=== PATIENT | female | born 1980 | race Caucasian/White ===

== ENCOUNTER 2025-01-30 07:31 | Emergency (ER) | payer OTHER, SELFPAY ==
[2025-01-30] VITALS (10 sets, daily range): BP systolic 124–163; BP diastolic 65–86; PULSE 71–94; RESP 15–18; TEMP 36.5–36.6; O2SAT 92–100
--- OUTSIDE RECORDS SUMMARY | 2025-01-30 07:53 | XMS_ITS | Clinical Summary ---
Author Organization [facility] Address [address] [place] [address] Care Team Providers Care Economic Geographer Name Role Phone Oswaldo Ayoub MD Primary Care Provider [phone] Source Comments [facility],non-owned Affiliates and Associated Physician Practices is amultiple site organization consisting of ambulatory clinics and hospital sitesin [place], [place], [place] and [place]. This disclosure is being madepursuant to the Care Everywhere program and may not contain all information available regarding this patient. Last updated 18.[facility] [facility] Allergies No known active allergies Medications * Be aware that medications may not be up to date on this document. Alwaysverify current medications with the patient. escitalopram (Lexapro) 20 MG tablet Take 1 (one) tablet by mouth once daily Active vitamin D3 (Cholecalcifero l) 25 MCG (1000 UNITS) tablet Take 1 (one) tablet by mouth once daily Active valACYclovir (Valtrex) 500 MG tablet Take by mouth once daily Active multivitamin daily tablet Take 1 (one) tablet by mouth daily with food Active Melatonin 10 MG Take 10 (ten) mg by mouth at bedtime Active Active Problems Problem Noted Date Diagnosed Date Hypokalemia 05/20/2024 Acute abdominal pain 05/20/2024 Hyperglycemia 05/20/2024 Nausea and vomiting, unspecified vomiting type 0 05/20/2024 Social History Tobacco Use Types Packs/Day Years Used Date Smoking Tobacco: Never Assessed Comments Unknown Sex and Gender Information Value Date Recorded Sex Assigned at Not on file Legal Sex Female 5:56 AM CDT Gender Identity Not on file Sexual Orientation Not on file Last Filed Vital Signs Vital Sign Reading Time Taken Comments Blood Pressure 133/58 05/21/2024 7:33 AM CDT Pulse 69 05/21/2024 11:42 AM CDT Temperature 36.6 C (97.9 F) 05/21/2024 7:33 AM CDT Respiratory Rate 18 05/21/2024 7:33 AM CDT Oxygen Saturation 99% 05/21/2024 7:33 AM CDT Inhaled Oxygen Concentration - - Weight 119.9 kg (264 lb 6.4 oz) 05/20/2024 1:26 PM CDT Height 180.3 cm (5' 11 ) 05/20/2024 1:26 PM CDT Body Mass Index 36.88 05/20/2024 1:26 PM CDT Plan of Treatment Health Maintenance Due Date Last Done Comments COLOGUARD (AGES 45-75) - COLON CA SCREENING [address] COLONOGRAPHY - COLON CA SCREENING 1979 FIT - COLON CA SCREENING 1979 FLEX SIG - COLON CA SCREENING 1979 LIPID TESTING 1979 PAP SMEAR 1979 HIV SCREENING 1994 HEPATITIS C SCREENING 07/12/1997 DTAP/TDAP/TD VACCINES (1 - Tdap) 1998 HEPATITIS B VACCINE (1 of 3 - 19+ 3-dose series) 1998 COVID-19 VACCINE (2 - season) 2024 06/26/2021 DEPRESSION SCREENING 09/26/2024 INFLUENZA VACCINE (Season Ended) 2025 MAMMOGRAM 09/30/2025 09/30/2023, 01/2024, 09/08/2022, Additional history exists ZOSTER VACCINE (1 of 2) 2029 COLONOSCOPY - COLON CA SCREENING 01/12/2033 01/12/2023 Colorectal Cancer Screening 01/12/2033 HIB VACCINE Aged Out No longer eligi ble based on patient's age to complete this topic HPV VACCINE Aged Out No longer eligi ble based on patient's age to complete this topic MENINGOCOCCAL (Group B) VACCINE SHARED DECISION-MAKING Aged Out No longer eligible based on patient's age to complete this topic MENINGOCOCCAL GROUPS A/C/Y/W VACCINE Aged Out No longer eligible based on patient's age to complete this topic PNEUMOCOCCAL VACCINE Aged Out No long er eligible based on patient's age to complete this topic Insurance Advance Directives * Full Code (Latest Code Status on File) Date Activated Date Inactivated Comments 05/20/2024 12:07 PM 05/21/2024 4:31 PM Care Teams Economic Geographer Relationship Specialty Start Date End Date Oswaldo Ayoub MD [address] [place] [address] PCP - General Family Medicine 05/21/24
--- OUTSIDE RECORDS SUMMARY | 2025-01-30 07:53 | XMS_ITS | Clinical Summary ---
Author Organization [facility], formerly [facility] Address [address] [place] [address] Care Team Providers Care Predatory Animal Hunter Name Role Phone Oswaldo Ayoub MD Primary Care Provider [phone] Allergies No known active allergies Medications melatonin 10 mg tablet Take 1 tablet (10 mg total) by mouth nightly Active multivitamin capsule Take 1 capsule by mouth nightly Active cholecalciferol (VITAMIN D-3) 1,000 unit capsule Take 1 capsule (1,000 Units total) by mouth nightly Active promethazine (PHENERGAN) 25 mg tablet Take 1 tablet (25 mg total) by mouth every 6 (six) hours as needed for nausea or vomiting 30 tablet 04/06/20 23 Active meloxicam (MOBIC) 15 mg tablet Take 1 tablet (15 mg total) by mouth daily as needed for pain Active NALTREXONE, BULK, MISC Take 4.5 mg by mouth daily 05/27/20 24 Active ferrous bis-glycinate chelate (IRON BISGLYCINATE CHELATE ORAL) Take 25 mg by mouth nightly Active aspirin 81 mg enteric coated tablet Take 1 tablet (81 mg total) by mouth 2 (two) times a day Active ALPRAZolam (XANAX) 0.5 mg tablet Take 1 tablet (0.5 mg total) by mouth daily as needed for anxiety Active famotidine (PEPCID) 10 mg tablet Take 1 tablet (10 mg total) by mouth 2 (two) times a day 60 tablet 10/25/19 25 026 Active Additional Information Patient taking differently:10 mg oralDaily, Reported on 01/15/2025 metoclopramide (REGLAN) 10 mg tablet Take 1 tablet (10 mg total) by mouth every 6 (six) hours as needed (nausea) 15 tablet 11/12/19 25 Active valACYclovir (VALTREX) 500 mg tablet TAKE 1 TABLET(500 MG) BY MOUTH DAILY 100 tablet 11/30/19 25 Active escitalopram (LEXAPRO) 20 mg tablet Take 1 tablet (20 mg total) by mouth nightly 90 tablet 3 01/01/20 25 Active ARIPiprazole (ABILIFY) 2 mg tabletIndication s:AARON (generalized anxiety disorder) Take 1 tablet (2 mg total) by mouth daily 30 tablet 01/16/20 25 Active ubrogepant (Ubrelvy) 100 mg tabletIndication s:Migraine without aura and without status migrainosus, not intractable Take 1 tablet (100 mg total) by mouth once as needed for migraine May repeat dose once in 2 hours if no relief. Do not exceed 2 doses in 24 hours. 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 Xanax 0.5 mg taken daily, though initially prescribed as needed. Discussed potential switch to Zoloft, but she is hesitant as has previously failed on Prozac. Considered adding Abilify to enhance treatment efficacy. Discussed potential side effects of Abilify. Advised to monitor for worsening symptoms and seek emergency care if necessary. Informed about possible opposite reactions to medications. - Prescribe Abilify 2mg daily as an adjunct to Lexapro. - Follow up in one month to assess efficacy of Abilify, virtual appointment acceptable. Assessment & Plan (06/01/2023 2:11 PM CDT): Continue Lexapro 20mg daily May need more time on the higher dose before determining if truly effective Assessment & Plan (05/09/2023 10:36 AM CDT): Worsening Increase Lexapro to 20mg Consider adding wellbutrin if still not improving. Hypokalemia 03/31/2023 Overview (05/09/2023): Last Assessment & Plan: Admission serum K 3.3 in setting of poor PO intake. 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 -repeat colonoscopy December 2027 Abnormal finding on GI tract imaging 11/18/2022 Assessment & Plan (02/24/2023 9:51 AM CDT): CT scan of the abdomen and pelvis with contrast showed new circumferential thickening of the distal esophagus. EGD December 2022 with LA grade a esophagitis and irregular Z-line, pathology unremarkable. Assessment & Plan (11/18/2022 10:23 AM COMPLEX CASE MANAGER): CT scan of the abdomen and pelvis with contrast showed new circumferential thickening of the distal esophagus, decreased descending and sigmoid colon wall thickening and inflammatory stranding with mild persistent segment wall thickening most consistent with improving diverticulitis/colitis, no perforation or abscess, unchanged small hiatal hernia. -schedule EGD -The risks (risks of bleeding, infection, perforation requiring surgery, missed polyps/cancer, dental injury, aspiration pneumonia, anesthesia complications such as drug reaction and cardiopulmonary complications including rare chance of ), benefits, and alternatives of the planned procedure were explained to the patient who understands and consents to having procedure done. Gastroesophageal reflux disease without esophagi tis 11/18/2022 Assessment & Plan (02/24/2023 10:02 AM CDT): GERD for the past year, improved with dietary changes. EGD December 2022 with LA grade A esophagitis. Patient completed 4 weeks of PPI and then stopped has symptoms resolved. -Pepcid OTC p.r.n. -RECOMMENDATIONS given include: anti-reflux maneuvers, Avoid acidic foods like oranges and tomatoes., avoidance of spicy foods, avoid eating 3-4 hours before bed, elevation of the head of the bed, and weight loss Assessment & Plan (11/18/2022 10:50 AM COMPLEX CASE MANAGER): GERD for the past year, seems to be getting progressively worse. -start omeprazole 20 mg p.o. daily -RECOMMENDATIONS given include: anti-reflux maneuvers, Avoid acidic foods like oranges and tomatoes., avoidance of spicy foods, avoid eating 3-4 hours before bed, elevation of the head of the bed, and weight loss Migraine without aura and wi thout status migrainosus, not intractable 05/27/2022 Assessment & Plan (01/15/2025 12:11 PM CDT): Migraine Intermittent migraines managed with Nurtec, now not covered by insurance. Uses approximately 8 tablets every 2-3 months. Discussed alternative medications. Ubrelvy chosen as similar to Nurtec. - Prescribe Ubrelvy as needed for migraines. - Advise to take one Ubrelvy at onset of migraine, may repeat in 1-2 hours if needed, not to exceed two doses in 24 hours. - If Ubrelvy is ineffective, consider ER visit for migraine cocktail. Assessment & Plan (06/01/2023 2:11 PM CDT): Stable, no changes. Continue current regimen with Nurtec PRN; Excedrin PRN Assessment & Plan (08/23/2022 1:43 PM COMPLEX CASE MANAGER): Stable, no changes. Continue current regimen with Nurtec AARON (generalized anxiety disorder) 07/03/2021 Assessment & Plan (01/15/2025 12:10 PM CDT): Depression and anxiety Chronic depression and anxiety managed with Lexapro 20 mg daily. Xanax 0.5 mg taken daily, though initially prescribed as needed. Discussed potential switch to Zoloft, but she is hesitant as has previously failed on Prozac. Considered adding Abilify to enhance treatment efficacy. Discussed potential side effects of Abilify. Advised to monitor for worsening symptoms and seek emergency care if necessary. Informed about possible opposite reactions to medications. - Prescribe Abilify 2mg daily as an adjunct to Lexapro. - Follow up in one month to assess efficacy of Abilify, virtual appointment acceptable. Assessment & Plan (08/23/2022 1:42 PM COMPLEX CASE MANAGER): Seeing improvement with xanax Increase dose to 0.5mg - may use TID PRN, usually does not need more than 1-2 times per day and not every day Assessment & Plan (07/14/2022 9:42 AM CDT): Still worsening Tried buspar - did not work, more irritable Start low dose xanax PRN Annual physical exam 05/27/2021 Assessment & Plan (06/01/2023 2:43 PM CDT): Completed BP at goal Immunizations reviewed Mammo UTD Allergic urticaria 03/21/2019 Insomnia 11/22/2018 Obesity (BMI 30-39.9) 06/08/2017 Cervical intraepithelial neoplasia grade 2 03/11 Resolved Problems Problem Noted Date Diagnosed Date Resolved Date Abdominal pain 03/30/2023 12/14/2023 Overview (05/09/2023): Last Assessment & Plan: Acute onset with associated nausea, vomiting & diarrhea similar to prior episodes of diverticulitis (Oct, February). CT A/P w/o acute diverticulitis or GI findings but found to have pneumonia. Negative UA and LFTs. Recent EGD/colonoscopy with EGD and colonoscopy December 2022 with LA grade A esophagitis and irregular Z-line, gastritis, left-sided diverticulosis, diminutive sigmoid colon polyp, and internal hemorrhoids. Pathology with biopsies negative for H pylori and Barretts, colon polyp was noted to be a schwann cell hamartoma. No further diarrhea episodes so C diff testing not obtained. Not tolerating clear liquids and nausea and vomiting this am. KUB w/o obstruction or any acute findings. Negative lipase. Suspect cannabis hyperemesis syndrome and patient reports heavy cannabis use almost daily. No prior diagnosis of such. PLAN: -Trial hot shower, heating pain and capsaican cream to abd -Anti-emetics as needed -Pain control as needed -MIVFs until tolerating consistent PO - IV PPI given prior esophagitis/gastritis XR Abdomen 1 View Portable AP KUB No acute radiographic abnormalities in the abdomen. CT Abdomen Pelvis with Contrast 1. Airspace disease and septal thickening in the right lower lung, correlation for pulmonary edema recommended. 2. Diverticulosis of the colon. No CT evidence for diverticulitis. 3. Right adnexal cyst. Aspiration pneumonia of right lower lobe 03/30/2023 12/14/2023 Overview (05/09/2023): Last Assessment & Plan: Occurred in setting of violent vomiting. Currently requiring 3 L per NC. WBC 18K. CXR per below. Plan: -Admit as Inpatient to Hospitalist service -Antibiotic treatment with IV Unasyn -Wean O2 as able -Plan to discharge to lower altitude -F/u on Strep/Legionella urine Ag as pending CT Abdomen Pelvis with Contrast 1. Airspace disease and septal thickening in the right lower lung, correlation for pulmonary edema recommended. 2. Diverticulosis of the colon. No CT evidence for diverticulitis. 3. Right adnexal cyst. XR CXR 2V PA & Lat Hazy infiltrate in the right lower lobe suggest pneumonia. Clinical correlation recommended. Diverticulitis 11/18/2022 12/14/2023 Assessment & Plan (04/06/2023 10:17 AM CDT): She was released from GI. Discussed dietary recommendations, increased fiber. Will give promethazine and reglan to have on hand along with augmentin for flare Assessment & Plan (02/24/2023 9:50 AM CDT): Patient noted to have acute diverticulitis and was admitted to the hospital November 13, 2022. She was discharged on Augmentin and her pain resolved. Colonoscopy December 2022 left-sided diverticulosis. -high-fiber diet -avoid seeds, nuts, and popcorn Assessment & Plan (11/18/2022 10:52 AM COMPLEX CASE MANAGER): Patient started having abdominal pain, diarrhea, nausea, and vomiting on November 13, 2022. She presented to the ER on November 14, [address] scan was consistent with left-sided wall thickening and pericolonic fat stranding most compatible with acute colitis versus acute diverticulitis. She was discharged on Augmentin and Zofran. She re-presented to the ER November 17, 2022 for abdominal pain, nausea, and vomiting. Labs show low-sodium, low-potassium, and elevated white blood cell count. Her potassium was replaced. She was discharged on Phenergan suppositories and Reglan. Denies any further abdominal pain, nausea, vomiting, or diarrhea. -complete course of Augmentin as prescribed -patient is getting relief with Reglan, advised her not to take this more than a week given the potential side effects of long-term use including tardive dyskinesia which may be reversible -advised patient to go back to the ER if she is any severe recurrent abdominal pain -schedule colonoscopy in 6-8 weeks after resolution of diverticulitis -high-fiber diet Anxiety and depression 05/27/202107/14 Chronic headache 03/11/2017 05/27/2022 Encounters Date Type Department Care Team Description 01/18/2025 Telephone [facility] Family Medicine at [address] [place] [address] Oswaldo Ayoub MD 01/15/2025 11:30 AM CDT Office Visit [facility] Family Medicine at [address] [place] [address] Joy Villalpando NP AARON (generalized anxiety disorder) (Primary Dx); Migraine without aura and without status migrainosus, not intractable; Moderate episode of recurrent major depressive disorder (HCC) 01/02/2025 Results Follow-Up [facility] Family Medicine at [address] [place] [address] Oswaldo Ayoub MD 11/12/2024 2:57 AM COMPLEX CASE MANAGER - 11/12/2024 9:17 AM [facility] Emergency [facility] Emergency Department [address] [place] [address] Influenza A (Primary Dx); Mast cell activation syndrome; Vomiting and diarrhea; Anxiety Discharge Disposition: Discharge to home or self care from Last 3 Months Immunizations Immunization Administration Dates Next Due Influenza, Unspecified 06/26/2024(Deferr ed: Patient Refused),06/26/2023(Deferred: Patient Refused),07/14/2022(Deferred: Patient Refused),06/26/2021(Deferred: Patient Refused),06/26/2021(Deferred: Patient Refused),06/26/2020(Deferred: Patient Refused),06/26/2019(Deferred: Patient Refused) Tdap 06/28/2017 Surgical History Surgery Date Site/Laterality Comments CERVIX SURGERY 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) - (Added by TW Conv) Medical History Medical History Date Comments Headache GERD (gastroesophageal reflux disease) 2020 Anxiety 2018 Migraines Childhood Depression 2018 Mast cell activation syndrome 2024 Family History Medical History Relation Name Comments Cancer Father Denny Guerra Hypertension Father Denny Guerra Heart disease Maternal Grandmother Tg Kerr Arthritis Mother Daysi Guerra Hearing loss Mother Daysi Guerra Hyperlipidemia Mother Daysi Meek Hypertension Mother Daysi Guerra Clotting disorder Paternal Grandfather Arpan Guerra Diabetes Paternal Grandfather Arpan Guerra Alzheimer's disease Paternal Grandmother Nichole Guerra Relation Name Status Comments Brother 1 Alive Brother 2 Alive Father Denny Guerra Alive Maternal Grandmother Tg [place] Mother Daysi Guerra Alive Paternal Grandfather Arpan Guerra Alive Paternal Grandmother Nichole Guerra Alive Social History Tobacco Use Types Packs/Day Years Used Date Smoking Tobacco: Former Cigarettes 0.3 15 0 04/08/1999 - 04/08/2014 Smokeless Tobacco: Never Tobacco Cessation:Counseling Given: Not Answered Alcohol Use Standard Drinks/Week Comments Yes 0 (1 standard drink = 0.6 oz pur e alcohol) rarely AUDIT-C Answer Date Recorded Q1: How often do you have a drink containing alc ohol? Monthly or less 01/15/2025 Q2: How many drinks containi ng alcohol do you have on a typical day when you are drinking? 1 or 2 01/15/2025 Q3: How often do you have si x or more drinks on one occasion? Never 01/15/2025 PHQ-2 Answer Date Recorded PHQ-2 Total Score (If total score is 3 or more points, staff should administer the PHQ-9) 2 04/09/2024 Personal Safety Answer Date Recorded Have you ever been in or are you currently in a harmful physical or emotional relationship or is someone making you feel afraid or unsafe? Denies 11/12/2024 Comments No Sex and Gender Information Value Date Recorded Sex Assigned at Not on file Legal Sex Female 12:16 PM CDT Gender Identity Female 01/17/2018 11:19 AM CDT Sexual Orientation Straight 05/18/2021 12 :32 PM CDT Obstetrics History Para Term AB IAB SAB Ectopic Multiple Livin g Live Births 2 0 0 1 Date Outcome GA Total Labor Labor/2nd/3rd Weight Sex Type Anes PTL Roberta A1 A5 Name Clin AB Last Filed Vital Signs Vital Sign Reading Time Taken Comments Blood Pressure 140/84 01/15/2025 11:23 AM CDT Pulse 68 01/15/2025 11:23 AM CDT Temperature 36.5 C (97.7 F) 01/15/2025 11:23 AM CDT Respiratory Rate 18 01/15/2025 11:2 3 AM CDT Oxygen Saturation 98% 01/15/2025 11: 23 AM CDT Inhaled Oxygen Concentration - - Weight 116.8 kg (257 lb 6.4 oz) 025 11:23 AM CDT Height 180.3 cm (5' 11 ) 01/15/2025 11: 23 AM CDT Body Mass Index 35.9 01/15/2025 11:23 AM CDT Plan of Treatment Health Maintenance Due Date Last Done Comments Cervical Cancer Screening 1979 Hepatitis C Screening 1979 Hepatitis B Screening 1997 Covid-19 Vaccine ( season) 2024 06/17/2021, 05/27/2021 Depression Screening 04/09/2025 04/09/2024, 04/06/2023, 08/23/2022, Additional history exists Influenza Vaccine (Season Ended) 2025 Regular Well Visit/Exam 18-64 06/14/2025 06/14/2024, 06/01/2023, 05/27/2022, Additional history exists Breast Cancer Screening-Mammogram 11/15/2025 11/15/2024, 11/15/2024, 09/30/2023, Additional history exists DTaP/Tdap/Td Vaccine (2 - Td or Tdap) 06/28/2027 06/28/2017 Colon Cancer Screening-Colonoscopy 01/13/2028 01/12/2023 HPV Vaccines Aged Out No longer eligi ble based on patient's age to complete this topic Pneumococcal vaccine <65 Aged Out No longer eligible based on patient's age to complete this topic Procedures Procedure Name Priority Date/Time Associated Diagnosis Comments SCAN - LABS 12/27/2024 URINALYSIS, MICROSCOPIC ONLY STAT 11/12/2024 8:42 AM COMPLEX CASE MANAGER URINALYSIS AND REFLEX TO MICROSCOPIC AND CULTURE STAT 11/12/2024 8:42 AM COMPLEX CASE MANAGER SEPSIS LACTATE WITH REFLEX Timed 11/12/2024 8:25 AM COMPLEX CASE MANAGER EGFR STAT 11/12/2024 5:19 AM COMPLEX CASE MANAGER DIFFERENTIAL AUTO STAT 11/12/2024 5:1 9 AM COMPLEX CASE MANAGER BASIC METABOLIC PANEL STAT 11/12/2024 5:19 AM COMPLEX CASE MANAGER CBC WITH AUTO DIFFERENTIAL STAT 11/12/2024 5:19 AM COMPLEX CASE MANAGER SEPSIS LACTATE WITH REFLEX Timed 11/12/2024 5:19 AM COMPLEX CASE MANAGER XR CHEST 1 VIEW ED 11/12/2024 3:53 AM COMPLEX CASE MANAGER TRYPTASE STAT 11/12/2024 3:41 AM COMPLEX CASE MANAGER RESPIRATORY PATHOGEN PANEL STAT 11/12/2024 3:10 AM COMPLEX CASE MANAGER EGFR STAT 11/12/2024 3:08 AM COMPLEX CASE MANAGER DIFFERENTIAL AUTO STAT 11/12/2024 3:0 8 AM COMPLEX CASE MANAGER SEPSIS LACTATE WITH REFLEX Routine 11/12/2024 3:08 AM COMPLEX CASE MANAGER COMPREHENSIVE METABOLIC PANEL STAT 11/12/2024 3:08 AM COMPLEX CASE MANAGER CBC WITH AUTO DIFFERENTIAL STAT 11/12/2024 3:08 AM COMPLEX CASE MANAGER ECG 12-LEAD STAT 11/12/2024 3:03 AM COMPLEX CASE MANAGER SCREENING MAMMOGRAM BILATERAL W TAYO Schedule Routine, Read Routine (OP Routine) 09/30/2023 2:22 PM COMPLEX CASE MANAGER Screening mammogram, encounter for COLONOSCOPY 01/12/2023 11:44 AM CDT from Last 3 Months or Most Recently Relevant to Health Maintenance Results * SCAN - LABS (12/27/2024) us Oswaldo Ayoub MD Final Result * (ABNORMAL) Urinalysis reflex to microscopic and culture Urine (11/12/2024 8:42 AM COMPLEX CASE MANAGER) Color, ur Yellow Yellow Clarity, ur Clear Clear [facility] Specific gravity, ur 1.022 1.003 - 1.030 [facility] pH, urine 7.0 [facility] Comment: Interpretive Data U rine pH is affected by diet, medications, systemic acid-base disturbances, and renal tubular function. pH may affect urinary stone formation. For example, urine pH below 6.0 may help reduce the tendency for calcium phosphate stones and pH greater than 6.0 may reduce the tendency for uric acid stone formation. Source: [facility] Current Interpretive Data was last revised on 2017 Protein, ur ql Trace Negative [facility] Glucose, ur ql Negative Negative [facility] Ketones, ur 1+(A) Negative [facility] Bilirubin, ur Negative Negative [facility] Blood, ur 1+(A) Negative [facility] Urobilinogen, ur <2.0 <2.0 mg/dL [facility] Nitrite, ur Negative Negative [facility] Leukocyte esterase, ur Negative Negative [facility] UA reflex comment Reflex to microscopic UA will be performed. [facility] Urine 11/12/2024 8:42 AM COMPLEX CASE MANAGER 11/12/2024 8:42 AM COMPLEX CASE MANAGER Narrative [facility] - 11/12/2024 8:55 AM COMPLEX CASE MANAGER If patient unable to urinate, straight cath Aung Barrios MD LAB MICROBIOLOGY - GENERAL ORDERABLES Final Result Performing Organization Address [facility] de Phone Number [facility] [address] Department [employer] [place] [address] * (ABNORMAL) Urinalysis, microscopic only (11/12/2024 8:42 AM COMPLEX CASE MANAGER) WBC, ur 0-5 0 - 5 /HPF RBC, ur 11-20(A) 0 - 2 /HPF [facility] Epithelial cells, squamous, ur 1-5 0 - 5 /HPF [facility] Bacteria, ur Trace(A) [facility] Mucous, ur Present(A) [facility] Hyaline casts, ur 1-5 0 - 10 /LPF [facility] Culture Reflex Comment Reflex conditions for urine culture (WBC >10) not met. [facility] Urine 11/12/2024 8:42 AM COMPLEX CASE MANAGER 11/12/2024 8:48 AM COMPLEX CASE MANAGER Aung Barrios MD LAB URINE ORDERA BLES Final Result Performing Organization Address [facility]/ZIP Co de Phone Number [facility] [address] [place] [employer] [place] [address] * (ABNORMAL) Sepsis Lactate w/ Reflex (11/12/2024 8:25 AM COMPLEX CASE MANAGER) [facility] Sepsis Lactate 2.6(H) 0.7 - 2.0 mmol/L Blood 11/12/2024 8:25 AM COMPLEX CASE MANAGER 11/12/2024 8:33 AM COMPLEX CASE MANAGER Aung Barrios MD LAB BLOOD ORDERA BLES Final Result Performing Organization Address [facility] Co de Phone Number [facility] [address] [place] [address] * (ABNORMAL) Sepsis Lactate w/ Reflex (11/12/2024 5:19 AM COMPLEX CASE MANAGER) [facility] Sepsis Lactate 4.6(C) 0.7 - 2.0 mmol/L Comment:Critical result call ed to and read back by JOY MorenoRN) on 11/12/2024 05:29:48 COMPLEX CASE MANAGER to [id number]. Blood 11/12/2024 5:19 AM COMPLEX CASE MANAGER 11/12/2024 5:25 AM COMPLEX CASE MANAGER Aung Barrios MD LAB BLOOD ORDERA BLES Final Result Performing Organization Address [facility] Co de Phone Number [facility] [address] Department [place] [address] * eGFR (11/12/2024 5:19 AM COMPLEX CASE MANAGER) [facility] eGFR >90 >=60 mL/min/1. 73 m2 Comment: Interpretive Data Reference Interval Normal >/= 90 mL/min/1.73m2 Mildly decreased* 60 - 89 mL/min/1.73m2 Mildly to moderately decreased 45 - 59 mL/min/1.73m2 Moderately to severely decreased 30 - 44 mL/min/1.73m2 Severely decreased 15 - 29 mL/min/1.73m2 Kidney Failure < 15 mL/min/1.73m2 *Relative to young adult level Estimated glomerular filtration rate is determined by the 2020 CKD-EPI equation recommended by the National [employer] (A Unifying Approach to GFR Estimation: Recommendations of the NKF-ASK Task Force on Reassessing the Inclusion of Race in Diagnosing Kidney Disease, JASN 2020). The CKD-EPI equation should not be used for patients with unstable renal function and has not been validated in children and those over 70. Current interpretive data was last reviewed 2021. Blood 11/12/2024 5:19 AM COMPLEX CASE MANAGER 11/12/2024 5:27 AM COMPLEX CASE MANAGER us Asia Myrick NP LAB BLOOD ORDERABLE S Final Result [facility] [address] [place] [address] * (ABNORMAL) Differential, auto (11/12/2024 5:19 AM COMPLEX CASE MANAGER) Neutrophil abs 12.3(H) 1.5 - 6.5 K/cumm Imm gran abs 0.1 0.0 - 0.1 K/cumm [facility] Lymphocyte abs 0.5(L) 0.8 - 3.3 K/cumm [facility] Monocyte abs 0.7 0.2 - 0.8 K/cumm [facility] Eosinophil abs 0.0 0.0 - 0.5 K/cumm [facility] Basophil abs 0.0 0.0 - 0.1 K/cumm [facility] Neutrophil pct 90.1 % [facility] Comment: Interpretive Data Percent cell count reference ranges are not reported, since discordance with absolute values may lead to misinterpretation of CBC data. Current Interpretive Data was last revised on 2018. Imm gran pct 1.0 % [facility] Comment: Interpretive Data Percent cell count reference ranges are not reported, since discordance with absolute values may lead to misinterpretation of CBC data. Current Interpretive Data was last revised on 2018. Lymphocyte pct 3.6 % [facility] Comment: Interpretive Data Percent cell count reference ranges are not reported, since discordance with absolute values may lead to misinterpretation of CBC data. Current Interpretive Data was last revised on 2018. Monocyte pct 4.9 % [facility] Comment: Interpretive Data Percent cell count reference ranges are not reported, since discordance with absolute values may lead to misinterpretation of CBC data. Current Interpretive Data was last revised on 2018. Eosinophil pct 0.3 % [facility] Comment: Interpretive Data Percent cell count reference ranges are not reported, since discordance with absolute values may lead to misinterpretation of CBC data. Current Interpretive Data was last revised on 2018. Basophil pct 0.1 % [facility] Comment: Interpretive Data Percent cell count reference ranges are not reported, since discordance with absolute values may lead to misinterpretation of CBC data. Current Interpretive Data was last revised on 2018. Blood 11/12/2024 5:19 AM COMPLEX CASE MANAGER 11/12/2024 5:27 AM COMPLEX CASE MANAGER us Asia Myrick NP LAB BLOOD ORDERABLE S Final Result [facility] [address] [place] [address] * (ABNORMAL) CBC with auto differential (11/12/2024 5:19 AM COMPLEX CASE MANAGER) WBC 13.6(H) 3.8 - 9.9 K/cumm Hgb 13.6 11.9 - 15.5 g/dL [facility] Hct 39.9 35.6 - 45.5 % [facility] Plt 275 150 - 400 K/cumm [facility] MPV 9.9 9.1 - 12.3 fL [facility] RBC 4.30 3.90 - 5.20 M/cumm [facility] MCV 92.8 81.3 - 96.4 fL [facility] MCH 31.6 27.1 - 33.3 pg [facility] MCHC 34.1 32.3 - 35.7 g/dL [facility] RDW CV 11.8 11.1 - 14.9 % [facility] RDW SD 39.8 35.7 - 48.1 fL [facility] NRBC abs 0.00 0.00 - 0.01 K/cumm [facility] Blood 11/12/2024 5:19 AM COMPLEX CASE MANAGER 11/12/2024 5:27 AM COMPLEX CASE MANAGER Asia Myrick NP LAB BLOOD ORDERABLE S Final Result Performing Organization Address City/[facility]/ZIP Co de Phone Number [facility] [address] [place] [address] * (ABNORMAL) Basic metabolic panel (11/12/2024 5:19 AM COMPLEX CASE MANAGER) [facility] Sodium 139 135 - 145 mmol/L Potassium, pl 3.7 3.3 - 4.9 mmol/L [facility] Chloride 105 97 - 110 mmol/L [facility] CO2 17(L) 22 - 32 mmol/L [facility] Anion gap 17(H) 2 - 15 mmol/L [facility] BUN 16 6 - 25 mg/dL [facility] Creatinine 0.80 0.60 - 1.10 mg/dL [facility] Glucose 139 70 - 199 mg/dL [facility] Comment: Interpretive Data Fasting glucose >/= 126 mg/dl is diagnostic for diabetes. Fasting is defined as no caloric intake for at least 8 hours. Fasting glucose between 100 mg/dl to 125 mg/dl is diagnostic of prediabetes. In a patient with classic symptoms of hyperglycemia or hyperglycemic crisis, a random glucose >/= 200 mg/dl is diagnostic for diabetes. In the absence of unequivocal hyperglycemia, results should be confirmed by repeat testing. The classification and Diagnosis of Diabetes Diabetes Care 2021; 46: S19-S40. Current interpretive data was last revised 2022. Calcium 8.5 8.5 - 10.3 mg/dL [facility] Blood 11/12/2024 5:19 AM COMPLEX CASE MANAGER 11/12/2024 5:27 AM COMPLEX CASE MANAGER Asia Myrick NP LAB BLOOD ORDERABLE S Final Result Performing Organization Address City/[facility]/ZIP Co de Phone Number [facility] [address] [place] [address] * XR Chest 1 Vw Portable (if patient condition/safety warrant portable) (11/12/2024 3:53 AM COMPLEX CASE MANAGER) Anatomical Region Laterality Modality Body, Chest N/A Computed Radiogr aphy 11/12/2024 8:21 AM COMPLEX CASE MANAGER Impressions 11/12/2024 8:33 AM COMPLEX CASE MANAGER The current study is compared with the prior radiograph dated 05/04/2023. There is no focal consolidation, pleural effusion, or pneumothorax. The cardiomediastinal silhouette is normal. Dictated by: Chu Spencer MD The radiology attending physician has personally reviewed this study, and had reviewed and/or edited this written report and agrees with it. Electronically signed by: Alexa Toscano M.D. Narrative 11/12/2024 8:33 AM COMPLEX CASE MANAGER EXAMINATION: 1 view chest radiograph Procedure Note Alexa Toscano MD - 11/12/2024 EXAMINATION: 1 view chest radiograph IMPRESSION: The current study is compared with the prior radiograph dated 05/04/2023. There is no focal consolidation, pleural effusion, or pneumothorax. The cardiomediastinal silhouette is normal. Dictated by: Chu Spencer MD The radiology attending physician has personally reviewed this study, and had reviewed and/or edited this written report and agrees with it. Electronically signed by: Alexa Toscano M.D. Aung Barrios MD IMG XR PROCEDURE S Final Result * Tryptase (11/12/2024 3:41 AM COMPLEX CASE MANAGER) Tryptase Level 5.9 <11.5 ng/mL [facility] ref [facility] Comment: Test Performed by: [facility] [address] [place] [id number] Remote Broadcast Technician: Breanne Bowers Ph.D.; CLIA# [id number] Blood 11/12/2024 3:41 AM COMPLEX CASE MANAGER 11/12/2024 3:47 AM COMPLEX CASE MANAGER Asia Rodriguezbenita Begume SURFACE GRINDER TENDER LAB BLOOD ORDERABLE S Final Result [facility] [address] [place] [address] [place] [facility] * (ABNORMAL) Respiratory pathogen panel Nasopharyngeal (11/12/2024 3:10 AM COMPLEX CASE MANAGER) Pathologist [facility] Influenza A/2009 RNA Detected(A) Not Detected [facility] Influenza B RNA Not Detected Not Detected [facility] RSV RNA Not Detected Not Detected [facility] COVID-19 RNA Not Detected Not Detected [facility] Coronavirus 229E RNA Not Detected Not Detected [facility] Coronavirus HKU1 RNA Not Detected Not Detected [facility] Coronavirus NL63 RNA Not Detected Not Detected [facility] Coronavirus OC43 RNA Not Detected Not Detected [facility] Adenovirus DNA Not Detected Not Detected [facility] Metapneumovirus RNA Not Detected Not Detected [facility] Rhinovirus/Enterov irus RNA Not Detected Not Detected [facility] Parainfluenza 1 RNA Not Detected Not Detected [facility] Parainfluenza 2 RNA Not Detected Not Detected [facility] Parainfluenza 3 RNA Not Detected Not Detected [facility] Parainfluenza 4 RNA Not Detected Not Detected [facility] B. pertussis DNA Not Detected Not Detected [facility] B. parapertussis DNA Not Detected Not Detected [facility] C. pneumoniae DNA Not Detected Not Detected [facility] M. pneumoniae DNA Not Detected Not Detected [facility] Comment: Interpretive Data The [employer] FilmArray Respiratory Panel (RP2.1) assay is a multiplexed real-time PCR based nucleic acid test capable of simultaneous qualitative detection and identification of multiple respiratory viral and bacterial nucleic acids, including SARS Coronavirus 2 (the causative agent of COVID-19). The following bacteria, viruses and virus subtypes can be identified using the FilmArray RP2.1 assay: Bordetella pertussis, Bordetella parapertussis, Chlamydia pneumoniae, Mycoplasma pneumoniae, Adenovirus, SARS Coronavirus 2, seasonal coronaviruses (Coronavirus HKU1, Coronavirus NL63, Coronavirus 229E, and Coronavirus OC43), Influenza A, Influenza A subtype H1, Influenza A subtype H3, Influenza A subtype 2009 H1, Influenza B, Metapneumovirus, Parainfluenza 1, Parainfluenza 2, Parainfluenza 3, Parainfluenza 4, RSV, Rhinovirus/Enterovirus. Due to the genetic similarity between human Rhinovirus and Enterovirus, the FilmArray RP2.1 assay cannot reliably differentiate them. Coronavirus OC43 may cross-react with some isolates of Coronavirus HKU1. A dual positive result may be due to cross-reactivity or may indicate a co- infection. The detection and identification of specific viral and bacterial nucleic acids from individuals exhibiting signs and symptoms of a respiratory infection aids in the diagnosis of respiratory infection if used in conjunction with other clinical and epidemiological information. The results of this test should not be used as the sole basis for diagnosis, treatment, or other management decisions. Negative results in the setting of a respiratory illness may be due to infection with pathogens that are not detected by this test. Positive results do not rule out infection/co-infection with other organisms. The agent(s) detected by the FilmArray RP2.1 may not be the definite cause of disease. Additional testing (lab, imaging, etc.) may be necessary when evaluating a patient with possible respiratory tract infection. The FilmArray RP2.1 assay has FDA clearance for testing of SURFACE GRINDER TENDER swabs. The performance characteristics of this assay have been determined by [facility]. Current interpretive data was last revised on 2021. Nasopharyngeal 11/12/2024 3: 10 AM COMPLEX CASE MANAGER 11/12/2024 3:21 AM COMPLEX CASE MANAGER Narrative [facility] - 11/12/2024 4:13 AM COMPLEX CASE MANAGER Is the Patient experiencing symptoms consistent with COVID?->Yes Surveillance testing for transplant patient?->No us Asia Myrick SURFACE GRINDER TENDER LAB MICROBIOLOGY - GENERAL ORDERABLES Final Result [facility] [address] Department [place] [address] [facility] * (ABNORMAL) Sepsis Lactate w/ Reflex (11/12/2024 3:08 AM COMPLEX CASE MANAGER) [facility] Sepsis Lactate 6.6(C) 0.7 - 2.0 mmol/L Comment:Critical result call ed to and read back by VINNIE YANES (RN) on 11/12/2024 03:40:34 COMPLEX CASE MANAGER to [id number]. Blood 11/12/2024 3:08 AM COMPLEX CASE MANAGER 11/12/2024 3:22 AM COMPLEX CASE MANAGER Aung Barrios MD LAB BLOOD ORDERA BLES Final Result Performing Organization Address City/[facility]/ZIP Co de Phone Number [facility] [address] [place] [address] * eGFR (11/12/2024 3:08 AM COMPLEX CASE MANAGER) [facility] eGFR 83 >=60 mL/min/1. 73 m2 Comment: Interpretive Data Reference Interval Normal >/= 90 mL/min/1.73m2 Mildly decreased* 60 - 89 mL/min/1.73m2 Mildly to moderately decreased 45 - 59 mL/min/1.73m2 Moderately to severely decreased 30 - 44 mL/min/1.73m2 Severely decreased 15 - 29 mL/min/1.73m2 Kidney Failure < 15 mL/min/1.73m2 *Relative to young adult level Estimated glomerular filtration rate is determined by the 2020 CKD-EPI equation recommended by the National Kidney Foundation (A Unifying Approach to GFR Estimation: Recommendations of the NKF-ASK Task Force on Reassessing the Inclusion of Race in Diagnosing Kidney Disease, JASN 2020). The CKD-EPI equation should not be used for patients with unstable renal function and has not been validated in children and those over 70. Current interpretive data was last reviewed 2021. Blood 11/12/2024 3:08 AM COMPLEX CASE MANAGER 11/12/2024 3:44 AM COMPLEX CASE MANAGER Aung Barrios MD LAB BLOOD ORDERA BLES Final Result Performing Organization Address City/[facility]/ZIP Co de Phone Number [facility] [address] Department [place] [address] * (ABNORMAL) Differential, auto (11/12/2024 3:08 AM COMPLEX CASE MANAGER) Neutrophil abs 17.1(H) 1.5 - 6.5 K/cumm Imm gran abs 0.2(H) 0.0 - 0.1 K/cumm [facility] Lymphocyte abs 0.5(L) 0.8 - 3.3 K/cumm [facility] Monocyte abs 0.8 0.2 - 0.8 K/cumm [facility] Eosinophil abs 0.1 0.0 - 0.5 K/cumm [facility] Basophil abs 0.0 0.0 - 0.1 K/cumm [facility] Neutrophil pct 90.9 % [facility] Comment: Interpretive Data Percent cell count reference ranges are not reported, since discordance with absolute values may lead to misinterpretation of CBC data. Current Interpretive Data was last revised on 2018. Imm gran pct 1.0 % [facility] Comment: Interpretive Data Percent cell count reference ranges are not reported, since discordance with absolute values may lead to misinterpretation of CBC data. Current Interpretive Data was last revised on 2018. Lymphocyte pct 2.9 % [facility] Comment: Interpretive Data Percent cell count reference ranges are not reported, since discordance with absolute values may lead to misinterpretation of CBC data. Current Interpretive Data was last revised on 2018. Monocyte pct 4.4 % [facility] Comment: Interpretive Data Percent cell count reference ranges are not reported, since discordance with absolute values may lead to misinterpretation of CBC data. Current Interpretive Data was last revised on 2018. Eosinophil pct 0.6 % [facility] Comment: Interpretive Data Percent cell count reference ranges are not reported, since discordance with absolute values may lead to misinterpretation of CBC data. Current Interpretive Data was last revised on 2018. Basophil pct 0.2 % [facility] Comment: Interpretive Data Percent cell count reference ranges are not reported, since discordance with absolute values may lead to misinterpretation of CBC data. Current Interpretive Data was last revised on 2018. Blood 11/12/2024 3:08 AM COMPLEX CASE MANAGER 11/12/2024 3:44 AM COMPLEX CASE MANAGER Aung Barrios MD LAB BLOOD ORDERA BLES Final Result [facility] [address] [place] [place] [address] * (ABNORMAL) CBC with auto differential (11/12/2024 3:08 AM COMPLEX CASE MANAGER) [facility] WBC 18.8(H) 3.8 - 9.9 K/cumm Hgb 16.1(H) 11.9 - 15.5 g/dL [facility] Hct 46.2(H) 35.6 - 45.5 % [facility] Plt 411(H) 150 - 400 K/cumm [facility] MPV 10.4 9.1 - 12.3 fL [facility] RBC 5.12 3.90 - 5.20 M/cumm [facility] MCV 90.2 81.3 - 96.4 fL [facility] MCH 31.4 27.1 - 33.3 pg [facility] MCHC 34.8 32.3 - 35.7 g/dL [facility] RDW CV 11.8 11.1 - 14.9 % [facility] RDW SD 38.7 35.7 - 48.1 fL [facility] NRBC abs 0.00 0.00 - 0.01 K/cumm [facility] Blood 11/12/2024 3:08 AM COMPLEX CASE MANAGER 11/12/2024 3:44 AM COMPLEX CASE MANAGER Aung Barrios MD LAB BLOOD ORDERA BLES Final Result [facility] [address] [place], [place] [address] * (ABNORMAL) Comprehensive metabolic panel (11/12/2024 3:08 AM COMPLEX CASE MANAGER) Pathologist [facility] Sodium 139 135 - 145 mmol/L Potassium, pl 4.3 3.3 - 4.9 mmol/L [facility] Chloride 98 97 - 110 mmol/L [facility] CO2 15(L) 22 - 32 mmol/L [facility] Anion gap 26(H) 2 - 15 mmol/L [facility] BUN 15 6 - 25 mg/dL [facility] Creatinine 0.88 0.60 - 1.10 mg/dL [facility] Glucose 224(H) 70 - 199 mg/dL [facility] Comment: Interpretive Data Fasting glucose >/= 126 mg/dl is diagnostic for diabetes. Fasting is defined as no caloric intake for at least 8 hours. Fasting glucose between 100 mg/dl to 125 mg/dl is diagnostic of prediabetes. In a patient with classic symptoms of hyperglycemia or hyperglycemic crisis, a random glucose >/= 200 mg/dl is diagnostic for diabetes. In the absence of unequivocal hyperglycemia, results should be confirmed by repeat testing. The classification and Diagnosis of Diabetes Diabetes Care 202; 46: S19-S40. Current interpretive data was last revised 2022. Calcium 9.9 8.5 - 10.3 mg/dL [facility] Bilirubin, total 1.2 0.1 - 1.2 mg/dL [facility] Protein, pl 7.6 6.5 - 8.5 g/dL [facility] Albumin 4.6 3.5 - 5.0 g/dL [facility] Alk phos 70 40 - 130 Units/L [facility] ALT 13 7 - 45 Units/L [facility] AST 23 10 - 45 Units/L [facility] Blood 11/12/2024 3:08 AM COMPLEX CASE MANAGER 11/12/2024 3:44 AM COMPLEX CASE MANAGER us Aung Barrios MD LAB BLOOD ORDERA BLES Final Result [facility] [address] [place] [address] * ECG 12 lead (11/12/2024 3:03 AM COMPLEX CASE MANAGER) 11/12/2024 3:03 AM COMPLEX CASE MANAGER Narrative [facility] - 11/12/2024 2:14 PM COMPLEX CASE MANAGER Vent Rate: 107 bpm RR Interval: 556 msec ID Interval: 136 msec QRS Duration: 80 msec QT Interval: 355 msec QTC Interval: 418 msec P-R-T [place]: 64 - 68 - 71 degrees IMPRESSION: SINUS TACHYCARDIA POSSIBLE LEFT ATRIAL ENLARGEMENT [-0.1mV P WAVE IN V1/V2] SEPTAL MYOCARDIAL INFARCTION , OF INDETERMINATE AGE [40+ ms Q WAVE IN V1/V2] ABNORMAL ECG Electronically Signed By: Baltazar Chowdhury MD, [facility] us Aung Barrios MD ECG ORDERABLES Final Result [facility] * COLONOSCOPY (01/12/2023 11:44 AM CDT) Anatomical Region Laterality Modality Other Narrative Procedure Note Ari Swan MD - 01/12/2023 11:44 AM CDT [facility] GI ENDOSCOPY Patient Name: Agustina Tijerina Procedure Date: 01/12/2023 11:44 AM Date of : 1980 Admit Type: Outpatient Age: 42 Gender: Female Attending MD: Ari Swan M.D. Room: [facility] ENDOSCOPY ROOM 06 Note Status: Finalized Procedure: Colonoscopy Indications: History of diverticulitis Referring MD: Alejandra Jovel Providers: Ari Swan M.D. Medicines: Monitored Anesthesia Care Complications: No immediate complications. Estimated Blood Loss: Estimated blood loss: none. Procedure: The benefits, risks and alternatives of theprocedure and sedation were discussed and informed consentwas obtained. All questions were answered. Please referto the signed informed consent document in the medical record. The scope was passed under direct vision.The CF-[id number] colonoscope was introduced through theanus and advanced to the cecum, identified byappendiceal orifice and ileocecal valve. The colonoscopy was performed without difficulty. The patient tolerated the procedure well. The quality of the bowel preparation was adequate. Scope withdrawal time was10 minutes. Prep was administered in a split dose. Findings: The perianal and digital rectal examinations were normal. A few small-mouthed diverticula were found in the sigmoid colon and descending colon. A diminutive polyp was found in the sigmoid colon. The polyp wasremoved with a cold biopsy forceps. Resection and retrieval were complete. Non-bleeding internal hemorrhoids were found during retroflexion. The hemorrhoids were small. The exam was otherwise without abnormality. Impression: - Diverticulosis in the sigmoid colon and in the descending colon. - One diminutive polyp in the sigmoid colon,removed with a cold biopsy forceps. Resected andretrieved. - Non-bleeding internal hemorrhoids. - The examination was otherwise normal. Recommendation: - Patient has a contact number available for emergencies. The signs and symptoms of potential delayed complications were discussed with thepatient. Return to normal activities tomorrow. Written discharge instructions were provided to thepatient. - High fiber diet. - Continue present medications. - Await pathology results. - Repeat colonoscopy in 5 years for surveillance. - Return to GI clinic as previously scheduled. Ari Swan M.D. Ari Swan M.D. 01/12/2023 12:37:01 PM . Number of Addenda: 0 Note Initiated On: 01/12/2023 11:44 AM Recognized by the [employer] for promoting quality in endoscopy Ari Swan MD ENDOSCOPY PROCEDURES Final Resul t from Last 3 Months or Most Recently Relevant to Health Maintenance Insurance [facility] Advance Directives For more information, please contact: [phone] * Full Code (Latest Code Status on File) Date Activated Date Inactivated Comments 10/24/2024 10:13 PM 10/25/2024 10:30 PM Care Teams Predatory Animal Hunter Relationship Specialty Start Date End Date Oswaldo Ayoub MD [address] [facility] [address] [address] PCP - General 03/04/17
--- OUTSIDE RECORDS SUMMARY | 2025-01-30 07:53 | XMS_ITS | Referral Summary ---
Author Organization [facility] Address [address] [place] [address] Care Team Providers Care Spring Coiler Hand Name Role Phone Oswaldo Ayoub MD Primary Care Provider [phone] Encounters Date Type Department Care Team Description 01/18/2025 Telephone [facility] Family Medicine at [address] [phone] Oswaldo Ayoub MD 01/15/2025 11:30 AM CDT Office Visit [facility] Family Medicine at [address] [place] [phone] Joy Villalpando NP AARON (generalized anxiety disorder) (Primary Dx); Migraine without aura and without status migrainosus, not intractable; Moderate episode of recurrent major depressive disorder (HCC) 01/02/2025 Results Follow-Up [facility] Family Medicine at [address] [phone] Oswaldo Ayoub MD 11/12/2024 2:57 AM MILLER APPRENTICE - 11/12/2024 9:17 AM [facility] Emergency [facility] Emergency Department [facility] [place] [address] Influenza A (Primary Dx); Mast cell activation syndrome; Vomiting and diarrhea; Anxiety Discharge Disposition: Discharge to home or self care from Last 3 Months Allergies No known active allergies Medications melatonin [...] 2 (two) times a day 60 tablet 11 10/25/19 25 026 Active Additional Information Patient [...] unremarkable. Assessment & Plan (11/18/2022 10:23 AM MILLER APPRENTICE): CT scan of the abdomen and pelvis [...] loss Assessment & Plan (11/18/2022 10:50 AM MILLER APPRENTICE): GERD for the past year, seems to [...] PRN Assessment & Plan (08/23/2022 1:43 PM MILLER APPRENTICE): Stable, no changes. Continue current regimen with [...] acceptable. Assessment & Plan (08/23/2022 1:42 PM MILLER APPRENTICE): Seeing improvement with xanax Increase dose to [...] popcorn Assessment & Plan (11/18/2022 10:52 AM MILLER APPRENTICE): Patient started having abdominal pain, diarrhea, nausea, [...] and depression 05/27/202107/14 Chronic headache 03/11/2017 05/27/2022 Immunizations Immunization Administration Dates Next Due Influenza, Unspecified 06/26/2024(Deferr ed: Patient Refused),06/26/2023(Deferred: Patient Refused),07/14/2022(Deferred: Patient Refused),06/26/2021(Deferred: Patient Refused),06/26/2021(Deferred: Patient Refused),06/26/2020(Deferred: Patient Refused),06/26/2019(Deferred: Patient Refused) Tdap 06/28/2017 Social History Tobacco Use Types Packs/Day Years [...] Orientation Straight 05/18/2021 12 :32 PM CDT Last Filed Vital Signs Vital Sign Reading [...] 01/15/2025 11:23 AM CDT Plan of Treatment Not on file Procedures Procedure Name Priority Date/Time Associated Diagnosis Comments SCAN - LABS 12/27/2024 URINALYSIS, MICROSCOPIC ONLY STAT 11/12/2024 8:42 AM MILLER APPRENTICE URINALYSIS AND REFLEX TO MICROSCOPIC AND CULTURE STAT 11/12/2024 8:42 AM MILLER APPRENTICE SEPSIS LACTATE WITH REFLEX Timed 11/12/2024 8:25 AM MILLER APPRENTICE EGFR STAT 11/12/2024 5:19 AM MILLER APPRENTICE DIFFERENTIAL AUTO STAT 11/12/2024 5:1 9 AM MILLER APPRENTICE BASIC METABOLIC PANEL STAT 11/12/2024 5:19 AM MILLER APPRENTICE CBC WITH AUTO DIFFERENTIAL STAT 11/12/2024 5:19 AM MILLER APPRENTICE SEPSIS LACTATE WITH REFLEX Timed 11/12/2024 5:19 AM MILLER APPRENTICE XR CHEST 1 VIEW ED 11/12/2024 3:53 AM MILLER APPRENTICE TRYPTASE STAT 11/12/2024 3:41 AM MILLER APPRENTICE RESPIRATORY PATHOGEN PANEL STAT 11/12/2024 3:10 AM MILLER APPRENTICE EGFR STAT 11/12/2024 3:08 AM MILLER APPRENTICE DIFFERENTIAL AUTO STAT 11/12/2024 3:0 8 AM MILLER APPRENTICE SEPSIS LACTATE WITH REFLEX Routine 11/12/2024 3:08 AM MILLER APPRENTICE COMPREHENSIVE METABOLIC PANEL STAT 11/12/2024 3:08 AM MILLER APPRENTICE CBC WITH AUTO DIFFERENTIAL STAT 11/12/2024 3:08 AM MILLER APPRENTICE ECG 12-LEAD STAT 11/12/2024 3:03 AM MILLER APPRENTICE SCREENING MAMMOGRAM BILATERAL W TAYO Schedule Routine, Read Routine (OP Routine) 09/30/2023 2:22 PM MILLER APPRENTICE Screening mammogram, encounter for COLONOSCOPY 01/12/2023 11:44 AM CDT from Last 3 Months or Most Recently Relevant to Health Maintenance Results * SCAN - LABS (12/27/2024) us Oswaldo Ayoub MD Final Result * (ABNORMAL) Urinalysis reflex to microscopic and culture Urine (11/12/2024 8:42 AM MILLER APPRENTICE) Color, ur Yellow Yellow Clarity, ur Clear Clear [facility] Specific gravity, ur 1.022 1.003 - 1.030 [facility] pH, urine 7.0 [facility] Comment: Interpretive Data U rine pH is affected by diet, medications, systemic acid-base disturbances, and renal tubular function. pH may affect urinary stone formation. For example, urine pH below 6.0 may help reduce the tendency for calcium phosphate stones and pH greater than 6.0 may reduce the tendency for uric acid stone formation. Source: [facility] Current Interpretive Data was last revised on 2017 Protein, ur ql Trace Negative [facility] Glucose, ur ql Negative Negative [facility] Ketones, ur 1+(A) Negative [facility] Bilirubin, ur Negative Negative [facility] Blood, ur 1+(A) Negative [facility] Urobilinogen, ur <2.0 <2.0 mg/dL [facility] Nitrite, ur Negative Negative [facility] Leukocyte esterase, ur Negative Negative [facility] UA reflex comment Reflex to microscopic UA will be performed. [facility] Urine 11/12/2024 8:42 AM MILLER APPRENTICE 11/12/2024 8:42 AM MILLER APPRENTICE Narrative [facility] - 11/12/2024 8:55 AM MILLER APPRENTICE If patient unable to urinate, straight cath Aung Barrios MD LAB MICROBIOLOGY - GENERAL ORDERABLES Final Result Performing Organization Address [facility] Co de Phone Number [facility] [address] [place] [place] [address] * (ABNORMAL) Urinalysis, microscopic only (11/12/2024 8:42 AM MILLER APPRENTICE) WBC, ur 0-5 0 - 5 /HPF RBC, ur 11-20(A) 0 - 2 /HPF [facility] Epithelial cells, squamous, ur 1-5 0 - 5 /HPF [facility] Bacteria, ur Trace(A) [facility] Mucous, ur Present(A) [facility] Hyaline casts, ur 1-5 0 - 10 /LPF [facility] Culture Reflex Comment Reflex conditions for urine culture (WBC >10) not met. [facility] Urine 11/12/2024 8:42 AM MILLER APPRENTICE 11/12/2024 8:48 AM MILLER APPRENTICE Aung Barrios MD LAB URINE ORDERA BLES Final Result Performing Organization Address [facility]/ZIP Co de Phone Number [facility] [address] Department [employer] [place], [place] [id number] * (ABNORMAL) Sepsis Lactate w/ Reflex (11/12/2024 8:25 AM MILLER APPRENTICE) [facility] Sepsis Lactate 2.6(H) 0.7 - 2.0 mmol/L Blood 11/12/2024 8:25 AM MILLER APPRENTICE 11/12/2024 8:33 AM MILLER APPRENTICE Aung Barrios MD LAB BLOOD ORDERA BLES Final Result Performing Organization Address [facility]/ZIP Co de Phone Number [facility] [address] Department [place] [address] * (ABNORMAL) Sepsis Lactate w/ Reflex (11/12/2024 5:19 AM MILLER APPRENTICE) [facility] Sepsis Lactate 4.6(C) 0.7 - 2.0 mmol/L Comment:Critical result call ed to and read back by JOY ASHER) on 11/12/2024 05:29:48 MILLER APPRENTICE to [id number]. Blood 11/12/2024 5:19 AM MILLER APPRENTICE 11/12/2024 5:25 AM MILLER APPRENTICE Aung Barrios MD LAB BLOOD ORDERA BLES Final Result Performing Organization Address [facility] Co de Phone Number [facility] [address] Department [place] [address] * eGFR (11/12/2024 5:19 AM MILLER APPRENTICE) [facility] eGFR >90 >=60 mL/min/1. 73 m2 Comment: [...] of Race in Diagnosing Kidney Disease, JASN 202). The CKD-EPI equation should not be used for patients with unstable renal function and has not been validated in children and those over 70. Current interpretive data was last reviewed 2021. Blood 11/12/2024 5:19 AM MILLER APPRENTICE 11/12/2024 5:27 AM MILLER APPRENTICE us Asia Myrick NP LAB BLOOD ORDERABLE S Final Result [facility] [address] Department [place] [address] * (ABNORMAL) Differential, auto (11/12/2024 5:19 AM MILLER APPRENTICE) Neutrophil abs 12.3(H) 1.5 - 6.5 K/cumm Imm gran abs 0.1 0.0 - 0.1 K/cumm [facility] Lymphocyte abs 0.5(L) 0.8 - 3.3 K/cumm [facility] Monocyte abs 0.7 0.2 - 0.8 K/cumm [facility] Eosinophil abs 0.0 0.0 - 0.5 K/cumm [facility] Basophil abs 0.0 0.0 - 0.1 K/cumm [facility] Neutrophil pct 90.1 % [facility] Comment: Interpretive Data Percent cell count reference ranges are not reported, since discordance with absolute values may lead to misinterpretation of CBC data. Current Interpretive Data was last revised on 2018. Imm gran pct 1.0 % [facility] Comment: Interpretive Data Percent cell count reference ranges are not reported, since discordance with absolute values may lead to misinterpretation of CBC data. Current Interpretive Data was last revised on 2018. Lymphocyte pct 3.6 % [facility] Comment: Interpretive Data Percent cell count reference ranges are not reported, since discordance with absolute values may lead to misinterpretation of CBC data. Current Interpretive Data was last revised on 2018. Monocyte pct 4.9 % [facility] Comment: Interpretive Data Percent cell count reference ranges are not reported, since discordance with absolute values may lead to misinterpretation of CBC data. Current Interpretive Data was last revised on 2018. Eosinophil pct 0.3 % [facility] Comment: Interpretive Data Percent cell count reference ranges are not reported, since discordance with absolute values may lead to misinterpretation of CBC data. Current Interpretive Data was last revised on 2018. Basophil pct 0.1 % [facility] Comment: Interpretive Data Percent cell count reference ranges are not reported, since discordance with absolute values may lead to misinterpretation of CBC data. Current Interpretive Data was last revised on 2018. Blood 11/12/2024 5:19 AM MILLER APPRENTICE 11/12/2024 5:27 AM MILLER APPRENTICE Asia Myrick NP LAB BLOOD ORDERABLE S Final Result [facility] [address] Department [place] [address] * (ABNORMAL) CBC with auto differential (11/12/2024 5:19 AM MILLER APPRENTICE) WBC 13.6(H) 3.8 - 9.9 K/cumm Hgb 13.6 11.9 - 15.5 g/dL [facility] Hct 39.9 35.6 - 45.5 % [facility] Plt 275 150 - 400 K/cumm [facility] MPV 9.9 9.1 - 12.3 fL [facility] RBC 4.30 3.90 - 5.20 M/cumm [facility] MCV 92.8 81.3 - 96.4 fL [facility] MCH 31.6 27.1 - 33.3 pg [facility] MCHC 34.1 32.3 - 35.7 g/dL [facility] RDW CV 11.8 11.1 - 14.9 % [facility] RDW SD 39.8 35.7 - 48.1 fL [facility] NRBC abs 0.00 0.00 - 0.01 K/cumm [facility] Blood 11/12/2024 5:19 AM MILLER APPRENTICE 11/12/2024 5:27 AM MILLER APPRENTICE Asia Myrick NP LAB BLOOD ORDERABLE S Final Result [facility] [address] [place] [address] * (ABNORMAL) Basic metabolic panel (11/12/2024 5:19 AM MILLER APPRENTICE) [facility] Sodium 139 135 - 145 mmol/L Potassium, pl 3.7 3.3 - 4.9 mmol/L [facility] Chloride 105 97 - 110 mmol/L [facility] CO2 17(L) 22 - 32 mmol/L [facility] Anion gap 17(H) 2 - 15 mmol/L [facility] BUN 16 6 - 25 mg/dL [facility] Creatinine 0.80 0.60 - 1.10 mg/dL [facility] Glucose 139 70 - 199 mg/dL [facility] Comment: Interpretive Data Fasting glucose >/= 126 [...] 2022. Calcium 8.5 8.5 - 10.3 mg/dL [facility] Blood 11/12/2024 5:19 AM MILLER APPRENTICE 11/12/2024 5:27 AM MILLER APPRENTICE Asia Myrick NP LAB BLOOD ORDERABLE S Final Result Performing Organization Address City/[facility]/ZIP Co de Phone Number [facility] [address] Department [place] [address] * XR Chest 1 Vw Portable (if patient condition/safety warrant portable) (11/12/2024 3:53 AM MILLER APPRENTICE) Anatomical Region Laterality Modality Body, Chest N/A Computed Radiogr aphy 11/12/2024 8:21 AM MILLER APPRENTICE Impressions 11/12/2024 8:33 AM MILLER APPRENTICE The current study is compared with the prior radiograph dated 05/04/2023. There is no focal consolidation, pleural effusion, or pneumothorax. The cardiomediastinal silhouette is normal. Dictated by: Chu Spencer MD The radiology attending physician has personally reviewed this study, and had reviewed and/or edited this written report and agrees with it. Electronically signed by: Alexa Toscano M.D. Narrative 11/12/2024 8:33 AM MILLER APPRENTICE EXAMINATION: 1 view chest radiograph Procedure Note [...] Final Result * Tryptase (11/12/2024 3:41 AM MILLER APPRENTICE) Tryptase Level 5.9 <11.5 ng/mL [facility] ref Lab Comment: Test Performed by: [facility] [address] [place] [address] Food Critic: Breanne Bowers Ph.D.; CLIA# [id number] Blood 11/12/2024 3:41 AM MILLER APPRENTICE 11/12/2024 3:47 AM MILLER APPRENTICE Asia Rodriguezebnita Begume INSTRUCTOR PHYSICAL LAB BLOOD ORDERABLE S Final Result [facility] [address] Department [place] [address] [place] ref [facility] * (ABNORMAL) Respiratory pathogen panel Nasopharyngeal (11/12/2024 3:10 AM MILLER APPRENTICE) [facility] Influenza A/2009 RNA Detected(A) Not Detected [facility] Influenza B RNA Not Detected Not Detected [facility] RSV RNA Not Detected Not Detected [facility] COVID-19 RNA Not Detected Not Detected [facility] Coronavirus 229E RNA Not Detected Not Detected [facility] Coronavirus HKU1 RNA Not Detected Not Detected [facility] Coronavirus NL63 RNA Not Detected Not Detected [facility] Coronavirus OC43 RNA Not Detected Not Detected [facility] Adenovirus DNA Not Detected Not Detected [facility] Metapneumovirus RNA Not Detected Not Detected [facility] Rhinovirus/Enterov irus RNA Not Detected Not Detected [facility] Parainfluenza 1 RNA Not Detected Not Detected [facility] Parainfluenza 2 RNA Not Detected Not Detected [facility] Parainfluenza 3 RNA Not Detected Not Detected [facility] Parainfluenza 4 RNA Not Detected Not Detected [facility] B. pertussis DNA Not Detected Not Detected [facility] B. parapertussis DNA Not Detected Not Detected [facility] C. pneumoniae DNA Not Detected Not Detected [facility] M. pneumoniae DNA Not Detected Not Detected [facility] Comment: Interpretive Data The [employer] FilmArray Respiratory Panel (RP2.1) assay is a [...] assay has FDA clearance for testing of INSTRUCTOR PHYSICAL swabs. The performance characteristics of this assay have been determined by [facility]. Current interpretive data was last revised on 2021. Nasopharyngeal 11/12/2024 3: 10 AM MILLER APPRENTICE 11/12/2024 3:21 AM MILLER APPRENTICE Narrative [facility] - 11/12/2024 4:13 AM MILLER APPRENTICE Is the Patient experiencing symptoms consistent with COVID?->Yes Surveillance testing for transplant patient?->No us Asia Myrick NP LAB MICROBIOLOGY - GENERAL ORDERABLES Final Result [facility] [address] Department [place] [address] [facility] * (ABNORMAL) Sepsis Lactate w/ Reflex (11/12/2024 3:08 AM MILLER APPRENTICE) Sepsis Lactate 6.6(C) 0.7 - 2.0 mmol/L Comment:Critical result call ed to and read back by VINNIE YANES (RN) on 11/12/2024 03:40:34 MILLER APPRENTICE to [id number]. Blood 11/12/2024 3:08 AM MILLER APPRENTICE 11/12/2024 3:22 AM MILLER APPRENTICE Aung Barrios MD LAB BLOOD ORDERA BLES Final Result Performing Organization Address City/[facility]/ZIP Co de Phone Number [facility] [address] [employer] [place], [place] [id number] * eGFR (11/12/2024 3:08 AM MILLER APPRENTICE) Pathologist [facility] Emergency Department eGFR 83 >=60 mL/min/1. 73 m2 Comment: [...] last reviewed 2021. Blood 11/12/2024 3:08 AM MILLER APPRENTICE 11/12/2024 3:44 AM MILLER APPRENTICE Aung Barrios MD LAB BLOOD ORDERA BLES Final Result [facility] [address] [place] [address] * (ABNORMAL) Differential, auto (11/12/2024 3:08 AM MILLER APPRENTICE) Neutrophil abs 17.1(H) 1.5 - 6.5 K/cumm Imm gran abs 0.2(H) 0.0 - 0.1 K/cumm [facility] Lymphocyte abs 0.5(L) 0.8 - 3.3 K/cumm [facility] Monocyte abs 0.8 0.2 - 0.8 K/cumm [facility] Eosinophil abs 0.1 0.0 - 0.5 K/cumm [facility] Basophil abs 0.0 0.0 - 0.1 K/cumm [facility] Neutrophil pct 90.9 % [facility] Comment: Interpretive Data Percent cell count reference ranges are not reported, since discordance with absolute values may lead to misinterpretation of CBC data. Current Interpretive Data was last revised on 2018. Imm gran pct 1.0 % [facility] Comment: Interpretive Data Percent cell count reference ranges are not reported, since discordance with absolute values may lead to misinterpretation of CBC data. Current Interpretive Data was last revised on 2018. Lymphocyte pct 2.9 % [facility] Comment: Interpretive Data Percent cell count reference ranges are not reported, since discordance with absolute values may lead to misinterpretation of CBC data. Current Interpretive Data was last revised on 2018. Monocyte pct 4.4 % [facility] Comment: Interpretive Data Percent cell count reference ranges are not reported, since discordance with absolute values may lead to misinterpretation of CBC data. Current Interpretive Data was last revised on 2018. Eosinophil pct 0.6 % [facility] Comment: Interpretive Data Percent cell count reference ranges are not reported, since discordance with absolute values may lead to misinterpretation of CBC data. Current Interpretive Data was last revised on 2018. Basophil pct 0.2 % [facility] Comment: Interpretive Data Percent cell count reference ranges are not reported, since discordance with absolute values may lead to misinterpretation of CBC data. Current Interpretive Data was last revised on 2018. Blood 11/12/2024 3:08 AM MILLER APPRENTICE 11/12/2024 3:44 AM MILLER APPRENTICE Aung Barrios MD LAB BLOOD ORDERA BLES Final Result Performing Organization Address [facility]/ZIP Co de Phone Number [facility] [address] [place] [address] * (ABNORMAL) CBC with auto differential (11/12/2024 3:08 AM MILLER APPRENTICE) Pathologist [facility] Emergency Department WBC 18.8(H) 3.8 - 9.9 K/cumm Hgb 16.1(H) 11.9 - 15.5 g/dL [facility] Hct 46.2(H) 35.6 - 45.5 % [facility] Plt 411(H) 150 - 400 K/cumm [facility] MPV 10.4 9.1 - 12.3 fL [facility] RBC 5.12 3.90 - 5.20 M/cumm [facility] MCV 90.2 81.3 - 96.4 fL [facility] MCH 31.4 27.1 - 33.3 pg [facility] MCHC 34.8 32.3 - 35.7 g/dL [facility] RDW CV 11.8 11.1 - 14.9 % [facility] RDW SD 38.7 35.7 - 48.1 fL [facility] NRBC abs 0.00 0.00 - 0.01 K/cumm [facility] Blood 11/12/2024 3:08 AM MILLER APPRENTICE 11/12/2024 3:44 AM MILLER APPRENTICE Aung Barrios MD LAB BLOOD ORDERA BLES Final Result [facility] [address] Department of [employer] [place], [place] [id number] * (ABNORMAL) Comprehensive metabolic panel (11/12/2024 3:08 AM MILLER APPRENTICE) Pathologist [facility] Emergency Department Sodium 139 135 - 145 mmol/L Potassium, pl 4.3 3.3 - 4.9 mmol/L [facility] Chloride 98 97 - 110 mmol/L [facility] CO2 15(L) 22 - 32 mmol/L [facility] Anion gap 26(H) 2 - 15 mmol/L [facility] BUN 15 6 - 25 mg/dL [facility] Creatinine 0.88 0.60 - 1.10 mg/dL [facility] Glucose 224(H) 70 - 199 mg/dL [facility] Comment: Interpretive Data Fasting glucose >/= 126 [...] 2022. Calcium 9.9 8.5 - 10.3 mg/dL [facility] Bilirubin, total 1.2 0.1 - 1.2 mg/dL [facility] Protein, pl 7.6 6.5 - 8.5 g/dL [facility] Albumin 4.6 3.5 - 5.0 g/dL [facility] Alk phos 70 40 - 130 Units/L [facility] ALT 13 7 - 45 Units/L [facility] AST 23 10 - 45 Units/L [facility] Blood 11/12/2024 3:08 AM MILLER APPRENTICE 11/12/2024 3:44 AM MILLER APPRENTICE us Aung Barrios MD LAB BLOOD ORDERA BLES Final Result [facility] [address] Department [place] [address] * ECG 12 lead (11/12/2024 3:03 AM MILLER APPRENTICE) 11/12/2024 3:03 AM MILLER APPRENTICE Narrative [facility] - 11/12/2024 2:14 PM MILLER APPRENTICE Vent Rate: 107 bpm RR Interval: 556 msec [place] Interval: 136 msec QRS Duration: 80 msec QT Interval: 355 msec QTC Interval: 418 msec P-R-T Hammond: 64 - 68 - 71 degrees IMPRESSION: SINUS TACHYCARDIA POSSIBLE LEFT ATRIAL ENLARGEMENT [-0.1mV P WAVE IN V1/V2] SEPTAL MYOCARDIAL INFARCTION , OF INDETERMINATE AGE [40+ ms Q WAVE IN V1/V2] ABNORMAL ECG Electronically Signed By: Baltazar Chowdhury MD, [facility] us Aung Barrios MD ECG ORDERABLES Final Result [facility] * COLONOSCOPY (01/12/2023 11:44 AM CDT) Anatomical Region Laterality Modality Other Narrative Procedure Note Ari Swan MD - 01/12/2023 11:44 AM CDT [facility] GI ENDOSCOPY Patient Name: Agustina Tijerina Procedure Date: 01/12/2023 11:44 AM Date of : 1980 Admit Type: Outpatient Age: 42 Gender: Female Attending MD: Ari Swan M.D. Room: [facility] ENDOSCOPY ROOM 06 Note Status: Finalized [...] On: 01/12/2023 11:44 AM Recognized by the [employer] for promoting quality in endoscopy Ari Swan MD ENDOSCOPY PROCEDURES Final Resul t from Last 3 Months or Most Recently Relevant to Health Maintenance Insurance 1989 [email or web address] [place] [id number] [facility] Advance Directives For more information, please contact: [phone] * Full Code (Latest Code Status on File) Date Activated Date Inactivated Comments 10/24/2024 10:13 PM 10/25/2024 10:30 PM Care Teams Spring Coiler Hand Relationship Specialty Start Date End Date Oswaldo Ayoub MD [address] [facility] [address] [address] PCP - General 03/04/17
--- OUTSIDE RECORDS SUMMARY | 2025-01-30 07:53 | XMS_ITS | Clinical Summary ---
Author Organization [facility] Address [address] [place] [address] Phone Care Team Providers Care Termite Control Representative Name Role Phone Unavailable Primary Care Provider Unavailabl e Allergies No known active allergies Medications ALPRAZolam (XANAX) 0.5 mg tablet Take 0.5 mg by mouth. 3 Active cholecalciferol, Vitamin D3, (VITAMIN D3) 25 mcg (1,000 unit) Capsule Take 1,000 Units by mouth daily. Active escitalopram oxalate (LEXAPRO) 20 mg tablet Take 20 mg by mouth daily. 3 Active melatonin 10 mg Capsule Take 10 mg by mouth daily at bedtime. Active therapeutic multivitamin (THERA TAB) Tablet Take 1 Tablet by mouth daily. Active valACYclovir (VALTREX) 500 mg tablet Take by mouth daily. 3 Active scopolamine (TRANSDERM-SCOP) 1 mg/72 hr patch APPLY 1 PATCH TOPICALLY TO THE SKIN EVERY 72 HOURS 4 Active Nurtec ODT 75 mg Tablet, Rapid Dissolve Take 75 mg by mouth. 3 Active promethazine (PHENERGAN) 25 mg tablet Take 25 mg by mouth. 3 Active meloxicam (MOBIC) 15 mg tablet Take 15 mg by mouth. Active metoclopramide HCl (REGLAN) 10 mg tablet Take 10 mg by mouth. 4 Active Active Problems Problem Noted Date Diagnosed Date H/O LEEP 10/04/2023 Stress incontinence 10/04/2023 Pelvic floor weakness 10/04/2023 Encounters Date Type Department Care Team Description 12/12/2024 External Device Data STL ABSTRACTION Provider, Abstract 12/01/2024 External Device Data STL ABSTRACTION Provider, Abstract 11/30/2024 External Device Data ST[facility] ABSTRACTION Provider, Abstract 11/28/2024 External Device Data ST[facility] ABSTRACTION Provider, Abstract 11/15/2024 1:50 PM PAINTING MANAGER - 11/15/2024 11:59 PM PAINTING MANAGER Hospital Encounter [facility] [place] [facility] [address] [place] [id number] Gin Castro NP Discharge Disposition: Home or Self Care 11/15/2024 Results Follow-Up [facility] COLD PATCHER - [address] [address] Gin Castro NP MAMMO 3D TAYO SCREEN BILAT W OR WO CAD 11/13/2024 External Device Data STL ABSTRACTION Provider, Abstract from Last 3 Months Immunizations Immunization Administration Dates Next Due (ADACEL/BOOSTRIX)(10 YR UP) TDAP VACCINE, 0.5ML, IM 06/28/2017 Family History Medical History Relation Name Comments No Known Problems Brother 1 No Known Problems Brother 2 No Known Problems Father No Known Problems Maternal Cousin No Known Problems Mother Relation Name Status Comments Brother 1 Alive Brother 2 Alive Father Alive Maternal Cousin Alive Mother Alive Social History Tobacco Use Types Packs/Day Years Used Date Smoking Tobacco: Former Cigarettes 0.5 10 0 09/26/2003 - 09/26/2013 Smokeless Tobacco: Never Tobacco Cessation:Counseling Given: Not Answered Alcohol Use Standard Drinks/Week Comments Yes 0 (1 standard drink = 0.6 oz pur e alcohol) Sociallly Feeling Safe Answer Date Recorded Are you in a relationship wi th someone who hurts you emotionally and/or physically? No 02/01/2024 Comments No Sex and Gender Information Value Date Recorded Sex Assigned at Female 08/06/2024 11:23 AM PAINTING MANAGER Legal Sex Female 12:30 PM PAINTING MANAGER Gender Identity Female 08/06/2024 11:23 AM PAINTING MANAGER Sexual Orientation Not on file Last Filed Vital Signs Vital Sign Reading Time Taken Comments Blood Pressure 120/76 10/08/2024 2:07 PM PAINTING MANAGER Pulse 61 10/08/2024 2:07 PM PAINTING MANAGER Temperature 36.4 C (97.5 F) 10/08/2024 2:07 PM PAINTING MANAGER Respiratory Rate - - Oxygen Saturation 97% 10/08/2024 2:07 PM PAINTING MANAGER Inhaled Oxygen Concentration - - Weight 117.9 kg (260 lb) 10/08/2024 2:07 PM PAINTING MANAGER Height 180.3 cm (5' 11 ) 10/08/2024 2:07 PM PAINTING MANAGER Body Mass Index 36.26 10/08/2024 2:07 PM PAINTING MANAGER Plan of Treatment Upcoming Encounters Date Type Department Care Team (Late st Contact Info) Description 10/09/2025 2:00 PM PAINTING MANAGER Office Visit [facility] COLD PATCHER [address] [address] Gin Castro NP [address] [place] [address] Health Maintenance Due Date Last Done Comments Pre-Diabetes and Diabetes Screening 1979 HEPATITIS B VACCINES (1 of 3 - 19+ 3-dose series) 1998 INFLUENZA VACCINE (#1) 2024 FIT-DNA Q 3 years 2024 FIT/FOBT Q 1 year 2024 Flex Sig/CT Colonography Q 5 years 2024 BREAST CANCER SCREENING 11/15/2025 11/15/19 25, 09/30/2023, 09/30/2023, Additional history exists DTAP/TDAP/TD VACCINES (2 - Td or Tdap) 06/28/2027 06/28/2017 PAP SMEAR 10/08/2027 10/08/2024, 10/04/2023 CERVICAL CANCER SCREENING 10/08/2029 HPV/Cotest (21-29) 10/08/2029 10/08/2024, 10/04/2023 HPV/Cotest (30-65) 10/08/2029 10/08/2024, 10/04/2023 COLORECTAL SCREENING 01/12/2033 01/12/2023, 01/13/20 23 Colorectal Cancer Screening 01/12/2033 HPV VACCINES Aged Out No longer eligi ble based on patient's age to complete this topic Procedures Procedure Name Priority Date/Time Associated Diagnosis Comments MAMMO 3D TAYO SCREEN BILAT W OR WO CAD Routine 11/15/2024 2:23 PM PAINTING MANAGER Screening mammogram for breast cancer CERV/VAG CYTO AGE BASED SCREEN PAP Routine 10/08/2024 2:35 PM PAINTING MANAGER Well woman exam with routine gynecological exam Screening for HPV (human papillomavirus) Encounter for Papanicolaou smear for cervical cancer screening H/O LEEP from Last 3 Months or Most Recently Relevant to Health Maintenance Results * MAMMO 3D TAYO SCREEN BILAT W OR WO CAD (11/15/2024 2:23 PM PAINTING MANAGER) Anatomical Region Laterality Modality Breast Bilateral Mammography 11/15/2024 2:24 PM PAINTING MANAGER Addenda Addendum by Tom Barber MD on 11/30/2024 9:07 AM PAINTING MANAGER Prior mammograms from an outside facility are now available for review, dating back to 11/26/2016 and most recently 09/30/2023. There is no suspicious mass, clustered microcalcification, or architectural distortion in either breast on 2D or tomosynthesis images. There has been no change in the mammographic appearance compared with the prior study. IMPRESSION: No mammographic evidence of malignancy. OVERALL FINAL ASSESSMENT: BI-RADS Category 1: Negative. RECOMMENDATION: Bilateral screening mammogram in one year. Impressions 11/15/2024 2:44 PM PAINTING MANAGER IMPRESSION: 1. Need outside films. OVERALL FINAL ASSESSMENT: BI-RADS CATEGORY 0: Incomplete, needs comparison to prior mammograms. RECOMMENDATIONS: 1. Outside films will be obtained. An addendum will be dictated when these films are available. DICTATION LOCATION: [facility] 11/15/2024 2:44 PM PAINTING MANAGER BILATERAL SCREENING DIGITAL MAMMOGRAM WITH 3D TOMOSYNTHESIS AND CAD DATE: 11/15/2024 2:23 PM INDICATION: Routine yearly screening mammogram. TECHNIQUE: Full field digital screening mammograms of both breasts were performed. 2D and 3D acquisitions were obtained. CAD was utilized. COMPARISON: None available. BREAST COMPOSITION: There are scattered areas of fibroglandular density. FINDINGS: Comparison will be obtained to assure stability of the parenchymal pattern. An addendum will be dictated when these films are made available. us Gin Castro PUTTIER MAMMO ORDERABLES Edited Res ult - Final * CERV/VAG CYTO AGE BASED SCREEN PAP (10/08/2024 2:35 PM PAINTING MANAGER) COMMENT (PAP): [facility] [place] Comment: This order for age-based cervical cancer and STI screening follows ACOG guidelines(PB 168, 140, CPL581). See individual assays for performing site location. CLINICAL INFORMATION [facility] Comment:None given LAST MENSTRUAL PERIOD [facility] Comment:NONE GIVEN PREV PAP: [facility] Comment:10/04/2023 NIL PREV BX: [facility] [place] [facility] Comment:NONE GIVEN SOURCE [facility] [place] [facility] Comment:Endocervix ADEQUACY: [facility] Comment: Satisfactory for evaluation. Endocervical/transformation zone component present. Age and/or menstrual status not provided PAP INTERP [facility] [place] [facility] Comment: Cytology Results: Negative for intraepithelial lesion or malignancy. COMMENT (PAP TEST) [facility] [place] Comment: This Pap test has been evaluated with computer assisted technology. FEATHER SAWYER: [facility] [place] Comment: NEVA DEAN(ASCP) CT screening location: [place] [address] [place] [address] EXPLANATORY NOTE [facility] [place] Comment: EXPLANATORY NOTE: The Pap is a screening test for cervical cancer. It is not a diagnostic test and is subject to false negative and false positive results. It is most reliable when a satisfactory sample, regularly obtained, is submitted with relevant clinical findings and history, and when the Pap result is evaluated along with historic and current clinical information. HPV E6/E7 Not Detected Not Detected [facility] [place] Comment: Methodology: Natural Gas Inspector-Mediated Amplification This assay detects E6/E7 viral messenger RNA (mRNA) from 14 high-risk HPV types (16,18,31,33,35,39,45,51,52,56,58,59,66,68). Cervical sources are required for HPV testing. If a vaginal source from a patient who has had a total hysterectomy with removal of cervix was submitted, please contact the testing laboratory for alternative testing options. For additional information, please refer to http://education.hdtMEDIA/faq/QVH620v0 (This link if provided for information/ educational purposes only.) Test Performed at: [facility] [id number] [id number] Barbie GARCIA Genital SWAB OF ENDOCERVIX / Unknown 10/08/2024 2:35 PM PAINTING MANAGER 10/09/2024 12:19 AM PAINTING MANAGER us Gin Castro NP PATHOLOGY/CYTOLOGY ORDERABL ES Final Result [facility] [phone] [facility] [id number] [id number] from Last 3 Months or Most Recently Relevant to Health Maintenance Insurance [address]
--- OUTSIDE RECORDS SUMMARY | 2025-01-30 07:53 | XMS_ITS | Encounter Summary ---
Author Organization [facility] Healthcare Address [address] [place] [address] Care Team Providers Care Equipment Specialist Name Role Phone Oswaldo Ayoub MD Primary Care Provider [phone] Encounter Details Date Type Department Care Team (Late st Contact Info) Description 05/09/2024 Orders Only [facility] Health Information Management [address] [place] [address] Oswaldo Ayoub MD [facility] [address] [address] Social History Tobacco Use Types Packs/Day Years Used Date Smoking Tobacco: Former Cigarettes 0.3 15 0 04/08/1999 - 04/08/2014 Smokeless Tobacco: Never Alcohol Use Standard Drinks/Week Comments Yes 0 (1 standard drink = 0.6 oz pur e alcohol) rarely AUDIT-C Answer Date Recorded Q1: How often do you have a drink containing alc ohol? Monthly or less 01/12/2023 Q2: How many drinks containi ng alcohol do you have on a typical day when you are drinking? 1 or 2 01/12/2023 Q3: How often do you have si x or more drinks on one occasion? Never 01/12/2023 PHQ-2 Answer Date Recorded PHQ-2 Total Score (If total score is 3 or more points, staff should administer the PHQ-9) 2 04/09/2024 Personal Safety Answer Date Recorded Have you ever been in or are you currently in a harmful physical or emotional relationship or is someone making you feel afraid or unsafe? Denies 04/05/2024 Comments No Sex and Gender Information Value Date Recorded Sex Assigned at Not on file Legal Sex Female 12:16 PM CDT Gender Identity Female 01/17/2018 11:19 AM CDT Sexual Orientation Straight 05/18/2021 12 :32 PM CDT documented as of this encounter Plan of Treatment Not on file documented as of this encounter Procedures Procedure Name Priority Date/Time Associated Diagnosis Comments SCAN - LABS 05/09/2024 documented in this encounter Results * SCAN - LABS (05/09/2024) us Oswaldo Ayoub MD Final Result documented in this encounter Visit Diagnoses Not on filedocumented in this encounter Additional Health Concerns Infection Onset Date Last Indicated Resolved Time COVID: Suspected 11/12/2024 11/12/2024 11/12/2024 4:14 AM TOOL REPAIR TECHNICIAN Influenza, adult 11/12/2024 11/12/2024 11/19/2024 3:07 AM TOOL REPAIR TECHNICIAN documented as of this encounter Care Teams Equipment Specialist Relationship Specialty Start Date End Date Oswaldo Ayoub MD [address] [facility] [address] [place] [address] [place] [id number] PCP - General 03/04/17 documented as of this encounter
--- OUTSIDE RECORDS SUMMARY | 2025-01-30 07:53 | XMS_ITS | Encounter Summary ---
Author Organization [facility] Healthcare Address [address] [place] [address] Care Team Providers Care Electrical Line Worker Name Role Phone Oswaldo Ayoub MD Primary Care Provider [phone] Encounter Details Date Type Department Care Team (Late st Contact Info) Description 01/02/2025 Results Follow-Up [facility] Family Medicine at [address] [place] [id number] Oswaldo Ayoub MD [address] [place] [address] [address] [place] [address] Social History Tobacco Use Types Packs/Day Years Used Date Smoking Tobacco: Former Cigarettes 0.3 15 0 04/08/1999 - 04/08/2014 Smokeless Tobacco: Never Alcohol Use Standard Drinks/Week Comments Yes 0 (1 standard drink = 0.6 oz pur e alcohol) rarely AUDIT-C Answer Date Recorded Q1: How often do you have a drink containing alc ohol? Monthly or less 06/14/2024 Q2: How many drinks containi ng alcohol do you have on a typical day when you are drinking? 1 or 2 06/14/2024 Q3: How often do you have si x or more drinks on one occasion? Never 06/14/2024 PHQ-2 Answer Date Recorded PHQ-2 Total Score [...] on file documented as of this encounter Visit Diagnoses Not on filedocumented in this encounter Care Teams Electrical Line Worker Relationship Specialty Start Date End Date Oswaldo Ayoub MD [address] [facility] [place] [address] [place] [id number] PCP - General 03/04/17 documented as of this encounter
--- NOTE | 2025-01-30 07:54 | ED_ITS ---
HPI - Nausea/Vomiting/Diarrhea General Chief complaint: Nausea/Vomiting/Diarrhea Stated complaint: dehydration Time Seen by Provider: 01/30/25 07:34 History of Present Illness HPI Narrative: 44-year-old female presenting to the emergency room with nausea and vomiting as well as dehydration. 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 She was hospitalized for electrolyte imbalances secondary to this months ago. Patient presents today and not any acute distress. She complains of nauseousness but no emesis here in the emergency department. No fever chills. No chest pain shortness a breath. She was otherwise doing well. States she feels like she may have triggered her mast cell with something she ate or drank these last few days including beer. Her normal triggers include tomato. Patient comes with orders and a protocol that her GI doctor follows including fluid boluses, electrolyte correction and Reglan/diphenhydramine, but she has never been to this facility and usually gets her care [facility]. Related Data Allergies Allergy/AdvReac Type Severity Reaction Status Date / Time No Known Allergies Allergy Verified 01/30/25 07:33 Review of Systems 2 Review of Systems: As reviewed above in HPI Exam 2 Narrative: GENERAL: [Well-appearing, well-nourished, and in no acute distress.] HEAD: [Normocephalic, atraumatic.] EYES: [PERRLA and EOMI.] ENT: Nares clear, no rhinorrhea or epistaxis. Mucous membranes moist. NECK: Supple. CHEST: [Clear to auscultation. No respiratory distress.] HEART: [Regular rate and rhythm]. No murmur heard. [Normal peripheral pulses.] ABDOMEN: [Soft, nondistended], [nontender], [No rigidity or guarding] EXTREMITIES: Normal range of motion. [No edema.] SKIN: Warm, dry, no rash. NEURO: [No focal deficits]. Alert and oriented [x3.] PSYCH: [Normal mood and affect.] Course Vital Signs Vital signs: Vital Signs Temperature 36.6 C 01/30/25 07:42 Pulse Rate 88 01/30/25 07:42 Respiratory Rate 16 01/30/25 07:42 Blood Pressure 141/72 H 01/30/25 07:42 Pulse Oximetry 97 01/30/25 07:42 Temperature 36.6 C 01/30/25 10:15 Pulse Rate 75 01/30/25 10:15 Respiratory Rate 15 01/30/25 10:15 Blood Pressure 146/80 H 01/30/25 10:15 Pulse Oximetry 92 01/30/25 10:15 Oxygen Delivery Room Air 01/30/25 07:49 MDM - Nausea/Vomiting/Diarrhea MDM Narrative Medical decision making narrative: 44-year-old female with a history of potential mast cell activation syndrome following Gastroenterology at [facility]. Patient presents today with reported nausea and vomiting since Tuesday. She otherwise well-appearing, not clinically dehydrated with normal vital signs, unremarkable examination. She is awake alert oriented answers all questions appropriately. Her GI doctor paperwork at bedside shows a protocol that she follows when she gets infusions. She has at home Reglan and Benadryl that has not been working for nausea. She is presently nauseous without any signs of emesis. Not retching or any signs of discomfort on examination or during interview process. Suspicion presently is for potential mast cell activation flare given her history versus electrolyte imbalances versus inflammatory/infectious pathology. Low suspicion for intra- abdominal pathology given no signs of abdominal pain. CBC, BMP, test ordered. She was given 2 L of normal saline as well as Compazine and diphenhydramine for symptom control. She was placed on monitor and frequently re-evaluated for resolution of symptoms. Patient re-evaluated after Compazine diphenhydramine had complete symptomatic resolution here. She did have initially low potassium levels of 2.8 normal magnesium. Slightly prolonged QTC which she was given magnesium IV to correct. Potassium oral and IV supplementation ordered and repeat BMP obtained which shows improvement in her potassium levels. Patient re-evaluated once again and remained asymptomatic and doing well. Patient would like to go home to rest. At this juncture I believe she can be safely discharged with close outpatient follow-up and she was comfortable with this plan. I discussed with the patient her QTC interval being slightly prolonged and being at risk for developing cardiac dysrhythmias. At this juncture we will change her regimen to stop Reglan and Zofran and start other antiemetic therapies. Discussed with her benzodiazepine versus scopolamine verses steroids until she can see her regular doctors for follow-up and other recommendations. Patient already has component does occasionally work for her so we added on low-dose benzodiazepines which I did prescribe. Patient is safe for discharge home at this time given return precautions. Medical Records Attestation: I reviewed the patient's medical records. Lab Data Attestation: I reviewed the patient's lab results. 01/30/25 07:53 01/30/25 10:51 Labs: Lab Results 01/30/25 01/30/25 01/30/25 Range/Units 07:53 07:54 10:51 WBC 9.4 (4.5-10.0) K/mm3 RBC 5.33 (4.2-5.4) M/mm3 Hgb 16.8 H (12.0-15.0) g/dL Hct 48.4 H (37.0-47.0) % MCV 90.8 (80-100) fl MCH 31.5 (26-34) pg MCHC 34.7 (32-36) g/dl RDW 12.3 (11.5-14.5) % Plt Count 295 (150-375) k/mm3 MPV 10.1 (7.4-10.4) fl Immature Gran % (Auto) 0.3 (0-0.5) % Neut % (Auto) 71.2 (45.5-73.1) % Lymph % (Auto) 18.2 L (18.3-44.2) % Ward % (Auto) 9.7 H (2.6-8.5) % Eos % (Auto) 0.1 (0-4.4) % Baso % (Auto) 0.5 (0.2-1.2) % Lymph # (Auto) 1.70 (0.9-3.2) K/mm3 Ward # (Auto) 0.9 H (0.1-0.6) K/mm3 Eos # (Auto) 0.0 (0-0.3) K/mm3 Baso # (Auto) 0.1 (0.0-0.1) K/mm3 Abs Immat Gran (auto) 0.03 (0.00-0.031) K/mm3 Absolute Neuts (auto) 6.7 (1.3-6.7) K/mm3 Absolute Nucleated RBC 0.000 (0.0-0.012) K/mm3 Nucleated RBC % 0.0 (0.0-0.2) % Sodium 130 L 132 L (137-145) mmol/L Potassium 2.8 L* 3.1 L (3.4-5.0) mmol/L Chloride 84 L 91 L (98-107) mmol/L Carbon Dioxide 32 H 31 H (22-30) mmol/L Anion Gap 14 H 10 (4-12) mmol/L BUN 23 H 21 H (7-17) mg/dL Creatinine 0.90 0.77 (0.7-1.0) mg/dL Estim Creat Clear Calc 90 105 ml/min Estimated GFR > 60 > 60 (59 - ) Glucose 178 H 102 (65-110) mg/dL Calcium 8.9 8.0 L (8.4-10.2) mg/dL Magnesium 2.1 (1.6-2.3) mg/dL Serum HCG, Qual Negative ECG Data EKG #1: Attestation: I personally reviewed and interpreted this ECG as follows: ECG completion date: 01/30/25 ECG completion time: 08:53 Prior ECG tracings: not available for review Interpretation: QT interval 486, QRS 102, NJ interval 124, rate of 60 beats per minute. No ST segment elevations, depressions or inversions. Overall fall interpretation was sinus rhythm. Slightly prolonged QTC interval. Discharge Plan Discharge Clinical Impression: Mast cell activation syndrome, Nausea & vomiting, At risk for prolonged QT interval syndrome, Hypokalemia Patient Disposition: Home Condition: Stable Instructions: Antibiotic Form, Acute Nausea and Vomiting (ED) Additional Instructions: Your potassium has improved here with IV and oral supplementation and likely was low secondary to nausea and vomiting. Your EKG shows a slightly prolonged QTC interval which is likely caused by your electrolyte derangements as well as your antiemetic therapy at home. We will prescribe you low-dose benzodiazepines for nausea and vomiting and you can continue taking her scopolamine patches. We will also give you potassium and magnesium supplements to take by mouth intake and get repeat labs and follow-up with your regular doctors. Do not take anymore Reglan or Zofran at home until your doctors have re-evaluated. Return with any urgent or emergent concerns. Patient Language: Anguill[place] Prescriptions: New lorazepam [Ativan] 0.5 mg tablet 0.5 mg PO TID PRN (Reason: nausea and vomiting) Qty: 20 0RF potassium chloride [Klor-Con 10] 10 mEq tablet extended release 10 meq PO DAILY Qty: 30 0RF magnesium oxide 200 mg magnesium tablet 200 mg PO DAILY Qty: 30 0RF Follow-up/Referrals: UNKNOWN,DOCTOR [Primary Care Provider] - Time of Disposition: 12:40
[2025-01-30 08:02] LABS: Basophils Absolute Auto 0.1 K/mm3 (0.0-0.1); Basophils Percent Auto 0.5 % (0.2-1.2); Eosinophils Percent Auto 0.1 % (0-4.4); Hematocrit 48.4 % (37.0-47.0); Hemoglobin 16.8 g/dL (12.0-15.0); Immature Granulocyte Absolute 0.03 K/mm3 (0.00-0.031); Immature Granulocyte Percent A 0.3 % (0-0.5); Lymphocytes Percent Auto 18.2 % (18.3-44.2); Mean Corpuscular HGB Conc 34.7 g/dl (32-36); Mean Corpuscular Hemoglobin 31.5 pg (26-34); Mean Corpuscular Volume 90.8 fl (80-100); Mean Platelet Volume 10.1 fl (7.4-10.4); Monocytes Absolute Auto 0.9 K/mm3 (0.1-0.6); Monocytes Percent Auto 9.7 % (2.6-8.5); Neutrophils Absolute Auto 6.7 K/mm3 (1.3-6.7); Neutrophils Percent Auto 71.2 % (45.5-73.1); Platelet Count Result 295 k/mm3 (150-375); Red Blood Count 5.33 M/mm3 (4.2-5.4); Red Cell Distribution Width 12.3 % (11.5-14.5); White Blood Count 9.4 K/mm3 (4.5-10.0)
[2025-01-30] MEDS: SODIUM CHLORIDE 0.9% IV 1,000 ML 999 ML IV CONT ×2 (08:03)
[2025-01-30] MEDS: diphenhydrAMINE HCl INJ 50 MG/ML VIAL 25 MG IV PUSH (08:03)
[2025-01-30] MEDS: PROCHLORPERAZINE EDISYLATE 10 MG/2 ML VIAL IV PUSH (08:04)
[2025-01-30 08:13] LABS: Anion Gap 14 mmol/L (4-12); Blood Urea Nitrogen 23 mg/dL (7-17); Calcium 8.9 mg/dL (8.4-10.2); Carbon Dioxide 32 mmol/L (22-30); Chloride 84 mmol/L (98-107); Estimated CRCL calculation 90 ml/min; Estimated Glomerular Filt Rate > 60; Glucose 178 mg/dL (65-110); Potassium 2.8 mmol/L (3.4-5.0); Sodium 130 mmol/L (137-145)
[2025-01-30 08:14] LABS: SPREG INTERNAL CONTROL Positive; Serum Qual hCG Negative
--- NOTE | 2025-01-30 08:16 | ECG_ITS ---
Test Date: 2025-01-30 08:53:38 Measurements Intervals [place] Rate: 68 P: -1 MI: 124 QRS: -6 QRSD: 102 T: 25 QT: 486 QTc: 519 Interpretive Statements SINUS RHYTHM PROLONGED QT INTERVAL No previous ECG available for comparison Electronically Signed On 01-30-2025 14:03:54 CDT by Raman Kenney M.D.
[2025-01-30] MEDS: KCL 20 MEQ/SW 100 ML 100 ML 50 MEQ IVPB (08:37)
[2025-01-30] MEDS: POTASSIUM CHLORIDE 20 MEQ ER TABLET 40 MEQ PO (08:39)
[2025-01-30 09:11] LABS: Magnesium 2.1 mg/dL (1.6-2.3)
[2025-01-30] MEDS: MAGNESIUM SULF 2 GM/WATER 50ML 2 GM/50 ML BAG IVPB (09:49)
[2025-01-30 11:04] LABS: Anion Gap 10 mmol/L (4-12); Blood Urea Nitrogen 21 mg/dL (7-17); Carbon Dioxide 31 mmol/L (22-30); Chloride 91 mmol/L (98-107); Estimated CRCL calculation 105 ml/min; Estimated Glomerular Filt Rate > 60; Glucose 102 mg/dL (65-110); Potassium 3.1 mmol/L (3.4-5.0); Sodium 132 mmol/L (137-145)
== END 2025-01-30 12:52 | disposition home or self-care (01) ==
PROVIDERS: Emergency Provider Student in an Organized Health Care Education/Training Program
DX: R11.2 Nausea with vomiting, unspecified (principal); E87.6 Hypokalemia; D89.40 Mast cell activation, unspecified; R94.31 Abnormal electrocardiogram [ECG] [EKG]
CPT/HCPCS: 36415; 80048; 83735; 84703; 85025; 93005; 96365; 96366; 96368; 96375; 99284; A9270; J0780; J1200; J3475; J3480; J7030

== ENCOUNTER 2025-01-31 09:01 | Emergency (ER) | payer OTHER, SELFPAY ==
--- NOTE | ~2025-01-31 | CT_ITS ---
CT abdomen pelvis w con Ordering provider: Hannah Victoria PA-C History: 44 years Female with . abd pain, N/V . Comparison: None. Technique: CT abdomen and pelvis with IV and without oral contrast. Automated exposure control and it erative reconstruction technique were employed. The dose-length product was 1271.48 mGy-cm. Findings: VISUALIZED LOWER CHEST: Normal. UPPER ABDOMINAL ORGANS: Liver: Fat infiltration. Gallbladder: Normal. Spleen: Normal. Stomach/duodenum: Small sliding hiatus hernia. Thickened wall of the distal esophagus which may indic ate reflux esophagitis. Pancreas: Atrophic. Adrenals: Normal. Kidneys: Normal. PELVIC ORGANS: The bladder is normal. Fibroid uterus is seen posteriorly measuring 1.7 cm. Follicles are seen in both ovaries. BOWEL AND MESENTERY: Colon: No evidence of diverticulitis.. Normal appendix. Small Bowel: Normal. No obstruction. Peritoneum/mesentery: No free air or free fluid. No mesenteric lymphadenopathy. RETROPERITONEUM: Normal aorta. No retroperitoneal lymphadenopathy. MUSCULOSKELETAL: Superficial soft tissues: The superficial soft tissues are normal. Bones: Multilevel degenerative disc disease. Bilateral sacroiliacs. IMPRESSION: 1. No evidence of appendicitis, diverticulitis or intestinal obstruction. 2. Small sliding hiatus hernia with reflux esophagitis. 3. Fibroid uterus. 4. Fat infiltration of the liver. Reviewed, dictated and finalized at location A.
--- NOTE | ~2025-01-31 | XR_ITS ---
Clinical Indication: Shortness of breath PA and lateral views of the chest: Comparison: None Findings: The lungs are clear, without evidence of focal consolidation or pleural effusion. Cardiome diastinal silhouette is within normal limits. Bones and soft tissues are unremarkable. Impression: Normal chest. Reviewed, dictated and finalized at [facility]. Impression: Normal chest.
--- OUTSIDE RECORDS SUMMARY | 2025-01-31 09:13 | XMS_ITS | Encounter Summary ---
Author Organization [facility] Healthcare Address [address] [place] [address] Care Team Providers Care Chemical Economist Name Role Phone Oswaldo Ayoub MD Primary Care Provider [phone] Encounter Details Date Type Department Care Team (Late st Contact Info) Description 05/09/2024 Orders Only [facility] Health Information Management [address] [place] [address] Oswaldo Ayoub MD [facility] [address] [address] Social History Tobacco Use Types Packs/Day Years [...] COVID: Suspected 11/12/2024 11/12/2024 11/12/2024 4:14 AM COMMUNITY ASSOCIATION MANAGER Influenza, adult 11/12/2024 11/12/2024 11/19/2024 3:07 AM COMMUNITY ASSOCIATION MANAGER documented as of this encounter Care Teams Chemical Economist Relationship Specialty Start Date End Date Oswaldo Ayoub MD [address] [facility] [address] [place] [address] [place] [id number] PCP - General 03/04/17 documented as of this encounter
--- OUTSIDE RECORDS SUMMARY | 2025-01-31 09:13 | XMS_ITS | Clinical Summary ---
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 - [address] [place] [address] Gin Castro NP MAMMO 3D [...] Sex Assigned at Female 08/06/2024 11:23 AM NURSERY ATTENDANT Legal Sex Female 12:30 PM NURSERY ATTENDANT Gender Identity Female 08/06/2024 11:23 AM NURSERY ATTENDANT Sexual Orientation Not on file Last Filed Vital Signs Vital Sign Reading Time Taken Comments Blood Pressure 120/76 10/08/2024 2:07 PM NURSERY ATTENDANT Pulse 61 10/08/2024 2:07 PM NURSERY ATTENDANT Temperature 36.4 C (97.5 F) 10/08/2024 2:07 PM NURSERY ATTENDANT Respiratory Rate - - Oxygen Saturation 97% 10/08/2024 2:07 PM NURSERY ATTENDANT Inhaled Oxygen Concentration - - Weight 117.9 kg (260 lb) 10/08/2024 2:07 PM NURSERY ATTENDANT Height 180.3 cm (5' 11 ) 10/08/2024 2:07 PM NURSERY ATTENDANT Body Mass Index 36.26 10/08/2024 2:07 PM NURSERY ATTENDANT Plan of Treatment Upcoming Encounters Date Type Department Care Team (Late st Contact Info) Description 10/09/2025 2:00 PM NURSERY ATTENDANT Office Visit [facility] 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 - [address] [place] [address] Gin Castro NP [address] [place] [address] Health Maintenance Due Date Last [...] OR WO CAD Routine 11/15/2024 2:23 PM NURSERY ATTENDANT Screening mammogram for breast cancer CERV/VAG CYTO AGE BASED SCREEN PAP Routine 10/08/2024 2:35 PM NURSERY ATTENDANT Well woman exam with routine gynecological exam Screening for HPV (human papillomavirus) Encounter for Papanicolaou smear for cervical cancer screening H/O LEEP from Last 3 Months or Most Recently Relevant to Health Maintenance Results * MAMMO 3D TAYO SCREEN BILAT W OR WO CAD (11/15/2024 2:23 PM NURSERY ATTENDANT) Anatomical Region Laterality Modality Breast Bilateral Mammography 11/15/2024 2:24 PM NURSERY ATTENDANT Addenda Addendum by Tom Barber MD on 11/30/2024 9:07 AM NURSERY ATTENDANT Prior mammograms from an outside facility are [...] in one year. Impressions 11/15/2024 2:44 PM NURSERY ATTENDANT IMPRESSION: 1. Need outside films. OVERALL FINAL ASSESSMENT: BI-RADS CATEGORY 0: Incomplete, needs comparison to prior mammograms. RECOMMENDATIONS: 1. Outside films will be obtained. An addendum will be dictated when these films are available. DICTATION LOCATION: [facility] 11/15/2024 2:44 PM NURSERY ATTENDANT BILATERAL SCREENING DIGITAL MAMMOGRAM WITH 3D TOMOSYNTHESIS [...] films are made available. us Gin Castro GRAPHIC ARTS INSTRUCTOR MAMMO ORDERABLES Edited Res ult - Final * CERV/VAG CYTO AGE BASED SCREEN PAP (10/08/2024 2:35 PM NURSERY ATTENDANT) COMMENT (PAP): [facility] Comment: This order for age-based cervical cancer and STI screening follows ACOG guidelines(PB 168, 140, ISH984). See individual assays for performing site location. CLINICAL INFORMATION [facility] [place] Comment:None given LAST MENSTRUAL PERIOD [facility] Comment:NONE GIVEN PREV PAP: [facility] Comment:10/04/2023 NIL PREV BX: [facility] Comment:NONE GIVEN SOURCE [facility] Comment:Endocervix ADEQUACY: [facility] Comment: Satisfactory for evaluation. Endocervical/transformation zone component present. Age and/or menstrual status not provided PAP INTERP [facility] Comment: Cytology Results: Negative for intraepithelial lesion or malignancy. COMMENT (PAP TEST) [facility] [place] Comment: This Pap test has been evaluated with computer assisted technology. TAPROOM ATTENDANT: [facility] [place] Comment: NEVA DEAN(ASCP) CT screening location: [place] [address] [place] [address] EXPLANATORY NOTE [facility] [place] Comment: EXPLANATORY NOTE: The Pap is a [...] information. HPV E6/E7 Not Detected Not Detected [facility] [place] Comment: Methodology: Chemical Waste Management Technician-Mediated Amplification This assay detects E6/E7 viral messenger RNA (mRNA) from 14 high-risk HPV types (16,18,31,33,35,39,45,51,52,56,58,59,66,68). Cervical sources are required for HPV testing. If a vaginal source from a patient who has had a total hysterectomy with removal of cervix was submitted, please contact the testing laboratory for alternative testing options. For additional information, please refer to http://education.Angstro/faq/JBI320f3 (This link if provided for information/ educational purposes only.) Test Performed at: [facility] [id number] [phone] Barbie GARCIA Genital SWAB OF ENDOCERVIX / Unknown 10/08/2024 2:35 PM NURSERY ATTENDANT 10/09/2024 12:19 AM NURSERY ATTENDANT us Gin Castro NP PATHOLOGY/CYTOLOGY ORDERABL ES Final Result [facility] [phone] [facility] [id number] [phone] from Last 3 Months or Most Recently Relevant to Health Maintenance Insurance 1989 [employer] [address]
--- OUTSIDE RECORDS SUMMARY | 2025-01-31 09:13 | XMS_ITS | Clinical Summary ---
Author Organization [facility] Address [address] [place] [address] Care Team Providers Care Home Restoration Service Supervisor Name Role Phone Oswaldo Ayoub MD Primary Care Provider [phone] Allergies No known active allergies Medications melatonin [...] unremarkable. Assessment & Plan (11/18/2022 10:23 AM PLASTIC DESIGN APPLIER): CT scan of the abdomen and pelvis [...] loss Assessment & Plan (11/18/2022 10:50 AM PLASTIC DESIGN APPLIER): GERD for the past year, seems to [...] PRN Assessment & Plan (08/23/2022 1:43 PM PLASTIC DESIGN APPLIER): Stable, no changes. Continue current regimen with [...] acceptable. Assessment & Plan (08/23/2022 1:42 PM PLASTIC DESIGN APPLIER): Seeing improvement with xanax Increase dose to [...] popcorn Assessment & Plan (11/18/2022 10:52 AM PLASTIC DESIGN APPLIER): Patient started having abdominal pain, diarrhea, nausea, [...] Type Department Care Team Description 01/18/2025 Telephone [facility] Family Medicine at [address] [place] [address] Oswaldo Ayoub MD 01/15/2025 11:30 AM CDT Office Visit [facility] Medical [facility] Medicine at [address] [place] [address] Joy Villalpando NP AARON (generalized anxiety disorder) (Primary Dx); Migraine without aura and without status migrainosus, not intractable; Moderate episode of recurrent major depressive disorder (HCC) 01/02/2025 Results Follow-Up [facility] Family Medicine at [address] [place] [address] Oswaldo Ayoub MD 11/12/2024 2:57 AM PLASTIC DESIGN APPLIER - 11/12/2024 9:17 AM [facility] Emergency [facility] Emergency Department [address] [place] [address] Influenza A (Primary Dx); Mast cell activation syndrome; Vomiting and diarrhea; Anxiety Discharge Disposition: Discharge to home or self care from Last 3 Months Immunizations Immunization Administration Dates Next Due Influenza, Unspecified 06/26/2024(Deferr ed: Patient Refused),06/26/2023(Deferred: Patient Refused),07/14/2022(Deferred: Patient Refused),06/26/2021(Deferred: Patient Refused),06/26/2021(Deferred: Patient Refused),06/26/2020(Deferred: Patient Refused),06/26/2019(Deferred: Patient Refused) Tdap 06/28/2017 Surgical History Surgery Date Site/Laterality Comments CERVIX SURGERY Cervical Surgery ([employer]) - (Added by TW Conv) Medical History [...] URINALYSIS, MICROSCOPIC ONLY STAT 11/12/2024 8:42 AM PLASTIC DESIGN APPLIER URINALYSIS AND REFLEX TO MICROSCOPIC AND CULTURE STAT 11/12/2024 8:42 AM PLASTIC DESIGN APPLIER SEPSIS LACTATE WITH REFLEX Timed 11/12/2024 8:25 AM PLASTIC DESIGN APPLIER EGFR STAT 11/12/2024 5:19 AM PLASTIC DESIGN APPLIER DIFFERENTIAL AUTO STAT 11/12/2024 5:1 9 AM PLASTIC DESIGN APPLIER BASIC METABOLIC PANEL STAT 11/12/2024 5:19 AM PLASTIC DESIGN APPLIER CBC WITH AUTO DIFFERENTIAL STAT 11/12/2024 5:19 AM PLASTIC DESIGN APPLIER SEPSIS LACTATE WITH REFLEX Timed 11/12/2024 5:19 AM PLASTIC DESIGN APPLIER XR CHEST 1 VIEW ED 11/12/2024 3:53 AM PLASTIC DESIGN APPLIER TRYPTASE STAT 11/12/2024 3:41 AM PLASTIC DESIGN APPLIER RESPIRATORY PATHOGEN PANEL STAT 11/12/2024 3:10 AM PLASTIC DESIGN APPLIER EGFR STAT 11/12/2024 3:08 AM PLASTIC DESIGN APPLIER DIFFERENTIAL AUTO STAT 11/12/2024 3:0 8 AM PLASTIC DESIGN APPLIER SEPSIS LACTATE WITH REFLEX Routine 11/12/2024 3:08 AM PLASTIC DESIGN APPLIER COMPREHENSIVE METABOLIC PANEL STAT 11/12/2024 3:08 AM PLASTIC DESIGN APPLIER CBC WITH AUTO DIFFERENTIAL STAT 11/12/2024 3:08 AM PLASTIC DESIGN APPLIER ECG 12-LEAD STAT 11/12/2024 3:03 AM PLASTIC DESIGN APPLIER SCREENING MAMMOGRAM BILATERAL W TAYO Schedule Routine, Read Routine (OP Routine) 09/30/2023 2:22 PM PLASTIC DESIGN APPLIER Screening mammogram, encounter for COLONOSCOPY 01/12/2023 11:44 AM CDT from Last 3 Months or Most Recently Relevant to Health Maintenance Results * SCAN - LABS (12/27/2024) us Oswaldo Ayoub MD Final Result * (ABNORMAL) Urinalysis reflex to microscopic and culture Urine (11/12/2024 8:42 AM PLASTIC DESIGN APPLIER) Color, ur Yellow Yellow Clarity, ur Clear Clear [facility] Specific gravity, ur 1.022 1.003 - 1.030 [facility] pH, urine 7.0 [facility] Comment: Interpretive Data U rine pH is affected by diet, medications, systemic acid-base disturbances, and renal tubular function. pH may affect urinary stone formation. For example, urine pH below 6.0 may help reduce the tendency for calcium phosphate stones and pH greater than 6.0 may reduce the tendency for uric acid stone formation. Source: [facility] Current Interpretive Data was last revised on 2017 Protein, ur ql Trace Negative [facility] Glucose, ur ql Negative Negative [facility] Ketones, ur 1+(A) Negative [facility] Bilirubin, ur Negative Negative [facility] Blood, ur 1+(A) Negative [facility] Urobilinogen, ur <2.0 <2.0 mg/dL [facility] Nitrite, ur Negative Negative [facility] Leukocyte esterase, ur Negative Negative [facility] UA reflex comment Reflex to microscopic UA will be performed. [facility] Urine 11/12/2024 8:42 AM PLASTIC DESIGN APPLIER 11/12/2024 8:42 AM PLASTIC DESIGN APPLIER Narrative [facility] - 11/12/2024 8:55 AM PLASTIC DESIGN APPLIER If patient unable to urinate, straight cath Aung Barrios MD LAB MICROBIOLOGY - GENERAL ORDERABLES Final Result Performing Organization Address [facility] de Phone Number [facility] [address] [place] [address] * (ABNORMAL) Urinalysis, microscopic only (11/12/2024 8:42 AM PLASTIC DESIGN APPLIER) WBC, ur 0-5 0 - 5 /HPF RBC, ur 11-20(A) 0 - 2 /HPF [facility] Epithelial cells, squamous, ur 1-5 0 - 5 /HPF [facility] Bacteria, ur Trace(A) [facility] Mucous, ur Present(A) [facility] Hyaline casts, ur 1-5 0 - 10 /LPF [facility] Culture Reflex Comment Reflex conditions for urine culture (WBC >10) not met. [facility] Urine 11/12/2024 8:42 AM PLASTIC DESIGN APPLIER 11/12/2024 8:48 AM PLASTIC DESIGN APPLIER Aung Barrios MD LAB URINE ORDERA BLES Final Result Performing Organization Address [facility]/ZIP Co de Phone Number [facility] [address] [place] [address] * (ABNORMAL) Sepsis Lactate w/ Reflex (11/12/2024 8:25 AM PLASTIC DESIGN APPLIER) [facility] Sepsis Lactate 2.6(H) 0.7 - 2.0 mmol/L Blood 11/12/2024 8:25 AM PLASTIC DESIGN APPLIER 11/12/2024 8:33 AM PLASTIC DESIGN APPLIER Aung Barrios MD LAB BLOOD ORDERA BLES Final Result Performing Organization Address [facility] Co de Phone Number [facility] [address] Department [place] [address] * (ABNORMAL) Sepsis Lactate w/ Reflex (11/12/2024 5:19 AM PLASTIC DESIGN APPLIER) [facility] Sepsis Lactate 4.6(C) 0.7 - 2.0 mmol/L Comment:Critical result call ed to and read back by JOY MorenoRN) on 11/12/2024 05:29:48 PLASTIC DESIGN APPLIER to [id number]. Blood 11/12/2024 5:19 AM PLASTIC DESIGN APPLIER 11/12/2024 5:25 AM PLASTIC DESIGN APPLIER Aung Barrios MD LAB BLOOD ORDERA BLES Final Result Performing Organization Address [facility] Co de Phone Number [facility] [address] Department [place] [address] * eGFR (11/12/2024 5:19 AM PLASTIC DESIGN APPLIER) [facility] eGFR >90 >=60 mL/min/1. 73 m2 [...] last reviewed 2021. Blood 11/12/2024 5:19 AM PLASTIC DESIGN APPLIER 11/12/2024 5:27 AM PLASTIC DESIGN APPLIER us Asia Myrick NP LAB BLOOD ORDERABLE S Final Result [facility] [address] Department [place] [address] * (ABNORMAL) Differential, auto (11/12/2024 5:19 AM PLASTIC DESIGN APPLIER) Neutrophil abs 12.3(H) 1.5 - 6.5 K/cumm Imm gran abs 0.1 0.0 - 0.1 K/cumm [facility] Lymphocyte abs 0.5(L) 0.8 - 3.3 K/cumm [facility] Monocyte abs 0.7 0.2 - 0.8 K/cumm [facility] Eosinophil abs 0.0 0.0 - 0.5 K/cumm [facility] Basophil abs 0.0 0.0 - 0.1 K/cumm [facility] Neutrophil pct 90.1 % [facility] Comment: Interpretive Data Percent cell count reference ranges are not reported, since discordance with absolute values may lead to misinterpretation of CBC data. Current Interpretive Data was last revised on 2018. Imm gran pct 1.0 % [facility] Comment: Interpretive Data Percent cell count reference ranges are not reported, since discordance with absolute values may lead to misinterpretation of CBC data. Current Interpretive Data was last revised on 2018. Lymphocyte pct 3.6 % [facility] Comment: Interpretive Data Percent cell count reference ranges are not reported, since discordance with absolute values may lead to misinterpretation of CBC data. Current Interpretive Data was last revised on 2018. Monocyte pct 4.9 % [facility] Comment: Interpretive Data Percent cell count reference ranges are not reported, since discordance with absolute values may lead to misinterpretation of CBC data. Current Interpretive Data was last revised on 2018. Eosinophil pct 0.3 % [facility] Comment: Interpretive Data Percent cell count reference ranges are not reported, since discordance with absolute values may lead to misinterpretation of CBC data. Current Interpretive Data was last revised on 2018. Basophil pct 0.1 % [facility] Comment: Interpretive Data Percent cell count reference ranges are not reported, since discordance with absolute values may lead to misinterpretation of CBC data. Current Interpretive Data was last revised on 2018. Blood 11/12/2024 5:19 AM PLASTIC DESIGN APPLIER 11/12/2024 5:27 AM PLASTIC DESIGN APPLIER us Asia Myrick NP LAB BLOOD ORDERABLE S Final Result [facility] [address] Department [place] [address] * (ABNORMAL) CBC with auto differential (11/12/2024 5:19 AM PLASTIC DESIGN APPLIER) WBC 13.6(H) 3.8 - 9.9 K/cumm Hgb 13.6 11.9 - 15.5 g/dL [facility] Hct 39.9 35.6 - 45.5 % [facility] Plt 275 150 - 400 K/cumm [facility] MPV 9.9 9.1 - 12.3 fL [facility] RBC 4.30 3.90 - 5.20 M/cumm [facility] MCV 92.8 81.3 - 96.4 fL [facility] MCH 31.6 27.1 - 33.3 pg [facility] MCHC 34.1 32.3 - 35.7 g/dL [facility] RDW CV 11.8 11.1 - 14.9 % [facility] RDW SD 39.8 35.7 - 48.1 fL [facility] NRBC abs 0.00 0.00 - 0.01 K/cumm [facility] Blood 11/12/2024 5:19 AM PLASTIC DESIGN APPLIER 11/12/2024 5:27 AM PLASTIC DESIGN APPLIER Asia Myrick NP LAB BLOOD ORDERABLE S Final Result Performing Organization Address City/[facility]/ZIP Co de Phone Number [facility] [address] [place] [place] [address] * (ABNORMAL) Basic metabolic panel (11/12/2024 5:19 AM PLASTIC DESIGN APPLIER) [facility] Sodium 139 135 - 145 mmol/L Potassium, pl 3.7 3.3 - 4.9 mmol/L [facility] Chloride 105 97 - 110 mmol/L [facility] CO2 17(L) 22 - 32 mmol/L [facility] Anion gap 17(H) 2 - 15 mmol/L [facility] BUN 16 6 - 25 mg/dL [facility] Creatinine 0.80 0.60 - 1.10 mg/dL [facility] Glucose 139 70 - 199 mg/dL [facility] Comment: Interpretive Data Fasting glucose >/= 126 [...] 2022. Calcium 8.5 8.5 - 10.3 mg/dL [facility] Blood 11/12/2024 5:19 AM PLASTIC DESIGN APPLIER 11/12/2024 5:27 AM PLASTIC DESIGN APPLIER Asia Myrick NP LAB BLOOD ORDERABLE S Final Result Performing Organization Address City/[facility]/ZIP Co de Phone Number [facility] [address] [place] [place] [address] * XR Chest 1 Vw Portable (if patient condition/safety warrant portable) (11/12/2024 3:53 AM PLASTIC DESIGN APPLIER) Anatomical Region Laterality Modality Body, Chest N/A Computed Radiogr aphy 11/12/2024 8:21 AM PLASTIC DESIGN APPLIER Impressions 11/12/2024 8:33 AM PLASTIC DESIGN APPLIER The current study is compared with the prior radiograph dated 05/04/2023. There is no focal consolidation, pleural effusion, or pneumothorax. The cardiomediastinal silhouette is normal. Dictated by: Chu Spencer MD The radiology attending physician has personally reviewed this study, and had reviewed and/or edited this written report and agrees with it. Electronically signed by: Alexa Toscano M.D. Narrative 11/12/2024 8:33 AM PLASTIC DESIGN APPLIER EXAMINATION: 1 view chest radiograph Procedure Note [...] Final Result * Tryptase (11/12/2024 3:41 AM PLASTIC DESIGN APPLIER) Tryptase Level 5.9 <11.5 ng/mL [facility] ref Lab Comment: Test Performed by: [facility] [address] [place] [id number] [address] Operator: Breanne Bowers Ph.D.; CLIA# [id number] Blood 11/12/2024 3:41 AM PLASTIC DESIGN APPLIER 11/12/2024 3:47 AM PLASTIC DESIGN APPLIER Asia Rodriguezbenita Begume [employer] LAB BLOOD ORDERABLE S Final Result [facility] [address] Department [place] [address] [facility] ref [facility] * (ABNORMAL) Respiratory pathogen panel Nasopharyngeal (11/12/2024 3:10 AM PLASTIC DESIGN APPLIER) Pathologist [facility] Influenza A/2009 RNA Detected(A) Not Detected [facility] Influenza B RNA Not Detected Not Detected [facility] RSV RNA Not Detected Not Detected [facility] COVID-19 RNA Not Detected Not Detected [facility] Coronavirus 229E RNA Not Detected Not Detected [facility] Coronavirus HKU1 RNA Not Detected Not Detected [facility] Coronavirus NL63 RNA Not Detected Not Detected [facility] Coronavirus OC43 RNA Not Detected Not Detected [facility] Adenovirus DNA Not Detected Not Detected [facility] Metapneumovirus RNA Not Detected Not Detected [facility] Rhinovirus/Enterov irus RNA Not Detected Not Detected [facility] Parainfluenza 1 RNA Not Detected Not Detected [facility] Parainfluenza 2 RNA Not Detected Not Detected [facility] Parainfluenza 3 RNA Not Detected Not Detected [facility] Parainfluenza 4 RNA Not Detected Not Detected [facility] B. pertussis DNA Not Detected Not Detected [facility] B. parapertussis DNA Not Detected Not Detected [facility] C. pneumoniae DNA Not Detected Not Detected [facility] M. pneumoniae DNA Not Detected Not Detected [facility] Comment: Interpretive Data The [employer] FilmArray Respiratory Panel (RP2.1) assay is a [...] assay has FDA clearance for testing of [employer] swabs. The performance characteristics of this assay have been determined by [facility]. Current interpretive data was last revised on 2021. Nasopharyngeal 11/12/2024 3: 10 AM PLASTIC DESIGN APPLIER 11/12/2024 3:21 AM PLASTIC DESIGN APPLIER Narrative [facility] - 11/12/2024 4:13 AM PLASTIC DESIGN APPLIER Is the Patient experiencing symptoms consistent with COVID?->Yes Surveillance testing for transplant patient?->No us Asia Myrick [employer] LAB MICROBIOLOGY - GENERAL ORDERABLES Final Result [facility] [address] Department [place] [address] [facility] * (ABNORMAL) Sepsis Lactate w/ Reflex (11/12/2024 3:08 AM PLASTIC DESIGN APPLIER) [facility] Sepsis Lactate 6.6(C) 0.7 - 2.0 mmol/L Comment:Critical result call ed to and read back by VINNIE YANES (RN) on 11/12/2024 03:40:34 PLASTIC DESIGN APPLIER to [id number]. Blood 11/12/2024 3:08 AM PLASTIC DESIGN APPLIER 11/12/2024 3:22 AM PLASTIC DESIGN APPLIER Aung Barrios MD LAB BLOOD ORDERA BLES Final Result Performing Organization Address City/[facility]/ZIP Co de Phone Number [facility] [address] [place] [address] * eGFR (11/12/2024 3:08 AM PLASTIC DESIGN APPLIER) [facility] eGFR 83 >=60 mL/min/1. 73 m2 Comment: [...] last reviewed 2021. Blood 11/12/2024 3:08 AM PLASTIC DESIGN APPLIER 11/12/2024 3:44 AM PLASTIC DESIGN APPLIER Aung Barrios MD LAB BLOOD ORDERA BLES Final Result Performing Organization Address City/[facility]/ZIP Co de Phone Number [facility] [address] [place] [address] * (ABNORMAL) Differential, auto (11/12/2024 3:08 AM PLASTIC DESIGN APPLIER) Neutrophil abs 17.1(H) 1.5 - 6.5 K/cumm Imm gran abs 0.2(H) 0.0 - 0.1 K/cumm [facility] Lymphocyte abs 0.5(L) 0.8 - 3.3 K/cumm [facility] Monocyte abs 0.8 0.2 - 0.8 K/cumm [facility] Eosinophil abs 0.1 0.0 - 0.5 K/cumm [facility] Basophil abs 0.0 0.0 - 0.1 K/cumm [facility] Neutrophil pct 90.9 % [facility] Comment: Interpretive Data Percent cell count reference ranges are not reported, since discordance with absolute values may lead to misinterpretation of CBC data. Current Interpretive Data was last revised on 2018. Imm gran pct 1.0 % [facility] Comment: Interpretive Data Percent cell count reference ranges are not reported, since discordance with absolute values may lead to misinterpretation of CBC data. Current Interpretive Data was last revised on 2018. Lymphocyte pct 2.9 % [facility] Comment: Interpretive Data Percent cell count reference ranges are not reported, since discordance with absolute values may lead to misinterpretation of CBC data. Current Interpretive Data was last revised on 2018. Monocyte pct 4.4 % [facility] Comment: Interpretive Data Percent cell count reference ranges are not reported, since discordance with absolute values may lead to misinterpretation of CBC data. Current Interpretive Data was last revised on 2018. Eosinophil pct 0.6 % [facility] Comment: Interpretive Data Percent cell count reference ranges are not reported, since discordance with absolute values may lead to misinterpretation of CBC data. Current Interpretive Data was last revised on 2018. Basophil pct 0.2 % [facility] Comment: Interpretive Data Percent cell count reference ranges are not reported, since discordance with absolute values may lead to misinterpretation of CBC data. Current Interpretive Data was last revised on 2018. Blood 11/12/2024 3:08 AM PLASTIC DESIGN APPLIER 11/12/2024 3:44 AM PLASTIC DESIGN APPLIER Aung Barrios MD LAB BLOOD ORDERA BLES Final Result [facility] [address] [place] [address] * (ABNORMAL) CBC with auto differential (11/12/2024 3:08 AM PLASTIC DESIGN APPLIER) [facility] WBC 18.8(H) 3.8 - 9.9 K/cumm Hgb 16.1(H) 11.9 - 15.5 g/dL [facility] Hct 46.2(H) 35.6 - 45.5 % [facility] Plt 411(H) 150 - 400 K/cumm [facility] MPV 10.4 9.1 - 12.3 fL [facility] RBC 5.12 3.90 - 5.20 M/cumm [facility] MCV 90.2 81.3 - 96.4 fL [facility] MCH 31.4 27.1 - 33.3 pg [facility] MCHC 34.8 32.3 - 35.7 g/dL [facility] RDW CV 11.8 11.1 - 14.9 % [facility] RDW SD 38.7 35.7 - 48.1 fL [facility] NRBC abs 0.00 0.00 - 0.01 K/cumm [facility] Blood 11/12/2024 3:08 AM PLASTIC DESIGN APPLIER 11/12/2024 3:44 AM PLASTIC DESIGN APPLIER Aung Barrios MD LAB BLOOD ORDERA BLES Final Result [facility] [address] [employer] [place], [place] [id number] * (ABNORMAL) Comprehensive metabolic panel (11/12/2024 3:08 AM PLASTIC DESIGN APPLIER) Pathologist [facility] Sodium 139 135 - 145 mmol/L Potassium, pl 4.3 3.3 - 4.9 mmol/L [facility] Chloride 98 97 - 110 mmol/L [facility] CO2 15(L) 22 - 32 mmol/L [facility] Anion gap 26(H) 2 - 15 mmol/L [facility] BUN 15 6 - 25 mg/dL [facility] Creatinine 0.88 0.60 - 1.10 mg/dL [facility] Glucose 224(H) 70 - 199 mg/dL [facility] Comment: Interpretive Data Fasting glucose >/= 126 [...] 2022. Calcium 9.9 8.5 - 10.3 mg/dL [facility] Bilirubin, total 1.2 0.1 - 1.2 mg/dL [facility] Protein, pl 7.6 6.5 - 8.5 g/dL [facility] Albumin 4.6 3.5 - 5.0 g/dL [facility] Alk phos 70 40 - 130 Units/L [facility] ALT 13 7 - 45 Units/L [facility] AST 23 10 - 45 Units/L [facility] Blood 11/12/2024 3:08 AM PLASTIC DESIGN APPLIER 11/12/2024 3:44 AM PLASTIC DESIGN APPLIER us Aung Barrios MD LAB BLOOD ORDERA BLES Final Result [facility] [address] Department [place] [address] * ECG 12 lead (11/12/2024 3:03 AM PLASTIC DESIGN APPLIER) 11/12/2024 3:03 AM PLASTIC DESIGN APPLIER Narrative [facility] - 11/12/2024 2:14 PM PLASTIC DESIGN APPLIER Vent Rate: 107 bpm RR Interval: 556 msec MS Interval: 136 msec QRS Duration: 80 msec QT Interval: 355 msec QTC Interval: 418 msec P-R-T [place]: 64 - 68 - 71 degrees IMPRESSION: SINUS TACHYCARDIA POSSIBLE LEFT ATRIAL ENLARGEMENT [-0.1mV P WAVE IN V1/V2] SEPTAL MYOCARDIAL INFARCTION , OF INDETERMINATE AGE [40+ ms Q WAVE IN V1/V2] ABNORMAL ECG Electronically Signed By: Baltazar Chowdhury MD, [facility] us Aung Barrios MD ECG ORDERABLES Final Result [facility] * COLONOSCOPY (01/12/2023 11:44 AM CDT) Anatomical Region Laterality Modality Other Narrative Procedure Note Ari Swan MD - 01/12/2023 11:44 AM CDT [facility] GI ENDOSCOPY Patient Name: Agustina Tijerina Procedure Date: 01/12/2023 11:44 AM Date of : 1980 Admit Type: Outpatient Age: 42 Gender: Female Attending MD: Ari Swan M.D. Room: [facility] ENDOSCOPY ROOM 06 Note Status: Finalized [...] On: 01/12/2023 11:44 AM Recognized by the [employer] for promoting quality in endoscopy Ari Swan MD ENDOSCOPY PROCEDURES Final Resul t from Last 3 Months or Most Recently Relevant to Health Maintenance Insurance [facility] Advance Directives For more information, please contact: [phone] * Full Code (Latest Code Status on File) Date Activated Date Inactivated Comments 10/24/2024 10:13 PM 10/25/2024 10:30 PM Care Teams Home Restoration Service Supervisor Relationship Specialty Start Date End Date Oswaldo Ayoub MD [address] [facility] [address] [address] PCP - General 03/04/17
--- OUTSIDE RECORDS SUMMARY | 2025-01-31 09:13 | XMS_ITS | Referral Summary ---
Author Organization [facility] Address [address] [place] [address] Care Team Providers Care Air Export Coordinator Name Role Phone Oswaldo Ayoub MD Primary Care Provider [phone] Encounters Date Type Department Care Team Description 01/18/2025 Telephone [facility] Medical [facility] Family Medicine at [address] [address] Oswaldo Ayoub MD 01/15/2025 11:30 AM CDT Office Visit [facility] Family Medicine at [address] [place] [phone] Joy Villalpando NP AARON (generalized anxiety disorder) (Primary Dx); Migraine without aura and without status migrainosus, not intractable; Moderate episode of recurrent major depressive disorder (HCC) 01/02/2025 Results Follow-Up [facility] Family Medicine at [address] [address] Oswaldo Ayoub MD 11/12/2024 2:57 AM ISSUE CLERK - 11/12/2024 9:17 AM [facility] Emergency [facility] Emergency Department [facility] [place] [address] Influenza A (Primary Dx); Mast [...] unremarkable. Assessment & Plan (11/18/2022 10:23 AM ISSUE CLERK): CT scan of the abdomen and pelvis [...] loss Assessment & Plan (11/18/2022 10:50 AM ISSUE CLERK): GERD for the past year, seems to [...] PRN Assessment & Plan (08/23/2022 1:43 PM ISSUE CLERK): Stable, no changes. Continue current regimen with [...] acceptable. Assessment & Plan (08/23/2022 1:42 PM ISSUE CLERK): Seeing improvement with xanax Increase dose to [...] popcorn Assessment & Plan (11/18/2022 10:52 AM ISSUE CLERK): Patient started having abdominal pain, diarrhea, nausea, [...] URINALYSIS, MICROSCOPIC ONLY STAT 11/12/2024 8:42 AM ISSUE CLERK URINALYSIS AND REFLEX TO MICROSCOPIC AND CULTURE STAT 11/12/2024 8:42 AM ISSUE CLERK SEPSIS LACTATE WITH REFLEX Timed 11/12/2024 8:25 AM ISSUE CLERK EGFR STAT 11/12/2024 5:19 AM ISSUE CLERK DIFFERENTIAL AUTO STAT 11/12/2024 5:1 9 AM ISSUE CLERK BASIC METABOLIC PANEL STAT 11/12/2024 5:19 AM ISSUE CLERK CBC WITH AUTO DIFFERENTIAL STAT 11/12/2024 5:19 AM ISSUE CLERK SEPSIS LACTATE WITH REFLEX Timed 11/12/2024 5:19 AM ISSUE CLERK XR CHEST 1 VIEW ED 11/12/2024 3:53 AM ISSUE CLERK TRYPTASE STAT 11/12/2024 3:41 AM ISSUE CLERK RESPIRATORY PATHOGEN PANEL STAT 11/12/2024 3:10 AM ISSUE CLERK EGFR STAT 11/12/2024 3:08 AM ISSUE CLERK DIFFERENTIAL AUTO STAT 11/12/2024 3:0 8 AM ISSUE CLERK SEPSIS LACTATE WITH REFLEX Routine 11/12/2024 3:08 AM ISSUE CLERK COMPREHENSIVE METABOLIC PANEL STAT 11/12/2024 3:08 AM ISSUE CLERK CBC WITH AUTO DIFFERENTIAL STAT 11/12/2024 3:08 AM ISSUE CLERK ECG 12-LEAD STAT 11/12/2024 3:03 AM ISSUE CLERK SCREENING MAMMOGRAM BILATERAL W TAYO Schedule Routine, Read Routine (OP Routine) 09/30/2023 2:22 PM ISSUE CLERK Screening mammogram, encounter for COLONOSCOPY 01/12/2023 11:44 AM CDT from Last 3 Months or Most Recently Relevant to Health Maintenance Results * SCAN - LABS (12/27/2024) us Oswaldo Ayoub MD Final Result * (ABNORMAL) Urinalysis reflex to microscopic and culture Urine (11/12/2024 8:42 AM ISSUE CLERK) Color, ur Yellow Yellow Clarity, ur Clear Clear [facility] Specific gravity, ur 1.022 1.003 - 1.030 [facility] pH, urine 7.0 [facility] Comment: Interpretive Data U rine pH is affected by diet, medications, systemic acid-base disturbances, and renal tubular function. pH may affect urinary stone formation. For example, urine pH below 6.0 may help reduce the tendency for calcium phosphate stones and pH greater than 6.0 may reduce the tendency for uric acid stone formation. Source: [facility] Current Interpretive Data was last revised on 2017 Protein, ur ql Trace Negative [facility] Glucose, ur ql Negative Negative [facility] Ketones, ur 1+(A) Negative [facility] Bilirubin, ur Negative Negative [facility] Blood, ur 1+(A) Negative [facility] Urobilinogen, ur <2.0 <2.0 mg/dL [facility] Nitrite, ur Negative Negative [facility] Leukocyte esterase, ur Negative Negative [facility] UA reflex comment Reflex to microscopic UA will be performed. [facility] Urine 11/12/2024 8:42 AM ISSUE CLERK 11/12/2024 8:42 AM ISSUE CLERK Narrative [facility] - 11/12/2024 8:55 AM ISSUE CLERK If patient unable to urinate, straight cath Aung Barrios MD LAB MICROBIOLOGY - GENERAL ORDERABLES Final Result Performing Organization Address [facility] Co de Phone Number [facility] [address] [place] [address] * (ABNORMAL) Urinalysis, microscopic only (11/12/2024 8:42 AM ISSUE CLERK) WBC, ur 0-5 0 - 5 /HPF RBC, ur 11-20(A) 0 - 2 /HPF [facility] Epithelial cells, squamous, ur 1-5 0 - 5 /HPF [facility] Bacteria, ur Trace(A) [facility] Mucous, ur Present(A) [facility] Hyaline casts, ur 1-5 0 - 10 /LPF [facility] Culture Reflex Comment Reflex conditions for urine culture (WBC >10) not met. [facility] Urine 11/12/2024 8:42 AM ISSUE CLERK 11/12/2024 8:48 AM ISSUE CLERK Aung Barrios MD LAB URINE ORDERA BLES Final Result Performing Organization Address [facility]/ZIP Co de Phone Number [facility] [address] Department Mail[employer] [place], [place] [phone] * (ABNORMAL) Sepsis Lactate w/ Reflex (11/12/2024 8:25 AM ISSUE CLERK) [facility] Sepsis Lactate 2.6(H) 0.7 - 2.0 mmol/L Blood 11/12/2024 8:25 AM ISSUE CLERK 11/12/2024 8:33 AM ISSUE CLERK Aung Barrios MD LAB BLOOD ORDERA BLES Final Result Performing Organization Address [facility]/ZIP Co de Phone Number [facility] [address] Department [place] [address] * (ABNORMAL) Sepsis Lactate w/ Reflex (11/12/2024 5:19 AM ISSUE CLERK) [facility] Sepsis Lactate 4.6(C) 0.7 - 2.0 mmol/L Comment:Critical result call ed to and read back by JOY ASHER) on 11/12/2024 05:29:48 ISSUE CLERK to [id number]. Blood 11/12/2024 5:19 AM ISSUE CLERK 11/12/2024 5:25 AM ISSUE CLERK Aung Barrios MD LAB BLOOD ORDERA BLES Final Result Performing Organization Address [facility] Co de Phone Number [facility] [address] Department [place] [address] * eGFR (11/12/2024 5:19 AM ISSUE CLERK) [facility] eGFR >90 >=60 mL/min/1. 73 m2 Comment: [...] last reviewed 2021. Blood 11/12/2024 5:19 AM ISSUE CLERK 11/12/2024 5:27 AM ISSUE CLERK us Asia Myrick NP LAB BLOOD ORDERABLE S Final Result [facility] [address] Department [place] [address] * (ABNORMAL) Differential, auto (11/12/2024 5:19 AM ISSUE CLERK) Neutrophil abs 12.3(H) 1.5 - 6.5 K/cumm Imm gran abs 0.1 0.0 - 0.1 K/cumm [facility] Lymphocyte abs 0.5(L) 0.8 - 3.3 K/cumm [facility] Monocyte abs 0.7 0.2 - 0.8 K/cumm [facility] Eosinophil abs 0.0 0.0 - 0.5 K/cumm [facility] Basophil abs 0.0 0.0 - 0.1 K/cumm [facility] Neutrophil pct 90.1 % [facility] Comment: Interpretive Data Percent cell count reference ranges are not reported, since discordance with absolute values may lead to misinterpretation of CBC data. Current Interpretive Data was last revised on 2018. Imm gran pct 1.0 % [facility] Comment: Interpretive Data Percent cell count reference ranges are not reported, since discordance with absolute values may lead to misinterpretation of CBC data. Current Interpretive Data was last revised on 2018. Lymphocyte pct 3.6 % [facility] Comment: Interpretive Data Percent cell count reference ranges are not reported, since discordance with absolute values may lead to misinterpretation of CBC data. Current Interpretive Data was last revised on 2018. Monocyte pct 4.9 % [facility] Comment: Interpretive Data Percent cell count reference ranges are not reported, since discordance with absolute values may lead to misinterpretation of CBC data. Current Interpretive Data was last revised on 2018. Eosinophil pct 0.3 % [facility] Comment: Interpretive Data Percent cell count reference ranges are not reported, since discordance with absolute values may lead to misinterpretation of CBC data. Current Interpretive Data was last revised on 2018. Basophil pct 0.1 % [facility] Comment: Interpretive Data Percent cell count reference ranges are not reported, since discordance with absolute values may lead to misinterpretation of CBC data. Current Interpretive Data was last revised on 2018. Blood 11/12/2024 5:19 AM ISSUE CLERK 11/12/2024 5:27 AM ISSUE CLERK Asia Myrick NP LAB BLOOD ORDERABLE S Final Result [facility] [address] Department [place] [address] * (ABNORMAL) CBC with auto differential (11/12/2024 5:19 AM ISSUE CLERK) WBC 13.6(H) 3.8 - 9.9 K/cumm Hgb 13.6 11.9 - 15.5 g/dL [facility] Hct 39.9 35.6 - 45.5 % [facility] Plt 275 150 - 400 K/cumm [facility] MPV 9.9 9.1 - 12.3 fL [facility] RBC 4.30 3.90 - 5.20 M/cumm [facility] MCV 92.8 81.3 - 96.4 fL [facility] MCH 31.6 27.1 - 33.3 pg [facility] MCHC 34.1 32.3 - 35.7 g/dL [facility] RDW CV 11.8 11.1 - 14.9 % [facility] RDW SD 39.8 35.7 - 48.1 fL [facility] NRBC abs 0.00 0.00 - 0.01 K/cumm [facility] Blood 11/12/2024 5:19 AM ISSUE CLERK 11/12/2024 5:27 AM ISSUE CLERK Asia Myrick NP LAB BLOOD ORDERABLE S Final Result [facility] [address] [place] [address] * (ABNORMAL) Basic metabolic panel (11/12/2024 5:19 AM ISSUE CLERK) [facility] Sodium 139 135 - 145 mmol/L Potassium, pl 3.7 3.3 - 4.9 mmol/L [facility] Chloride 105 97 - 110 mmol/L [facility] CO2 17(L) 22 - 32 mmol/L [facility] Anion gap 17(H) 2 - 15 mmol/L [facility] BUN 16 6 - 25 mg/dL [facility] Creatinine 0.80 0.60 - 1.10 mg/dL [facility] Glucose 139 70 - 199 mg/dL [facility] Comment: Interpretive Data Fasting glucose >/= [...] 2022. Calcium 8.5 8.5 - 10.3 mg/dL [facility] Blood 11/12/2024 5:19 AM ISSUE CLERK 11/12/2024 5:27 AM ISSUE CLERK Asia Myrick NP LAB BLOOD ORDERABLE S Final Result Performing Organization Address City/[facility]/ZIP Co de Phone Number [facility] [address] Department [place] [address] * XR Chest 1 Vw Portable (if patient condition/safety warrant portable) (11/12/2024 3:53 AM ISSUE CLERK) Anatomical Region Laterality Modality Body, Chest N/A Computed Radiogr aphy 11/12/2024 8:21 AM ISSUE CLERK Impressions 11/12/2024 8:33 AM ISSUE CLERK The current study is compared with the prior radiograph dated 05/04/2023. There is no focal consolidation, pleural effusion, or pneumothorax. The cardiomediastinal silhouette is normal. Dictated by: Chu Spencer MD The radiology attending physician has personally reviewed this study, and had reviewed and/or edited this written report and agrees with it. Electronically signed by: Alexa Toscano M.D. Narrative 11/12/2024 8:33 AM ISSUE CLERK EXAMINATION: 1 view chest radiograph Procedure Note [...] Final Result * Tryptase (11/12/2024 3:41 AM ISSUE CLERK) Tryptase Level 5.9 <11.5 ng/mL [facility] ref Lab Comment: Test Performed by: [facility] [address] [place] [address] Rn Case Management: Breanne Bowers Ph.D.; CLIA# [id number] Blood 11/12/2024 3:41 AM ISSUE CLERK 11/12/2024 3:47 AM ISSUE CLERK Asia Rodriguezbenita Begume ACCOUNTING SUPPORT SPECIALIST LAB BLOOD ORDERABLE S Final Result [facility] [address] Department [place] [address] [place] ref Lab * (ABNORMAL) Respiratory pathogen panel Nasopharyngeal (11/12/2024 3:10 AM ISSUE CLERK) [facility] Influenza A/2009 RNA Detected(A) Not Detected [facility] Influenza B RNA Not Detected Not Detected [facility] RSV RNA Not Detected Not Detected [facility] COVID-19 RNA Not Detected Not Detected [facility] Coronavirus 229E RNA Not Detected Not Detected [facility] Coronavirus HKU1 RNA Not Detected Not Detected [facility] Coronavirus NL63 RNA Not Detected Not Detected [facility] Coronavirus OC43 RNA Not Detected Not Detected [facility] Adenovirus DNA Not Detected Not Detected [facility] Metapneumovirus RNA Not Detected Not Detected [facility] Rhinovirus/Enterov irus RNA Not Detected Not Detected [facility] Parainfluenza 1 RNA Not Detected Not Detected [facility] Parainfluenza 2 RNA Not Detected Not Detected [facility] Parainfluenza 3 RNA Not Detected Not Detected [facility] Parainfluenza 4 RNA Not Detected Not Detected [facility] B. pertussis DNA Not Detected Not Detected [facility] B. parapertussis DNA Not Detected Not Detected [facility] C. pneumoniae DNA Not Detected Not Detected [facility] M. pneumoniae DNA Not Detected Not Detected [facility] Comment: Interpretive Data The [employer] FilmArray Respiratory Panel (RP2.1) assay is a [...] assay has FDA clearance for testing of ACCOUNTING SUPPORT SPECIALIST swabs. The performance characteristics of this assay have been determined by [facility]. Current interpretive data was last revised on 2021. Nasopharyngeal 11/12/2024 3: 10 AM ISSUE CLERK 11/12/2024 3:21 AM ISSUE CLERK Narrative [facility] - 11/12/2024 4:13 AM ISSUE CLERK Is the Patient experiencing symptoms consistent with COVID?->Yes Surveillance testing for transplant patient?->No us Asia Myrick NP LAB MICROBIOLOGY - GENERAL ORDERABLES Final Result [facility] [address] [place] [address] [facility] * (ABNORMAL) Sepsis Lactate w/ Reflex (11/12/2024 3:08 AM ISSUE CLERK) Sepsis Lactate 6.6(C) 0.7 - 2.0 mmol/L Comment:Critical result call ed to and read back by VINNIE YANES (RN) on 11/12/2024 03:40:34 ISSUE CLERK to [id number]. Blood 11/12/2024 3:08 AM ISSUE CLERK 11/12/2024 3:22 AM ISSUE CLERK Aung Barrios MD LAB BLOOD ORDERA BLES Final Result Performing Organization Address City/[facility]/ZIP Co de Phone Number [facility] [address] [employer] [place], [place] [id number] * eGFR (11/12/2024 3:08 AM ISSUE CLERK) Pathologist [facility] eGFR 83 >=60 mL/min/1. 73 m2 Comment: [...] last reviewed 2021. Blood 11/12/2024 3:08 AM ISSUE CLERK 11/12/2024 3:44 AM ISSUE CLERK Aung Barrios MD LAB BLOOD ORDERA BLES Final Result [facility] [address] [place] [address] * (ABNORMAL) Differential, auto (11/12/2024 3:08 AM ISSUE CLERK) Neutrophil abs 17.1(H) 1.5 - 6.5 K/cumm Imm gran abs 0.2(H) 0.0 - 0.1 K/cumm [facility] Lymphocyte abs 0.5(L) 0.8 - 3.3 K/cumm [facility] Monocyte abs 0.8 0.2 - 0.8 K/cumm [facility] Eosinophil abs 0.1 0.0 - 0.5 K/cumm [facility] Basophil abs 0.0 0.0 - 0.1 K/cumm [facility] Neutrophil pct 90.9 % [facility] Comment: Interpretive Data Percent cell count reference ranges are not reported, since discordance with absolute values may lead to misinterpretation of CBC data. Current Interpretive Data was last revised on 2018. Imm gran pct 1.0 % [facility] Comment: Interpretive Data Percent cell count reference ranges are not reported, since discordance with absolute values may lead to misinterpretation of CBC data. Current Interpretive Data was last revised on 2018. Lymphocyte pct 2.9 % [facility] Comment: Interpretive Data Percent cell count reference ranges are not reported, since discordance with absolute values may lead to misinterpretation of CBC data. Current Interpretive Data was last revised on 2018. Monocyte pct 4.4 % [facility] Comment: Interpretive Data Percent cell count reference ranges are not reported, since discordance with absolute values may lead to misinterpretation of CBC data. Current Interpretive Data was last revised on 2018. Eosinophil pct 0.6 % [facility] Comment: Interpretive Data Percent cell count reference ranges are not reported, since discordance with absolute values may lead to misinterpretation of CBC data. Current Interpretive Data was last revised on 2018. Basophil pct 0.2 % [facility] Comment: Interpretive Data Percent cell count reference ranges are not reported, since discordance with absolute values may lead to misinterpretation of CBC data. Current Interpretive Data was last revised on 2018. Blood 11/12/2024 3:08 AM ISSUE CLERK 11/12/2024 3:44 AM ISSUE CLERK Aung Barrios MD LAB BLOOD ORDERA BLES Final Result Performing Organization Address [facility]/ZIP Co de Phone Number [facility] [address] [place] [address] * (ABNORMAL) CBC with auto differential (11/12/2024 3:08 AM ISSUE CLERK) Pathologist [facility] WBC 18.8(H) 3.8 - 9.9 K/cumm Hgb 16.1(H) 11.9 - 15.5 g/dL [facility] Hct 46.2(H) 35.6 - 45.5 % [facility] Plt 411(H) 150 - 400 K/cumm [facility] MPV 10.4 9.1 - 12.3 fL [facility] RBC 5.12 3.90 - 5.20 M/cumm [facility] MCV 90.2 81.3 - 96.4 fL [facility] MCH 31.4 27.1 - 33.3 pg [facility] MCHC 34.8 32.3 - 35.7 g/dL [facility] RDW CV 11.8 11.1 - 14.9 % [facility] RDW SD 38.7 35.7 - 48.1 fL [facility] NRBC abs 0.00 0.00 - 0.01 K/cumm [facility] Blood 11/12/2024 3:08 AM ISSUE CLERK 11/12/2024 3:44 AM ISSUE CLERK Aung Barrios MD LAB BLOOD ORDERA BLES Final Result [facility] [address] Department of Oration [place], [place] [id number] * (ABNORMAL) Comprehensive metabolic panel (11/12/2024 3:08 AM ISSUE CLERK) Pathologist [facility] Sodium 139 135 - 145 mmol/L Potassium, pl 4.3 3.3 - 4.9 mmol/L [facility] Chloride 98 97 - 110 mmol/L [facility] CO2 15(L) 22 - 32 mmol/L [facility] Anion gap 26(H) 2 - 15 mmol/L [facility] BUN 15 6 - 25 mg/dL [facility] Creatinine 0.88 0.60 - 1.10 mg/dL [facility] Glucose 224(H) 70 - 199 mg/dL [facility] Comment: Interpretive Data Fasting glucose >/= [...] 2022. Calcium 9.9 8.5 - 10.3 mg/dL [facility] Bilirubin, total 1.2 0.1 - 1.2 mg/dL [facility] Protein, pl 7.6 6.5 - 8.5 g/dL [facility] Albumin 4.6 3.5 - 5.0 g/dL [facility] Alk phos 70 40 - 130 Units/L [facility] ALT 13 7 - 45 Units/L [facility] AST 23 10 - 45 Units/L [facility] Blood 11/12/2024 3:08 AM ISSUE CLERK 11/12/2024 3:44 AM ISSUE CLERK us Aung Barrios MD LAB BLOOD ORDERA BLES Final Result [facility] [address] Department [place] [address] * ECG 12 lead (11/12/2024 3:03 AM ISSUE CLERK) 11/12/2024 3:03 AM ISSUE CLERK Narrative [facility] - 11/12/2024 2:14 PM ISSUE CLERK Vent Rate: 107 bpm RR Interval: 556 msec [place] Interval: 136 msec QRS Duration: 80 msec QT Interval: 355 msec QTC Interval: 418 msec P-R-T Varina: 64 - 68 - 71 degrees IMPRESSION: SINUS TACHYCARDIA POSSIBLE LEFT ATRIAL ENLARGEMENT [-0.1mV P WAVE IN V1/V2] SEPTAL MYOCARDIAL INFARCTION , OF INDETERMINATE AGE [40+ ms Q WAVE IN V1/V2] ABNORMAL ECG Electronically Signed By: Baltazar Chowdhury MD, [facility] us Aung Barrios MD ECG ORDERABLES Final Result [facility] * COLONOSCOPY (01/12/2023 11:44 AM CDT) Anatomical Region Laterality Modality Other Narrative Procedure Note Ari Swan MD - 01/12/2023 11:44 AM CDT [facility] ENDOSCOPY Patient Name: Agustina Tijerina Procedure Date: 01/12/2023 11:44 AM Date of : 1980 Admit Type: Outpatient Age: 42 Gender: Female Attending MD: Ari Swan M.D. Room: [facility] ENDOSCOPY ROOM 06 Note Status: Finalized Procedure: [...] On: 01/12/2023 11:44 AM Recognized by the [employer] for promoting quality in endoscopy Ari Swan MD ENDOSCOPY PROCEDURES Final Resul t from Last 3 Months or Most Recently Relevant to Health Maintenance Insurance [id number] [place] [id number] [facility] Advance Directives For more information, please contact: [phone] * Full Code (Latest Code Status on File) Date Activated Date Inactivated Comments 10/24/2024 10:13 PM 10/25/2024 10:30 PM Care Teams Air Export Coordinator Relationship Specialty Start Date End Date Oswaldo Ayoub MD [address] [facility] [address] [address] PCP - General 03/04/17
--- OUTSIDE RECORDS SUMMARY | 2025-01-31 09:13 | XMS_ITS | Clinical Summary ---
Author Organization [facility] Address [address] [place] [address] Care Team Providers Care Hammer Driver Name Role Phone Oswaldo Ayoub MD Primary Care Provider [phone] Source Comments [facility],non-owned Affiliates and Associated Physician Practices is amultiple site organization consisting of ambulatory clinics and hospital sitesin [place], [place], [place] and [place]. This disclosure is being madepursuant to the Care Everywhere program and may not contain all information available regarding this patient. Last updated 18.[employer] [employer] Allergies No known active allergies Medications * [...] 12:07 PM 05/21/2024 4:31 PM Care Teams Hammer Driver Relationship Specialty Start Date End Date Oswaldo yAoub MD [address] [place] [address] PCP - General Family Medicine 05/21/24
--- OUTSIDE RECORDS SUMMARY | 2025-01-31 09:13 | XMS_ITS | Encounter Summary ---
Author Organization [facility] Address [address] [place] [address] Care Team Providers Care Tavern Keeper Name Role Phone Oswaldo Ayoub MD Primary Care Provider [phone] Encounter Details Date Type Department Care Team (Late st Contact Info) Description 01/02/2025 Results Follow-Up [facility] Family Medicine at [address] [place] [phone] Oswaldo Ayoub MD [address] [place] [address] [address] [place] [address] Social History Tobacco Use Types [...] on filedocumented in this encounter Care Teams Tavern Keeper Relationship Specialty Start Date End Date Oswaldo Ayoub MD [address] [place] [address] [place] [id number] PCP - General 03/04/17 documented as of this encounter
[2025-01-31 09:18] VITALS: BP 142/107; PULSE 106; RESP 18; O2SAT 97
--- NOTE | 2025-01-31 09:22 | ECG_ITS ---
Test Date: 2025-01-31 09:30:28 Measurements Intervals [place] Rate: 83 P: 69 DE: 136 QRS: 61 QRSD: 98 T: 71 QT: 397 QTc: 467 Interpretive Statements SINUS RHYTHM WITH SINUS ARRHYTHMIA POSSIBLE LEFT ATRIAL ENLARGEMENT [-0.1mV P WAVE IN V1/V2] Compared to ECG 01/30/2025 08:53:38 NO SIGNIFICANT CHANGES Electronically Signed On 01-31-2025 10:12:07 CDT by Raman Kenney M.D.
--- OUTSIDE RECORDS SUMMARY | 2025-01-31 09:45 | XMS_ITS | Encounter Summary ---
Author Organization [facility] Address [address] [place] [address] Care Team Providers Care Airframe And Powerplant Technician Name Role Phone Oswaldo Ayoub MD Primary Care Provider [phone] Encounter Details Date Type Department Care Team (Late st Contact Info) Description 05/09/2024 Orders Only [facility] Health Information Management [address] [place] [id number] Oswaldo Ayoub MD [facility] [address] [address] Social History Tobacco Use Types Packs/Day Years [...] COVID: Suspected 11/12/2024 11/12/2024 11/12/2024 4:14 AM PET ADOPTION COUNSELOR Influenza, adult 11/12/2024 11/12/2024 11/19/2024 3:07 AM PET ADOPTION COUNSELOR documented as of this encounter Care Teams Airframe And Powerplant Technician Relationship Specialty Start Date End Date Oswaldo Ayoub MD [address] [facility] [address] [place] [address] [place] [id number] PCP - General 03/04/17 documented as of this encounter
--- OUTSIDE RECORDS SUMMARY | 2025-01-31 09:45 | XMS_ITS | Clinical Summary ---
Author Organization [facility] Address [address] [facility] [place] [address] Care Team Providers Care Retail Sales Associate Name Role Phone Oswaldo Ayoub MD Primary Care Provider Source Comments [facility],non-owned Affiliates and Associated Physician Practices is amultiple site organization consisting of ambulatory clinics and hospital sitesin [place], [place], [place] and [place]. This disclosure is being madepursuant to the Care Everywhere program and may not contain all information available regarding this patient. Last updated 18.[facility] [employer] Allergies No known active allergies Medications * [...] 12:07 PM 05/21/2024 4:31 PM Care Teams Retail Sales Associate Relationship Specialty Start Date End Date Oswaldo Ayoub MD [address] [place] [phone] PCP - General Family Medicine 05/21/24
--- OUTSIDE RECORDS SUMMARY | 2025-01-31 09:45 | XMS_ITS | Clinical Summary ---
Author Organization [facility] Address [address] [place] [address] Care Team Providers Care Director Radiation Oncology Name Role Phone Oswaldo Ayoub MD Primary Care Provider [phone] Allergies No known active allergies Medications melatonin [...] unremarkable. Assessment & Plan (11/18/2022 10:23 AM VICE ADMIRAL): CT scan of the abdomen and pelvis [...] loss Assessment & Plan (11/18/2022 10:50 AM VICE ADMIRAL): GERD for the past year, seems to [...] PRN Assessment & Plan (08/23/2022 1:43 PM VICE ADMIRAL): Stable, no changes. Continue current regimen with [...] acceptable. Assessment & Plan (08/23/2022 1:42 PM VICE ADMIRAL): Seeing improvement with xanax Increase dose to [...] popcorn Assessment & Plan (11/18/2022 10:52 AM VICE ADMIRAL): Patient started having abdominal pain, diarrhea, nausea, [...] Type Department Care Team Description 01/18/2025 Telephone [facility] Family Medicine at [address] [place] [address] Oswaldo Ayoub MD 01/15/2025 11:30 AM CDT Office Visit [facility] Family Medicine at [address] [place] [address] Joy Villalpando NP AARON (generalized anxiety disorder) (Primary Dx); Migraine without aura and without status migrainosus, not intractable; Moderate episode of recurrent major depressive disorder (HCC) 01/02/2025 Results Follow-Up [facility] Family Medicine at [address] [place] [address] Oswaldo Ayoub MD 11/12/2024 2:57 AM VICE ADMIRAL - 11/12/2024 9:17 AM [facility] Emergency [facility] Emergency Department [address] [place] [address] Influenza A (Primary Dx); Mast cell activation syndrome; Vomiting and diarrhea; Anxiety Discharge Disposition: Discharge to home or self care from Last 3 Months Immunizations Immunization Administration Dates Next Due Influenza, Unspecified 06/26/2024(Deferr ed: Patient Refused),06/26/2023(Deferred: Patient Refused),07/14/2022(Deferred: Patient Refused),06/26/2021(Deferred: Patient Refused),06/26/2021(Deferred: Patient Refused),06/26/2020(Deferred: Patient Refused),06/26/2019(Deferred: Patient Refused) Tdap 06/28/2017 Surgical History Surgery Date Site/Laterality Comments CERVIX SURGERY Cervical Surgery (Glazier Artist) - (Added by TW Conv) Medical History [...] URINALYSIS, MICROSCOPIC ONLY STAT 11/12/2024 8:42 AM VICE ADMIRAL URINALYSIS AND REFLEX TO MICROSCOPIC AND CULTURE STAT 11/12/2024 8:42 AM VICE ADMIRAL SEPSIS LACTATE WITH REFLEX Timed 11/12/2024 8:25 AM VICE ADMIRAL EGFR STAT 11/12/2024 5:19 AM VICE ADMIRAL DIFFERENTIAL AUTO STAT 11/12/2024 5:1 9 AM VICE ADMIRAL BASIC METABOLIC PANEL STAT 11/12/2024 5:19 AM VICE ADMIRAL CBC WITH AUTO DIFFERENTIAL STAT 11/12/2024 5:19 AM VICE ADMIRAL SEPSIS LACTATE WITH REFLEX Timed 11/12/2024 5:19 AM VICE ADMIRAL XR CHEST 1 VIEW ED 11/12/2024 3:53 AM VICE ADMIRAL TRYPTASE STAT 11/12/2024 3:41 AM VICE ADMIRAL RESPIRATORY PATHOGEN PANEL STAT 11/12/2024 3:10 AM VICE ADMIRAL EGFR STAT 11/12/2024 3:08 AM VICE ADMIRAL DIFFERENTIAL AUTO STAT 11/12/2024 3:0 8 AM VICE ADMIRAL SEPSIS LACTATE WITH REFLEX Routine 11/12/2024 3:08 AM VICE ADMIRAL COMPREHENSIVE METABOLIC PANEL STAT 11/12/2024 3:08 AM VICE ADMIRAL CBC WITH AUTO DIFFERENTIAL STAT 11/12/2024 3:08 AM VICE ADMIRAL ECG 12-LEAD STAT 11/12/2024 3:03 AM VICE ADMIRAL SCREENING MAMMOGRAM BILATERAL W TAYO Schedule Routine, Read Routine (OP Routine) 09/30/2023 2:22 PM VICE ADMIRAL Screening mammogram, encounter for COLONOSCOPY 01/12/2023 11:44 AM CDT from Last 3 Months or Most Recently Relevant to Health Maintenance Results * SCAN - LABS (12/27/2024) us Oswaldo Ayoub MD Final Result * (ABNORMAL) Urinalysis reflex to microscopic and culture Urine (11/12/2024 8:42 AM VICE ADMIRAL) Color, ur Yellow Yellow Clarity, ur Clear Clear [facility] Specific gravity, ur 1.022 1.003 - 1.030 [facility] pH, urine 7.0 [facility] Comment: Interpretive Data U rine pH is affected by diet, medications, systemic acid-base disturbances, and renal tubular function. pH may affect urinary stone formation. For example, urine pH below 6.0 may help reduce the tendency for calcium phosphate stones and pH greater than 6.0 may reduce the tendency for uric acid stone formation. Source: [facility] Current Interpretive Data was last revised on 2017 Protein, ur ql Trace Negative [facility] Glucose, ur ql Negative Negative [facility] Ketones, ur 1+(A) Negative [facility] Bilirubin, ur Negative Negative [facility] Blood, ur 1+(A) Negative [facility] Urobilinogen, ur <2.0 <2.0 mg/dL [facility] Nitrite, ur Negative Negative [facility] Leukocyte esterase, ur Negative Negative [facility] UA reflex comment Reflex to microscopic UA will be performed. [facility] Urine 11/12/2024 8:42 AM VICE ADMIRAL 11/12/2024 8:42 AM VICE ADMIRAL Narrative [facility] - 11/12/2024 8:55 AM VICE ADMIRAL If patient unable to urinate, straight cath Aung Barrios MD LAB MICROBIOLOGY - GENERAL ORDERABLES Final Result Performing Organization Address [facility] de Phone Number [facility] [address] Department [employer] [place] [address] * (ABNORMAL) Urinalysis, microscopic only (11/12/2024 8:42 AM VICE ADMIRAL) WBC, ur 0-5 0 - 5 /HPF RBC, ur 11-20(A) 0 - 2 /HPF [facility] Epithelial cells, squamous, ur 1-5 0 - 5 /HPF [facility] Bacteria, ur Trace(A) [facility] Mucous, ur Present(A) [facility] Hyaline casts, ur 1-5 0 - 10 /LPF [facility] Culture Reflex Comment Reflex conditions for urine culture (WBC >10) not met. [facility] Urine 11/12/2024 8:42 AM VICE ADMIRAL 11/12/2024 8:48 AM VICE ADMIRAL Aung Barrios MD LAB URINE ORDERA BLES Final Result Performing Organization Address [facility]/ZIP Co de Phone Number [facility] [address] Department [employer] [place] [address] * (ABNORMAL) Sepsis Lactate w/ Reflex (11/12/2024 8:25 AM VICE ADMIRAL) [facility] Sepsis Lactate 2.6(H) 0.7 - 2.0 mmol/L Blood 11/12/2024 8:25 AM VICE ADMIRAL 11/12/2024 8:33 AM VICE ADMIRAL Aung Barrios MD LAB BLOOD ORDERA BLES Final Result Performing Organization Address [facility] Co de Phone Number [facility] [address] Department [place] [address] * (ABNORMAL) Sepsis Lactate w/ Reflex (11/12/2024 5:19 AM VICE ADMIRAL) [facility] Sepsis Lactate 4.6(C) 0.7 - 2.0 mmol/L Comment:Critical result call ed to and read back by JOY MorenoRN) on 11/12/2024 05:29:48 VICE ADMIRAL to [id number]. Blood 11/12/2024 5:19 AM VICE ADMIRAL 11/12/2024 5:25 AM VICE ADMIRAL Aung Barrios MD LAB BLOOD ORDERA BLES Final Result Performing Organization Address [facility] Co de Phone Number [facility] [address] Department [place] [address] * eGFR (11/12/2024 5:19 AM VICE ADMIRAL) [facility] eGFR >90 >=60 mL/min/1. 73 [...] last reviewed 2021. Blood 11/12/2024 5:19 AM VICE ADMIRAL 11/12/2024 5:27 AM VICE ADMIRAL us Asia Myrick NP LAB BLOOD ORDERABLE S Final Result [facility] [address] Department [place] [address] * (ABNORMAL) Differential, auto (11/12/2024 5:19 AM VICE ADMIRAL) Neutrophil abs 12.3(H) 1.5 - 6.5 K/cumm Imm gran abs 0.1 0.0 - 0.1 K/cumm [facility] Lymphocyte abs 0.5(L) 0.8 - 3.3 K/cumm [facility] Monocyte abs 0.7 0.2 - 0.8 K/cumm [facility] Eosinophil abs 0.0 0.0 - 0.5 K/cumm [facility] Basophil abs 0.0 0.0 - 0.1 K/cumm [facility] Neutrophil pct 90.1 % [facility] Comment: Interpretive Data Percent cell count reference ranges are not reported, since discordance with absolute values may lead to misinterpretation of CBC data. Current Interpretive Data was last revised on 2018. Imm gran pct 1.0 % [facility] Comment: Interpretive Data Percent cell count reference ranges are not reported, since discordance with absolute values may lead to misinterpretation of CBC data. Current Interpretive Data was last revised on 2018. Lymphocyte pct 3.6 % [facility] Comment: Interpretive Data Percent cell count reference ranges are not reported, since discordance with absolute values may lead to misinterpretation of CBC data. Current Interpretive Data was last revised on 2018. Monocyte pct 4.9 % [facility] Comment: Interpretive Data Percent cell count reference ranges are not reported, since discordance with absolute values may lead to misinterpretation of CBC data. Current Interpretive Data was last revised on 2018. Eosinophil pct 0.3 % [facility] Comment: Interpretive Data Percent cell count reference ranges are not reported, since discordance with absolute values may lead to misinterpretation of CBC data. Current Interpretive Data was last revised on 2018. Basophil pct 0.1 % [facility] Comment: Interpretive Data Percent cell count reference ranges are not reported, since discordance with absolute values may lead to misinterpretation of CBC data. Current Interpretive Data was last revised on 2018. Blood 11/12/2024 5:19 AM VICE ADMIRAL 11/12/2024 5:27 AM VICE ADMIRAL us Asia Myrick NP LAB BLOOD ORDERABLE S Final Result [facility] [address] Department [place] [address] * (ABNORMAL) CBC with auto differential (11/12/2024 5:19 AM VICE ADMIRAL) WBC 13.6(H) 3.8 - 9.9 K/cumm Hgb 13.6 11.9 - 15.5 g/dL [facility] Hct 39.9 35.6 - 45.5 % [facility] Plt 275 150 - 400 K/cumm [facility] MPV 9.9 9.1 - 12.3 fL [facility] RBC 4.30 3.90 - 5.20 M/cumm [facility] MCV 92.8 81.3 - 96.4 fL [facility] MCH 31.6 27.1 - 33.3 pg [facility] MCHC 34.1 32.3 - 35.7 g/dL [facility] RDW CV 11.8 11.1 - 14.9 % [facility] RDW SD 39.8 35.7 - 48.1 fL [facility] NRBC abs 0.00 0.00 - 0.01 K/cumm [facility] Blood 11/12/2024 5:19 AM VICE ADMIRAL 11/12/2024 5:27 AM VICE ADMIRAL Asia Myrick NP LAB BLOOD ORDERABLE S Final Result Performing Organization Address City/[facility]/ZIP Co de Phone Number [facility] [address] [place] [address] * (ABNORMAL) Basic metabolic panel (11/12/2024 5:19 AM VICE ADMIRAL) [facility] Sodium 139 135 - 145 mmol/L Potassium, pl 3.7 3.3 - 4.9 mmol/L [facility] Chloride 105 97 - 110 mmol/L [facility] CO2 17(L) 22 - 32 mmol/L [facility] Anion gap 17(H) 2 - 15 mmol/L [facility] BUN 16 6 - 25 mg/dL [facility] Creatinine 0.80 0.60 - 1.10 mg/dL [facility] Glucose 139 70 - 199 mg/dL [facility] Comment: Interpretive Data Fasting glucose >/= 126 [...] 2022. Calcium 8.5 8.5 - 10.3 mg/dL [facility] Blood 11/12/2024 5:19 AM VICE ADMIRAL 11/12/2024 5:27 AM VICE ADMIRAL Asia Myrick NP LAB BLOOD ORDERABLE S Final Result Performing Organization Address City/[facility]/ZIP Co de Phone Number [facility] [address] [place] [address] * XR Chest 1 Vw Portable (if patient condition/safety warrant portable) (11/12/2024 3:53 AM VICE ADMIRAL) Anatomical Region Laterality Modality Body, Chest N/A Computed Radiogr aphy 11/12/2024 8:21 AM VICE ADMIRAL Impressions 11/12/2024 8:33 AM VICE ADMIRAL The current study is compared with the prior radiograph dated 05/04/2023. There is no focal consolidation, pleural effusion, or pneumothorax. The cardiomediastinal silhouette is normal. Dictated by: Chu Spencer MD The radiology attending physician has personally reviewed this study, and had reviewed and/or edited this written report and agrees with it. Electronically signed by: Alexa Toscano M.D. Narrative 11/12/2024 8:33 AM VICE ADMIRAL EXAMINATION: 1 view chest radiograph Procedure Note [...] Final Result * Tryptase (11/12/2024 3:41 AM VICE ADMIRAL) Tryptase Level 5.9 <11.5 ng/mL [facility] ref [facility] Comment: Test Performed by: Formerly Named [facility] [address] [place] [id number] [employer]: Breanne Bowers Ph.D.; CLIA# [id number] Blood 11/12/2024 3:41 AM VICE ADMIRAL 11/12/2024 3:47 AM VICE ADMIRAL Asia Rodriguezbenita Begume [employer]OR CLEAN[employer] LAB BLOOD ORDERABLE S Final Result [facility] [address] Department [place] [address] [place] [facility] * (ABNORMAL) Respiratory pathogen panel Nasopharyngeal (11/12/2024 3:10 AM VICE ADMIRAL) Pathologist [facility] Influenza A/2009 RNA Detected(A) Not Detected [facility] Influenza B RNA Not Detected Not Detected [facility] RSV RNA Not Detected Not Detected [facility] COVID-19 RNA Not Detected Not Detected [facility] Coronavirus 229E RNA Not Detected Not Detected [facility] Coronavirus HKU1 RNA Not Detected Not Detected [facility] Coronavirus NL63 RNA Not Detected Not Detected [facility] Coronavirus OC43 RNA Not Detected Not Detected [facility] Adenovirus DNA Not Detected Not Detected [facility] Metapneumovirus RNA Not Detected Not Detected [facility] Rhinovirus/Enterov irus RNA Not Detected Not Detected [facility] Parainfluenza 1 RNA Not Detected Not Detected [facility] Parainfluenza 2 RNA Not Detected Not Detected [facility] Parainfluenza 3 RNA Not Detected Not Detected [facility] Parainfluenza 4 RNA Not Detected Not Detected [facility] B. pertussis DNA Not Detected Not Detected [facility] B. parapertussis DNA Not Detected Not Detected [facility] C. pneumoniae DNA Not Detected Not Detected [facility] M. pneumoniae DNA Not Detected Not Detected [facility] Comment: Interpretive Data The Purple Harry FilmArray Respiratory Panel (RP2.1) assay is a [...] assay has FDA clearance for testing of FLOOR CLEANER swabs. The performance characteristics of this assay have been determined by [facility]. Current interpretive data was last revised on 2021. Nasopharyngeal 11/12/2024 3: 10 AM VICE ADMIRAL 11/12/2024 3:21 AM VICE ADMIRAL Narrative [facility] - 11/12/2024 4:13 AM VICE ADMIRAL Is the Patient experiencing symptoms consistent with COVID?->Yes Surveillance testing for transplant patient?->No us Asia Myrick FLOOR CLEANER LAB MICROBIOLOGY - GENERAL ORDERABLES Final Result [facility] [address] Department [place] [address] [facility] * (ABNORMAL) Sepsis Lactate w/ Reflex (11/12/2024 3:08 AM VICE ADMIRAL) [facility] Sepsis Lactate 6.6(C) 0.7 - 2.0 mmol/L Comment:Critical result call ed to and read back by VINNIE YANES (RN) on 11/12/2024 03:40:34 VICE ADMIRAL to [id number]. Blood 11/12/2024 3:08 AM VICE ADMIRAL 11/12/2024 3:22 AM VICE ADMIRAL Aung Barrios MD LAB BLOOD ORDERA BLES Final Result Performing Organization Address City/[facility]/ZIP Co de Phone Number [facility] [address] [place] [address] * eGFR (11/12/2024 3:08 AM VICE ADMIRAL) [facility] eGFR 83 >=60 mL/min/1. 73 m2 Comment: [...] last reviewed 2021. Blood 11/12/2024 3:08 AM VICE ADMIRAL 11/12/2024 3:44 AM VICE ADMIRAL Aung Barrios MD LAB BLOOD ORDERA BLES Final Result Performing Organization Address City/[facility]/ZIP Co de Phone Number [facility] [address] Department [employer] [place] [address] * (ABNORMAL) Differential, auto (11/12/2024 3:08 AM VICE ADMIRAL) Neutrophil abs 17.1(H) 1.5 - 6.5 K/cumm Imm gran abs 0.2(H) 0.0 - 0.1 K/cumm [facility] Lymphocyte abs 0.5(L) 0.8 - 3.3 K/cumm [facility] Monocyte abs 0.8 0.2 - 0.8 K/cumm [facility] Eosinophil abs 0.1 0.0 - 0.5 K/cumm [facility] Basophil abs 0.0 0.0 - 0.1 K/cumm [facility] Neutrophil pct 90.9 % [facility] Comment: Interpretive Data Percent cell count reference ranges are not reported, since discordance with absolute values may lead to misinterpretation of CBC data. Current Interpretive Data was last revised on 2018. Imm gran pct 1.0 % [facility] Comment: Interpretive Data Percent cell count reference ranges are not reported, since discordance with absolute values may lead to misinterpretation of CBC data. Current Interpretive Data was last revised on 2018. Lymphocyte pct 2.9 % [facility] Comment: Interpretive Data Percent cell count reference ranges are not reported, since discordance with absolute values may lead to misinterpretation of CBC data. Current Interpretive Data was last revised on 2018. Monocyte pct 4.4 % [facility] Comment: Interpretive Data Percent cell count reference ranges are not reported, since discordance with absolute values may lead to misinterpretation of CBC data. Current Interpretive Data was last revised on 2018. Eosinophil pct 0.6 % [facility] Comment: Interpretive Data Percent cell count reference ranges are not reported, since discordance with absolute values may lead to misinterpretation of CBC data. Current Interpretive Data was last revised on 2018. Basophil pct 0.2 % [facility] Comment: Interpretive Data Percent cell count reference ranges are not reported, since discordance with absolute values may lead to misinterpretation of CBC data. Current Interpretive Data was last revised on 2018. Blood 11/12/2024 3:08 AM VICE ADMIRAL 11/12/2024 3:44 AM VICE ADMIRAL Aung Barrios MD LAB BLOOD ORDERA BLES Final Result [facility] [address] [place] [address] * (ABNORMAL) CBC with auto differential (11/12/2024 3:08 AM VICE ADMIRAL) [facility] WBC 18.8(H) 3.8 - 9.9 K/cumm Hgb 16.1(H) 11.9 - 15.5 g/dL [facility] Hct 46.2(H) 35.6 - 45.5 % [facility] Plt 411(H) 150 - 400 K/cumm [facility] MPV 10.4 9.1 - 12.3 fL [facility] RBC 5.12 3.90 - 5.20 M/cumm [facility] MCV 90.2 81.3 - 96.4 fL [facility] MCH 31.4 27.1 - 33.3 pg [facility] MCHC 34.8 32.3 - 35.7 g/dL [facility] RDW CV 11.8 11.1 - 14.9 % [facility] RDW SD 38.7 35.7 - 48.1 fL [facility] NRBC abs 0.00 0.00 - 0.01 K/cumm [facility] Blood 11/12/2024 3:08 AM VICE ADMIRAL 11/12/2024 3:44 AM VICE ADMIRAL Aung Barrios MD LAB BLOOD ORDERA BLES Final Result [facility] [address] [employer] [place], [place] [address] * (ABNORMAL) Comprehensive metabolic panel (11/12/2024 3:08 AM VICE ADMIRAL) Pathologist [facility] Sodium 139 135 - 145 mmol/L Potassium, pl 4.3 3.3 - 4.9 mmol/L [facility] Chloride 98 97 - 110 mmol/L [facility] CO2 15(L) 22 - 32 mmol/L [facility] Anion gap 26(H) 2 - 15 mmol/L [facility] BUN 15 6 - 25 mg/dL [facility] Creatinine 0.88 0.60 - 1.10 mg/dL [facility] Glucose 224(H) 70 - 199 mg/dL [facility] Comment: Interpretive Data Fasting glucose >/= 126 [...] 2022. Calcium 9.9 8.5 - 10.3 mg/dL [facility] Bilirubin, total 1.2 0.1 - 1.2 mg/dL [facility] Protein, pl 7.6 6.5 - 8.5 g/dL [facility] Albumin 4.6 3.5 - 5.0 g/dL [facility] Alk phos 70 40 - 130 Units/L [facility] ALT 13 7 - 45 Units/L [facility] AST 23 10 - 45 Units/L [facility] Blood 11/12/2024 3:08 AM VICE ADMIRAL 11/12/2024 3:44 AM VICE ADMIRAL us Aung Barrios MD LAB BLOOD ORDERA BLES Final Result [facility] [address] Department [place] [address] * ECG 12 lead (11/12/2024 3:03 AM VICE ADMIRAL) 11/12/2024 3:03 AM VICE ADMIRAL Narrative [facility] - 11/12/2024 2:14 PM VICE ADMIRAL Vent Rate: 107 bpm RR Interval: 556 msec [place] Interval: 136 msec QRS Duration: 80 msec QT Interval: 355 msec QTC Interval: 418 msec P-R-T [place]: 64 - 68 - 71 degrees IMPRESSION: SINUS TACHYCARDIA POSSIBLE LEFT ATRIAL ENLARGEMENT [-0.1mV P WAVE IN V1/V2] SEPTAL MYOCARDIAL INFARCTION , OF INDETERMINATE AGE [40+ ms Q WAVE IN V1/V2] ABNORMAL ECG Electronically Signed By: Baltazar Chowdhury MD, [facility] us Aung Barrios MD ECG ORDERABLES Final Result [facility] * COLONOSCOPY (01/12/2023 11:44 AM CDT) Anatomical Region Laterality Modality Other Narrative Procedure Note Ari Swan MD - 01/12/2023 11:44 AM CDT [facility] GI ENDOS[facility] Patient Name: Agustina Tijerina Procedure Date: 01/12/2023 11:44 AM Date of : 1980 Admit Type: Outpatient Age: 42 Gender: Female Attending MD: Ari Swan M.D. Room: [facility] ENDOSCOPY ROOM 06 Note Status: Finalized [...] On: 01/12/2023 11:44 AM Recognized by the [employer] for promoting quality in endoscopy Ari Swan MD ENDOSCOPY PROCEDURES Final Resul t from Last 3 Months or Most Recently Relevant to Health Maintenance Insurance [facility] Advance Directives For more information, please contact: [phone] * Full Code (Latest Code Status on File) Date Activated Date Inactivated Comments 10/24/2024 10:13 PM 10/25/2024 10:30 PM Care Teams Director Radiation Oncology Relationship Specialty Start Date End Date Oswaldo Ayoub MD [address] [facility] [address] [address] PCP - General 03/04/17
--- OUTSIDE RECORDS SUMMARY | 2025-01-31 09:45 | XMS_ITS | Referral Summary ---
Author Organization [facility] Address [address] [place] [address] Care Team Providers Care Gang Drill Operator Name Role Phone Oswaldo Ayoub MD Primary Care Provider [phone] Encounters Date Type Department Care Team Description 01/18/[address] [facility] Medical [facility] Family Medicine at [address] [phone] Oswaldo Ayoub MD 01/15/2025 11:30 AM CDT Office Visit [facility] Family Medicine at [address] [place] [phone] Joy Villalpando NP AARON (generalized anxiety disorder) (Primary Dx); Migraine without aura and without status migrainosus, not intractable; Moderate episode of recurrent major depressive disorder (HCC) 01/02/2025 Results Follow-Up [facility] Family Medicine at [address] [phone] Oswaldo Ayoub MD 11/12/2024 2:57 AM ONCOLOGY NURSE NAVIGATOR - 11/12/2024 9:17 AM [facility] Emergency [facility] Emergency Department [facility] [place] [address] Influenza A (Primary Dx); Mast [...] unremarkable. Assessment & Plan (11/18/2022 10:23 AM ONCOLOGY NURSE NAVIGATOR): CT scan of the abdomen and pelvis [...] loss Assessment & Plan (11/18/2022 10:50 AM ONCOLOGY NURSE NAVIGATOR): GERD for the past year, seems to [...] PRN Assessment & Plan (08/23/2022 1:43 PM ONCOLOGY NURSE NAVIGATOR): Stable, no changes. Continue current regimen with [...] acceptable. Assessment & Plan (08/23/2022 1:42 PM ONCOLOGY NURSE NAVIGATOR): Seeing improvement with xanax Increase dose to [...] popcorn Assessment & Plan (11/18/2022 10:52 AM ONCOLOGY NURSE NAVIGATOR): Patient started having abdominal pain, diarrhea, nausea, [...] URINALYSIS, MICROSCOPIC ONLY STAT 11/12/2024 8:42 AM ONCOLOGY NURSE NAVIGATOR URINALYSIS AND REFLEX TO MICROSCOPIC AND CULTURE STAT 11/12/2024 8:42 AM ONCOLOGY NURSE NAVIGATOR SEPSIS LACTATE WITH REFLEX Timed 11/12/2024 8:25 AM ONCOLOGY NURSE NAVIGATOR EGFR STAT 11/12/2024 5:19 AM ONCOLOGY NURSE NAVIGATOR DIFFERENTIAL AUTO STAT 11/12/2024 5:1 9 AM ONCOLOGY NURSE NAVIGATOR BASIC METABOLIC PANEL STAT 11/12/2024 5:19 AM ONCOLOGY NURSE NAVIGATOR CBC WITH AUTO DIFFERENTIAL STAT 11/12/2024 5:19 AM ONCOLOGY NURSE NAVIGATOR SEPSIS LACTATE WITH REFLEX Timed 11/12/2024 5:19 AM ONCOLOGY NURSE NAVIGATOR XR CHEST 1 VIEW ED 11/12/2024 3:53 AM ONCOLOGY NURSE NAVIGATOR TRYPTASE STAT 11/12/2024 3:41 AM ONCOLOGY NURSE NAVIGATOR RESPIRATORY PATHOGEN PANEL STAT 11/12/2024 3:10 AM ONCOLOGY NURSE NAVIGATOR EGFR STAT 11/12/2024 3:08 AM ONCOLOGY NURSE NAVIGATOR DIFFERENTIAL AUTO STAT 11/12/2024 3:0 8 AM ONCOLOGY NURSE NAVIGATOR SEPSIS LACTATE WITH REFLEX Routine 11/12/2024 3:08 AM ONCOLOGY NURSE NAVIGATOR COMPREHENSIVE METABOLIC PANEL STAT 11/12/2024 3:08 AM ONCOLOGY NURSE NAVIGATOR CBC WITH AUTO DIFFERENTIAL STAT 11/12/2024 3:08 AM ONCOLOGY NURSE NAVIGATOR ECG 12-LEAD STAT 11/12/2024 3:03 AM ONCOLOGY NURSE NAVIGATOR SCREENING MAMMOGRAM BILATERAL W TAYO Schedule Routine, Read Routine (OP Routine) 09/30/2023 2:22 PM ONCOLOGY NURSE NAVIGATOR Screening mammogram, encounter for COLONOSCOPY 01/12/2023 11:44 AM CDT from Last 3 Months or Most Recently Relevant to Health Maintenance Results * SCAN - LABS (12/27/2024) us Oswaldo Ayoub MD Final Result * (ABNORMAL) Urinalysis reflex to microscopic and culture Urine (11/12/2024 8:42 AM ONCOLOGY NURSE NAVIGATOR) Color, ur Yellow Yellow Clarity, ur Clear Clear [facility] Specific gravity, ur 1.022 1.003 - 1.030 [facility] pH, urine 7.0 [facility] Comment: Interpretive Data U rine pH is affected by diet, medications, systemic acid-base disturbances, and renal tubular function. pH may affect urinary stone formation. For example, urine pH below 6.0 may help reduce the tendency for calcium phosphate stones and pH greater than 6.0 may reduce the tendency for uric acid stone formation. Source: [facility] Current Interpretive Data was last revised on 2017 Protein, ur ql Trace Negative [facility] Glucose, ur ql Negative Negative [facility] Ketones, ur 1+(A) Negative [facility] Bilirubin, ur Negative Negative [facility] Blood, ur 1+(A) Negative [facility] Urobilinogen, ur <2.0 <2.0 mg/dL [facility] Nitrite, ur Negative Negative [facility] Leukocyte esterase, ur Negative Negative [facility] UA reflex comment Reflex to microscopic UA will be performed. [facility] Urine 11/12/2024 8:42 AM ONCOLOGY NURSE NAVIGATOR 11/12/2024 8:42 AM ONCOLOGY NURSE NAVIGATOR Narrative [facility] - 11/12/2024 8:55 AM ONCOLOGY NURSE NAVIGATOR If patient unable to urinate, straight cath Aung Barrios MD LAB MICROBIOLOGY - GENERAL ORDERABLES Final Result Performing Organization Address [facility] Co de Phone Number [facility] [address] [place] [employer] [place] [address] * (ABNORMAL) Urinalysis, microscopic only (11/12/2024 8:42 AM ONCOLOGY NURSE NAVIGATOR) WBC, ur 0-5 0 - 5 /HPF RBC, ur 11-20(A) 0 - 2 /HPF [facility] Epithelial cells, squamous, ur 1-5 0 - 5 /HPF [facility] Bacteria, ur Trace(A) [facility] Mucous, ur Present(A) [facility] Hyaline casts, ur 1-5 0 - 10 /LPF [facility] Culture Reflex Comment Reflex conditions for urine culture (WBC >10) not met. [facility] Urine 11/12/2024 8:42 AM ONCOLOGY NURSE NAVIGATOR 11/12/2024 8:48 AM ONCOLOGY NURSE NAVIGATOR Aung Barrios MD LAB URINE ORDERA BLES Final Result Performing Organization Address [facility]/ZIP Co de Phone Number [facility] [address] Department [employer] [place], [place] [id number] * (ABNORMAL) Sepsis Lactate w/ Reflex (11/12/2024 8:25 AM ONCOLOGY NURSE NAVIGATOR) [facility] Sepsis Lactate 2.6(H) 0.7 - 2.0 mmol/L Blood 11/12/2024 8:25 AM ONCOLOGY NURSE NAVIGATOR 11/12/2024 8:33 AM ONCOLOGY NURSE NAVIGATOR Aung Barrios MD LAB BLOOD ORDERA BLES Final Result Performing Organization Address [facility]/ZIP Co de Phone Number [facility] [address] Department [place] [address] * (ABNORMAL) Sepsis Lactate w/ Reflex (11/12/2024 5:19 AM ONCOLOGY NURSE NAVIGATOR) [facility] Sepsis Lactate 4.6(C) 0.7 - 2.0 mmol/L Comment:Critical result call ed to and read back by JOY ASHER) on 11/12/2024 05:29:48 ONCOLOGY NURSE NAVIGATOR to [id number]. Blood 11/12/2024 5:19 AM ONCOLOGY NURSE NAVIGATOR 11/12/2024 5:25 AM ONCOLOGY NURSE NAVIGATOR Aung Barrios MD LAB BLOOD ORDERA BLES Final Result Performing Organization Address [facility] Co de Phone Number [facility] [address] Department [place] [address] * eGFR (11/12/2024 5:19 AM ONCOLOGY NURSE NAVIGATOR) [facility] eGFR >90 >=60 mL/min/1. 73 m2 [...] last reviewed 2021. Blood 11/12/2024 5:19 AM ONCOLOGY NURSE NAVIGATOR 11/12/2024 5:27 AM ONCOLOGY NURSE NAVIGATOR us Asia Myrick NP LAB BLOOD ORDERABLE S Final Result [facility] [address] Department [place] [address] * (ABNORMAL) Differential, auto (11/12/2024 5:19 AM ONCOLOGY NURSE NAVIGATOR) Neutrophil abs 12.3(H) 1.5 - 6.5 K/cumm Imm gran abs 0.1 0.0 - 0.1 K/cumm [facility] Lymphocyte abs 0.5(L) 0.8 - 3.3 K/cumm [facility] Monocyte abs 0.7 0.2 - 0.8 K/cumm [facility] Eosinophil abs 0.0 0.0 - 0.5 K/cumm [facility] Basophil abs 0.0 0.0 - 0.1 K/cumm [facility] Neutrophil pct 90.1 % [facility] Comment: Interpretive Data Percent cell count reference ranges are not reported, since discordance with absolute values may lead to misinterpretation of CBC data. Current Interpretive Data was last revised on 2018. Imm gran pct 1.0 % [facility] Comment: Interpretive Data Percent cell count reference ranges are not reported, since discordance with absolute values may lead to misinterpretation of CBC data. Current Interpretive Data was last revised on 2018. Lymphocyte pct 3.6 % [facility] Comment: Interpretive Data Percent cell count reference ranges are not reported, since discordance with absolute values may lead to misinterpretation of CBC data. Current Interpretive Data was last revised on 2018. Monocyte pct 4.9 % [facility] Comment: Interpretive Data Percent cell count reference ranges are not reported, since discordance with absolute values may lead to misinterpretation of CBC data. Current Interpretive Data was last revised on 2018. Eosinophil pct 0.3 % [facility] Comment: Interpretive Data Percent cell count reference ranges are not reported, since discordance with absolute values may lead to misinterpretation of CBC data. Current Interpretive Data was last revised on 2018. Basophil pct 0.1 % [facility] Comment: Interpretive Data Percent cell count reference ranges are not reported, since discordance with absolute values may lead to misinterpretation of CBC data. Current Interpretive Data was last revised on 2018. Blood 11/12/2024 5:19 AM ONCOLOGY NURSE NAVIGATOR 11/12/2024 5:27 AM ONCOLOGY NURSE NAVIGATOR Asia Myrick NP LAB BLOOD ORDERABLE S Final Result [facility] [address] Department [place] [address] * (ABNORMAL) CBC with auto differential (11/12/2024 5:19 AM ONCOLOGY NURSE NAVIGATOR) WBC 13.6(H) 3.8 - 9.9 K/cumm Hgb 13.6 11.9 - 15.5 g/dL [facility] Hct 39.9 35.6 - 45.5 % [facility] Plt 275 150 - 400 K/cumm [facility] MPV 9.9 9.1 - 12.[address] [facility] RBC 4.30 3.90 - 5.20 M/cumm [facility] MCV 92.8 81.3 - 96.[address] [facility] MCH 31.6 27.1 - 33.[address] [facility] MCHC 34.1 32.3 - 35.7 g/dL [facility] RDW CV 11.8 11.1 - 14.9 % [facility] RDW SD 39.8 35.7 - 48.[address] [facility] NRBC abs 0.00 0.00 - 0.01 K/cumm [facility] Blood 11/12/2024 5:19 AM ONCOLOGY NURSE NAVIGATOR 11/12/2024 5:27 AM ONCOLOGY NURSE NAVIGATOR Asia Myrick NP LAB BLOOD ORDERABLE S Final Result [facility] [address] [place] [employer] [place] [address] * (ABNORMAL) Basic metabolic panel (11/12/2024 5:19 AM ONCOLOGY NURSE NAVIGATOR) [facility] Sodium 139 135 - 145 mmol/L Potassium, pl 3.7 3.3 - 4.9 mmol/L [facility] Chloride 105 97 - 110 mmol/L [facility] CO2 17(L) 22 - 32 mmol/L [facility] Anion gap 17(H) 2 - 15 mmol/L [facility] BUN 16 6 - 25 mg/dL [facility] Creatinine 0.80 0.60 - 1.10 mg/dL [facility] Glucose 139 70 - 199 mg/dL [facility] Comment: Interpretive Data Fasting glucose >/= 126 [...] 2022. Calcium 8.5 8.5 - 10.3 mg/dL [facility] Blood 11/12/2024 5:19 AM ONCOLOGY NURSE NAVIGATOR 11/12/2024 5:27 AM ONCOLOGY NURSE NAVIGATOR Asia Myrick NP LAB BLOOD ORDERABLE S Final Result Performing Organization Address City/[facility]/ZIP Co de Phone Number [facility] [address] Department [place] [address] * XR Chest 1 Vw Portable (if patient condition/safety warrant portable) (11/12/2024 3:53 AM ONCOLOGY NURSE NAVIGATOR) Anatomical Region Laterality Modality Body, Chest N/A Computed Radiogr aphy 11/12/2024 8:21 AM ONCOLOGY NURSE NAVIGATOR Impressions 11/12/2024 8:33 AM ONCOLOGY NURSE NAVIGATOR The current study is compared with the prior radiograph dated 05/04/2023. There is no focal consolidation, pleural effusion, or pneumothorax. The cardiomediastinal silhouette is normal. Dictated by: Chu Spencer MD The radiology attending physician has personally reviewed this study, and had reviewed and/or edited this written report and agrees with it. Electronically signed by: Alexa Toscano M.D. Narrative 11/12/2024 8:33 AM ONCOLOGY NURSE NAVIGATOR EXAMINATION: 1 view chest radiograph Procedure Note [...] Final Result * Tryptase (11/12/2024 3:41 AM ONCOLOGY NURSE NAVIGATOR) Tryptase Level 5.9 <11.5 ng/mL [facility] ref [facility] Comment: Test Performed by: [facility] [address] [place] [address] Education Research Analyst: Breanne Bowers Ph.D.; CLIA# [id number] Blood 11/12/2024 3:41 AM ONCOLOGY NURSE NAVIGATOR 11/12/2024 3:47 AM ONCOLOGY NURSE NAVIGATOR Asia Rodriguezbenita Begume PRO SHOP ATTENDANT LAB BLOOD ORDERABLE S Final Result [facility] [address] Department [place] [address] [place] ref [facility] * (ABNORMAL) Respiratory pathogen panel Nasopharyngeal (11/12/2024 3:10 AM ONCOLOGY NURSE NAVIGATOR) [facility] Influenza A/2009 RNA Detected(A) Not Detected [facility] Influenza B RNA Not Detected Not Detected [facility] RSV RNA Not Detected Not Detected [facility] COVID-19 RNA Not Detected Not Detected [facility] Coronavirus 229E RNA Not Detected Not Detected [facility] Coronavirus HKU1 RNA Not Detected Not Detected [facility] Coronavirus NL63 RNA Not Detected Not Detected [facility] Coronavirus OC43 RNA Not Detected Not Detected [facility] Adenovirus DNA Not Detected Not Detected [facility] Metapneumovirus RNA Not Detected Not Detected [facility] Rhinovirus/Enterov irus RNA Not Detected Not Detected [facility] Parainfluenza 1 RNA Not Detected Not Detected [facility] Parainfluenza 2 RNA Not Detected Not Detected [facility] Parainfluenza 3 RNA Not Detected Not Detected [facility] Parainfluenza 4 RNA Not Detected Not Detected [facility] B. pertussis DNA Not Detected Not Detected [facility] B. parapertussis DNA Not Detected Not Detected [facility] C. pneumoniae DNA Not Detected Not Detected [facility] M. pneumoniae DNA Not Detected Not Detected [facility] Comment: Interpretive Data The [employer] FilmArray Respiratory Panel (RP2.1) assay is a [...] assay has FDA clearance for testing of PRO SHOP ATTENDANT swabs. The performance characteristics of this assay have been determined by [facility]. Current interpretive data was last revised on 2021. Nasopharyngeal 11/12/2024 3: 10 AM ONCOLOGY NURSE NAVIGATOR 11/12/2024 3:21 AM ONCOLOGY NURSE NAVIGATOR Narrative [facility] - 11/12/2024 4:13 AM ONCOLOGY NURSE NAVIGATOR Is the Patient experiencing symptoms consistent with COVID?->Yes Surveillance testing for transplant patient?->No us Asia Myrick NP LAB MICROBIOLOGY - GENERAL ORDERABLES Final Result [facility] [address] Department [place] [address] [facility] * (ABNORMAL) Sepsis Lactate w/ Reflex (11/12/2024 3:08 AM ONCOLOGY NURSE NAVIGATOR) Sepsis Lactate 6.6(C) 0.7 - 2.0 mmol/L Comment:Critical result call ed to and read back by VINNIE YANES (RN) on 11/12/2024 03:40:34 ONCOLOGY NURSE NAVIGATOR to [id number]. Blood 11/12/2024 3:08 AM ONCOLOGY NURSE NAVIGATOR 11/12/2024 3:22 AM ONCOLOGY NURSE NAVIGATOR Aung Barrios MD LAB BLOOD ORDERA BLES Final Result Performing Organization Address City/[facility]/ZIP Co de Phone Number [facility] [address] [employer] [place], [place] [id number] * eGFR (11/12/2024 3:08 AM ONCOLOGY NURSE NAVIGATOR) Pathologist [facility] eGFR 83 >=60 mL/min/1. 73 [...] last reviewed 2021. Blood 11/12/2024 3:08 AM ONCOLOGY NURSE NAVIGATOR 11/12/2024 3:44 AM ONCOLOGY NURSE NAVIGATOR Aung Barrios MD LAB BLOOD ORDERA BLES Final Result [facility] [address] [place] [place] [employer] [place] [address] * (ABNORMAL) Differential, auto (11/12/2024 3:08 AM ONCOLOGY NURSE NAVIGATOR) Neutrophil abs 17.1(H) 1.5 - 6.5 K/cumm Imm gran abs 0.2(H) 0.0 - 0.1 K/cumm [facility] Lymphocyte abs 0.5(L) 0.8 - 3.3 K/cumm [facility] Monocyte abs 0.8 0.2 - 0.8 K/cumm [facility] Eosinophil abs 0.1 0.0 - 0.5 K/cumm [facility] Basophil abs 0.0 0.0 - 0.1 K/cumm [facility] Neutrophil pct 90.9 % [facility] Comment: Interpretive Data Percent cell count reference ranges are not reported, since discordance with absolute values may lead to misinterpretation of CBC data. Current Interpretive Data was last revised on 2018. Imm gran pct 1.0 % [facility] Comment: Interpretive Data Percent cell count reference ranges are not reported, since discordance with absolute values may lead to misinterpretation of CBC data. Current Interpretive Data was last revised on 2018. Lymphocyte pct 2.9 % [facility] Comment: Interpretive Data Percent cell count reference ranges are not reported, since discordance with absolute values may lead to misinterpretation of CBC data. Current Interpretive Data was last revised on 2018. Monocyte pct 4.4 % [facility] Comment: Interpretive Data Percent cell count reference ranges are not reported, since discordance with absolute values may lead to misinterpretation of CBC data. Current Interpretive Data was last revised on 2018. Eosinophil pct 0.6 % [facility] Comment: Interpretive Data Percent cell count reference ranges are not reported, since discordance with absolute values may lead to misinterpretation of CBC data. Current Interpretive Data was last revised on 2018. Basophil pct 0.2 % [facility] Comment: Interpretive Data Percent cell count reference ranges are not reported, since discordance with absolute values may lead to misinterpretation of CBC data. Current Interpretive Data was last revised on 2018. Blood 11/12/2024 3:08 AM ONCOLOGY NURSE NAVIGATOR 11/12/2024 3:44 AM ONCOLOGY NURSE NAVIGATOR Aung Barrios MD LAB BLOOD ORDERA BLES Final Result Performing Organization Address [facility]/ZIP Co de Phone Number [facility] [address] Department of [employer] [place] [address] * (ABNORMAL) CBC with auto differential (11/12/2024 3:08 AM ONCOLOGY NURSE NAVIGATOR) Pathologist [facility] WBC 18.8(H) 3.8 - 9.9 K/cumm Hgb 16.1(H) 11.9 - 15.5 g/dL [facility] Hct 46.2(H) 35.6 - 45.5 % [facility] Plt 411(H) 150 - 400 K/cumm [facility] MPV 10.4 9.1 - 12.[address] [facility] RBC 5.12 3.90 - 5.20 M/cumm [facility] MCV 90.2 81.3 - 96.[address] [facility] MCH 31.4 27.1 - 33.[address] [facility] MCHC 34.8 32.3 - 35.7 g/dL [facility] RDW CV 11.8 11.1 - 14.9 % [facility] RDW SD 38.7 35.7 - 48.[address] [facility] NRBC abs 0.00 0.00 - 0.01 K/cumm [facility] Blood 11/12/2024 3:08 AM ONCOLOGY NURSE NAVIGATOR 11/12/2024 3:44 AM ONCOLOGY NURSE NAVIGATOR Aung Barrios MD LAB BLOOD ORDERA BLES Final Result [facility] [address] Department of [employer] [place], [place] [id number] * (ABNORMAL) Comprehensive metabolic panel (11/12/2024 3:08 AM ONCOLOGY NURSE NAVIGATOR) Pathologist [facility] Sodium 139 135 - 145 mmol/L Potassium, pl 4.3 3.3 - 4.9 mmol/L [facility] Chloride 98 97 - 110 mmol/L [facility] CO2 15(L) 22 - 32 mmol/L [facility] Anion gap 26(H) 2 - 15 mmol/L [facility] BUN 15 6 - 25 mg/dL [facility] Creatinine 0.88 0.60 - 1.10 mg/dL [facility] Glucose 224(H) 70 - 199 mg/dL [facility] Comment: Interpretive Data Fasting glucose >/= 126 [...] 2022. Calcium 9.9 8.5 - 10.3 mg/dL [facility] Bilirubin, total 1.2 0.1 - 1.2 mg/dL [facility] Protein, pl 7.6 6.5 - 8.5 g/dL [facility] Albumin 4.6 3.5 - 5.0 g/dL [facility] Alk phos 70 40 - 130 Units/L [facility] ALT 13 7 - 45 Units/L [facility] AST 23 10 - 45 Units/L [facility] Blood 11/12/2024 3:08 AM ONCOLOGY NURSE NAVIGATOR 11/12/2024 3:44 AM ONCOLOGY NURSE NAVIGATOR us Aung Barrios MD LAB BLOOD ORDERA BLES Final Result [facility] [address] Department [place] [address] * ECG 12 lead (11/12/2024 3:03 AM ONCOLOGY NURSE NAVIGATOR) 11/12/2024 3:03 AM ONCOLOGY NURSE NAVIGATOR Narrative [facility] - 11/12/2024 2:14 PM ONCOLOGY NURSE NAVIGATOR Vent Rate: 107 bpm RR Interval: 556 msec [place] Interval: 136 msec QRS Duration: 80 msec QT Interval: 355 msec QTC Interval: 418 msec P-R-T [place]: 64 - 68 - 71 degrees IMPRESSION: SINUS TACHYCARDIA POSSIBLE LEFT ATRIAL ENLARGEMENT [-0.1mV P WAVE IN V1/V2] SEPTAL MYOCARDIAL INFARCTION , OF INDETERMINATE AGE [40+ ms Q WAVE IN V1/V2] ABNORMAL ECG Electronically Signed By: Baltazar Chowdhury MD, [facility] us Aung Barrios MD ECG ORDERABLES Final Result [facility] * COLONOSCOPY (01/12/2023 11:44 AM CDT) Anatomical Region Laterality Modality Other Narrative Procedure Note Ari Swan MD - 01/12/2023 11:44 AM CDT [facility] Patient Name: Agustina Tijerina Procedure Date: 01/12/2023 11:44 AM Date of : 1980 Admit Type: Outpatient Age: 42 Gender: Female Attending MD: Ari Swan M.D. Room: [facility] ENDOSCOPY ROOM 06 Note Status: Finalized Procedure: [...] On: 01/12/2023 11:44 AM Recognized by the [employer] for promoting quality in endoscopy Ari Swan MD ENDOSCOPY PROCEDURES Final Resul t from Last 3 Months or Most Recently Relevant to Health Maintenance Insurance 1989 [employer] [place] [id number] [facility] Advance Directives For more information, please contact: [phone] * Full Code (Latest Code Status on File) Date Activated Date Inactivated Comments 10/24/2024 10:13 PM 10/25/2024 10:30 PM Care Teams Gang Drill Operator Relationship Specialty Start Date End Date Oswaldo Ayoub MD [address] [facility] [address] [address] PCP - General 03/04/17
--- OUTSIDE RECORDS SUMMARY | 2025-01-31 09:45 | XMS_ITS | Clinical Summary ---
Author Organization [facility] Address [address] [place] [address] Phone Care Team Providers Care Evaporator Operator Molasses Name Role Phone Unavailable Primary Care Provider [...] STL ABSTRACTION Provider, Abstract 11/15/2024 1:50 PM TOOLING INSPECTOR - 11/15/2024 11:59 PM TOOLING INSPECTOR Hospital Encounter [facility] [place] [facility] [address] [place] [id number] Gin Castro NP Discharge Disposition: Home or Self Care 11/15/2024 Results Follow-Up [facility] MICROARRAY OPERATIONS VICE PRESIDENT - [address] [address] Gin Castro NP MAMMO 3D [...] Sex Assigned at Female 08/06/2024 11:23 AM TOOLING INSPECTOR Legal Sex Female 12:30 PM TOOLING INSPECTOR Gender Identity Female 08/06/2024 11:23 AM TOOLING INSPECTOR Sexual Orientation Not on file Last Filed Vital Signs Vital Sign Reading Time Taken Comments Blood Pressure 120/76 10/08/2024 2:07 PM TOOLING INSPECTOR Pulse 61 10/08/2024 2:07 PM TOOLING INSPECTOR Temperature 36.4 C (97.5 F) 10/08/2024 2:07 PM TOOLING INSPECTOR Respiratory Rate - - Oxygen Saturation 97% 10/08/2024 2:07 PM TOOLING INSPECTOR Inhaled Oxygen Concentration - - Weight 117.9 kg (260 lb) 10/08/2024 2:07 PM TOOLING INSPECTOR Height 180.3 cm (5' 11 ) 10/08/2024 2:07 PM TOOLING INSPECTOR Body Mass Index 36.26 10/08/2024 2:07 PM TOOLING INSPECTOR Plan of Treatment Upcoming Encounters Date Type Department Care Team (Late st Contact Info) Description 10/09/2025 2:00 PM TOOLING INSPECTOR Office Visit [facility] MICROARRAY OPERATIONS VICE PRESIDENT - [address] [address] Gin Castro NP [address] [place] [address] Health Maintenance Due Date Last [...] OR WO CAD Routine 11/15/2024 2:23 PM TOOLING INSPECTOR Screening mammogram for breast cancer CERV/VAG CYTO AGE BASED SCREEN PAP Routine 10/08/2024 2:35 PM TOOLING INSPECTOR Well woman exam with routine gynecological exam Screening for HPV (human papillomavirus) Encounter for Papanicolaou smear for cervical cancer screening H/O LEEP from Last 3 Months or Most Recently Relevant to Health Maintenance Results * MAMMO 3D TAYO SCREEN BILAT W OR WO CAD (11/15/2024 2:23 PM TOOLING INSPECTOR) Anatomical Region Laterality Modality Breast Bilateral Mammography 11/15/2024 2:24 PM TOOLING INSPECTOR Addenda Addendum by Tom Barber MD on 11/30/2024 9:07 AM TOOLING INSPECTOR Prior mammograms from an outside facility are [...] in one year. Impressions 11/15/2024 2:44 PM TOOLING INSPECTOR IMPRESSION: 1. Need outside films. OVERALL FINAL ASSESSMENT: BI-RADS CATEGORY 0: Incomplete, needs comparison to prior mammograms. RECOMMENDATIONS: 1. Outside films will be obtained. An addendum will be dictated when these films are available. [facility] 11/15/2024 2:44 PM TOOLING INSPECTOR BILATERAL SCREENING DIGITAL MAMMOGRAM WITH 3D TOMOSYNTHESIS [...] films are made available. us Gin Castro VAT HOUSE SUPERVISOR MAMMO ORDERABLES Edited Res ult - Final * CERV/VAG CYTO AGE BASED SCREEN PAP (10/08/2024 2:35 PM TOOLING INSPECTOR) COMMENT (PAP): [facility] [place] Comment: This order for age-based cervical cancer and STI screening follows ACOG guidelines(PB 168, 140, AAY556). See individual assays for performing site location. CLINICAL INFORMATION [facility] [place] Comment:None given LAST MENSTRUAL PERIOD [facility] [place] Comment:NONE GIVEN PREV PAP: [facility] [place] Comment:10/04/2023 NIL PREV BX: [facility] [place] Comment:NONE GIVEN SOURCE [facility] [place] Comment:Endocervix ADEQUACY: [facility] [place] Comment: Satisfactory for evaluation. Endocervical/transformation zone component present. Age and/or menstrual status not provided PAP INTERP [facility] [place] Comment: Cytology Results: Negative for intraepithelial lesion or malignancy. COMMENT (PAP TEST) [facility] [place] Comment: This Pap test has been evaluated with computer assisted technology. SLACK LINE YARDER: [facility] [place] Comment: NEVA DEAN(ASCP) CT screening location: [place] [address] [place] [address] EXPLANATORY NOTE [facility] [place] Comment: EXPLANATORY NOTE: The Pap is a [...] information. HPV E6/E7 Not Detected Not Detected [facility] [place] Comment: Methodology: Manager Fashion-Mediated Amplification This assay detects E6/E7 viral messenger RNA (mRNA) from 14 high-risk HPV types (16,18,31,33,35,39,45,51,52,56,58,59,66,68). Cervical sources are required for HPV testing. If a vaginal source from a patient who has had a total hysterectomy with removal of cervix was submitted, please contact the testing laboratory for alternative testing options. For additional information, please refer to http://education.Tonara/faq/OKL155p1 (This link if provided for information/ educational purposes only.) Test Performed at: [id number] [id number] [id number] Barbie GARCIA Genital SWAB OF ENDOCERVIX / Unknown 10/08/2024 2:35 PM TOOLING INSPECTOR 10/09/2024 12:19 AM TOOLING INSPECTOR us Gin Castro NP PATHOLOGY/CYTOLOGY ORDERABL ES Final Result [facility] [phone] [facility] [address] [phone] from Last 3 Months or Most Recently Relevant to Health Maintenance Insurance 1989 [employer] [address]
--- OUTSIDE RECORDS SUMMARY | 2025-01-31 09:45 | XMS_ITS | Encounter Summary ---
Author Organization [facility] Address [address] [place] [address] Care Team Providers Care Throw Out Clerk Name Role Phone Oswaldo Ayoub MD Primary Care Provider [phone] Encounter Details Date Type Department Care Team (Late st Contact Info) Description 01/02/2025 Results Follow-Up [facility] Family Medicine at [address] [place] [phone] Oswaldo Ayoub MD [address] [place] [address] [address] [place] [address] Social History Tobacco Use Types [...] on filedocumented in this encounter Care Teams Throw Out Clerk Relationship Specialty Start Date End Date Oswaldo Ayoub MD [address] [place] [address] [place] [id number] PCP - General 03/04/17 documented as of this encounter
--- NOTE | 2025-01-31 09:59 | ED_ITS ---
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 She sees a GI specialist at [facility] for this, Dr. Johnson. She developed an episode yesterday. Was seen in the ED here, given fluids, Benadryl, Reglan with improvement. She comes in with protocol orders for managing her symptoms, including intravenous fluids, electrolyte replacement, Benadryl/Reglan/Ativan/Toradol. Patient reports she felt better after her ER visit yesterday, but developed symptoms again last night which became worst this morning. She reports nausea, vomiting, trouble breathing, diffuse abdominal pain. Denies fevers, diarrhea, constipation, rash/hives. Related Data Allergies Allergy/AdvReac Type Severity Reaction Status Date / Time No Known Allergies Allergy Verified 01/31/25 09:02 Review of Systems 2 Review of Systems: All systems reviewed & are unremarkable except as noted in HPI. All systems reviewed & are unremarkable except as noted in HPI and below Exam 2 Narrative: GENERAL: Anxious appearing, obese with BMI of 35.1, non-toxic, in no acute distress. HEAD: Normocephalic, atraumatic. RESPIRATORY: Airway patent, respirations tachypneic but nonlabored. Clear to auscultation bilaterally, no rales, rhonchi, wheezing. CARDIOVASCULAR: Regular rate and rhythm without murmurs, rubs, or gallops. ABDOMINAL: Soft, diffuse tenderness, nondistended. Normoactive BS. MUSCULOSKELETAL: Moves all extremities. No gross deformities. SKIN: Warm, dry, normal color. No rash or urticaria. NEURO: A&O X3. Speech clear. Cranial nerves II-XII grossly intact. Steady gait. No ataxic movements. PSYCHIATRIC: Anxious, hyperventilating. Normal interaction. Course Vital Signs Vital signs: Vital Signs Pulse Rate 106 H 01/31/25 09:18 Respiratory Rate 18 01/31/25 09:18 Blood Pressure 142/107 H 01/31/25 09:18 Pulse Oximetry 97 05/08/25 09:18 Pulse Rate 78 01/31/25 16:30 Respiratory Rate 20 01/31/25 16:30 Blood Pressure 133/69 01/31/25 16:30 Pulse Oximetry 97 01/31/25 16:30 Medical Decision Making [facility] Narrative Medical decision making narrative: Patient presented to ED with history of mast cell activation syndrome, cyclic vomiting syndrome with persistent nausea and vomiting. Seen in the ED here yesterday. Patient mildly tachycardic upon arrival, she does appear very anxious, hyperventilating. Fluids initiated. She comes in with a protocol of orders from her GI specialist. Will follow this. 2 L of fluid ongoing. Laboratory studies with leukocytosis of 14.3, neutrophil predominance. No bandemia. Normal an eosinophils. Mild hypokalemia at 3.1. IV replacement initiated. Sodium 128, chloride low at 90. Anion gap of 16. Blood sugar 129. Kidney function is stable. Magnesium is within normal range at 2.0. EKG was obtained today and showing normal QTC interval. This was noted to be prolonged yesterday. This was likely related to hypomagnesemia yesterday. UA without evidence of infection. Urine drug screen is positive for cannabinoids. Discussed this with patient as this may be contributing to her cyclic vomiting syndrome. Patient has never been told this before. CT scan of abdomen/pelvis obtained and w/o acute findings, does show esophagitis, fibroid. CXR is clear. Patient is feeling improved with supportive therapy. Protocol was finished, including IV Ativan, Pepcid, Toradol. Repeat BMP after fluids show improvement of sodium to 132. Potassium 3.3. Given additional oral replacement. Anion gap closed. Patient able to tolerate PO intake. Looking and feeling much better. Feel she is safe for discharge home at this time. Recommended close follow-up with her GI specialist for further evaluation. Given strict return precautions. She agrees with plan. Feels comfortable discharge home. Discharged in stable condition. Vital signs stable at time of D/C. Medical Records Medical records reviewed: Yes I reviewed the external patient's medical records. Vital Signs Vital Signs: Vital Signs Pulse Rate 106 H 01/31/25 09:18 Respiratory Rate 18 01/31/25 09:18 Blood Pressure 142/107 H 01/31/25 09:18 Pulse Oximetry 97 01/31/25 09:18 Pulse Rate 78 05/08/25 16:30 Respiratory Rate 20 01/31/25 16:30 Blood Pressure 133/69 01/31/25 16:30 Pulse Oximetry 97 01/31/25 16:30 Lab Data Lab results reviewed: Yes I reviewed the patient's lab results. 01/31/25 10:10 01/31/25 16:23 Labs: Lab Results 01/31/25 01/31/25 01/31/25 Range/Units 10:10 11:41 16:23 WBC 14.3 H (4.5-10.0) K/mm3 RBC 5.00 (4.2-5.4) M/mm3 Hgb 15.7 H (12.0-15.0) g/dL Hct 45.7 (37.0-47.0) % MCV 91.4 (80-100) fl MCH 31.4 (26-34) pg MCHC 34.4 (32-36) g/dl RDW 12.0 (11.5-14.5) % Plt Count 283 (150-375) k/mm3 MPV 10.3 (7.4-10.4) fl Immature Gran % (Auto) 0.6 H (0-0.5) % Neut % (Auto) 83.5 H (45.5-73.1) % Lymph % (Auto) 7.7 L (18.3-44.2) % Providence % (Auto) 7.6 (2.6-8.5) % Eos % (Auto) 0.1 (0-4.4) % Baso % (Auto) 0.5 (0.2-1.2) % Lymph # (Auto) 1.10 (0.9-3.2) K/mm3 Providence # (Auto) 1.1 H (0.1-0.6) K/mm3 Eos # (Auto) 0.0 (0-0.3) K/mm3 Baso # (Auto) 0.1 (0.0-0.1) K/mm3 Abs Immat Gran (auto) 0.09 H (0.00-0.031) K/mm3 Absolute Neuts (auto) 11.9 H (1.3-6.7) K/mm3 Absolute Nucleated RBC 0.000 (0.0-0.012) K/mm3 Nucleated RBC % 0.0 (0.0-0.2) % Sodium 128 L 132 L (137-145) mmol/L Potassium 3.1 L 3.3 L (3.4-5.0) mmol/L Chloride 90 L 96 L (98-107) mmol/L Carbon Dioxide 22 28 (22-30) mmol/L Anion Gap 16 H 8 (4-12) mmol/L BUN 23 H 19 H (7-17) mg/dL Creatinine 0.82 0.72 (0.7-1.0) mg/dL Estim Creat Clear Calc 105 118 ml/min Estimated GFR > 60 > 60 (59 - ) Glucose 129 H 78 (65-110) mg/dL Calcium 8.9 7.5 L (8.4-10.2) mg/dL Magnesium 2.0 (1.6-2.3) mg/dL Tryptase Pending Urine Color Yellow (Yellow) Urine Appearance Clear (Clear) Urine pH 7.5 (5.0-9.0) Ur Specific [place] 1.022 (1.001-1.035) Urine Protein Negative (Negative) mg/dL Urine Glucose (UA) Negative (Negative) mg/dL Urine Ketones 3+ H (Negative) mg/dL Ur Blood (Man) Trace (Negative) Urine Nitrate Negative (Negative) Urine Bilirubin Negative (Negative) Urine Urobilinogen 0.2 (<2.0) mg/dL Leukocyte Esterase Rfl Negative (Negative) CHANG/UL Urine RBC 3-5 H (0-2) /hpf Urine WBC 0-5 (0-3) /hpf Ur Squamous Epith Cells None seen (Few) /hpf Urine Bacteria None seen /hpf Urine Casts 0-2 Urine Opiates Screen Negative (Negative) Urine Methadone Screen Negative (Negative) Ur Barbiturates Screen Negative (Negative) Ur Phencyclidine Scrn Negative (Negative) Ur Amphetamine Screen Negative (Negative) U Benzodiazepines Scrn Negative (Negative) Urine Cocaine Screen Negative (Negative) U Cannabinoids Screen Positive A (Negative) Imaging Data Attestation: I personally reviewed and interpreted this imaging study as follows: Radiologist's impression: ITS Impressions Abdomen/Pelvis CT 01/31/25 11:40 IMPRESSION: 1. No evidence of appendicitis, diverticulitis or intestinal obstruction. 2. Small sliding hiatus hernia with reflux esophagitis. 3. Fibroid uterus. 4. Fat infiltration of the liver. Chest X-Ray 01/31/25 11:46 Impression: Normal chest. ECG Data EKG #1: Attestation: I personally reviewed and interpreted this ECG as follows: ECG completion date: 01/31/25 ECG completion time: 09:30 EKG Interpretation: normal rate (83), sinus rhythm, no ST changes, normal QT and other (baseline artifact) Discharge Plan Discharge Clinical Impression: Cyclical vomiting syndrome, Mast cell activation syndrome, Hypokalemia Patient Disposition: Home Condition: Stable Instructions: Antibiotic Form, Acute Nausea and Vomiting (ED), Cyclic Vomiting Syndrome (ED) Additional Instructions: Continue to follow up with your GI specialist for further evaluation. Continue home medications as needed. Stay well hydrated. Recommend electrolyte rich fluids. Recommend clear liquids or bland diet until symptoms improve, such as bananas, rice, applesauce, toast, or crackers. Avoid further marijuana use as this may be contributing to your symptoms. Return to the ED if you experience worsening or severe symptoms, unable to keep down food or drink, severe pain, fevers, rectal bleeding, vomiting blood, or any other symptoms of concern. Patient Language: Swedish Prescriptions: No Action lorazepam [Ativan] 0.5 mg tablet 0.5 mg PO TID PRN (Reason: nausea and vomiting) Qty: 20 0RF potassium chloride [Klor-Con 10] 10 mEq tablet extended release 10 meq PO DAILY Qty: 30 0RF magnesium oxide 200 mg magnesium tablet 200 mg PO DAILY Qty: 30 0RF Follow-up/Referrals: UNKNOWN,DOCTOR [Primary Care Provider] - Time of Disposition: 16:38
--- NOTE | 2025-01-31 10:03 | PC.NURSE ---
Unable to obtain IV and labs X2. Pancho from vascular access called
[2025-01-31 10:30] VITALS: BP 162/98; PULSE 89; RESP 20; O2SAT 100
[2025-01-31] MEDS: SODIUM CHLORIDE 0.9% IV 1,000 ML 500 ML IV CONT ×2 (10:40)
[2025-01-31 10:49] LABS: Anion Gap 16 mmol/L (4-12); Blood Urea Nitrogen 23 mg/dL (7-17); Calcium 8.9 mg/dL (8.4-10.2); Carbon Dioxide 22 mmol/L (22-30); Chloride 90 mmol/L (98-107); Estimated CRCL calculation 105 ml/min; Estimated Glomerular Filt Rate > 60; Glucose 129 mg/dL (65-110); Potassium 3.1 mmol/L (3.4-5.0); Sodium 128 mmol/L (137-145)
[2025-01-31 10:57] LABS: Basophils Absolute Auto 0.1 K/mm3 (0.0-0.1); Basophils Percent Auto 0.5 % (0.2-1.2); Eosinophils Percent Auto 0.1 % (0-4.4); Hematocrit 45.7 % (37.0-47.0); Hemoglobin 15.7 g/dL (12.0-15.0); Immature Granulocyte Absolute 0.09 K/mm3 (0.00-0.031); Immature Granulocyte Percent A 0.6 % (0-0.5); Lymphocytes Percent Auto 7.7 % (18.3-44.2); Mean Corpuscular HGB Conc 34.4 g/dl (32-36); Mean Corpuscular Hemoglobin 31.4 pg (26-34); Mean Corpuscular Volume 91.4 fl (80-100); Mean Platelet Volume 10.3 fl (7.4-10.4); Monocytes Absolute Auto 1.1 K/mm3 (0.1-0.6); Monocytes Percent Auto 7.6 % (2.6-8.5); Neutrophils Absolute Auto 11.9 K/mm3 (1.3-6.7); Neutrophils Percent Auto 83.5 % (45.5-73.1); Platelet Count Result 283 k/mm3 (150-375); White Blood Count 14.3 K/mm3 (4.5-10.0)
[2025-01-31] MEDS: SODIUM CHLORIDE 0.9% IV 50 ML 25 ML (11:09)
[2025-01-31] MEDS: diphenhydrAMINE HCl INJ 50 MG/ML VIAL IV PUSH (11:09)
[2025-01-31] MEDS: METOCLOPRAMIDE HCL INJ 10 MG/2 ML VIAL IV PUSH (11:09)
[2025-01-31 11:45] VITALS: BP 125/71; PULSE 98; RESP 20; O2SAT 97
[2025-01-31] MEDS: KCL 20 MEQ/SW 100 ML 100 ML 50 MEQ IVPB (11:48)
[2025-01-31 11:56] LABS: Add Urine Microscopic? YES; Appearance Urine Clear (Clear); Bacteria Urine None Seen /hpf; Bilirubin Urine Negative (Negative); Blood Urine Trace (Negative); Color Urine Yellow (Yellow); Glucose Urine UA Negative (Negative); Ketones Urine 3+ mg/dL (Negative); Leukocyte Esterase Ur Negative LEU/UL (Negative); Nitrate Urine Negative (Negative); Non Pathogenic Casts 0-2; Protein Urine Negative (Negative); Specific Grav Ur 1.022 (1.001-1.035); Squamous Epithelial Cell Urine None Seen /hpf (Few); Urobilinogen Urine 0.2 mg/dL (<2.0); WBC Urine 0-5 /hpf (0-3); pH Urine 7.5 (5.0-9.0)
[2025-01-31 12:08] LABS: Amphetamine Screen Urine Negative (Negative); Barbiturate Screen Urine Negative (Negative); Benzodiazepines Screen Urine Negative (Negative); Cannabinoid Screen Urine Positive (Negative); Cocaine Screen Urine Negative (Negative); Methadone Screen Urine Negative (Negative); Opiate Screen Urine Negative (Negative); Phencyclidine Screen Urine Negative (Negative)
[2025-01-31 13:00] VITALS: BP 130/90; PULSE 86; RESP 20; O2SAT 98
[2025-01-31] MEDS: LORazepam INJ (*CRX) 2 MG/ML VIAL 1 MG IV PUSH (14:29)
[2025-01-31] MEDS: FAMOTIDINE 20 MG/2 ML VIAL IV PUSH (14:29)
[2025-01-31] MEDS: KETOROLAC 30 MG/ML VIAL (*BKC) IV PUSH (16:24)
--- NOTE | 2025-01-31 16:29 | PC.NURSE ---
Patient given sandwich, crackers and water per order from provider
[2025-01-31 16:30] VITALS: BP 133/69; PULSE 78; RESP 20; O2SAT 97
[2025-01-31 16:42] LABS: Anion Gap 8 mmol/L (4-12); Blood Urea Nitrogen 19 mg/dL (7-17); Calcium 7.5 mg/dL (8.4-10.2); Carbon Dioxide 28 mmol/L (22-30); Chloride 96 mmol/L (98-107); Estimated CRCL calculation 118 ml/min; Estimated Glomerular Filt Rate > 60; Glucose 78 mg/dL (65-110); Potassium 3.3 mmol/L (3.4-5.0); Sodium 132 mmol/L (137-145)
[2025-01-31] MEDS: POTASSIUM CHLORIDE 20 MEQ ER TABLET PO (17:06)
== END 2025-01-31 17:16 | disposition home or self-care (01) ==
PROVIDERS: Emergency Provider Physician Assistant
DX: R11.15 Cyclical vomiting syndrome unrelated to migraine (principal); D89.40 Mast cell activation, unspecified; E87.6 Hypokalemia; Z79.899 Other long term (current) drug therapy; K21.00 Gastro-esophageal reflux disease with esophagitis, without bleeding; K44.9 Diaphragmatic hernia without obstruction or gangrene; D25.9 Leiomyoma of uterus, unspecified; K76.0 Fatty (change of) liver, not elsewhere classified; R94.31 Abnormal electrocardiogram [ECG] [EKG]
CPT/HCPCS: 36415; 71046; 74177; 80048; 80307; 81001; 83735; 85025; 93005; 96361; 96365; 96366; 96375; 99284; A9270; J1200; J1885; J2060; J2765; J3480; J7030; Q9967

== ENCOUNTER 2025-02-26 09:31 | Emergency (ER) | payer OTHER, SELFPAY ==
[2025-02-26] MEDS: diphenhydrAMINE HCl INJ 50 MG/ML VIAL IV PUSH (09:48)
--- OUTSIDE RECORDS SUMMARY | 2025-02-26 09:48 | XMS_ITS | Clinical Summary ---
Author Organization [facility] Address [address] [place] [address] Phone Care Team Providers Care Laundry Machine Tender Name Role Phone Unavailable Primary Care Provider [...] Encounters Date Type Department Care Team Description 02/14/2025 External Device Data STL ABSTRACTION Provider, Abstract 02/13/2025 External Device Data [facility]L ABSTRACTION Provider, Abstract 02/12/2025 External Device Data [facility] ABSTRACTION Provider, Abstract 12/12/2024 External Device Data [facility] ABSTRACTION Provider, [...] Sex Assigned at Female 08/06/2024 11:23 AM MANPOWER DEVELOPMENT SPECIALIST Legal Sex Female 12:30 PM MANPOWER DEVELOPMENT SPECIALIST Gender Identity Female 08/06/2024 11:23 AM MANPOWER DEVELOPMENT SPECIALIST Sexual Orientation Not on file Last Filed Vital Signs Vital Sign Reading Time Taken Comments Blood Pressure 120/76 10/08/2024 2:07 PM MANPOWER DEVELOPMENT SPECIALIST Pulse 61 10/08/2024 2:07 PM MANPOWER DEVELOPMENT SPECIALIST Temperature 36.4 C (97.5 F) 10/08/2024 2:07 PM MANPOWER DEVELOPMENT SPECIALIST Respiratory Rate - - Oxygen Saturation 97% 10/08/2024 2:07 PM MANPOWER DEVELOPMENT SPECIALIST Inhaled Oxygen Concentration - - Weight 117.9 kg (260 lb) 10/08/2024 2:07 PM MANPOWER DEVELOPMENT SPECIALIST Height 180.3 cm (5' 11) 10/08/2024 2:07 PM MANPOWER DEVELOPMENT SPECIALIST Body Mass Index 36.26 10/08/2024 2:07 PM MANPOWER DEVELOPMENT SPECIALIST Plan of Treatment Upcoming Encounters Date Type Department Care Team (Late st Contact Info) Description 10/09/2025 2:00 PM MANPOWER DEVELOPMENT SPECIALIST Office Visit [facility] BRASS BOBBIN WINDER [address] [address] Gin Castro NP [address] [place] [address] Health Maintenance Due Date Last Done Comments Pre-Diabetes and Diabetes Screening 1979 HEPATITIS B VACCINES (1 of 3 - 19+ 3-dose series) 1998 INFLUENZA VACCINE (#1) 2024 FIT-DNA Q 3 years 2024 FIT/FOBT Q 1 year 2024 Flex Sig/CT Colonography Q 5 years 2024 BREAST CANCER SCREENING 11/15/2025 11/15/19, 09/30/2023, 09/30/2023, Additional history exists DTAP/TDAP/TD VACCINES [...] OR WO CAD Routine 11/15/2024 2:23 PM MANPOWER DEVELOPMENT SPECIALIST Screening mammogram for breast cancer CERV/VAG CYTO AGE BASED SCREEN PAP Routine 10/08/2024 2:35 PM MANPOWER DEVELOPMENT SPECIALIST Well woman exam with routine gynecological exam Screening for HPV (human papillomavirus) Encounter for Papanicolaou smear for cervical cancer screening H/O LEEP from Last 3 Months or Most Recently Relevant to Health Maintenance Results * MAMMO 3D TAYO SCREEN BILAT W OR WO CAD (11/15/2024 2:23 PM MANPOWER DEVELOPMENT SPECIALIST) Anatomical Region Laterality Modality Breast Bilateral Mammography 11/15/2024 2:24 PM MANPOWER DEVELOPMENT SPECIALIST Addenda Addendum by Tom Barber MD on 11/30/2024 9:07 AM MANPOWER DEVELOPMENT SPECIALIST Prior mammograms from an outside facility are [...] in one year. Impressions 11/15/2024 2:44 PM MANPOWER DEVELOPMENT SPECIALIST IMPRESSION: 1. Need outside films. OVERALL FINAL ASSESSMENT: BI-RADS CATEGORY 0: Incomplete, needs comparison to prior mammograms. RECOMMENDATIONS: 1. Outside films will be obtained. An addendum will be dictated when these films are available. DICTATION LOCATION: [facility] 11/15/2024 2:44 PM MANPOWER DEVELOPMENT SPECIALIST BILATERAL SCREENING DIGITAL MAMMOGRAM WITH 3D TOMOSYNTHESIS [...] films are made available. us Gin Castro NP MAMMO ORDERABLES Edited Res ult - Final * CERV/VAG CYTO AGE BASED SCREEN PAP (10/08/2024 2:35 PM MANPOWER DEVELOPMENT SPECIALIST) COMMENT (PAP): [facility] [place] Comment: This order for age-based cervical cancer and STI screening follows ACOG guidelines(PB 168, 140, EDE857). See individual assays for performing site location. CLINICAL INFORMATION [facility] [place] Comment:None given LAST MENSTRUAL PERIOD [facility] [place] Comment:NONE GIVEN PREV PAP: [facility] [place] Comment:10/04/2023 NIL PREV BX: [facility] [place] Comment:NONE GIVEN SOURCE [facility] [place] Comment:Endocervix ADEQUACY: [facility] [place] Comment: Satisfactory for evaluation. Endocervical/transformation zone component present. Age and/or menstrual status not provided PAP INTERP [facility] [place] Comment: Cytology Results: Negative for intraepithelial lesion or malignancy. COMMENT (PAP TEST) [facility] [place] Comment: This Pap test has been evaluated with computer assisted technology. PROCESS DESCRIPTION WRITER: Juaquin perry [facility] [place] Comment: NEVA DEAN(ASCP) CT screening location: [place] [address] [place] [address] EXPLANATORY NOTE [facility] [place] Comment: EXPLANATORY NOTE: The Pap is a [...] information. HPV E6/E7 Not Detected Not Detected [facility] [place] Comment: Methodology: Knife Setter Assembler-Mediated Amplification This assay detects E6/E7 viral messenger RNA (mRNA) from 14 high-risk HPV types (16,18,31,33,35,39,45,51,52,56,58,59,66,68). Cervical sources are required for HPV testing. If a vaginal source from a patient who has had a total hysterectomy with removal of cervix was submitted, please contact the testing laboratory for alternative testing options. For additional information, please refer to http://education.GrupHediye/faq/QZR214q2 (This link if provided for information/ educational purposes only.) Test Performed at: [facility] [id number] [id number] Barbie GARCIA Genital SWAB OF ENDOCERVIX / Unknown 10/08/2024 2:35 PM MANPOWER DEVELOPMENT SPECIALIST 10/09/2024 12:19 AM MANPOWER DEVELOPMENT SPECIALIST us Gin Castro TRANSPORTATION ASSOCIATE PATHOLOGY/CYTOLOGY ORDERABL ES Final Result [facility] [phone] [facility] [address] [phone] from Last 3 Months or Most Recently Relevant to Health Maintenance Insurance [address] [employer] [address]
--- OUTSIDE RECORDS SUMMARY | 2025-02-26 09:48 | XMS_ITS | Clinical Summary ---
Author Organization [facility] Address [address] [place] [address] Care Team Providers Care Nursing Specialist Name Role Phone Oswaldo Ayoub MD Primary Care Provider [phone] Source Comments [facility],non-owned Affiliates and Associated Physician Practices is amultiple site organization consisting of ambulatory clinics and hospital sitesin [place], [place], [place]. This disclosure is being madepursuant to the Care Everywhere program and may not contain all information available regarding this patient. Last updated 18.[facility] [email or web address] Allergies No known active allergies Medications * [...] 1:26 PM CDT Height 180.3 cm (5' 11) 05/20/2024 1:26 PM CDT Body Mass Index [...] 12:07 PM 05/21/2024 4:31 PM Care Teams Nursing Specialist Relationship Specialty Start Date End Date Oswaldo Ayoub MD [address] [place] [address] PCP - General Family Medicine 05/21/24
[2025-02-26] MEDS: FAMOTIDINE 20 MG/2 ML VIAL IV PUSH (09:49)
--- OUTSIDE RECORDS SUMMARY | 2025-02-26 09:49 | XMS_ITS | Clinical Summary ---
Author Organization [facility] Address [address] [place] [address] Care Team Providers Care Student Life Dean Name Role Phone Oswaldo Ayoub MD Primary Care Provider [phone] Allergies No known active allergies Medications melatonin [...] Patient taking differently:10 mg oralDaily, Reported on 02/14/2025 metoclopramide (REGLAN) 10 mg tablet Take 1 tablet (10 mg total) by mouth every 6 (six) hours as needed (nausea) 15 tablet 11/12/19 25 Active valACYclovir (VALTREX) 500 mg tablet TAKE 1 TABLET(500 MG) BY MOUTH DAILY 100 tablet 11/30/19 25 Active sertraline (ZOLOFT) 100 mg tabletIndicatio ns:AARON (generalized anxiety disorder),Moder ate episode of recurrent major depressive disorder (HCC) Take 1 tablet (100 mg total) by mouth daily 30 tablet 1 02/15/20 25 Active escitalopram (LEXAPRO) 20 mg tablet Take 1 tablet (20 mg total) by mouth nightly 90 tablet 3 01/01/20 25 025 Discontinued ARIPiprazole (ABILIFY) 2 mg tabletIndicatio ns:AARON (generalized anxiety disorder) Take 1 tablet (2 mg total) by mouth daily 30 tablet 01/16/20 25 025 Discontinued ubrogepant (Ubrelvy) 100 mg tabletIndicatio ns:Migraine without aura and without status migrainosus, not intractable Take 1 tablet (100 mg total) by mouth once as needed for migraine May repeat dose once in 2 hours if no relief. Do not exceed 2 doses in 24 hours. 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 Consider increasing Zoloft after switch. Discontinue Abilify due to side effects Failed: Abilify, Prozac, trazodone, BuSpar If unable to tolerate switch to Zoloft, consider additional antipsychotic or mood stabilizers. Assessment & Plan (01/15/2025 12:10 PM CDT): [...] unremarkable. Assessment & Plan (11/18/2022 10:23 AM SOURCING INTERN): CT scan of the abdomen and pelvis [...] loss Assessment & Plan (11/18/2022 10:50 AM SOURCING INTERN): GERD for the past year, seems to be getting progressively worse. -start omeprazole 20 mg p.o. daily -RECOMMENDATIONS given include: anti-reflux maneuvers, Avoid acidic foods like oranges and tomatoes., avoidance of spicy foods, avoid eating 3-4 hours before bed, elevation of the head of the bed, and weight loss Migraine without aura and wi thout status migrainosus, not intractable 05/27/2022 Assessment & Plan (02/14/2025 5:33 PM CDT): Not at goal Refer to neurology for Ubrelvy prescription Assessment & Plan (01/15/2025 12:11 PM CDT): [...] PRN Assessment & Plan (08/23/2022 1:43 PM SOURCING INTERN): Stable, no changes. Continue current regimen with Nurtec AARON (generalized anxiety disorder) 07/03/2021 Assessment & Plan (02/14/2025 5:33 PM CDT): Not at goal Change Lexapro 20 mg to equivalent dosing of Zoloft 100 mg daily. Consider increasing Zoloft after switch. Discontinue Abilify due to side effects Failed: Abilify, Prozac, trazodone, BuSpar If unable to tolerate switch to Zoloft, consider additional antipsychotic or mood stabilizers. Assessment & Plan (01/15/2025 12:10 PM CDT): [...] acceptable. Assessment & Plan (08/23/2022 1:42 PM SOURCING INTERN): Seeing improvement with xanax Increase dose to [...] popcorn Assessment & Plan (11/18/2022 10:52 AM SOURCING INTERN): Patient started having abdominal pain, diarrhea, nausea, [...] Encounters Date Type Department Care Team Description 02/19/2025 Patient Self-Triage [facility] HealthCare/ Physicians [address] [place], [place] [id number] Mychart, Thu Provider 02/15/2025 Telephone [facility] Family Medicine at [address] [address] Joy Villalpando NP 02/14/2025 1:30 PM CDT Telemedicine [facility] Family Medicine at [address] [address] oJy Villalpando NP AARON (generalized anxiety disorder) (Primary Dx); Moderate episode of recurrent major depressive disorder (HCC); Migraine without aura and without status migrainosus, not intractable 01/18/2025 Telephone [facility] Family Medicine at [address] [address] Oswaldo Ayoub MD 01/15/2025 11:30 AM CDT Office Visit [facility] Family Medicine at [address] [address] Joy Villalpando NP AARON (generalized anxiety disorder) (Primary Dx); Migraine without aura and without status migrainosus, not intractable; Moderate episode of recurrent major depressive disorder (HCC) 01/02/2025 Results Follow-Up [facility] Family Medicine at [address] [address] Oswaldo Ayoub MD SCAN - LABS from Last 3 Months Immunizations Immunization Administration Dates Next Due Influenza, Unspecified 06/26/2024(Deferr ed: Patient Refused),06/26/2023(Deferred: Patient Refused),07/14/2022(Deferred: Patient Refused),06/26/2021(Deferred: Patient Refused),06/26/2021(Deferred: Patient Refused),06/26/2020(Deferred: Patient Refused),06/26/2019(Deferred: Patient Refused) Tdap 06/28/2017 Surgical History Surgery Date Site/Laterality Comments 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) - (Added by TW Conv) Medical History Medical History Date Comments Headache GERD (gastroesophageal reflux disease) 2020 Anxiety 2018 Migraines Childhood Depression 2018 Mast cell activation syndrome 2024 Family History Medical History Relation Name Comments Cancer Father Denny Guerra Hypertension Father Denny Guerra Heart disease Maternal Grandmother Tg Kerr Arthritis Mother Daysi Guerra Hearing loss Mother Daysi Guerra Hyperlipidemia Mother Daysi Guerra Hypertension Mother Daysi Guerra Clotting disorder Paternal Grandfather Arpan Guerra Diabetes Paternal Grandfather Arpan Guerra Alzheimer's disease Paternal Grandmother Nichole Guerra Relation Name Status Comments Brother 1 Alive Brother 2 Alive Father Denny Guerra Alive Maternal Grandmother Tg Kerr Mother Daysi Guerra Alive Paternal Grandfather Arpan [...] points, staff should administer the PHQ-9) 2 02/14/2025 PHQ-9 Answer Date Recorded PHQ-9 Total Score 5 02/14/2025 Personal Safety Answer Date Recorded Have you [...] 0 1 Date Outcome GA Total Labor Labor//3rd Weight Sex Type Anes PTL Roberta A1 A5 Name Clin AB Last Filed Vital Signs Vital Sign Reading Time Taken Comments Blood Pressure 140/84 01/15/2025 11:23 AM CDT Pulse 68 01/15/2025 11:23 AM CDT Temperature 36.5 C (97.7 F) 01/15/2025 11:23 AM CDT Respiratory Rate 18 01/15/2025 11:23 AM CDT Oxygen Saturation 98% 01/15/2025 11:23 AM CDT Inhaled Oxygen Concentration - - Weight 111.6 kg (246 lb) 02/14/2025 1:33 PM CDT Height 180.3 cm (5' 11) 02/14/2025 1:33 PM CDT Body Mass Index 34.31 02/14/2025 1:33 PM CDT Plan of Treatment Health Maintenance Due Date Last Done Comments Cervical Cancer Screening 1980 Hepatitis C Screening 1980 Hepatitis B Screening 1997 Covid-19 Vaccine ( season) 2024 06/17/2021, 05/27/2021 Influenza Vaccine (Season Ended) 2025 Regular Well Visit/Exam 18-64 06/14/2025 06/14/2024, 06/01/2023, 05/27/2022, Additional history exists Breast Cancer Screening-Mammogram 11/15/2025 11/15/2024, 11/15/2024, 09/30/2023, Additional history exists Depression Screening 02/14/2026 02/14/2025, 02/14/2025, 04/09/2024, Additional history exists DTaP/Tdap/Td Vaccine (2 - Td or Tdap) 06/28/2027 06/28/2017 Colon Cancer Screening-Colonoscopy 01/13/2028 01/12/2023 HPV Vaccines Aged Out No longer eligi ble based on patient's age to complete this topic Pneumococcal vaccine <65 Aged Out No longer eligible based on patient's age to complete this topic Procedures Procedure Name Priority Date/Time Associated Diagnosis Comments SCAN - LABS 12/27/2024 SCREENING MAMMOGRAM BILATERAL W CHON Schedule Routine, Read Routine (OP Routine) 09/30/2023 2:22 PM SOURCING INTERN Screening mammogram, encounter for COLONOSCOPY 01/12/2023 11:44 AM CDT from Last 3 Months or Most Recently Relevant to Health Maintenance Results * SCAN - LABS (12/27/2024) Oswaldo Ayoub MD Final Result * Screening Mammogram Bilateral W Chon (09/30/2023 2:22 PM SOURCING INTERN) Anatomical Region Laterality Modality Breast Bilateral Mammography Impressions 09/30/2023 2:41 PM SOURCING INTERN BI-RADS ATLAS category (overall): 1 - Negative There is no mammographic evidence of malignancy. A 1 year screening mammogram is recommended. The patient has been or will be contacted. We recommend annual screening mammography for women at average risk of breast cancer beginning at age 40, based on guidelines of the [employer] (ACR Practice Parameter for the Performance of Screening and Diagnostic Mammography) and [employer] Gynec[employer]. For women with and elevated risk of breast cancer, please refer to the ACR Practice Parameter for specific screening recommendations. The patient will be entered into a reminder system with a target due date of 1 year for her next screening exam. Narrative 09/30/2023 2:41 PM SOURCING INTERN Screening Mammogram Bilateral W Chon: 09/30/23 The study was acquired using full field digital technology and interpreted from soft copy. 2D digital mammographic views, as well as 3D digital tomosynthesis were performed in the CC and MLO projections. CLINICAL: Screening mammogram, encounter for. No relevant medical history has been documented for this patient. No known family history of breast cancer. COMPARISONS: 09/08/2022 SCREENING MAMMOGRAM BILATERAL W CHON 05/31/2017 Diagnostic Mammogram Left W Chon 11/26/2016 Diagnostic Mammogram Bilateral W Chon BREAST TISSUE: The breasts have scattered areas of fibroglandular density. FINDINGS: There is no new suspicious finding in either breast on mammogram. us Self Screening Mammogram IMG MAMMO PROCEDURES Fi nal Result * COLONOSCOPY (01/12/2023 11:44 AM CDT) Anatomical Region Laterality Modality Other Narrative Procedure Note Ari Swan MD - 01/12/2023 11:44 AM CDT [facility] ENDOSCOPY Patient Name: Agustina Tijerina Procedure Date: 01/12/2023 11:44 AM Date of : 1980 Admit Type: Outpatient Age: 42 Gender: Female Attending MD: Ari Swan M.D. Room: [facility] ENDOSCOPY ROOM 06 Note Status: Finalized [...] On: 01/12/2023 11:44 AM Recognized by the [employer] for promoting quality in endoscopy Ari Swan MD ENDOSCOPY PROCEDURES Final Resul t from Last 3 Months or Most Recently Relevant to Health Maintenance Insurance [facility] Plan / Payer (Ef fective 2018-Present) Name:Agustina Tijerina Relation to Subscriber:Self Name:Agustina Tijerina Payer ID:[id number] (NAIC) Group ID:Not on file Type: Address: [place] [id number] [facility] Advance Directives For more information, please contact: [phone] * Full Code (Latest Code Status on File) Date Activated Date Inactivated Comments 10/24/2024 10:13 PM 10/25/2024 10:30 PM Care Teams Student Life Dean Relationship Specialty Start Date End Date Oswaldo Ayoub MD [address] [facility] [address] [address] PCP - General 03/04/17
--- OUTSIDE RECORDS SUMMARY | 2025-02-26 09:49 | XMS_ITS | Encounter Summary ---
Author Organization [facility] Healthcare Address [address] [place] [address] Care Team Providers Care Hydroelectric Machinery Mechanic Helper Name Role Phone Oswaldo Ayoub MD Primary Care Provider [phone] Encounter Details Date Type Department Care Team (Late st Contact Info) Description 01/02/2025 Results Follow-Up [facility] Medical Group Family Medicine at [address] [place] [phone] Oswaldo Ayoub MD [address] [place] [address] [address] [place], [place] [id number] SCAN - LABS Social History Tobacco Use Types Packs/Day Years [...] on filedocumented in this encounter Care Teams Hydroelectric Machinery Mechanic Helper Relationship Specialty Start Date End Date Oswaldo Ayoub MD [address] [facility] [address] [place] [address] [place] [address] PCP - General 03/04/17 documented as of this encounter
--- OUTSIDE RECORDS SUMMARY | 2025-02-26 09:49 | XMS_ITS | Encounter Summary ---
Author Organization [facility] Healthcare Address [address] [place] [address] Care Team Providers Care Repair Operator Name Role Phone Oswaldo Ayoub MD Primary Care Provider [phone] Encounter Details Date Type Department Care Team (Late st Contact Info) Description 05/09/2024 Orders Only [facility] Health Information Management [address] [place] [address] Oswaldo Ayoub MD [facility] [address] [address] Social History Tobacco Use Types Packs/Day Years [...] COVID: Suspected 11/12/2024 11/12/2024 11/12/2024 4:14 AM TEXTILE MACHINE OPERATOR Influenza, adult 11/12/2024 11/12/2024 11/19/2024 3:07 AM TEXTILE MACHINE OPERATOR documented as of this encounter Care Teams Repair Operator Relationship Specialty Start Date End Date Oswaldo Ayoub MD [address] [facility] [address] [place] [address] [place] [address] PCP - General 03/04/17 documented as of this encounter
--- OUTSIDE RECORDS SUMMARY | 2025-02-26 09:49 | XMS_ITS | Referral Summary ---
Author Organization [facility] Address [address] [place] [address] Care Team Providers Care Fittings Finisher Name Role Phone Oswaldo Ayoub MD Primary Care Provider [phone] Encounters Date Type Department Care Team Description 02/19/2025 Patient Self-Triage [facility] HealthCare/ Physicians [address] [place] [address] Mychart, Generic Provider 02/15/2025 Telephone [facility] Family Medicine at [address] [address] Joy Villalpando NP 02/14/2025 1:30 PM CDT Telemedicine [facility] Medicine at [address] [address] Joy Villalpando NP AARON (generalized anxiety disorder) (Primary Dx); Moderate episode of recurrent major depressive disorder (HCC); Migraine without aura and without status migrainosus, not intractable 01/18/2025 Telephone [facility] Medicine at [address] [address] Oswaldo Ayoub MD 01/15/2025 11:30 AM CDT Office Visit [facility] Medicine at [address] [address] Joy Villalpando NP AARON (generalized anxiety disorder) (Primary Dx); Migraine without aura and without status migrainosus, not intractable; Moderate episode of recurrent major depressive disorder (HCC) 01/02/2025 Results Follow-Up [facility] Medical Group Family Medicine at [address] [place] [address] [place] [address] Oswaldo Ayoub MD SCAN - LABS from Last 3 Months Allergies No known [...] by mouth daily 30 tablet 1 02/15/20 Active escitalopram (LEXAPRO) 20 mg tablet Take [...] unremarkable. Assessment & Plan (11/18/2022 10:23 AM WELDER FITTER GAS): CT scan of the abdomen and pelvis [...] loss Assessment & Plan (11/18/2022 10:50 AM WELDER FITTER GAS): GERD for the past year, seems to [...] PRN Assessment & Plan (08/23/2022 1:43 PM WELDER FITTER GAS): Stable, no changes. Continue current regimen with [...] acceptable. Assessment & Plan (08/23/2022 1:42 PM WELDER FITTER GAS): Seeing improvement with xanax Increase dose to [...] diarrhea similar to prior episodes of diverticulitis (Oct,). CT A/P w/o acute diverticulitis or GI [...] popcorn Assessment & Plan (11/18/2022 10:52 AM WELDER FITTER GAS): Patient started having abdominal pain, diarrhea, nausea, [...] 02/14/2025 1:33 PM CDT Plan of Treatment Not on file Procedures Procedure Name Priority Date/Time Associated Diagnosis Comments SCAN - LABS 12/27/2024 SCREENING MAMMOGRAM BILATERAL W CHON Schedule Routine, Read Routine (OP Routine) 09/30/2023 2:22 PM WELDER FITTER GAS Screening mammogram, encounter for COLONOSCOPY 01/12/2023 11:44 AM CDT from Last 3 Months or Most Recently Relevant to Health Maintenance Results * SCAN - LABS (12/27/2024) Oswaldo Ayoub MD Final Result * Screening Mammogram Bilateral W Chon (09/30/2023 2:22 PM WELDER FITTER GAS) Anatomical Region Laterality Modality Breast Bilateral Mammography Impressions 09/30/2023 2:41 PM WELDER FITTER GAS BI-RADS ATLAS category (overall): 1 - Negative There is no mammographic evidence of malignancy. A 1 year screening mammogram is recommended. The patient has been or will be contacted. We recommend annual screening mammography for women at average risk of breast cancer beginning at age 40, based on guidelines of the [employer] (ACR Practice Parameter for the Performance of Screening and Diagnostic Mammography) and [employer]nec[employer]. For women with and elevated risk of breast cancer, please refer to the ACR Practice Parameter for specific screening recommendations. The patient will be entered into a reminder system with a target due date of 1 year for her next screening exam. Narrative 09/30/2023 2:41 PM WELDER FITTER GAS Screening Mammogram Bilateral W Chon: 09/30/23 The [...] Swan MD - 01/12/2023 11:44 AM CDT [facility] GI ENDOSCOPY Patient Name: Agustina Tijerina Procedure Date: 01/12/2023 11:44 AM Date of : 1980 Admit Type: Outpatient Age: 42 Gender: Female Attending MD: Ari Swan M.D. Room: [facility] ENDOSCOPY ROOM 06 Note Status: Finalized [...] On: 01/12/2023 11:44 AM Recognized by the [employer] for promoting quality in endoscopy Ari Swan MD ENDOSCOPY PROCEDURES Final Resul t from Last 3 Months or Most Recently Relevant to Health Maintenance Insurance [facility] Advance Directives For more information, please contact: [phone] * Full Code (Latest Code Status on File) Date Activated Date Inactivated Comments 10/24/2024 10:13 PM 10/25/2024 10:30 PM Care Teams Fittings Finisher Relationship Specialty Start Date End Date Oswaldo Ayoub MD [address] [facility] [address] [address] PCP - General 03/04/17
[2025-02-26] MEDS: SODIUM CHLORIDE 0.9% IV 1,000 ML 999 ML IV CONT (09:50)
[2025-02-26] MEDS: METOCLOPRAMIDE HCL INJ 10 MG/2 ML VIAL IV PUSH (09:51)
[2025-02-26 09:53] VITALS: BP 151/108; PULSE 76; RESP 33; TEMP 36.4; O2SAT 100
[2025-02-26 10:00] VITALS: O2SAT 100
[2025-02-26 10:01] VITALS: O2SAT 100
[2025-02-26 10:11] LABS: Basophils Absolute Auto 0.1 K/mm3 (0.0-0.1); Basophils Percent Auto 0.7 % (0.2-1.2); Eosinophils Absolute Auto 0.2 K/mm3 (0-0.3); Eosinophils Percent Auto 1.2 % (0-4.4); Hematocrit 47.1 % (37.0-47.0); Hemoglobin 15.9 g/dL (12.0-15.0); Immature Granulocyte Absolute 0.08 K/mm3 (0.00-0.031); Immature Granulocyte Percent A 0.5 % (0-0.5); Lymphocytes Percent Auto 7.1 % (18.3-44.2); Mean Corpuscular HGB Conc 33.8 g/dl (32-36); Mean Corpuscular Hemoglobin 31.4 pg (26-34); Mean Corpuscular Volume 92.9 fl (80-100); Mean Platelet Volume 10.3 fl (7.4-10.4); Monocytes Absolute Auto 0.9 K/mm3 (0.1-0.6); Monocytes Percent Auto 5.1 % (2.6-8.5); Neutrophils Absolute Auto 14.4 K/mm3 (1.3-6.7); Neutrophils Percent Auto 85.4 % (45.5-73.1); Platelet Count Result 341 k/mm3 (150-375); Red Blood Count 5.07 M/mm3 (4.2-5.4); Red Cell Distribution Width 12.1 % (11.5-14.5); White Blood Count 16.8 K/mm3 (4.5-10.0)
[2025-02-26 10:33] LABS: Anion Gap 15 mmol/L (4-12); Blood Urea Nitrogen 17 mg/dL (7-17); Calcium 9.7 mg/dL (8.4-10.2); Carbon Dioxide 17 mmol/L (22-30); Chloride 106 mmol/L (98-107); Estimated CRCL calculation 108 ml/min; Estimated Glomerular Filt Rate > 60; Glucose 197 mg/dL (65-110); Potassium 3.7 mmol/L (3.4-5.0); Sodium 138 mmol/L (137-145)
[2025-02-26] MEDS: droPERidol 5 MG/2 ML VIAL IV PUSH (10:38)
[2025-02-26 10:41] VITALS: BP 168/67; PULSE 82; RESP 21; O2SAT 99
[2025-02-26 10:42] VITALS: O2SAT 100
--- NOTE | 2025-02-26 11:28 | ED.NAVMDI ---
HPI - Nausea/Vomiting/Diarrhea General Chief complaint: Allergic Reaction Stated complaint: ALLERGIC REACTION, MAST CELL ACTIVATION Time Seen by Provider: 02/26/25 09:40 History of Present Illness HPI Narrative: Patient presenting with nausea vomiting since last night, she does have history of cyclic vomiting syndrome and mast cell activation syndrome with a care plan. Already took Ativan at home Related Data Allergies Allergy/AdvReac Type Severity Reaction Status Date / Time No Known Allergies Allergy Verified 02/26/25 09:47 Review of Systems Review of Systems: All systems reviewed & are unremarkable except as noted in HPI and below Exam Narrative: EXAMINATION OF ORGAN SYSTEMS/BODY AREAS: Constitutional: Vital signs per nursing GENERAL: Hyperventilating, actively retching loudly, sticking fingers down her throat HEAD: Normal with no signs of head trauma. EYES: EOMI, conjunctiva normal ENT: Hearing grossly intact LUNGS: Nonlabored breathing. HEART: [Regular rate and rhythm] ABD: [Soft], [nontender to palpation] EXT: Normal range of motion SKIN: [No rashes or lesions.] NEURO: [Alert and oriented x 3. No gross focal sensory or strength deficits.] Course Vital Signs Vital signs: Vital Signs Temperature 97.6 F 02/26/25 09:53 Pulse Rate 76 02/26/25 09:53 Respiratory Rate 33 H 02/26/25 09:53 Blood Pressure 151/108 H 02/26/25 09:53 Pulse Oximetry 100 02/26/25 09:53 Oxygen Delivery Room Air 02/26/25 09:53 Temperature 97.6 F 02/26/25 09:53 Pulse Rate 82 02/26/25 10:41 Respiratory Rate 21 H 02/26/25 10:41 Blood Pressure 168/67 H 02/26/25 10:41 Pulse Oximetry 100 02/26/25 10:42 Oxygen Delivery Room Air 02/26/25 10:42 Oxygen Flow Rate 2 02/26/25 10:01 MDM - Nausea/Vomiting/Diarrhea MDM Narrative Medical decision making narrative: Patient with history of sickle vomiting syndrome presents here with nausea vomiting no started last night after eating burger. She is actively retching here, she came here with a entire care plan that includes Reglan, Benadryl, Ativan, fluids. Despite this she is still actively retching loudly and putting her fingers down her throat. I did give dose of droperidol after which her symptoms completely resolved. She does use marijuana and I did explain my suspicion she may have cannabinoid hyperemesis syndrome. Did personal financial counselor trialing marijuana cessation for at least 2-3 months to see if her symptoms improve. Patient agreeable with this and return precautions, refilled her reglan/scopolamine patch. Lab Data 02/26/25 10:03 02/26/25 10:03 Labs: Lab Results 02/26/25 Range/Units 10:03 WBC 16.8 H (4.5-10.0) K/mm3 RBC 5.07 (4.2-5.4) M/mm3 Hgb 15.9 H (12.0-15.0) g/dL Hct 47.1 H (37.0-47.0) % MCV 92.9 (80-100) fl MCH 31.4 (26-34) pg MCHC 33.8 (32-36) g/dl RDW 12.1 (11.5-14.5) % Plt Count 341 (150-375) k/mm3 MPV 10.3 (7.4-10.4) fl Immature Gran % (Auto) 0.5 (0-0.5) % Neut % (Auto) 85.4 H (45.5-73.1) % Lymph % (Auto) 7.1 L (18.3-44.2) % [place] % (Auto) 5.1 (2.6-8.5) % Eos % (Auto) 1.2 (0-4.4) % Baso % (Auto) 0.7 (0.2-1.2) % Lymph # (Auto) 1.20 (0.9-3.2) K/mm3 [place] # (Auto) 0.9 H (0.1-0.6) K/mm3 Eos # (Auto) 0.2 (0-0.3) K/mm3 Baso # (Auto) 0.1 (0.0-0.1) K/mm3 Abs Immat Gran (auto) 0.08 H (0.00-0.031) K/mm3 Absolute Neuts (auto) 14.4 H (1.3-6.7) K/mm3 Absolute Nucleated RBC 0.000 (0.0-0.012) K/mm3 Nucleated RBC % 0.0 (0.0-0.2) % Sodium 138 (137-145) mmol/L Potassium 3.7 (3.4-5.0) mmol/L Chloride 106 (98-107) mmol/L Carbon Dioxide 17 L (22-30) mmol/L Anion Gap 15 H (4-12) mmol/L BUN 17 (7-17) mg/dL Creatinine 0.79 (0.7-1.0) mg/dL Estim Creat Clear Calc 108 ml/min Estimated GFR > 60 (59 - ) Glucose 197 H (65-110) mg/dL Calcium 9.7 (8.4-10.2) mg/dL Tryptase Pending Discharge Plan Discharge Clinical Impression: Cyclical vomiting syndrome Patient Disposition: Home Condition: Stable Instructions: Cyclic Vomiting Syndrome (ED) Additional Instructions: You can follow-up with your jute bag clipper. Please consider stopping marijuana use for at least 2-3 months to see if it will help with your symptoms. You can always return to the emergency room for any further issues. Patient Language: Gambian Prescriptions: New metoclopramide HCl [Reglan] 10 mg tablet 10 mg PO Q6H PRN (Reason: nausea and vomiting) Qty: 20 0RF scopolamine base 1 mg over 3 days patch 3 day 1 patch transdermal Q3D PRN (Reason: nausea and vomiting) Qty: 4 0RF No Action lorazepam [Ativan] 0.5 mg tablet 0.5 mg PO TID PRN (Reason: nausea and vomiting) Qty: 20 0RF potassium chloride [Klor-Con 10] 10 mEq tablet extended release 10 meq PO DAILY Qty: 30 0RF magnesium oxide 200 mg magnesium tablet 200 mg PO DAILY Qty: 30 0RF Follow-up/Referrals: Mega,Oswaldo Miner MD [Primary Care Provider] -
[2025-02-26 12:07] VITALS: BP 147/100; PULSE 84; RESP 22; O2SAT 96
== END 2025-02-26 12:08 | disposition home or self-care (01) ==
PROVIDERS: Emergency Provider Emergency Medicine; PCP Family Medicine
DX: R11.15 Cyclical vomiting syndrome unrelated to migraine (principal); D89.40 Mast cell activation, unspecified
CPT/HCPCS: 36415; 80048; 85025; 96361; 96374; 96375; 99284; J1200; J1790; J2765; J7030

== ENCOUNTER 2025-03-01 12:17 | Inpatient (IN) | payer OTHER, SELFPAY ==
[2025-03-01] VITALS (9 sets, daily range): BP systolic 101–148; BP diastolic 59–88; PULSE 70–98; RESP 16–18; TEMP 36.5–36.9; O2SAT 92–100; BMI 33.8
--- NOTE | ~2025-03-01 | XR_ITS ---
XR chest 2V 03/01/2025 13:21 Indication: Chest pain Procedure: 2 view chest Comparison: 01/31/2025 Findings: Extensive right-sided airspace disease, compatible with pneumonia. Heart size normal. No pl eural effusion or pneumothorax. Impression: 1: Extensive right-sided airspace disease, compatible with pneumonia. Reviewed, dictated and finalized at location A. Impression: 1: Extensive right-sided airspace disease, compatible with pneumonia.
--- NOTE | ~2025-03-01 | NM_ITS ---
EXAMINATION: NM archie stress w perfusion DATE: 03/04/2025 13:30 INDICATION: Lytic troponins. Cardiomyopathy. TECHNIQUE: Rest images were obtained following intravenous administration of 10 mCi Tc99m tetrofosmin (Myoview). The patient was infused intravenously with Lexiscan (Regadenoson). Then, 31.8 mCi Tc99m t etrofosmin (Myoview) was administered intravenously, and stress images were obtained. Data was recons tructed into short axis and horizontal and vertical long axis SPECT images. Gated SPECT images were a lso obtained. COMPARISON: None. FINDINGS: There is likely diaphragmatic attenuation artifact along the inferior wall on the rest imag es which nearly completely normalizes on the stress images. There is no definite reversible or fixed perfusion abnormality to suggest ischemia or infarction. There is normal left ventricular chamber si ze with mild global hypokinesis resulting in mildly decreased left ventricular ejection fraction whic h measures 43%. IMPRESSION: 1. Normal myocardial perfusion at rest and during stress. 2. Mildly decreased left ventricular ejection fraction measuring 43%. Reviewed, dictated and finalized at location A.
--- OUTSIDE RECORDS SUMMARY | 2025-03-01 12:20 | XMS_ITS | Clinical Summary ---
Author Organization [facility] Address [address] [place] [address] Care Team Providers Care Neon Technician Name Role Phone Oswaldo Ayoub MD Primary Care Provider [phone] [facility],non-owned Affiliates and Associated Physician Practices is amultiple site organization consisting of ambulatory clinics and hospital sitesin [place], [place], [place] and [place]. This disclosure is being madepursuant to the Care Everywhere program and may not contain all information available regarding this patient. Last updated 18.[facility] [employer] Allergies No known active allergies Medications * [...] 12:07 PM 05/21/2024 4:31 PM Care Teams Neon Technician Relationship Specialty Start Date End Date Oswaldo Ayoub MD [address] [place] [address] PCP - General Family Medicine 05/21/24
--- OUTSIDE RECORDS SUMMARY | 2025-03-01 12:20 | XMS_ITS | Clinical Summary ---
Author Organization [facility] Address [address] [place] [address] Care Team Providers Care Flame Annealing Machine Setter Name Role Phone Oswaldo Ayoub MD Primary Care Provider [phone] Allergies No known active allergies Medications melatonin [...] unremarkable. Assessment & Plan (11/18/2022 10:23 AM MANAGER ADVANCED): CT scan of the abdomen and pelvis [...] loss Assessment & Plan (11/18/2022 10:50 AM MANAGER ADVANCED): GERD for the past year, seems to [...] PRN Assessment & Plan (08/23/2022 1:43 PM MANAGER ADVANCED): Stable, no changes. Continue current regimen with [...] acceptable. Assessment & Plan (08/23/2022 1:42 PM MANAGER ADVANCED): Seeing improvement with xanax Increase dose to [...] popcorn Assessment & Plan (11/18/2022 10:52 AM MANAGER ADVANCED): Patient started having abdominal pain, diarrhea, nausea, [...] Department Care Team Description 02/19/2025 Patient Self-Triage [facility] HealthCare/ Physicians [address] [place], [place] [id number] Mychart, Thu Provider 02/15/2025 Telephone [facility] Family Medicine at [address] [address] Joy Villalpando NP 02/14/2025 1:30 PM CDT Telemedicine [facility] Family Medicine at [address] [address] Joy Villalpando NP AARON (generalized anxiety disorder) (Primary Dx); Moderate episode of recurrent major depressive disorder (HCC); Migraine without aura and without status migrainosus, not intractable 01/18/2025 Telephone [facility] Family Medicine at [address] [address] Oswaldo Ayoub MD 01/15/2025 11:30 AM CDT Office Visit [facility] Family Medicine at [address] [address] Joy Villalpando NP AARON (generalized anxiety disorder) (Primary Dx); Migraine without aura and without status migrainosus, not intractable; Moderate episode of recurrent major depressive disorder (HCC) 01/02/2025 Results Follow-Up [facility] Family Medicine at [address] [address] Oswaldo Ayoub MD SCAN - LABS from Last 3 Months Immunizations Immunization Administration Dates Next Due Influenza, Unspecified 06/26/2024(Deferr ed: Patient Refused),06/26/2023(Deferred: Patient Refused),07/14/2022(Deferred: Patient Refused),06/26/2021(Deferred: Patient Refused),06/26/2021(Deferred: Patient Refused),06/26/2020(Deferred: Patient Refused),06/26/2019(Deferred: Patient Refused) Tdap 06/28/2017 Surgical History Surgery Date Site/Laterality Comments CERVIX SURGERY Cervical Surgery (Behavioral Health Worker) - (Added by TW Conv) Medical History [...] Read Routine (OP Routine) 09/30/2023 2:22 PM MANAGER ADVANCED Screening mammogram, encounter for COLONOSCOPY 01/12/2023 11:44 AM CDT from Last 3 Months or Most Recently Relevant to Health Maintenance Results * SCAN - LABS (12/27/2024) Oswaldo Ayoub MD Final Result * Screening Mammogram Bilateral W Chon (09/30/2023 2:22 PM MANAGER ADVANCED) Anatomical Region Laterality Modality Breast Bilateral Mammography Impressions 09/30/2023 2:41 PM MANAGER ADVANCED BI-RADS ATLAS category (overall): 1 - Negative There is no mammographic evidence of malignancy. A 1 year screening mammogram is recommended. The patient has been or will be contacted. We recommend annual screening mammography for women at average risk of breast cancer beginning at age 40, based on guidelines of the [employer] (ACR Practice Parameter for the Performance of Screening and Diagnostic Mammography) and [employer]. For women with and elevated risk of breast cancer, please refer to the ACR Practice Parameter for specific screening recommendations. The patient will be entered into a reminder system with a target due date of 1 year for her next screening exam. Narrative 09/30/2023 2:41 PM MANAGER ADVANCED Screening Mammogram Bilateral W Chon: 09/30/23 The [...] Swan MD - 01/12/2023 11:44 AM CDT [facility] GI ENDOSCOPY Patient Name: Agustina Tijerina Procedure Date: 01/12/2023 11:44 AM Date of : 1980 Admit Type: Outpatient Age: 42 Gender: Female Attending MD: Ari Swan M.D. Room: [facility] ENDOSCOPY ROOM 06 Note Status: Finalized Procedure: [...] On: 01/12/2023 11:44 AM Recognized by the [employer] for promoting quality in endoscopy Ari Swan MD ENDOSCOPY PROCEDURES Final Resul t from Last 3 Months or Most Recently Relevant to Health Maintenance Insurance [facility] Subscriber Plan / Payer (Ef fective 2018-Present) Name:Agustina Tijerina Relation to Subscriber:Self Name:Agustina Tijerina Payer ID:[id number] (NAIC) Group ID:Not on file Type: Address: [place] [phone] [facility] Advance Directives For more information, please contact: [phone] * Full Code (Latest Code Status on File) Date Activated Date Inactivated Comments 10/24/2024 10:13 PM 10/25/2024 10:30 PM Care Teams Flame Annealing Machine Setter Relationship Specialty Start Date End Date Oswaldo Ayoub MD [address] [facility] [address] [address] PCP - General 03/04/17
--- OUTSIDE RECORDS SUMMARY | 2025-03-01 12:20 | XMS_ITS | Encounter Summary ---
Author Organization [facility] Healthcare Address [address] [place] [address] Care Team Providers Care Maintenance Mechanic Technician Name Role Phone Oswaldo Ayoub MD Primary Care Provider [phone] Encounter Details Date Type Department Care Team (Late st Contact Info) Description 05/09/2024 Orders Only [facility] Information Management [address] [place] [address] Oswaldo Ayoub MD [facility] [address] [address] Social History Tobacco Use Types Packs/Day Years [...] COVID: Suspected 11/12/2024 11/12/2024 11/12/2024 4:14 AM CARTON FORMING MACHINE TENDER Influenza, adult 11/12/2024 11/12/2024 11/19/2024 3:07 AM CARTON FORMING MACHINE TENDER documented as of this encounter Care Teams Maintenance Mechanic Technician Relationship Specialty Start Date End Date Oswaldo Ayoub MD [address] [facility] [address] [place] [address] [place] [address] PCP - General 03/04/17 documented as of this encounter
--- OUTSIDE RECORDS SUMMARY | 2025-03-01 12:20 | XMS_ITS | Clinical Summary ---
Author Organization [facility] Address [address] [place] [address] Phone Care Team Providers Care Mri Ct Tech Name Role Phone Unavailable Primary Care Provider [...] Sex Assigned at Female 08/06/2024 11:23 AM CLIENT SERVICE EXECUTIVE Legal Sex Female 12:30 PM CLIENT SERVICE EXECUTIVE Gender Identity Female 08/06/2024 11:23 AM CLIENT SERVICE EXECUTIVE Sexual Orientation Not on file Last Filed Vital Signs Vital Sign Reading Time Taken Comments Blood Pressure 120/76 10/08/2024 2:07 PM CLIENT SERVICE EXECUTIVE Pulse 61 10/08/2024 2:07 PM CLIENT SERVICE EXECUTIVE Temperature 36.4 C (97.5 F) 10/08/2024 2:07 PM CLIENT SERVICE EXECUTIVE Respiratory Rate - - Oxygen Saturation 97% 10/08/2024 2:07 PM CLIENT SERVICE EXECUTIVE Inhaled Oxygen Concentration - - Weight 117.9 kg (260 lb) 10/08/2024 2:07 PM CLIENT SERVICE EXECUTIVE Height 180.3 cm (5' 11) 10/08/2024 2:07 PM CLIENT SERVICE EXECUTIVE Body Mass Index 36.26 10/08/2024 2:07 PM CLIENT SERVICE EXECUTIVE Plan of Treatment Upcoming Encounters Date Type Department Care Team (Late st Contact Info) Description 10/09/2025 2:00 PM CLIENT SERVICE EXECUTIVE Office Visit [facility] AGRICULTURE SALES ACCOUNT MANAGER - [id number] [address] Gin Castro NP [address] [place] [address] Health Maintenance Due Date Last [...] OR WO CAD Routine 11/15/2024 2:23 PM CLIENT SERVICE EXECUTIVE Screening mammogram for breast cancer CERV/VAG CYTO AGE BASED SCREEN PAP Routine 10/08/2024 2:35 PM CLIENT SERVICE EXECUTIVE Well woman exam with routine gynecological exam Screening for HPV (human papillomavirus) Encounter for Papanicolaou smear for cervical cancer screening H/O LEEP from Last 3 Months or Most Recently Relevant to Health Maintenance Results * MAMMO 3D TAYO SCREEN BILAT W OR WO CAD (11/15/2024 2:23 PM CLIENT SERVICE EXECUTIVE) Anatomical Region Laterality Modality Breast Bilateral Mammography 11/15/2024 2:24 PM CLIENT SERVICE EXECUTIVE Addenda Addendum by Tom Barber MD on 11/30/2024 9:07 AM CLIENT SERVICE EXECUTIVE Prior mammograms from an outside facility are [...] in one year. Impressions 11/15/2024 2:44 PM CLIENT SERVICE EXECUTIVE IMPRESSION: 1. Need outside films. OVERALL FINAL ASSESSMENT: BI-RADS CATEGORY 0: Incomplete, needs comparison to prior mammograms. RECOMMENDATIONS: 1. Outside films will be obtained. An addendum will be dictated when these films are available. DICTATION LOCATION: [facility] Narrative 11/15/2024 2:44 PM CLIENT SERVICE EXECUTIVE BILATERAL SCREENING DIGITAL MAMMOGRAM WITH 3D TOMOSYNTHESIS [...] AGE BASED SCREEN PAP (10/08/2024 2:35 PM CLIENT SERVICE EXECUTIVE) COMMENT (PAP): [facility] Comment: This order for age-based cervical cancer and STI screening follows ACOG guidelines(PB 168, 140, GUA142). See individual assays for performing site location. CLINICAL INFORMATION [facility] [place] Comment:None given LAST MENSTRUAL PERIOD [facility] [place] Comment:NONE GIVEN PREV PAP: [facility] [place] Comment:10/04/2023 NIL PREV BX: [facility] [place] Comment:NONE GIVEN SOURCE [facility] [place] Comment:Endocervix ADEQUACY: [facility] [place] Comment: Satisfactory for evaluation. Endocervical/transformation zone component present. Age and/or menstrual status not provided PAP INTERP [facility] [place] Comment: Cytology Results: Negative for intraepithelial lesion or malignancy. COMMENT (PAP TEST) [facility] [place] Comment: This Pap test has been evaluated with computer assisted technology. LEAD MANUFACTURING ENGINEERING TECH: [facility] [place] Comment: TMK, CT(ASCP) CT screening location: [place] [address] [place] [address] EXPLANATORY NOTE [facility] [place] Comment: EXPLANATORY NOTE: The Pap is a [...] information. HPV E6/E7 Not Detected Not Detected [facility] [place] Comment: Methodology: Covering Machine Operator Helper-Mediated Amplification This assay detects E6/E7 viral messenger RNA (mRNA) from 14 high-risk HPV types (16,18,31,33,35,39,45,51,52,56,58,59,66,68). Cervical sources are required for HPV testing. If a vaginal source from a patient who has had a total hysterectomy with removal of cervix was submitted, please contact the testing laboratory for alternative testing options. For additional information, please refer to http://education.Sodraft/faq/AQN935b9 (This link if provided for information/ educational purposes only.) Test Performed at: [facility] [address] [address] Bar[facility] GARC[facility] SWAB OF ENDOCERVIX / Unknown 10/08/2024 2:35 PM CLIENT SERVICE EXECUTIVE 10/09/2024 12:19 AM CLIENT SERVICE EXECUTIVE Gin Castro NP PATHOLOGY/CYTOLOGY ORDERABL ES Final Result [facility] [phone] [facility] [id number] [address] [place] [phone] from Last 3 Months or Most Recently Relevant to Health Maintenance Insurance [address] [employer] [address] [facility] Address: [address] [place] [address]
--- OUTSIDE RECORDS SUMMARY | 2025-03-01 12:20 | XMS_ITS | Referral Summary ---
Author Organization [facility] Address [address] [place] [address] Care Team Providers Care Recruit Instructor Name Role Phone Oswaldo Ayoub MD Primary Care Provider [phone] Encounters Date Type Department Care Team Description 02/19/2025 Patient Self-Triage [facility] HealthCare/ Physicians [address] [place] [address] Mychart, Generic Provider 02/15/2025 Telephone [facility] Family Medicine at [address] [address] Joy Villalpando NP 02/14/2025 1:30 PM CDT Telemedicine [facility] Medicine at [address] [address] Joy Villalpando NP AARON (generalized anxiety disorder) (Primary Dx); Moderate episode of recurrent major depressive disorder (HCC); Migraine without aura and without status migrainosus, not intractable 01/18/2025 Telephone [facility] Medicine at [address] [address] Oswaldo Ayoub MD 01/15/2025 11:30 AM CDT Office Visit [facility] Medicine at [address] [address] Joy Villalpando NP AARON (generalized anxiety disorder) (Primary Dx); Migraine without aura and without status migrainosus, not intractable; Moderate episode of recurrent major depressive disorder (HCC) 01/02/2025 Results Follow-Up [facility] Medical Group Family Medicine at [address] [place] [address] Oswaldo Ayoub MD SCAN - [...] unremarkable. Assessment & Plan (11/18/2022 10:23 AM DRAY DRIVER): CT scan of the abdomen and pelvis [...] loss Assessment & Plan (11/18/2022 10:50 AM DRAY DRIVER): GERD for the past year, seems to [...] PRN Assessment & Plan (08/23/2022 1:43 PM DRAY DRIVER): Stable, no changes. Continue current regimen with [...] acceptable. Assessment & Plan (08/23/2022 1:42 PM DRAY DRIVER): Seeing improvement with xanax Increase dose to [...] popcorn Assessment & Plan (11/18/2022 10:52 AM DRAY DRIVER): Patient started having abdominal pain, diarrhea, nausea, [...] Read Routine (OP Routine) 09/30/2023 2:22 PM DRAY DRIVER Screening mammogram, encounter for COLONOSCOPY 01/12/2023 11:44 AM CDT from Last 3 Months or Most Recently Relevant to Health Maintenance Results * SCAN - LABS (12/27/2024) Oswaldo Ayoub MD Final Result * Screening Mammogram Bilateral W Chon (09/30/2023 2:22 PM DRAY DRIVER) Anatomical Region Laterality Modality Breast Bilateral Mammography Impressions 09/30/2023 2:41 PM DRAY DRIVER BI-RADS ATLAS category (overall): 1 - Negative There is no mammographic evidence of malignancy. A 1 year screening mammogram is recommended. The patient has been or will be contacted. We recommend annual screening mammography for women at average risk of breast cancer beginning at age 40, based on guidelines of the [employer] (ACR Practice Parameter for the Performance of Screening and Diagnostic Mammography) and [employer]. For women with and elevated risk of breast cancer, please refer to the ACR Practice Parameter for specific screening recommendations. The patient will be entered into a reminder system with a target due date of 1 year for her next screening exam. Narrative 09/30/2023 2:41 PM DRAY DRIVER Screening Mammogram Bilateral W Chon: 09/30/23 The [...] - 01/12/2023 11:44 AM CDT [facility] GI ENDOSCOPY Patient Name: Agustina Tijerina Procedure Date: 01/12/2023 11:44 AM Date of : 1980 Admit Type: Outpatient Age: 42 Gender: Female Attending MD: Ari Swan M.D. Room: [facility] ENDOSCOPY ROOM 06 Note Status: [...] Most Recently Relevant to Health Maintenance Insurance [facility] Advance Directives For more information, please contact: [phone] * Full Code (Latest Code Status on File) Date Activated Date Inactivated Comments 10/24/2024 10:13 PM 10/25/2024 10:30 PM Care Teams Recruit Instructor Relationship Specialty Start Date End Date Oswaldo Ayoub MD [address] [facility] [address] [address] PCP - General 03/04/17
--- OUTSIDE RECORDS SUMMARY | 2025-03-01 12:20 | XMS_ITS | Encounter Summary ---
Author Organization [facility] Healthcare Address [address] [place] [address] Care Team Providers Care Investigative Reporter Name Role Phone Oswaldo Ayoub MD Primary Care Provider [phone] Encounter Details Date Type Department Care Team (Late st Contact Info) Description 01/02/2025 Results Follow-Up [facility] Medical Group Family Medicine at [address] [place] [phone] Oswaldo Ayoub MD [address] [place] [address] [address] [place], [place] [id number] SCAN - LABS Social History Tobacco Use [...] on filedocumented in this encounter Care Teams Investigative Reporter Relationship Specialty Start Date End Date Oswaldo Ayoub MD [address] [facility] [address] [address] [place] [address] PCP - General 03/04/17 documented as of this encounter
--- NOTE | 2025-03-01 12:21 | ECG_ITS ---
Test Date: 2025-03-01 12:25:29 Measurements Intervals [place] Rate: 87 P: -12 RI: 135 QRS: -1 QRSD: 87 T: 61 QT: 396 QTc: 477 Interpretive Statements SINUS RHYTHM POSSIBLE LEFT ATRIAL ENLARGEMENT ANTEROSEPTAL INFARCT, AGE INDETERMINATE BORDERLINE ST-T WAVE ABNORMALITY- HIGH LATERAL LEADS BASELINE ARTIFACT- I, II, III, AVR, AVL, AVF ABNORMAL ECG Compared to ECG 01/31/2025 09:30:28 Myocardial infarct finding now present Electronically Signed On 03-01-2025 13:15:40 CDT by Jeremy Resendez D.O.
[2025-03-01 12:37] LABS: Basophils Absolute Auto 0.1 K/mm3 (0.0-0.1); Basophils Percent Auto 0.3 % (0.2-1.2); Eosinophils Percent Auto 0.1 % (0-4.4); Hematocrit 44.1 % (37.0-47.0); Hemoglobin 15.3 g/dL (12.0-15.0); Immature Granulocyte Absolute 0.04 K/mm3 (0.00-0.031); Immature Granulocyte Percent A 0.3 % (0-0.5); Lymphocytes Absolute Auto 1.36 K/mm3 (0.9-3.2); Lymphocytes Percent Auto 9.5 % (18.3-44.2); Mean Corpuscular HGB Conc 34.7 g/dl (32-36); Mean Corpuscular Hemoglobin 31.5 pg (26-34); Mean Corpuscular Volume 90.7 fl (80-100); Mean Platelet Volume 10.4 fl (7.4-10.4); Monocytes Absolute Auto 0.8 K/mm3 (0.1-0.6); Monocytes Percent Auto 5.4 % (2.6-8.5); Neutrophils Absolute Auto 12.1 K/mm3 (1.3-6.7); Neutrophils Percent Auto 84.4 % (45.5-73.1); Platelet Count Result 254 k/mm3 (150-375); Red Blood Count 4.86 M/mm3 (4.2-5.4); Red Cell Distribution Width 12.2 % (11.5-14.5); White Blood Count 14.3 K/mm3 (4.5-10.0)
[2025-03-01 12:49] LABS: Alanine Aminotransferase 18 U/L (6-35); Alkaline Phosphatase 79 U/L (38-126); Anion Gap 14 mmol/L (4-12); Aspartate Amino Transferase 42 U/L (14-36); Bilirubin,Total 1.2 mg/dL (0.2-1.3); Blood Urea Nitrogen 16 mg/dL (7-17); Calcium 8.9 mg/dL (8.4-10.2); Carbon Dioxide 25 mmol/L (22-30); Chloride 92 mmol/L (98-107); Estimated CRCL calculation 125 ml/min; Estimated Glomerular Filt Rate > 60; Glucose 145 mg/dL (65-110); Lipase 23 U/L (23-300); Sodium 131 mmol/L (137-145); Total Protein 7.2 g/dL (6.3-8.2)
[2025-03-01 12:55] LABS: INR 1.1; Prothrombin Time 14.2 Seconds (11.1-14.7)
[2025-03-01 12:56] LABS: Partial Thromboplastin Time 31.3 Seconds (22.3-36.8)
[2025-03-01 13:02] LABS: Troponin I 0.663 ng/mL (0.000-0.034)
--- OUTSIDE RECORDS SUMMARY | 2025-03-01 13:23 | XMS_ITS | Clinical Summary ---
Author Organization [facility] Address [address] [place] [address] Care Team Providers Care Community Sports Coordinator Name Role Phone Oswaldo Ayoub MD Primary Care Provider [phone] Allergies No known active allergies Medications melatonin [...] unremarkable. Assessment & Plan (11/18/2022 10:23 AM FOUNTAIN PEN NIBS INSPECTOR): CT scan of the abdomen and pelvis [...] loss Assessment & Plan (11/18/2022 10:50 AM FOUNTAIN PEN NIBS INSPECTOR): GERD for the past year, seems to [...] PRN Assessment & Plan (08/23/2022 1:43 PM FOUNTAIN PEN NIBS INSPECTOR): Stable, no changes. Continue current regimen with [...] acceptable. Assessment & Plan (08/23/2022 1:42 PM FOUNTAIN PEN NIBS INSPECTOR): Seeing improvement with xanax Increase dose to [...] popcorn Assessment & Plan (11/18/2022 10:52 AM FOUNTAIN PEN NIBS INSPECTOR): Patient started having abdominal pain, diarrhea, nausea, [...] Department Care Team Description 02/19/2025 Patient Self-Triage [facility] HealthCare/ Physicians [address] [place], [place] [id number] Mychart, Thu Provider 02/15/2025 Telephone [facility] Family Medicine at [address] [address] Joy Villalpando NP 02/14/2025 1:30 PM CDT Telemedicine [facility] Family Medicine at [address] [address] Joy Villalpando NP AARON (generalized anxiety disorder) (Primary Dx); Moderate episode of recurrent major depressive disorder (HCC); Migraine without aura and without status migrainosus, not intractable 01/18/2025 Telephone [facility] Family Medicine at [address] [address] Oswaldo Ayoub MD 01/15/2025 11:30 AM CDT Office Visit [facility] Family Medicine at [address] [address] Joy Villalpando NP AARON (generalized anxiety disorder) (Primary Dx); Migraine without aura and without status migrainosus, not intractable; Moderate episode of recurrent major depressive disorder (HCC) 01/02/2025 Results Follow-Up [facility] Family Medicine at [address] [address] Oswaldo Ayoub MD SCAN - LABS from Last 3 Months Immunizations Immunization Administration Dates Next Due Influenza, Unspecified 06/26/2024(Deferr ed: Patient Refused),06/26/2023(Deferred: Patient Refused),07/14/2022(Deferred: Patient Refused),06/26/2021(Deferred: Patient Refused),06/26/2021(Deferred: Patient Refused),06/26/2020(Deferred: Patient Refused),06/26/2019(Deferred: Patient Refused) Tdap 06/28/2017 Surgical History Surgery Date Site/Laterality Comments CERVIX SURGERY Cervical Surgery (Audit Director) - (Added by TW Conv) Medical History [...] Read Routine (OP Routine) 09/30/2023 2:22 PM FOUNTAIN PEN NIBS INSPECTOR Screening mammogram, encounter for COLONOSCOPY 01/12/2023 11:44 AM CDT from Last 3 Months or Most Recently Relevant to Health Maintenance Results * SCAN - LABS (12/27/2024) Oswaldo Ayoub MD Final Result * Screening Mammogram Bilateral W Chon (09/30/2023 2:22 PM FOUNTAIN PEN NIBS INSPECTOR) Anatomical Region Laterality Modality Breast Bilateral Mammography Impressions 09/30/2023 2:41 PM FOUNTAIN PEN NIBS INSPECTOR BI-RADS ATLAS category (overall): 1 - Negative There is no mammographic evidence of malignancy. A 1 year screening mammogram is recommended. The patient has been or will be contacted. We recommend annual screening mammography for women at average risk of breast cancer beginning at age 40, based on guidelines of the [employer] (ACR Practice Parameter for the Performance of Screening and Diagnostic Mammography) and [employer]. For women with and elevated risk of breast cancer, please refer to the ACR Practice Parameter for specific screening recommendations. The patient will be entered into a reminder system with a target due date of 1 year for her next screening exam. Narrative 09/30/2023 2:41 PM FOUNTAIN PEN NIBS INSPECTOR Screening Mammogram Bilateral W Chon: 09/30/23 The [...] Region Laterality Modality Other Narrative Procedure Note Air Swan MD - 01/12/2023 11:44 AM CDT [facility] GI ENDOSCOPY Patient Name: Agustina Tijerina Procedure Date: 01/12/2023 11:44 AM Date of : 1980 Admit Type: Outpatient Age: 42 Gender: Female Attending MD: Ari Swan M.D. Room: [facility] ENDOSCOPY ROOM 06 Note Status: Finalized Procedure: [...] On: 01/12/2023 11:44 AM Recognized by the [employer] for promoting quality in endoscopy Ari Swan MD ENDOSCOPY PROCEDURES Final Resul t from Last 3 Months or Most Recently Relevant to Health Maintenance Insurance [facility] Subscriber Plan / Payer (Ef fective 2018-Present) Name:Agustina Tijerina Relation to Subscriber:Self Name:Agustina Tijerina Payer ID:[id number] (NAIC) Group ID:Not on file Type: Address: [place] [phone] [facility] Advance Directives For more information, please contact: [phone] * Full Code (Latest Code Status on File) Date Activated Date Inactivated Comments 10/24/2024 10:13 PM 10/25/2024 10:30 PM Care Teams Community Sports Coordinator Relationship Specialty Start Date End Date Oswaldo Ayoub MD [address] [facility] [address] [address] PCP - General 03/04/17
--- OUTSIDE RECORDS SUMMARY | 2025-03-01 13:23 | XMS_ITS | Clinical Summary ---
Author Organization [facility] Address [address] [place] [address] Care Team Providers Care Networking Technician Name Role Phone Oswaldo Ayoub MD Primary Care Provider [phone] Source Comments [facility],non-owned Affiliates and Associated Physician Practices is amultiple site organization consisting of ambulatory clinics and hospital sitesin [place], [place], [place] and [place]. This disclosure is being madepursuant to the Care Everywhere program and may not contain all information available regarding this patient. Last updated 18.[facility] [employer] Allergies No known active allergies Medications * [...] 12:07 PM 05/21/2024 4:31 PM Care Teams Networking Technician Relationship Specialty Start Date End Date Oswaldo Ayoub MD [address] [place] [address] PCP - General Family Medicine 05/21/24
--- OUTSIDE RECORDS SUMMARY | 2025-03-01 13:23 | XMS_ITS | Encounter Summary ---
Author Organization [facility] Healthcare Address [address] [place] [address] Care Team Providers Care Administrative Services Specialist Name Role Phone Oswaldo Ayoub MD Primary Care Provider [phone] Encounter Details Date Type Department Care Team (Late st Contact Info) Description 05/09/2024 Orders Only [facility] Health Information Management [address] [place] [id number] [address] [facility] [address] [address] Social History Tobacco Use Types Packs/Day Years [...] COVID: Suspected 11/12/2024 11/12/2024 11/12/2024 4:14 AM MARKETING BUDGET ANALYST Influenza, adult 11/12/2024 11/12/2024 11/19/2024 3:07 AM MARKETING BUDGET ANALYST documented as of this encounter Care Teams Administrative Services Specialist Relationship Specialty Start Date End Date Oswaldo Ayoub MD [address] [place] [address] [place] [address] PCP - General 03/04/17 documented as of this encounter
--- OUTSIDE RECORDS SUMMARY | 2025-03-01 13:23 | XMS_ITS | Clinical Summary ---
Author Organization [facility] Address [address] [place] [address] Phone Care Team Providers Care Full Roll Inspector Name Role Phone Unavailable Primary Care Provider [...] Sex Assigned at Female 08/06/2024 11:23 AM HEALTH WORKER Legal Sex Female 12:30 PM HEALTH WORKER Gender Identity Female 08/06/2024 11:23 AM HEALTH WORKER Sexual Orientation Not on file Last Filed Vital Signs Vital Sign Reading Time Taken Comments Blood Pressure 120/76 10/08/2024 2:07 PM HEALTH WORKER Pulse 61 10/08/2024 2:07 PM HEALTH WORKER Temperature 36.4 C (97.5 F) 10/08/2024 2:07 PM HEALTH WORKER Respiratory Rate - - Oxygen Saturation 97% 10/08/2024 2:07 PM HEALTH WORKER Inhaled Oxygen Concentration - - Weight 117.9 kg (260 lb) 10/08/2024 2:07 PM HEALTH WORKER Height 180.3 cm (5' 11) 10/08/2024 2:07 PM HEALTH WORKER Body Mass Index 36.26 10/08/2024 2:07 PM HEALTH WORKER Plan of Treatment Upcoming Encounters Date Type Department Care Team (Late st Contact Info) Description 10/09/2025 2:00 PM HEALTH WORKER Office Visit [facility] [id number] [address] Gin Castro NP [address] [place] [address] Health Maintenance Due Date Last [...] OR WO CAD Routine 11/15/2024 2:23 PM HEALTH WORKER Screening mammogram for breast cancer CERV/VAG CYTO AGE BASED SCREEN PAP Routine 10/08/2024 2:35 PM HEALTH WORKER Well woman exam with routine gynecological exam Screening for HPV (human papillomavirus) Encounter for Papanicolaou smear for cervical cancer screening H/O LEEP from Last 3 Months or Most Recently Relevant to Health Maintenance Results * MAMMO 3D TAYO SCREEN BILAT W OR WO CAD (11/15/2024 2:23 PM HEALTH WORKER) Anatomical Region Laterality Modality Breast Bilateral Mammography 11/15/2024 2:24 PM HEALTH WORKER Addenda Addendum by Tom Barber MD on 11/30/2024 9:07 AM HEALTH WORKER Prior mammograms from an outside facility are [...] in one year. Impressions 11/15/2024 2:44 PM HEALTH WORKER IMPRESSION: 1. Need outside films. OVERALL FINAL ASSESSMENT: BI-RADS CATEGORY 0: Incomplete, needs comparison to prior mammograms. RECOMMENDATIONS: 1. Outside films will be obtained. An addendum will be dictated when these films are available. DICTATION LOCATION: [facility] Narrative 11/15/2024 2:44 PM HEALTH WORKER BILATERAL SCREENING DIGITAL MAMMOGRAM WITH 3D TOMOSYNTHESIS [...] AGE BASED SCREEN PAP (10/08/2024 2:35 PM HEALTH WORKER) COMMENT (PAP): [facility] [place] Comment: This order for age-based cervical cancer and STI screening follows ACOG guidelines(PB 168, 140, TYG522). See individual assays for performing site location. CLINICAL INFORMATION [facility] [place] Comment:None given LAST MENSTRUAL PERIOD [facility] [place] Comment:NONE GIVEN PREV PAP: [facility] [place] Comment:10/04/2023 NIL PREV BX: [facility] [place] Comment:NONE GIVEN SOURCE [facility] [place] Comment:Endocervix ADEQUACY: [facility] [place] Comment: Satisfactory for evaluation. Endocervical/transformation zone component present. Age and/or menstrual status not provided PAP INTERP [facility] [place] Comment: Cytology Results: Negative for intraepithelial lesion or malignancy. COMMENT (PAP TEST) [facility] [place] Comment: This Pap test has been evaluated with computer assisted technology. DENTAL INTERNSHIP: [facility] [place] Comment: TMK, CT(ASCP) CT screening location: [place] [address] [place] [address] EXPLANATORY NOTE [facility] [place] Comment: EXPLANATORY NOTE: The Pap is a [...] information. HPV E6/E7 Not Detected Not Detected [facility] [place] Comment: Methodology: Tectonophysicist-Mediated Amplification This assay detects E6/E7 viral messenger RNA (mRNA) from 14 high-risk HPV types (16,18,31,33,35,39,45,51,52,56,58,59,66,68). Cervical sources are required for HPV testing. If a vaginal source from a patient who has had a total hysterectomy with removal of cervix was submitted, please contact the testing laboratory for alternative testing options. For additional information, please refer to http://education.SimpleSite/faq/JOS123t2 (This link if provided for information/ educational purposes only.) Test Performed at: [facility] [address] [address] Barbie GARC[facility] SWAB OF ENDOCERVIX / Unknown 10/08/2024 2:35 PM HEALTH WORKER 10/09/2024 12:19 AM HEALTH WORKER Gin Castro NP PATHOLOGY/CYTOLOGY ORDERABL ES Final Result [facility] [phone] [facility] [address] [address] [place] [phone] from Last 3 Months or Most Recently Relevant to Health Maintenance Insurance [address] [address]
--- OUTSIDE RECORDS SUMMARY | 2025-03-01 13:23 | XMS_ITS | Encounter Summary ---
Author Organization [facility] Healthcare Address [address] [place] [address] Care Team Providers Care Cable Television Technician Name Role Phone Oswaldo Ayoub MD Primary Care Provider [phone] Encounter Details Date Type Department Care Team (Late st Contact Info) Description 01/02/2025 Results Follow-Up [facility] Family Medicine at [address] [place] [phone] Oswaldo Ayoub MD [address] [place] [address] [address] [place], [place] [id number] SCAN - LABS Social History Tobacco Use [...] on filedocumented in this encounter Care Teams Cable Television Technician Relationship Specialty Start Date End Date Oswaldo Ayoub MD [address] [place] [address] [place] [address] PCP - General 03/04/17 documented as of this encounter
--- OUTSIDE RECORDS SUMMARY | 2025-03-01 13:23 | XMS_ITS | Referral Summary ---
Author Organization [facility] Address [address] [place] [address] Care Team Providers Care Postal Service Mail Processor Name Role Phone Oswaldo Ayoub MD Primary Care Provider [phone] Encounters Date Type Department Care Team Description 02/19/2025 Patient Self-Triage [facility] Physicians [address] [place] [address] Mychart, Generic Provider 02/15/2025 Telephone [facility] Family Medicine at [address] [address] Joy Villalpando NP 02/14/2025 1:30 PM CDT Telemedicine [facility] Medicine at [address] [address] Joy Villalpando NP AARON (generalized anxiety disorder) (Primary Dx); Moderate episode of recurrent major depressive disorder (HCC); Migraine without aura and without status migrainosus, not intractable 01/18/2025 Telephone [facility] Medicine at [address] [address] Oswaldo Ayoub MD 01/15/2025 11:30 AM CDT Office Visit [facility] Medicine at [address] [address] Joy Villalpando NP AARON (generalized anxiety disorder) (Primary Dx); Migraine without aura and without status migrainosus, not intractable; Moderate episode of recurrent major depressive disorder (HCC) 01/02/2025 Results Follow-Up [facility] Family Medicine at [address] [place] [address] Oswaldo Ayoub MD SCAN - [...] unremarkable. Assessment & Plan (11/18/2022 10:23 AM PRODUCT SALES REPRESENTATIVE): CT scan of the abdomen and pelvis [...] loss Assessment & Plan (11/18/2022 10:50 AM PRODUCT SALES REPRESENTATIVE): GERD for the past year, seems to [...] PRN Assessment & Plan (08/23/2022 1:43 PM PRODUCT SALES REPRESENTATIVE): Stable, no changes. Continue current regimen with [...] acceptable. Assessment & Plan (08/23/2022 1:42 PM PRODUCT SALES REPRESENTATIVE): Seeing improvement with xanax Increase dose to [...] popcorn Assessment & Plan (11/18/2022 10:52 AM PRODUCT SALES REPRESENTATIVE): Patient started having abdominal pain, diarrhea, nausea, [...] Read Routine (OP Routine) 09/30/2023 2:22 PM PRODUCT SALES REPRESENTATIVE Screening mammogram, encounter for COLONOSCOPY 01/12/2023 11:44 AM CDT from Last 3 Months or Most Recently Relevant to Health Maintenance Results * SCAN - LABS (12/27/2024) Oswaldo Ayoub MD Final Result * Screening Mammogram Bilateral [place] (09/30/2023 2:22 PM PRODUCT SALES REPRESENTATIVE) Anatomical Region Laterality Modality Breast Bilateral Mammography Impressions 09/30/2023 2:41 PM PRODUCT SALES REPRESENTATIVE BI-RADS ATLAS category (overall): 1 - Negative There is no mammographic evidence of malignancy. A 1 year screening mammogram is recommended. The patient has been or will be contacted. We recommend annual screening mammography for women at average risk of breast cancer beginning at age 40, based on guidelines of the [employer] (ACR Practice Parameter for the Performance of Screening and Diagnostic Mammography) and [employer]. For women with and elevated risk of breast cancer, please refer to the ACR Practice Parameter for specific screening recommendations. The patient will be entered into a reminder system with a target due date of 1 year for her next screening exam. Narrative 09/30/2023 2:41 PM PRODUCT SALES REPRESENTATIVE Screening Mammogram Bilateral W Chon: 09/30/23 The [...] Swan MD - 01/12/2023 11:44 AM CDT [facility] GI ENDOSCOPY Patient Name: Agustina Tijerina Procedure Date: 01/12/2023 11:44 AM Date of : 1980 Admit Type: Outpatient Age: 42 Gender: Female Attending MD: Ari Swan M.D. Room: [facility] ENDOSCOPY ROOM 06 Note Status: [...] On: 01/12/2023 11:44 AM Recognized by the [employer] for promoting quality in endoscopy Ari Swan MD ENDOSCOPY PROCEDURES Final Resul t from Last 3 Months or Most Recently Relevant to Health Maintenance Insurance [facility] Advance Directives For more information, please contact: [phone] * Full Code (Latest Code Status on File) Date Activated Date Inactivated Comments 10/24/2024 10:13 PM 10/25/2024 10:30 PM Care Teams Postal Service Mail Processor Relationship Specialty Start Date End Date Oswaldo Ayoub MD [address] [facility] [address] [address] PCP - General 03/04/17
--- NOTE | 2025-03-01 13:41 | ED_ITS ---
HPI - Nausea/Vomiting/Diarrhea General Chief complaint: Nausea/Vomiting/Diarrhea Stated complaint: N/V` Time Seen by Provider: 03/01/25 13:15 History of Present Illness HPI Narrative: Patient is a 44-year-old female who presents ER with nausea vomiting as well as chest pain. Patient has history of mast cell activation syndrome. Seen here recently and treated and felt better might home. She then began vomiting again. She is unsure if she might have aspirated. She has heard some gurgling in her lungs. She has also developed chest tightness over last 2 days. No history of heart disease. No exertional chest discomfort. She also has pain in her abdomen from recurrent vomiting and no she has muscle aches from this as well. No diarrhea. Related Data Home Medications ?Medication ?Instructions ?Recorded ?Confirmed ?Last Taken ?Type alprazolam 0.5 mg tablet 0.5 mg PO DAILY 03/01/25 03/01/25 Unknown History aspirin 81 mg tablet,delayed 81 mg PO BID 03/01/25 03/01/25 Unknown History release (Ecotrin Low Strength) cholecalciferol (vitamin D3) 25 1,000 unit PO HS 03/01/25 03/01/25 Unknown History mcg (1,000 unit) tablet famotidine 10 mg tablet (Acid 10 mg PO BID 03/01/25 03/01/25 Unknown History Controller) ferrous bis-glycinate chelate 4 See Rx Instructions PO .COMPLEX 03/01/25 03/01/25 Unknown History mg-cyanocobalamin 100 mcg capsule melatonin 10 mg capsule 10 mg PO HS 03/01/25 03/01/25 Unknown History meloxicam 15 mg tablet 15 mg PO DAILY PRN pain 03/01/25 03/01/25 Unknown History multivitamin with minerals-folic 1 tablet PO DAILY 03/01/25 03/01/25 Unknown History acid 0.4 mg tablet promethazine 25 mg tablet 25 mg PO Q6H PRN nausea and 03/01/25 03/01/25 Unknown History vomiting sertraline 100 mg tablet 100 mg PO DAILY 03/01/25 03/01/25 Unknown History valacyclovir 500 mg tablet 500 mg PO DAILY 03/01/25 03/01/25 Unknown History Allergies Allergy/AdvReac Type Severity Reaction Status Date / Time No Known Allergies Allergy Verified 03/01/25 12:22 Review of Systems 2 Review of Systems: All systems reviewed & are unremarkable except as noted in HPI and below Constitutional: Constitutional: Reports no additional constitutional complaints ENT: Reports system reviewed and no additional complaints, except as documented Cardiovascular: Cardiovascular: Reports no additional cardiovascular complaints Respiratory: Respiratory: Reports no additional respiratory complaints Gastrointestinal: Gastrointestinal: Reports no additional gastrointestinal complaints Neurologic: Reports system reviewed and no additional complaints, except as documented [facility] Past Medical History Medical History (Updated 03/01/25 @ 17:05 by Sanjana White, JB) Mast cell activation syndrome Cyclical vomiting syndrome Social History Social History Smoking status: Current some day smoker Tobacco type: cigars Alcohol intake: never Substance use: current Substance use type: marijuana Do You Feel Safe in your Home?: Yes Lack of Transportation: No Lack of Food: Never True Current Housing: I Have Housing Concerned About Future Housing: No Difficulty Paying Gas/Electric Bills: No Difficulty Paying for Meds: No Currently Unemployed: No Education: Decline to Answer Difficulty w/ Childcare or Family Care: No Spiritual care concerns: No Exam 2 Narrative: GENERAL: Uncomfortable-appearing, well-nourished, and in no acute distress. HEAD: Normocephalic, atraumatic. ENT: Mucous membranes moist. NECK: Supple. CHEST: Clear to auscultation. Elevated respiratory rate. HEART: Regular rate and rhythm. Normal peripheral pulses. ABDOMEN: Soft, nontender, nondistended. EXTREMITIES: Normal range of motion. No edema. SKIN: Warm, dry, no rash. NEURO: Alert and oriented x3. PSYCH: Normal mood and affect. Course Course Emergency Course: Cardiology consulted, do not feel this represents an STEMI at this time and so they do not recommend heparin they would like to trend troponins. Patient accepted hospitalist service. Antibiotics ordered for aspiration coverage. Patient is receiving 30 milliliter/kilogram fluid bolus between 3000 mL of saline and then the fluid from antibiotics. Additionally patient is receiving IV potassium supplementation Vital Signs Vital signs: Vital Signs Temperature 97.7 F 03/01/25 12:19 Pulse Rate 88 03/01/25 12:19 Respiratory Rate 16 03/01/25 12:19 Blood Pressure 148/88 H 03/01/25 12:19 Pulse Oximetry 98 03/01/25 12:19 Oxygen Delivery Room Air 03/01/25 12:19 Temperature 98.3 F 03/01/25 15:58 Pulse Rate 89 03/01/25 15:58 Respiratory Rate 16 03/01/25 12:19 Blood Pressure 112/65 03/01/25 15:58 Pulse Oximetry 100 03/01/25 16:00 Oxygen Delivery Room Air 03/01/25 16:00 MDM - Nausea/Vomiting/Diarrhea Lab Data 03/01/25 12:29 03/01/25 12:29 Labs: Lab Results 03/01/25 03/01/25 Range/Units 12:29 13:51 WBC 14.3 H (4.5-10.0) K/mm3 RBC 4.86 (4.2-5.4) M/mm3 Hgb 15.3 H (12.0-15.0) g/dL Hct 44.1 (37.0-47.0) % MCV 90.7 (80-100) fl MCH 31.5 (26-34) pg MCHC 34.7 (32-36) g/dl RDW 12.2 (11.5-14.5) % Plt Count 254 (150-375) k/mm3 MPV 10.4 (7.4-10.4) fl Immature Gran % (Auto) 0.3 (0-0.5) % Neut % (Auto) 84.4 H (45.5-73.1) % Lymph % (Auto) 9.5 L (18.3-44.2) % [place] % (Auto) 5.4 (2.6-8.5) % Eos % (Auto) 0.1 (0-4.4) % Baso % (Auto) 0.3 (0.2-1.2) % Lymph # (Auto) 1.36 (0.9-3.2) K/mm3 [place] # (Auto) 0.8 H (0.1-0.6) K/mm3 Eos # (Auto) 0.0 (0-0.3) K/mm3 Baso # (Auto) 0.1 (0.0-0.1) K/mm3 Abs Immat Gran (auto) 0.04 H (0.00-0.031) K/mm3 Absolute Neuts (auto) 12.1 H (1.3-6.7) K/mm3 Absolute Nucleated RBC 0.000 (0.0-0.012) K/mm3 Nucleated RBC % 0.0 (0.0-0.2) % PT 14.2 (11.1-14.7) Seconds INR 1.1 APTT 31.3 (22.3-36.8) Seconds Sodium 131 L (137-145) mmol/L Potassium 3.0 L (3.4-5.0) mmol/L Chloride 92 L (98-107) mmol/L Carbon Dioxide 25 (22-30) mmol/L Anion Gap 14 H (4-12) mmol/L BUN 16 (7-17) mg/dL Creatinine 0.66 L (0.7-1.0) mg/dL Estim Creat Clear Calc 125 ml/min Estimated GFR > 60 (59 - ) Glucose 145 H (65-110) mg/dL Lactic Acid 2.4 H (0.7-2.0) mmol/L Calcium 8.9 (8.4-10.2) mg/dL Total Bilirubin 1.2 (0.2-1.3) mg/dL AST 42 H (14-36) U/L ALT 18 (6-35) U/L Alkaline Phosphatase 79 (38-126) U/L Troponin I 0.663 H* (0.000-0.034) ng/mL Total Protein 7.2 (6.3-8.2) g/dL Albumin 4.0 (3.5-5.1) g/dL Lipase 23 (23-300) U/L Critical Care Time Critical Care Time Critical Care Time: Yes Total Critical Care Time: 35 Discharge Plan Discharge Clinical Impression: Aspiration pneumonia, Elevated troponin, Hypokalemia Patient Disposition: Still a Patient Condition: Stable
[2025-03-01] MEDS: SODIUM CHLORIDE 0.9% IV 1,000 ML 999 ML IV CONT ×3 (13:53→15:05)
[2025-03-01] MEDS: FAMOTIDINE 20 MG/2 ML VIAL IV PUSH (13:54)
[2025-03-01] MEDS: LORazepam INJ (*CRX) 2 MG/ML VIAL 1 MG IV PUSH (13:54)
[2025-03-01] MEDS: ASPIRIN 81 MG CHEWABLE TABLET 324 MG PO (13:56)
[2025-03-01 14:18] LABS: Lactic Acid Reflex 2.4 mmol/L (0.7-2.0)
[2025-03-01] MEDS: KCL 20 MEQ/SW 100 ML 100 ML 50 MEQ IVPB (14:22)
[2025-03-01] MEDS: SODIUM CHLORIDE 0.9% IV 1,000 ML 125 ML IV CONT (14:25)
[2025-03-01] MEDS: metroNIDAZOLE 500 MG/ISO 100ML 500 MG/100 ML BAG 100 MG IVPB ×2 (15:05→21:40)
--- NOTE | 2025-03-01 15:16 | PC.NURSE ---
This RN received report from [employer] HELPER
--- NOTE | 2025-03-01 15:32 | ADMIMU ---
This patient, Agusitna Tijerina, was admitted to IMU status, and placed in IMU Room 201-01. Patient/family oriented to hospital policies and general routines including ID bracelet, bed and alarms, visiting hours, pain management, procedures, bathroom and other care routines, personal items, smoking policy, room service/diet, and visiting hours. Valuables list has been completed. Information on how to activate the Rapid Response Team has been discussed. Patient/Family are encouraged to report perceived risks to care and to ask questions if they do not understand what they are told or what they should do.
[2025-03-01 16:05] LABS: Reflex Lactic Acid Yes or No Add Lactic
[2025-03-01 16:32] LABS: Troponin I 0.604 ng/mL (0.000-0.034)
--- NOTE | 2025-03-01 16:45 | P.HP_ITS ---
H&P: HPI History of Present Illness Date/Time: 03/01/25 16:45 Chief Complaint: Aspiration pneumonia Narrative: 44-year-old female with cyclical vomiting presents the with shortness of breath. Patient states that she believes that she aspirated whenever she was vomiting. Patient states that she started cyclical vomiting a couple days ago and presented to the emergency and started on her protocol for mass cell activation syndrome on the ED she started to improve and went home. However when she got home she continued to vomit. She felt like she choked on some vomit and became short of breath so she presented back to the hospital. Patient denies fevers or chills. In the ED patient has leukocytosis at 14.3, hemoglobin of 15.3 with history of hemoconcentration, sodium of 131, potassium 3.0, chloride 92, anion gap of 14, lactic acid 2.4, initial troponin of 0.663 with follow-up troponin being 0.604, chest x-ray shows extensive right-sided airspace disease likely pneumonia. Cardiology consulted with low suspicion of ACS currently deferring heparin drip at this time. Patient being admitted for aspiration pneumonia. Review of Systems Review of Systems: 12 systems were reviewed and are negativ e except for as per HPI. [facility] Past Medical History Medical History (Updated 03/01/25 @ 17:05 by Sanjana White APRN) Mast cell activation syndrome Cyclical vomiting syndrome Social History Social History Smoking status: Current some day smoker Tobacco type: cigars Alcohol intake: never Substance use: current Substance use type: marijuana Do You Feel Safe in your Home?: Yes Lack of Transportation: No Lack of Food: Never True Current Housing: I Have Housing Concerned About Future Housing: No Difficulty Paying Gas/Electric Bills: No Difficulty Paying for Meds: No Currently Unemployed: No Education: Decline to Answer Difficulty w/ Childcare or Family Care: No Spiritual care concerns: No Meds Home Medications and Allergies Home Medications ?Medication ?Instructions ?Recorded ?Confirmed ?Type lorazepam 0.5 mg tablet (Ativan) 0.5 mg PO TID PRN nausea and 01/30/25 03/01/25 Rx vomiting #20 tabs magnesium oxide 200 mg PO DAILY #30 tabs 01/30/25 03/01/25 Rx potassium chloride 10 mEq 10 meq PO DAILY #30 tabs 01/30/25 03/01/25 Rx tablet,extended release (Klor-Con) metoclopramide HCl 10 mg tablet 10 mg PO Q6H PRN nausea and 02/26/25 03/01/25 Rx (Reglan) vomiting #20 tabs scopolamine base 1 mg over 3 days 1 patch transdermal Q3D PRN nausea 02/26/25 03/01/25 Rx transdermal patch and vomiting #4 ea alprazolam 0.5 mg tablet 0.5 mg PO DAILY 03/01/25 03/01/25 History aspirin 81 mg tablet,delayed 81 mg PO BID 03/01/25 03/01/25 History release (Ecotrin Low Strength) cholecalciferol (vitamin D3) 25 1,000 unit PO HS 03/01/25 03/01/25 History mcg (1,000 unit) tablet famotidine 10 mg tablet (Acid 10 mg PO BID 03/01/25 03/01/25 History Controller) ferrous bis-glycinate chelate 4 See Rx Instructions PO .COMPLEX 03/01/25 03/01/25 History mg-cyanocobalamin 100 mcg capsule melatonin 10 mg capsule 10 mg PO HS 03/01/25 03/01/25 History meloxicam 15 mg tablet 15 mg PO DAILY PRN pain 03/01/25 03/01/25 History multivitamin with minerals-folic 1 tablet PO DAILY 03/01/25 03/01/25 History acid 0.4 mg tablet promethazine 25 mg tablet 25 mg PO Q6H PRN nausea and 03/01/25 03/01/25 History vomiting sertraline 100 mg tablet 100 mg PO DAILY 03/01/25 03/01/25 History valacyclovir 500 mg tablet 500 mg PO DAILY 03/01/25 03/01/25 History Allergies Allergy/AdvReac Type Severity Reaction Status Date / Time No Known Allergies Allergy Verified 03/01/25 12:22 Vital Signs Vital Signs - 24 hr 03/01/25 12:19 03/01/25 15:58 03/01/25 16:00 Temperature 97.7 F 98.3 F Pulse Rate 88 89 Respiratory Rate 16 Blood Pressure 148/88 H 112/65 Pulse Oximetry 98 96 100 Oxygen Delivery Room Air Room Air Exam Narrative: General: well appearing, appears stated age. HEENT: normocephalic, atraumatic. Mucous membranes moist. EOMI, PERRLA, bilateral sclera anicteric, no conjunctival injection. Neck supple without JVD, lymphadenopathy, or bruit. Respiratory: Clear on left side dementia right Cardiovascular: Regular rate and rhythm, normal S1-S2 upon ascultation. No murmurs, rubs, or clicks. PMI is nondisplaced, capillary refill less than 3 second. Abdomen: Soft, round, no pulsatile masses, nondistended and nontender. No rebound, no guarding. No CVA tenderness, no hepatosplenomegaly. Bowel sounds present to all four quadrants. No high pitch or tinkling sounds, resonant to percussion. Extremities: No cyanosis, clubbing, or edema present. Pulses are palpable 2/2. Active ROM to all four extremities. Neuro: Alert and orientated x 4. PERRLA. Cranial nerves 2-12 intact without focal deficit. Skin: Warm, dry, and intact, without rash, erythema, or lesion. Psych: pleasant, cooperative, normal speech, normal affect, no hallucinations, no dysarthia H&P: Results Labs Labs: Short CBC 03/01/25 Range/Units 12:29 WBC 14.3 H (4.5-10.0) K/mm3 Hgb 15.3 H (12.0-15.0) g/dL Hct 44.1 (37.0-47.0) % Plt Count 254 (150-375) k/mm3 BMP 03/01/25 12:29 Sodium 131 L Potassium 3.0 L Chloride 92 L Carbon Dioxide 25 BUN 16 Creatinine 0.66 L Glucose 145 H Calcium 8.9 Cardiac Enzymes 03/01/25 03/01/25 Range/Units 12:29 15:58 Troponin I 0.663 H* 0.604 H* (0.000-0.034) ng/mL Liver Function 03/01/25 Range/Units 12:29 Total Bilirubin 1.2 (0.2-1.3) mg/dL AST 42 H (14-36) U/L ALT 18 (6-35) U/L Alkaline Phosphatase 79 (38-126) U/L Albumin 4.0 (3.5-5.1) g/dL Assessment and Plan Assessment and plan (1) Elevated troponin: Code(s): R79.89 - Other specified abnormal findings of blood chemistry Status: Acute Assessment and Plan: Trending down Cardiology consulted low suspicion for ACS Trend troponin Hold off on heparin drip for now EKG for chest pain (2) Aspiration pneumonia: Code(s): J69.0 - Pneumonitis due to inhalation of food and vomit Status: Acute Assessment and Plan: Rocephin and Flagyl IVF for hydration Blood cultures pending (3) Cyclical vomiting syndrome: Code(s): R11.15 - Cyclical vomiting syndrome unrelated to migraine Status: Acute Assessment and Plan: Secondary to mast cell activation syndrome Patient sees Dr. Jose C Johnson compliance review officer specialist with recommendations for 2 L IV fluid bolus3 keeping potassium level above 3.5 Followed by 10 mg of IV Reglan, 50 mg of IV Benadryl, 1 mg of IV Ativan, 25 mg IV push famotidine followed by 30 mg IV Toradol in 1 hour Aspirin 325 (4) Hypokalemia: Code(s): E87.6 - Hypokalemia Status: Acute Assessment and Plan: Replete as needed Daily BMP Keep above 3.5 (5) Lactic acidosis: Code(s): E87.20 - Acidosis, unspecified Status: Acute Assessment and Plan: 2 L fluid bolus Repeat lactic acid 1.2 Quality VTE Prophylaxis VTE prophylaxis: mechanical ordered Hospitalist MIPS Advance Care Plan I have confirmed that the patient's Advanced Care Plan is present, code status is documented, or surrogate decision maker is listed in patient medical record.: Yes Medication Reconciliation I have utilized all available resources to obtain, update and review the patients current medications (includes all prescriptions, OTC, herbals, cannabis, and nutritional supplements).: Yes
[2025-03-01 19:39] LABS: Lactic Acid 1.2 mmol/L (0.7-2.0)
[2025-03-01 19:54] LABS: Troponin I 0.563 ng/mL (0.000-0.034)
[2025-03-01] MEDS: ALPRAZolam (*CRX) 0.5 MG TABLET PO (20:54)
[2025-03-01] MEDS: FAMOTIDINE 10 MG TABLET PO (21:40)
[2025-03-01] MEDS: MELATONIN 5 MG TABLET 10 MG PO (23:55)
[2025-03-02] VITALS (19 sets, daily range): BP systolic 98–150; BP diastolic 49–92; PULSE 65–100; RESP 18–20; TEMP 36.6–37; O2SAT 95–99
--- NOTE | 2025-03-02 | ECHO_ITS ---
Patient Info Name: Agustina Tijerina Age: 44 years : 1980 Gender: Female Ht: 71 in Wt: 248 lbs BSA: 2.41 m2 HR: 79 bpm BP: 148 / 92 mmHg Technical Quality: Good Exam Date: 03/02/2025 10:55 AM Patient Status: I Admit Date: 03/01/2025 Exam Type: CA echo doppler color flow Complete two-dimensional, color flow and Doppler transthoracic echocardiogram is performed. Staff Referring Physician: Jose Crawford MD Industrial Electrical Technician: Laura Thao Attending Provider: Dewayne Clay Summary 1. Complete two-dimensional, color flow and Doppler transthoracic echocardiogram is performed. 2. Left ventricular systolic function is normal, estimated at 35-40. 3. There is mildly increased left ventricular wall thickness. 4. Left atrial chamber dimension is mildly enlarged. 5. There is mild mitral valve regurgitation. 6. There is trace tricuspid valve regurgitation. 7. No pulmonary hypertension, estimated pulmonary arterial systolic pressure is 26 mmHg. Left Ventricle Left ventricular chamber dimension is normal. Left ventricular systolic function is normal, estimated at 35-40. There is mildly increased left ventricular wall thickness. Left ventricular septal wall motion is normal. The left ventricular diastolic function is abnormal. Right Ventricle Right ventricular chamber dimension is normal. Right ventricular systolic function is normal. Left Atria Left atrial chamber dimension is mildly enlarged. Right Atria Right atrial chamber dimension is normal. Atrial Septum Intact interatrial septum visualized by color flow imaging. Aortic Valve The aortic valve is trileaflet. There is no aortic valve sclerosis. There is no aortic valve stenosis. There is no aortic valve regurgitation. Pulmonic Valve The pulmonic valve is normal. There is no pulmonic valve stenosis. There is no pulmonic regurgitation. Mitral Valve The mitral valve has normal leaflets. There is no mitral valve stenosis. There is mild mitral valve regurgitation. Tricuspid Valve The tricuspid valve leaflets are normal. There is no significant tricuspid valve stenosis. There is trace tricuspid valve regurgitation. No pulmonary hypertension, estimated pulmonary arterial systolic pressure is 26 mmHg. Pericardium/Pleural The pericardium appears normal. There is no pericardial effusion. Inferior Vena Cava Normal inferior vena cava with >50% collapse upon inspiration consistent with normal right atrial pressure, 5 mmHg. Aorta The aortic root size at the sinus of Valsalva is normal. The prox ascending aorta size is normal. Left Ventricular Outflow Tract Name Value Normal LVOT 2D LVOT Diameter 2.0 cm LVOT Doppler LVOT Peak Velocity 147 cm/s LVOT Peak Gradient 9 mmHg LVOT Mean Gradient 6 mmHg LVOT VTI 27 cm LVOT VTI/AV VTI Ratio 0.9 LVOT Stroke Volume 85 ml LVOT CO 21.9 l/min LVOT CI 9.1 l/min/m2 Pulmonic Valve Name Value Normal PV Doppler PV Peak Velocity 116 cm/s PV Peak Gradient 5 mmHg Mitral Valve Name Value Normal MV Diastolic Function MV E Peak Velocity 101 cm/s MV A Peak Velocity 47 cm/s MV E/A 2.1 MV Decel Time (PW) 203 ms MV Annular TDI MV E/e' (Septal) 12.0 MV E/e' (Lateral) 8.5 MV E/e' (Average) 10.3 Tricuspid Valve Name Value Normal TV Regurgitation Doppler TR Peak Velocity 227 cm/s TR Peak Gradient 21 mmHg Estimated PAP/RSVP RA Pressure 5 mmHg <=5 PA Systolic Pressure 26 mmHg <36 RV Systolic Pressure 26 mmHg <36 TV Annular TDI TV Lateral Monica s' Velocity 16.3 cm/s >=9.5 Aorta Name Value Normal Ascending Aorta Ao Root Diameter (MM) 3.0 cm Ao Root Diam Index (MM) 1.3 cm/m2 Aortic Valve Name Value Normal AV Doppler AV Peak Velocity 150 cm/s AV Peak Gradient 9 mmHg AV Mean Gradient 6 mmHg AV VTI 31 cm AV Area (Cont Eq VTI) 2.7 cm2 >=3.0 AV Area (Cont Eq Anthony) 3.1 cm2 AV DI (Anthony) 0.98 AV Regurgitation 2D LVOT Area 3.1 cm2 Ventricles Name Value Normal LV Dimensions 2D/MM IVS Diastolic Thickness (2D) 1.0 cm 0.6-1.0 LVID Diastole (2D) 5.1 cm 3.8-5.2 LVIW Diastolic Thickness (2D) 1.1 cm 0.6-0.9 LVID Systole (2D) 4.0 cm 2.2-3.5 LVOT Diameter 2.0 cm LV Mass (2D Cubed) 202.40 g 67.00-162.00 LV Mass Index (2D Cubed) 84 g/m2 43-95 Relative Wall Thickness (2D) 0.44 <=0.42 LV Fractional Shortening/Ejection Fraction 2D/MM LV Fractional Shortening (2D) 21 % 27-45 LV EF (2D Teichadrianz) 43 % LV Diastolic Volume (4C MOD) 137 ml LV EF (4C MOD) 50 % LV Diastolic Volume (2C MOD) 154 ml LV EF (2C MOD) 48 % LV Diastolic Volume (BP MOD) 147 ml 46-106 LV Diastolic Volume Index (BP MOD) 61 ml/m2 29-61 LV Systolic Volume (BP MOD) 74 ml 14-42 LV Systolic Volume Index (BP MOD) 31 ml/m2 8-24 LV EF (BP MOD) 49 % 54-74 LV Diastolic Length (4C) 8.8 cm LV Systolic Length (4C) 7.1 cm LV Stroke Volume (4C MOD) 69 ml RV Dimensions 2D/MM RVID Diastole (2D) 4.0 cm 2.1-3.5 Atria Name Value Normal LA Dimensions LA Dimension (MM) 3.9 cm 2.7-3.8 LA Volume (4C A-L) 77 ml LA Volume (BP A-L) 74 ml RA Dimensions RA Systolic Major [place] Length (4C) 5.1 cm 2.2-2.8 RA Area (4C) 17.0 cm2 <=18.0 Report Signatures
[2025-03-02] MEDS: METOCLOPRAMIDE HCL INJ 10 MG/2 ML VIAL IV PUSH ×3 (01:29→17:23)
[2025-03-02] MEDS: SODIUM CHLORIDE 0.9% IV 1,000 ML 125 ML IV CONT ×2 (03:54→13:16)
[2025-03-02] MEDS: TRIMETHOBENZAMIDE HCL 200 MG/2 ML VIAL IM (03:59)
[2025-03-02 04:37] LABS: Basophils Absolute Auto 0.1 K/mm3 (0.0-0.1); Basophils Percent Auto 0.3 % (0.2-1.2); Eosinophils Absolute Auto 0.1 K/mm3 (0-0.3); Eosinophils Percent Auto 0.9 % (0-4.4); Hematocrit 41.9 % (37.0-47.0); Hemoglobin 14.2 g/dL (12.0-15.0); Immature Granulocyte Absolute 0.07 K/mm3 (0.00-0.031); Immature Granulocyte Percent A 0.5 % (0-0.5); Lymphocytes Absolute Auto 1.32 K/mm3 (0.9-3.2); Lymphocytes Percent Auto 8.9 % (18.3-44.2); Mean Corpuscular HGB Conc 33.9 g/dl (32-36); Mean Corpuscular Hemoglobin 31.8 pg (26-34); Mean Corpuscular Volume 93.9 fl (80-100); Mean Platelet Volume 10.6 fl (7.4-10.4); Monocytes Percent Auto 6.4 % (2.6-8.5); Neutrophils Absolute Auto 12.3 K/mm3 (1.3-6.7); Platelet Count Result 242 k/mm3 (150-375); Red Blood Count 4.46 M/mm3 (4.2-5.4); Red Cell Distribution Width 12.5 % (11.5-14.5); White Blood Count 14.8 K/mm3 (4.5-10.0)
[2025-03-02 04:56] LABS: Anion Gap 15 mmol/L (4-12); Blood Urea Nitrogen 15 mg/dL (7-17); Calcium 8.1 mg/dL (8.4-10.2); Carbon Dioxide 20 mmol/L (22-30); Chloride 97 mmol/L (98-107); Estimated CRCL calculation 116 ml/min; Estimated Glomerular Filt Rate > 60; Glucose 111 mg/dL (65-110); Potassium 2.8 mmol/L (3.4-5.0); Sodium 132 mmol/L (137-145)
[2025-03-02] MEDS: metroNIDAZOLE 500 MG/ISO 100ML 500 MG/100 ML BAG 100 MG IVPB ×3 (05:55→21:04)
[2025-03-02] MEDS: POTASSIUM CHLORIDE INJ 40 MEQ in SODIUM CHLORIDE 0.9% IV 500 ML 130 MEQ IVPB ×2 (06:35→10:55)
[2025-03-02 06:38] LABS: Magnesium 2.1 mg/dL (1.6-2.3); Phosphorus 2.2 mg/dL (2.5-4.5)
--- NOTE | 2025-03-02 09:19 | P.CONCA_ITS ---
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 EKG shows T inversion V1 to V3 which is unchanged from before. No chest pain. Suspect demand ischemia. Order echocardiogram to assess wall motion abnormalities. No significant risk factors for CAD. Change aspirin from 325-81 mg daily. -in regards to hypokalemia secondary to vomiting, replenish potassium. -in regards to her cyclic vomiting and mast cell activation management per primary team. History of Present Illness History of Present Illness Consult date/time: 03/02/25 09:19 Requesting physician: Jose Crawford MD Reason For Visit: Aspiration Pneumonia/Elevated Troponin/Hypokalemia Narrative: This is 44-year-old female with history of mast cell activation and cycle vomiting who presents to the hospital with vomiting. Apparently was in the ER earlier and received treatment for mast cell activation and then went home when she started to vomit again aspirated on some of the vomitus and start to become short of breath and therefore she is back here to the hospital. She did hear gurgling sounds from her lungs and then associated with dry cough. Denied chest pain, lower extremity edema dizziness or syncope. Used to smoke cigars on rare occasions but not doing that anymore. Does not drink alcohol. Has family history of CAD. Troponin 0.6 and then 0.56. White cell count 14 K, creatinine 0.6, potassium on admission 3 and today 2.8, chest x-ray reviewed and was myself shows lung infiltrate on the right side. EKG reviewed and analyzed myself shows l sinus rhythm, T inversion V1 to V3. Review of Systems 2 Constitutional: Constitutional: Denies chills, Denies fever(s) and Denies poor appetite Eyes: Eyes: Denies eye discharge, Denies loss of vision and Denies eye pain ENT: Denies dizziness, Denies epistaxis, Denies nasal congestion and Denies sore throat Cardiovascular: Cardiovascular: Denies chest pain, Denies syncope, Denies pedal edema, Denies leg edema, Denies palpitations, Denies dyspnea, Denies dyspnea on exertion and Denies orthopnea Respiratory: Respiratory: Reports cough, Reports dyspnea, Denies dyspnea on exertion and Denies wheezing Gastrointestinal: Gastrointestinal: Denies abdominal pain, Denies diarrhea, Reports nausea and Reports vomiting Genitourinary: Genitourinary: Denies hematuria, Denies genital lesions and Denies dysuria Musculoskeletal: Musculoskeletal: Denies arthralgias, Denies joint swelling and Denies numbness Integumentary/Breasts: Skin/Breast: Denies pruritus and Denies rash Neurologic: Denies dizziness, Denies syncope, Denies loss of vision and Denies numbness Psychiatric: Psychiatric: Denies anxiety and Denies depression Endocrine: Endocrine: Denies cold intolerance, Denies heat intolerance and Denies palpitations Hematologic/Lymphatic: Hematologic/Lymphatic: Denies easy bleeding and Denies easy bruising Allergic/Immunologic: Allergic/Immunologic: Denies urticaria and Denies wheezing PMFSH Past Medical History Medical History Mast cell activation syndrome Cyclical vomiting syndrome Social History Social History Smoking status: Current some day smoker Tobacco type: cigars Alcohol intake: never Substance use: current Substance use type: marijuana Do You Feel Safe in your Home?: Yes Lack of Transportation: No Lack of Food: Never True Current Housing: I Have Housing Concerned About Future Housing: No Difficulty Paying Gas/Electric Bills: No Difficulty Paying for Meds: No Currently Unemployed: No Education: Decline to Answer Difficulty w/ Childcare or Family Care: No Spiritual care concerns: No Meds Home Medications and Allergies Home Medications ?Medication ?Instructions ?Recorded ?Confirmed ?Type lorazepam 0.5 mg tablet (Ativan) 0.5 mg PO TID PRN nausea and 01/30/25 03/01/25 Rx vomiting #20 tabs magnesium oxide 200 mg PO DAILY #30 tabs 01/30/25 03/01/25 Rx potassium chloride 10 mEq 10 meq PO DAILY #30 tabs 01/30/25 03/01/25 Rx tablet,extended release (Klor-Con) metoclopramide HCl 10 mg tablet 10 mg PO Q6H PRN nausea and 02/26/25 03/01/25 Rx (Reglan) vomiting #20 tabs scopolamine base 1 mg over 3 days 1 patch transdermal Q3D PRN nausea 02/26/25 03/01/25 Rx transdermal patch and vomiting #4 ea alprazolam 0.5 mg tablet 0.5 mg PO DAILY 03/01/25 03/01/25 History aspirin 81 mg tablet,delayed 81 mg PO BID 03/01/25 03/01/25 History release (Ecotrin Low Strength) cholecalciferol (vitamin D3) 25 1,000 unit PO HS 03/01/25 03/01/25 History mcg (1,000 unit) tablet famotidine 10 mg tablet (Acid 10 mg PO BID 03/01/25 03/01/25 History Controller) ferrous bis-glycinate chelate 4 See Rx Instructions PO .COMPLEX 03/01/25 03/01/25 History mg-cyanocobalamin 100 mcg capsule melatonin 10 mg capsule 10 mg PO HS 03/01/25 03/01/25 History meloxicam 15 mg tablet 15 mg PO DAILY PRN pain 03/01/25 03/01/25 History multivitamin with minerals-folic 1 tablet PO DAILY 03/01/25 03/01/25 History acid 0.4 mg tablet promethazine 25 mg tablet 25 mg PO Q6H PRN nausea and 03/01/25 03/01/25 History vomiting sertraline 100 mg tablet 100 mg PO DAILY 03/01/25 03/01/25 History valacyclovir 500 mg tablet 500 mg PO DAILY 03/01/25 03/01/25 History Allergies Allergy/AdvReac Type Severity Reaction Status Date / Time No Known Allergies Allergy Verified 03/01/25 12:22 Vital Signs Vital Signs - 24 hr 03/01/25 12:19 03/01/25 15:58 03/01/25 16:00 Temperature 36.5 C 36.8 C Pulse Rate 88 89 Respiratory Rate 16 Blood Pressure 148/88 H 112/65 Pulse Oximetry 98 96 100 Oxygen Delivery Room Air Room Air Fraction of Inspired Oxygen 03/01/25 16:00 03/01/25 19:58 03/01/25 20:00 Temperature 36.9 C Pulse Rate 98 75 75 Respiratory Rate 18 Blood Pressure 101/59 L Pulse Oximetry 92 Oxygen Delivery Fraction of Inspired Oxygen 03/01/25 20:35 03/01/25 20:44 03/01/25 22:00 Temperature Pulse Rate 75 83 70 Respiratory Rate 18 Blood Pressure Pulse Oximetry 92 93 Oxygen Delivery Room Air Room Air Fraction of Inspired Oxygen 21 03/01/25 23:49 03/02/25 00:00 03/02/25 00:00 Temperature 36.6 C Pulse Rate 71 71 65 Respiratory Rate 18 18 Blood Pressure 118/61 Pulse Oximetry 95 95 Oxygen Delivery Room Air Fraction of Inspired Oxygen 03/02/25 02:00 03/02/25 04:00 03/02/25 04:00 Temperature 36.6 C Pulse Rate 98 98 98 Respiratory Rate 18 18 Blood Pressure 150/87 H Pulse Oximetry 97 97 Oxygen Delivery Room Air Fraction of Inspired Oxygen 03/02/25 04:00 03/02/25 06:00 03/02/25 08:02 Temperature 36.7 C Pulse Rate 89 100 92 Respiratory Rate 18 Blood Pressure 148/92 H Pulse Oximetry 97 Oxygen Delivery Fraction of Inspired Oxygen Exam 2 Const: General: cooperative, comfortable, no acute distress, alert, awake and well nourished Nutritional Appearance: well nourished O rientation/consciousness: patient oriented x3 HENMT: Head: normal to inspection, normocephalic and atraumatic Ears: h earing grossly normal bilaterally Face/Nose/Sinus: Normal external nose present, Normal nares present, no nasal discharge noted, normal facial exam and No erythema Face and sinus: normal facial exam and no erythema Mouth: No drooling and No restricted motion Throat: uvula midline Eyes: General: appearance normal, both eyes and all related structures A lignment and Position: position normal Conjunctivae: conjunctivae normal S clera: sclerae normal Direct Ophthalmoscopy: No photophobia Neck: Neck: normal visual inspection and no JVD Thyroid: thyroid normal Carotids: no bruits Lymphatic: lymphedema not noted Chest: Chest palpation & inspection: normal inspection of the chest and no tenderness Resp: Effort & Inspection: normal respiratory effort and no nasal flaring A uscultation: clear to auscultation bilaterally, no crackles, no rales and no wheezes Cardio: Jugular venous distension: no JVD Rate: regular rate Rhythm: r egular rhythm Heart sounds: S1 normal heart sound present, S2 normal heart sound present, no gallops, no murmurs and no rubs GI: Inspection: non-distended GI Palp: No abdominal tenderness and No Soft to palpation Auscultation: normal bowel sounds Rectal Exam: deferred : General: No no CVA tenderness Back/Spine/Pelvis: Back: No no CVA tenderness Cervical Spine: cervical ROM normal Skin: General skin exam: normal color and rashes and/or lesions noted Neuro: General: patient oriented x3 Cranial nerves: No CN's II-XII intact bilaterally Speech: normal speech Motor exam (neuro): no tremors Extrem: General: normal to inspection and pedal edema present Psych: Appearance: grossly normal and well kempt Speech and movement: N ormal speech and movement present Affect: normal affect Results Labs and Meds 03/02/25 04:13 03/02/25 04:13 Lab results: Cardiac Enzymes 03/01/25 03/01/25 03/01/25 Range/Units 12:29 15:58 19:07 AST 42 H (14-36) U/L Troponin I 0.663 H* 0.604 H* 0.563 H* (0.000-0.034) ng/mL Coagulation 03/01/25 Range/Units 12:29 PT 14.2 (11.1-14.7) Seconds APTT 31.3 (22.3-36.8) Seconds CBC 03/01/25 03/02/25 Range/Units 12:29 04:13 WBC 14.3 H 14.8 H (4.5-10.0) K/mm3 RBC 4.86 4.46 (4.2-5.4) M/mm3 Hgb 15.3 H 14.2 (12.0-15.0) g/dL Hct 44.1 41.9 (37.0-47.0) % Plt Count 254 242 (150-375) k/mm3 Lymph # (Auto) 1.36 1.32 (0.9-3.2) K/mm3 [place] # (Auto) 0.8 H 1.0 H (0.1-0.6) K/mm3 Eos # (Auto) 0.0 0.1 (0-0.3) K/mm3 Baso # (Auto) 0.1 0.1 (0.0-0.1) K/mm3 Comprehensive Metabolic Panel 03/01/25 03/02/25 Range/Units 12:29 04:13 Sodium 131 L 132 L (137-145) mmol/L Potassium 3.0 L 2.8 L* (3.4-5.0) mmol/L Chloride 92 L 97 L (98-107) mmol/L Carbon Dioxide 25 20 L (22-30) mmol/L BUN 16 15 (7-17) mg/dL Creatinine 0.66 L 0.72 (0.7-1.0) mg/dL Glucose 145 H 111 H (65-110) mg/dL Calcium 8.9 8.1 L (8.4-10.2) mg/dL AST 42 H (14-36) U/L ALT 18 (6-35) U/L Alkaline Phosphatase 79 (38-126) U/L Total Protein 7.2 (6.3-8.2) g/dL Albumin 4.0 (3.5-5.1) g/dL Intake and Output 03/01/25 03/02/25 03/02/25 23:59 07:59 15:59 Intake Total 2690 1100 120 Balance 2690 1100 120 Intake: IV 2300 100 Sodium Chloride 0.9% IV 1,000 2000 ml @ 125 mls/hr IV CONT .Q8H DANIEL Rx#:[id number] KCl 20 Meq/Sw 100 ml 100 ml @ 100 50 mls/hr IVPB ONCE STA Rx#: [id number] metroNIDAZOLE 500 MG/ISO 100ML 200 100 500 mg In 100 ml @ 100 mls/hr IVPB Q8H DANIEL Rx#:[id number] Oral 390 1000 120 Other: # Unmeasured Voids 1 Patient Weight 03/02/25 23:59 Weight 112.5 kg
--- NOTE | 2025-03-02 09:26 | P.PNIM_ITS ---
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 Jose C Johnson barge master specialist with recommendations for Patient received 2 L IV fluid bolus3 keeping potassium level above 3.5 Followed by 10 mg of IV Reglan, 50 mg of IV Benadryl, 1 mg of IV Ativan, 25 mg IV push famotidine followed by 30 mg IV Toradol in 1 hour * continue Aspirin 325 * Ativan p.r.n. for vomiting if unrelieved by antiemetics * antiemetics * diet as tolerated * PPI (2) Cyclical vomiting syndrome: Code(s): R11.15 - Cyclical vomiting syndrome unrelated to migraine Status: Acute Assessment and Plan: SEE ABOVE (3) Heart failure with reduced ejection fraction and diastolic dysfunction: Code(s): I50.40 - Unspecified combined systolic (congestive) and diastolic (congestive) heart failure Status: Acute Assessment and Plan: Echo: Left ventricular chamber dimension is normal. Left ventricular systolic, function is normal, estimated at 35-40. There is mildly increased left, ventricular wall thickness. Left ventricular septal wall motion is normal. The left ventricular diastolic function is abnormal. Cardiology on board could be secondary to [facility]AS will wait on further recommendations from Cardiology patient likely will need ischemic evaluation. (4) Elevated troponin: Code(s): R79.89 - Other specified abnormal findings of blood chemistry Status: Acute Assessment and Plan: Patient with elevated troponins arrival trending down could be secondary to ischemic demand secondary to cyclic vomiting with dehydration and hypokalemia likely not ACS without chest pain cardiology consulted for further evaluation. Echocardiogram did show diastolic dysfunction with reduced ejection fraction 30- 40%. Patient may need ischemic workup * troponins trending down * ordered follow-up troponin tomorrow to evaluate for downtrend * EKG with some T-wave inversion * trended replenish electrolytes especially potassium and Mag keep K+ >4.0 mag >2.0 (5) Aspiration pneumonia: Code(s): J69.0 - Pneumonitis due to inhalation of food and vomit Status: Acute Assessment and Plan: patient reported she aspirated on her vomit at home chest x-ray suspicious for pneumonia * Rocephin and Flagyl IV * IVF for hydration * Blood cultures pending (6) Hypokalemia: Code(s): E87.6 - Hypokalemia Status: Acute Assessment and Plan: patient's potassium as low as 2.8 * replenish with 80 mEq * repeat BNP later today daily * keep >3.5 * continuous cardiac monitoring (7) Lactic acidosis: Code(s): E87.20 - Acidosis, unspecified Status: Resolved Assessment and Plan: * 2 L fluid bolus * Repeat lactic acid 1.2 RESOLVED Plan Code status: Full code per patient DVT prophylaxis: SCd's Stress ulcer prophylaxis: Pepcid PT/OT notes: Ambulatory Disposition: Patient continues admission due to cyclic vomiting induced by mast cell activation syndrome she also had elevated troponins she was admitted for further evaluation and treatment continue to replenish electrolytes and trend troponins will advance diet as tolerated. New diastolic heart failure with reduced ejection fraction patient is ambulatory and plan will be to return home at discharge when medically stable. Time Spent With Patient Time with patient: 15 - 25 minutes Subjective Date/time seen: 03/02/25 09:26 Interval history: Patient was a 44-year-old female admitted for further evaluation of cyclic vomiting with mass cell activation syndrome and elevated troponins. 03/02/2025: Patient tolerating oral intake and denied any vomiting since this am. Troponin trending flat denies CP but reports chest tightness Review of Systems Review of Systems: 12 systems were reviewed and are negativ e except for as per HPI. All systems reviewed & are unremarkable except as noted in HPI and below Exam Narrative: General: NAD Respiratory: Diminished on the right side Cardiovascular: RRR Abdomen: Soft, round, tenderness Extremities:Active ROM to all four extremities. Neuro: Alert and orientated x 4. Skin: Warm, dry, and intact, without rash, erythema, or lesion. Psych: pleasant, cooperative Objective Data Vital Signs Vital Signs: Vital Signs - 24 hr 03/01/25 12:19 03/01/25 15:58 03/01/25 16:00 Temperature 97.7 F 98.3 F Pulse Rate 88 89 Respiratory Rate 16 Blood Pressure 148/88 H 112/65 Pulse Oximetry 98 96 100 Oxygen Delivery Room Air Room Air Fraction of Inspired Oxygen 03/01/25 16:00 03/01/25 19:58 03/01/25 20:00 Temperature 98.4 F Pulse Rate 98 75 75 Respiratory Rate 18 Blood Pressure 101/59 L Pulse Oximetry 92 Oxygen Delivery Fraction of Inspired Oxygen 03/01/25 20:35 03/01/25 20:44 03/01/25 22:00 Temperature Pulse Rate 75 83 70 Respiratory Rate 18 Blood Pressure Pulse Oximetry 92 93 Oxygen Delivery Room Air Room Air Fraction of Inspired Oxygen 21 03/01/25 23:49 03/02/25 00:00 03/02/25 00:00 Temperature 97.9 F Pulse Rate 71 71 65 Respiratory Rate 18 18 Blood Pressure 118/61 Pulse Oximetry 95 95 Oxygen Delivery Room Air Fraction of Inspired Oxygen 03/02/25 02:00 03/02/25 04:00 03/02/25 04:00 Temperature 97.9 F Pulse Rate 98 98 98 Respiratory Rate 18 18 Blood Pressure 150/87 H Pulse Oximetry 97 97 Oxygen Delivery Room Air Fraction of Inspired Oxygen 03/02/25 04:00 03/02/25 06:00 03/02/25 08:02 Temperature 98.1 F Pulse Rate 89 100 92 Respiratory Rate 18 Blood Pressure 148/92 H Pulse Oximetry 97 Oxygen Delivery Fraction of Inspired Oxygen Intake/Output Intake/Output: Intake & Output 02/27/25 02/28/25 03/01/25 03/02/25 23:59 23:59 23:59 23:59 Intake Total 4740 1220 Balance 4740 1220 Meds/Results Medications: Active Medications Generic Name Dose Route Start Last Admin Trade Name Freq PRN Reason Stop Dose Admin Acetaminophen 650 mg 03/01/25 14:24 Acetaminophen 325 Mg Tablet PO Q4H PRN Mild Pain (1-3) or Fever Alprazolam 0.5 mg 03/01/25 16:58 03/01/25 20:54 Alprazolam (*Crx) 0.5 Mg Tablet PO 0.5 mg DAILY PRN Administration Anxiety Aspirin 325 mg 03/02/25 08:00 Aspirin 325 Mg Tablet PO DAILY@0800 [facility] Famotidine 10 mg 03/01/25 21:00 03/01/25 21:40 Famotidine 10 Mg Tablet PO 10 mg Q12HR DANIEL Administration Hydromorphone HCl 0.5 mg 03/02/25 09:14 Hydromorphone Hcl Inj (*Crx) 2 Mg/Ml Vial IV PUSH Q3H PRN Pain Rated 7-10 Ceftriaxone Sodium 1 gm in 50 mls @ 100 mls/hr 03/02/25 09:00 03/02/25 09:03 Rocephin 1 Gm/Ns 50 Ml IVPB 100 mls/hr DAILY DANIEL Administration Metronidazole 500 mg in 100 mls @ 100 mls/hr 03/01/25 22:00 03/02/25 06:55 Flagyl 500 Mg/Iso Soln 100 Ml IVPB Infused Q8H DANIEL Infusion Sodium Chloride 1,000 mls @ 125 mls/hr 03/01/25 14:25 03/02/25 03:54 Normal Saline Iv IV CONT 125 mls/hr .Q8H DANIEL Administration Potassium Chloride 40 meq/ 520 mls @ 130 mls/hr 03/02/25 06:14 03/02/25 06:35 Sodium Chloride IVPB 03/02/25 10:13 130 mls/hr ONCE ONE Administration Potassium Chloride 40 meq/ 520 mls @ 130 mls/hr 03/02/25 10:30 Sodium Chloride IVPB 03/02/25 14:29 ONCE ONE Lorazepam 0.5 mg 03/02/25 09:15 Lorazepam Inj (*Crx) 2 Mg/Ml Vial IV PUSH Q4HR PRN Vomiting Melatonin 10 mg 03/01/25 23:25 03/01/25 23:55 Melatonin 5 Mg Tablet PO 10 mg HS DANIEL Administration Metoclopramide HCl 10 mg 03/01/25 23:18 03/02/25 09:00 Metoclopramide Hcl Inj 10 Mg/2 Ml Vial IV PUSH 10 mg Q6HR PRN Administration Vomiting Sertraline HCl 100 mg 03/02/25 09:00 Sertraline Hcl 50 Mg Tablet PO DAILY DANIEL Trimethobenzamide HCl 200 mg 03/01/25 16:59 03/02/25 03:59 Trimethobenzamide Hcl 200 Mg/2 Ml Vial IM 200 mg Q6H PRN Administration Nausea And Vomiting Valacyclovir HCl 500 mg 03/02/25 09:00 Valacyclovir Hcl 500 Mg Tablet PO DAILY [facility] Radiology Results: ITS Impressions Chest X-Ray 03/01/25 13:28 Impression: 1: Extensive right-sided airspace disease, compatible with pneumonia. Labs Labs: Laboratory Results - last 24 hr 03/01/25 03/01/25 03/01/25 12:29 13:51 15:58 WBC 14.3 H RBC 4.86 Hgb 15.3 H Hct 44.1 MCV 90.7 MCH 31.5 MCHC 34.7 RDW 12.2 Plt Count 254 MPV 10.4 Immature Gran % (Auto) 0.3 Neut % (Auto) 84.4 H Lymph % (Auto) 9.5 L [place] % (Auto) 5.4 Eos % (Auto) 0.1 Baso % (Auto) 0.3 Lymph # (Auto) 1.36 [place] # (Auto) 0.8 H Eos # (Auto) 0.0 Baso # (Auto) 0.1 Abs Immat Gran (auto) 0.04 H Absolute Neuts (auto) 12.1 H Absolute Nucleated RBC 0.000 Nucleated RBC % 0.0 PT 14.2 INR 1.1 APTT 31.3 Sodium 131 L Potassium 3.0 L Chloride 92 L Carbon Dioxide 25 Anion Gap 14 H BUN 16 Creatinine 0.66 L Estim Creat Clear Calc 125 Estimated GFR > 60 Glucose 145 H Lactic Acid 2.4 H Calcium 8.9 Phosphorus Magnesium Total Bilirubin 1.2 AST 42 H ALT 18 Alkaline Phosphatase 79 Troponin I 0.663 H* 0.604 H* Total Protein 7.2 Albumin 4.0 Lipase 23 03/01/25 03/02/25 03/02/25 19:07 04:13 04:13 WBC 14.8 H RBC 4.46 Hgb 14.2 Hct 41.9 MCV 93.9 MCH 31.8 MCHC 33.9 RDW 12.5 Plt Count 242 MPV 10.6 H Immature Gran % (Auto) 0.5 Neut % (Auto) 83.0 H Lymph % (Auto) 8.9 L [place] % (Auto) 6.4 Eos % (Auto) 0.9 Baso % (Auto) 0.3 Lymph # (Auto) 1.32 [place] # (Auto) 1.0 H Eos # (Auto) 0.1 Baso # (Auto) 0.1 Abs Immat Gran (auto) 0.07 H Absolute Neuts (auto) 12.3 H Absolute Nucleated RBC 0.000 Nucleated RBC % 0.0 PT INR APTT Sodium 132 L Potassium 2.8 L* Chloride 97 L Carbon Dioxide 20 L Anion Gap 15 H BUN 15 Creatinine 0.72 Estim Creat Clear Calc 116 Estimated GFR > 60 Glucose 111 H Lactic Acid 1.2 Calcium 8.1 L Phosphorus 2.2 L Magnesium Cancelled 2.1 Total Bilirubin AST ALT Alkaline Phosphatase Troponin I 0.563 H* Total Protein Albumin Lipase Quality VTE Prophylaxis VTE prophylaxis: mechanical ordered -Patient's previous records reviewed on admission -ER notes reviewed in detail on admission -discussed all findings and current treatment plan with patient/Family/POA -Consultations reviewed for recommendations -Patient's disposition for safe discharge discussed with human services case manager Dictation performed by [employer] direct speech recognition software, therefore paper baler variants and typographical errors may occur. Hospitalist MIPS Advance Care Plan I have confirmed that the patient's Advanced Care Plan is present, code status is documented, or surrogate decision maker is listed in patient medical record.: Yes Medication Reconciliation I have utilized all available resources to obtain, update and review the patients current medications (includes all prescriptions, OTC, herbals, cannabis, and nutritional supplements).: Yes The patient is not eligible for med reconciliation; the patient is in a emergent medical situation where delaying treatment would jeopardize the patients health.: No
[2025-03-02] MEDS: SERTRALINE HCL 50 MG TABLET 100 MG PO (09:38)
[2025-03-02] MEDS: valACYclovir HCL 500 MG TABLET PO (09:39)
[2025-03-02] MEDS: POTASSIUM PHOS/SODIUM PHOS 250 MG TABLET PO (09:39)
[2025-03-02] MEDS: FAMOTIDINE 10 MG TABLET PO ×2 (09:41→20:53)
[2025-03-02] MEDS: LORazepam INJ (*CRX) 2 MG/ML VIAL 0.5 MG IV PUSH ×2 (09:45→17:05)
[2025-03-02 09:59] LABS: Troponin I 0.566 ng/mL (0.000-0.034)
[2025-03-02 16:35] LABS: Anion Gap 7 mmol/L (4-12); Blood Urea Nitrogen 12 mg/dL (7-17); Calcium 7.4 mg/dL (8.4-10.2); Carbon Dioxide 23 mmol/L (22-30); Chloride 101 mmol/L (98-107); Estimated CRCL calculation 129 ml/min; Estimated Glomerular Filt Rate > 60; Glucose 91 mg/dL (65-110); Potassium 3.6 mmol/L (3.4-5.0); Sodium 131 mmol/L (137-145)
[2025-03-02 16:46] LABS: NT Pro B Type Natriuretic Pept 18500 pg/mL (19.9-100)
[2025-03-02] MEDS: MELATONIN 5 MG TABLET 10 MG PO (20:53)
[2025-03-02] MEDS: ALPRAZolam (*CRX) 0.5 MG TABLET PO (20:54)
[2025-03-03] VITALS (21 sets, daily range): BP systolic 118–173; BP diastolic 69–99; PULSE 72–100; RESP 14–24; TEMP 36.4–36.9; O2SAT 96–100
[2025-03-03] MEDS: metroNIDAZOLE 500 MG/ISO 100ML 500 MG/100 ML BAG 100 MG IVPB ×3 (05:24→21:39)
[2025-03-03 05:45] LABS: Hematocrit 36.8 % (37.0-47.0); Hemoglobin 11.8 g/dL (12.0-15.0); Mean Corpuscular HGB Conc 32.1 g/dl (32-36); Mean Corpuscular Hemoglobin 31.2 pg (26-34); Mean Corpuscular Volume 97.4 fl (80-100); Mean Platelet Volume 10.6 fl (7.4-10.4); Platelet Count Result 212 k/mm3 (150-375); Red Blood Count 3.78 M/mm3 (4.2-5.4); Red Cell Distribution Width 12.4 % (11.5-14.5); White Blood Count 6.1 K/mm3 (4.5-10.0)
[2025-03-03 05:58] LABS: Potassium 3.1 mmol/L (3.4-5.0)
[2025-03-03 06:04] LABS: Alanine Aminotransferase 14 U/L (6-35); Albumin Level 2.7 g/dL (3.5-5.1); Alkaline Phosphatase 45 U/L (38-126); Anion Gap 8 mmol/L (4-12); Aspartate Amino Transferase 37 U/L (14-36); Bilirubin,Total 0.3 mg/dL (0.2-1.3); Blood Urea Nitrogen 11 mg/dL (7-17); Calcium 7.5 mg/dL (8.4-10.2); Carbon Dioxide 23 mmol/L (22-30); Chloride 104 mmol/L (98-107); Estimated CRCL calculation 138 ml/min; Estimated Glomerular Filt Rate > 60; Glucose 86 mg/dL (65-110); Sodium 135 mmol/L (137-145); Total Protein 5.2 g/dL (6.3-8.2)
[2025-03-03 06:16] LABS: Troponin I 0.327 ng/mL (0.000-0.034)
[2025-03-03] MEDS: TRIMETHOBENZAMIDE HCL 200 MG/2 ML VIAL IM (08:20)
--- NOTE | 2025-03-03 09:08 | P.PNIM_ITS ---
Progress Note: A&P Assessment and Plan (1) Cardiomyopathy: Code(s): I42.9 - Cardiomyopathy, unspecified Status: Acute Assessment and Plan: Echo: Left ventricular chamber dimension is normal. Left ventricular systolic, function is normal, estimated at 35-40. There is mildly increased left, ventricular wall thickness. Left ventricular septal wall motion is normal. The left ventricular diastolic function is abnormal. Cardiology on board could be secondary to MCAS will wait on further recommendations from Cardiology patient likely will need ischemic evaluation. * NPO * Stress test 03/04/2025 * ASA 325 (2) Elevated troponin: Code(s): R79.89 - Other specified abnormal findings of blood chemistry Status: Acute Assessment and Plan: Patient with elevated troponins arrival trending down could be secondary to ischemic demand secondary to cyclic vomiting with dehydration and hypokalemia likely not ACS without chest pain cardiology consulted for further evaluation. Echocardiogram did show diastolic dysfunction with reduced ejection fraction 30- 40%. 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 Jose C Johnson [employer] bisc[employer] specialist with recommendations for Patient received 2 L IV fluid bolus3 keeping potassium level above 3.5 Followed by 10 mg of IV Reglan, 50 mg of IV Benadryl, 1 mg of IV Ativan, 25 mg IV push famotidine followed by 30 mg IV Toradol in 1 hour * continue Aspirin 325 * Ativan p.r.n. for vomiting if unrelieved by antiemetics * antiemetics * diet as tolerated * PPI * Gave 1 x dose Haldol (4) Cyclical vomiting syndrome: Code(s): R11.15 - Cyclical vomiting syndrome unrelated to migraine Status: Acute Assessment and Plan: SEE ABOVE (5) Aspiration pneumonia: Code(s): J69.0 - Pneumonitis due to inhalation of food and vomit Status: Acute Assessment and Plan: patient reported she aspirated on her vomit at home chest x-ray suspicious for pneumonia * Rocephin and Flagyl IV * IVF for hydration * Blood cultures pending (6) Hypokalemia: Code(s): E87.6 - Hypokalemia Status: Acute Assessment and Plan: patient's potassium as low as 2.8 * replenish with 80 mEq * keep >3.5 * continuous cardiac monitoring (7) Lactic acidosis: Code(s): E87.20 - Acidosis, unspecified Status: Resolved Assessment and Plan: * 2 L fluid bolus * Repeat lactic acid 1.2 RESOLVED Plan Code status: Full code per patient DVT prophylaxis: SCd's Stress ulcer prophylaxis: Pepcid PT/OT notes: Ambulatory Disposition: Patient continues admission due to cyclic vomiting induced by mast cell activation syndrome she also had elevated troponins she was admitted for further evaluation and treatment continue to replenish electrolytes and trend troponins will advance diet as tolerated. Cardiomyopathy with reduced ejection fraction patient is ambulatory and plan will be to return home at discharge when medically stable. NPO at midnight for stress test in the morning Time Spent With Patient Time with patient: 15 - 25 minutes Subjective Date/time seen: 03/03/25 09:08 Interval history: Patient was a 44-year-old female admitted for further evaluation of cyclic vomiting with mass cell activation syndrome and elevated troponins. 03/03/2025: Patient tearful during assessment with concerns of her new diagnosis of cardiomyopathy, denied SP but did state she has had SOB but no more then usual. Patient reports she is still vomiting when she attempts to eat only tolerating water. Review of Systems Review of Systems: 12 systems were reviewed and are negativ e except for as per HPI. All systems reviewed & are unremarkable except as noted in HPI and below Exam Narrative: General: NAD Respiratory: Diminished on the right side Cardiovascular: RRR Abdomen: Soft, round, tenderness Extremities:Active ROM to all four extremities. Neuro: Alert and orientated x 4. Skin: Warm, dry, and intact, without rash, erythema, or lesion. Psych: pleasant, cooperative Objective Data Vital Signs Vital Signs: Vital Signs - 24 hr 03/02/25 10:00 03/02/25 11:51 03/02/25 12:00 Temperature 98.3 F Pulse Rate 79 71 Respiratory Rate 18 Blood Pressure 110/58 L Pulse Oximetry 99 99 Oxygen Delivery Room Air 03/02/25 12:00 03/02/25 14:00 03/02/25 16:00 Temperature Pulse Rate 73 76 Respiratory Rate Blood Pressure Pulse Oximetry 97 Oxygen Delivery Room Air 03/02/25 16:00 03/02/25 16:47 03/02/25 18:00 Temperature 97.9 F Pulse Rate 70 71 71 Respiratory Rate 20 Blood Pressure 115/67 Pulse Oximetry 97 Oxygen Delivery 03/02/25 20:00 03/02/25 20:30 03/02/25 20:30 Temperature 98.6 F Pulse Rate 93 83 Respiratory Rate 20 Blood Pressure 98/49 L 122/67 Pulse Oximetry 97 Oxygen Delivery 03/02/25 20:40 03/02/25 22:00 03/02/25 23:09 Temperature Pulse Rate 83 74 72 Respiratory Rate 20 20 Blood Pressure Pulse Oximetry 97 95 Oxygen Delivery Room Air Room Air 03/02/25 23:17 03/03/25 00:00 03/03/25 01:32 Temperature 98.6 F Pulse Rate 72 73 78 Respiratory Rate 20 Blood Pressure 118/59 L Pulse Oximetry 95 Oxygen Delivery 03/03/25 03:04 03/03/25 03:05 03/03/25 04:00 Temperature 98.4 F Pulse Rate 77 77 78 Respiratory Rate 16 16 Blood Pressure 124/78 Pulse Oximetry 98 98 Oxygen Delivery Room Air 03/03/25 05:05 03/03/25 07:44 03/03/25 08:00 Temperature 97.5 F L Pulse Rate 72 88 94 Respiratory Rate 18 Blood Pressure 145/78 H Pulse Oximetry 96 Oxygen Delivery 03/03/25 08:00 Temperature Pulse Rate Respiratory Rate Blood Pressure Pulse Oximetry 96 Oxygen Delivery Room Air Intake/Output Intake/Output: Intake & Output 02/28/25 03/01/25 03/02/25 03/03/25 23:59 23:59 23:59 23:59 Intake Total 4740 4962 400 Output Total 2300 925 Balance 4745 4147 -080 Meds/Results Medications: Active Medications Generic Name Dose Route Start Last Admin Trade Name Freq PRN Reason Stop Dose Admin Acetaminophen 650 mg 03/01/25 14:24 Acetaminophen 325 Mg Tablet PO Q4H PRN Mild Pain (1-3) or Fever Alprazolam 0.5 mg 03/01/25 16:58 03/02/25 20:54 Alprazolam (*Crx) 0.5 Mg Tablet PO 0.5 mg DAILY PRN Administration Anxiety Aspirin 81 mg 03/02/25 09:50 03/02/25 10:55 Aspirin 81 Mg Enteric Tablet PO Not Given QAM DANIEL Famotidine 10 mg 03/01/25 21:00 03/02/25 20:53 Famotidine 10 Mg Tablet PO 10 mg Q12HR DANIEL Administration Hydromorphone HCl 0.5 mg 03/02/25 09:14 Hydromorphone Hcl Inj (*Crx) 2 Mg/Ml Vial IV PUSH Q3H PRN Pain Rated 7-10 Ceftriaxone Sodium 1 gm in 50 mls @ 100 mls/hr 03/02/25 09:00 03/02/25 09:33 Rocephin 1 Gm/Ns 50 Ml IVPB Infused DAILY DANIEL Infusion Metronidazole 500 mg in 100 mls @ 100 mls/hr 03/01/25 22:00 03/03/25 06:24 Flagyl 500 Mg/Iso Soln 100 Ml IVPB Infused Q8H DANIEL Infusion Potassium Chloride 40 meq/ 520 mls @ 130 mls/hr 03/03/25 09:06 Sodium Chloride IVPB 03/03/25 13:05 ONCE ONE Lorazepam 0.5 mg 03/02/25 09:15 03/02/25 17:05 Lorazepam Inj (*Crx) 2 Mg/Ml Vial IV PUSH 0.5 mg Q4HR PRN Administration Vomiting Melatonin 10 mg 03/01/25 23:25 03/02/25 20:53 Melatonin 5 Mg Tablet PO 10 mg HS DANIEL Administration Metoclopramide HCl 10 mg 03/01/25 23:18 03/02/25 17:23 Metoclopramide Hcl Inj 10 Mg/2 Ml Vial IV PUSH 10 mg Q6HR PRN Administration Vomiting Perflutren Lipid Microsphere 0 ml 03/02/25 09:39 Perflutren Lipid Microspheres 1.5 Ml Vial Diluted To 10 Ml Total Volume IV PUSH 03/05/25 09:39 ONCE PRN adequate visualization Protocol Potassium Chloride 40 meq 03/03/25 09:06 Potassium Chloride 20 Meq Er Tablet PO 03/03/25 09:07 ONCE ONE Sertraline HCl 100 mg 03/02/25 09:00 03/02/25 09:38 Sertraline Hcl 50 Mg Tablet PO 100 mg DAILY DANIEL Administration Trimethobenzamide HCl 200 mg 03/01/25 16:59 03/03/25 08:20 Trimethobenzamide Hcl 200 Mg/2 Ml Vial IM 200 mg Q6H PRN Administration Nausea And Vomiting Valacyclovir HCl 500 mg 03/02/25 09:00 03/02/25 09:39 Valacyclovir Hcl 500 Mg Tablet PO 500 mg DAILY DANIEL Administration Radiology Results: ITS Impressions Chest X-Ray 03/01/25 13:28 Impression: 1: Extensive right-sided airspace disease, compatible with pneumonia. Labs Labs: Laboratory Results - last 24 hr 03/02/25 03/02/25 03/03/25 04:13 16:08 05:13 WBC 6.1 RBC 3.78 L Hgb 11.8 L Hct 36.8 L MCV 97.4 MCH 31.2 MCHC 32.1 RDW 12.4 Plt Count 212 MPV 10.6 H Sodium 131 L 135 L Potassium 3.6 3.1 L Chloride 101 104 Carbon Dioxide 23 23 Anion Gap 7 8 BUN 12 11 Creatinine 0.65 L 0.61 L Estim Creat Clear Calc 129 138 Estimated GFR > 60 > 60 Glucose 91 86 Calcium 7.4 L 7.5 L Total Bilirubin 0.3 AST 37 H ALT 14 Alkaline Phosphatase 45 Troponin I 0.566 H* 0.327 H* NT-Pro-B Natriuret Pep 05279 H Total Protein 5.2 L Albumin 2.7 L Quality VTE Prophylaxis VTE prophylaxis: mechanical ordered -Patient's previous records reviewed on admission -ER notes reviewed in detail on admission -discussed all findings and current treatment plan with patient/Family/POA -Consultations reviewed for recommendations -Patient's disposition for safe discharge discussed with ed case manager Dictation performed by [employer] direct speech recognition software, therefore collision estimator variants and typographical errors may occur. Hospitalist MIPS Advance Care Plan I have confirmed that the patient's Advanced Care Plan is present, code status is documented, or surrogate decision maker is listed in patient medical record.: Yes Medication Reconciliation I have utilized all available resources to obtain, update and review the patients current medications (includes all prescriptions, OTC, herbals, cannabis, and nutritional supplements).: Yes The patient is not eligible for med reconciliation; the patient is in a emergent medical situation where delaying treatment would jeopardize the patients health.: No
--- NOTE | 2025-03-03 09:37 | PM.PNCARD ---
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 EKG shows T inversion V1 to V3 which is unchanged from before. No chest pain. Suspect demand ischemia. Echocardiogram shows reduced ejection fraction 35-40%. No significant risk factors for CAD. Given cardiomyopathy and elevated troponins will recommend Lexiscan stress testing to rule out ischemia versus cardiac catheterization. We can not do it tomorrow if she is not significant vomiting. Continue aspirin. -in regards to hypokalemia secondary to vomiting, she continues to be hypokalemic. Replenish potassium. -in regards to her cyclic vomiting and mast cell activation management per primary team. Subjective Date/time seen: Date of service 03/03/25 09:37 Chief complaint elevated troponins, nausea vomiting Interval history: Date of service 03/03/2025-showed a lot of vomiting last night this morning. Denies chest pain, lower extremity edema. She feels short of breath but she does not appear to be volume overloaded Review of Systems Constitutional: Constitutional: Denies chills, Denies fever(s) and Denies poor appetite Eyes: Eyes: Denies eye discharge, Denies loss of vision, Denies eye pain and Denies photophobia ENT: Denies dizziness, Denies epistaxis, Denies nasal congestion and Denies sore throat Cardiovascular: Cardiovascular: Denies chest pain, Denies syncope, Denies pedal edema, Denies leg edema, Denies palpitations, Reports dyspnea, Denies dyspnea on exertion and Denies orthopnea Respiratory: Respiratory: Reports cough, Reports dyspnea, Denies dyspnea on exertion and Denies wheezing Gastrointestinal: Gastrointestinal: Denies abdominal pain, Denies diarrhea, Reports nausea and Reports vomiting Genitourinary: Genitourinary: Denies hematuria, Denies genital lesions and Denies dysuria Musculoskeletal: Musculoskeletal: Denies arthralgias, Denies joint swelling and Denies numbness Integumentary/Breasts: Skin/Breast: Denies pruritus and Denies rash Neurologic: Denies dizziness, Denies syncope, Denies loss of vision and Denies numbness Psychiatric: Psychiatric: Denies anxiety and Denies depression Endocrine: Endocrine: Denies cold intolerance, Denies heat intolerance and Denies palpitations Hematologic/Lymphatic: Hematologic/Lymphatic: Denies easy bleeding and Denies easy bruising Allergic/Immunologic: Allergic/Immunologic: Denies urticaria and Denies wheezing Exam Const: General: cooperative, comfortable, no acute distress, alert, awake and well nourished Nutritional Appearance: well nourished Orientation/consciousness: patient oriented x3 HENMT: Head: normal to inspection, normocephalic and atraumatic Ears: hearing grossly normal bilaterally Face/Nose/Sinus: Normal external nose present, Normal nares present, no nasal discharge noted, normal facial exam and No erythema Face and sinus: normal facial exam and no erythema Mouth: No drooling and No restricted motion Throat: uvula midline Eyes: General: appearance normal, both eyes and all related structures Alignment and Position: position normal Conjunctivae: conjunctivae normal Sclera: sclerae normal Direct Ophthalmoscopy: No photophobia Neck: Neck: normal visual inspection and no JVD Thyroid: thyroid normal Carotids: no bruits Lymphatic: lymphedema not noted Chest: Chest palpation & inspection: normal inspection of the chest and no tenderness Resp: Effort & Inspection: normal respiratory effort and no nasal flaring Auscultation: clear to auscultation bilaterally, no crackles, no rales and no wheezes Cardio: Jugular venous distension: no JVD Rate: regular rate Rhythm: regular rhythm Heart sounds: S1 normal heart sound present, S2 normal heart sound present, no gallops, no murmurs and no rubs GI: Inspection: non-distended Auscultation: normal bowel sounds Rectal Exam: deferred : General: No no CVA tenderness Back/Spine/Pelvis: Back: No no CVA tenderness Cervical Spine: cervical ROM normal Skin: General skin exam: normal color and rashes and/or lesions noted Neuro: General: patient oriented x3 Cranial nerves: No CN's II-XII intact bilaterally Speech: normal speech Motor exam (neuro): no tremors Extrem: General: normal to inspection and pedal edema present Psych: Appearance: grossly normal and well kempt Speech and movement: Normal speech and movement present Affect: normal affect Objective Data Vital Signs Vital Signs: Vital Signs - 24 hr 03/02/25 10:00 03/02/25 11:51 03/02/25 12:00 Temperature 36.8 C Pulse Rate 79 71 Respiratory Rate 18 Blood Pressure 110/58 L Pulse Oximetry 99 99 Oxygen Delivery Room Air 03/02/25 12:00 03/02/25 14:00 03/02/25 16:00 Temperature Pulse Rate 73 76 Respiratory Rate Blood Pressure Pulse Oximetry 97 Oxygen Delivery Room Air 03/02/25 16:00 03/02/25 16:47 03/02/25 18:00 Temperature 36.6 C Pulse Rate 70 71 71 Respiratory Rate 20 Blood Pressure 115/67 Pulse Oximetry 97 Oxygen Delivery 03/02/25 20:00 03/02/25 20:30 03/02/25 20:30 Temperature 37.0 C Pulse Rate 93 83 Respiratory Rate 20 Blood Pressure 98/49 L 122/67 Pulse Oximetry 97 Oxygen Delivery 03/02/25 20:40 03/02/25 22:00 03/02/25 23:09 Temperature Pulse Rate 83 74 72 Respiratory Rate 20 20 Blood Pressure Pulse Oximetry 97 95 Oxygen Delivery Room Air Room Air 03/02/25 23:17 03/03/25 00:00 03/03/25 01:32 Temperature 37.0 C Pulse Rate 72 73 78 Respiratory Rate 20 Blood Pressure 118/59 L Pulse Oximetry 95 Oxygen Delivery 03/03/25 03:04 03/03/25 03:05 03/03/25 04:00 Temperature 36.9 C Pulse Rate 77 77 78 Respiratory Rate 16 16 Blood Pressure 124/78 Pulse Oximetry 98 98 Oxygen Delivery Room Air 03/03/25 05:05 03/03/25 07:44 03/03/25 08:00 Temperature 36.4 C L Pulse Rate 72 88 94 Respiratory Rate 18 Blood Pressure 145/78 H Pulse Oximetry 96 Oxygen Delivery 03/03/25 08:00 Temperature Pulse Rate Respiratory Rate Blood Pressure Pulse Oximetry 96 Oxygen Delivery Room Air Intake/Output Intake/Output: Intake & Output 02/28/25 03/01/25 03/02/25 03/03/25 23:59 23:59 23:59 23:59 Intake Total 4740 4994 400 Output Total 0057 805 Balance 0737 0397 -841 Meds/Results Medications: Active Medications Generic Name Dose Route Start Last Admin Trade Name Freq PRN Reason Stop Dose Admin Acetaminophen 650 mg 03/01/25 14:24 Acetaminophen 325 Mg Tablet PO Q4H PRN Mild Pain (1-3) or Fever Alprazolam 0.5 mg 03/01/25 16:58 03/02/25 20:54 Alprazolam (*Crx) 0.5 Mg Tablet PO 0.5 mg DAILY PRN Administration Anxiety Aspirin 81 mg 03/02/25 09:50 03/02/25 10:55 Aspirin 81 Mg Enteric Tablet PO Not Given QAM DANIEL Famotidine 10 mg 03/01/25 21:00 03/02/25 20:53 Famotidine 10 Mg Tablet PO 10 mg Q12HR DANIEL Administration Hydromorphone HCl 0.5 mg 03/02/25 09:14 Hydromorphone Hcl Inj (*Crx) 2 Mg/Ml Vial IV PUSH Q3H PRN Pain Rated 7-10 Ceftriaxone Sodium 1 gm in 50 mls @ 100 mls/hr 03/02/25 09:00 03/02/25 09:33 Rocephin 1 Gm/Ns 50 Ml IVPB Infused DAILY DANIEL Infusion Metronidazole 500 mg in 100 mls @ 100 mls/hr 03/01/25 22:00 03/03/25 06:24 Flagyl 500 Mg/Iso Soln 100 Ml IVPB Infused Q8H DANIEL Infusion Potassium Chloride 40 meq/ 520 mls @ 130 mls/hr 03/03/25 09:06 Sodium Chloride IVPB 03/03/25 13:05 ONCE ONE Lorazepam 0.5 mg 03/02/25 09:15 03/02/25 17:05 Lorazepam Inj (*Crx) 2 Mg/Ml Vial IV PUSH 0.5 mg Q4HR PRN Administration Vomiting Melatonin 10 mg 03/01/25 23:25 03/02/25 20:53 Melatonin 5 Mg Tablet PO 10 mg HS DANIEL Administration Metoclopramide HCl 10 mg 03/01/25 23:18 03/02/25 17:23 Metoclopramide Hcl Inj 10 Mg/2 Ml Vial IV PUSH 10 mg Q6HR PRN Administration Vomiting Perflutren Lipid Microsphere 0 ml 03/02/25 09:39 Perflutren Lipid Microspheres 1.5 Ml Vial Diluted To 10 Ml Total Volume IV PUSH 03/05/25 09:39 ONCE PRN adequate visualization Protocol Sertraline HCl 100 mg 03/02/25 09:00 03/02/25 09:38 Sertraline Hcl 50 Mg Tablet PO 100 mg DAILY DANIEL Administration Trimethobenzamide HCl 200 mg 03/01/25 16:59 03/03/25 08:20 Trimethobenzamide Hcl 200 Mg/2 Ml Vial IM 200 mg Q6H PRN Administration Nausea And Vomiting Valacyclovir HCl 500 mg 03/02/25 09:00 03/02/25 09:39 Valacyclovir Hcl 500 Mg Tablet PO 500 mg DAILY DANIEL Administration Radiology Results: ITS Impressions Chest X-Ray 03/01/25 13:28 Impression: 1: Extensive right-sided airspace disease, compatible with pneumonia. Labs Labs: Laboratory Results - last 24 hr 03/02/25 03/02/25 03/03/25 04:13 16:08 05:13 WBC 6.1 RBC 3.78 L Hgb 11.8 L Hct 36.8 L MCV 97.4 MCH 31.2 MCHC 32.1 RDW 12.4 Plt Count 212 MPV 10.6 H Sodium 131 L 135 L Potassium 3.6 3.1 L Chloride 101 104 Carbon Dioxide 23 23 Anion Gap 7 8 BUN 12 11 Creatinine 0.65 L 0.61 L Estim Creat Clear Calc 129 138 Estimated GFR > 60 > 60 Glucose 91 86 Calcium 7.4 L 7.5 L Total Bilirubin 0.3 AST 37 H ALT 14 Alkaline Phosphatase 45 Troponin I 0.566 H* 0.327 H* NT-Pro-B Natriuret Pep 87503 H Total Protein 5.2 L Albumin 2.7 L Quality VTE Prophylaxis VTE prophylaxis: mechanical ordered
[2025-03-03] MEDS: SERTRALINE HCL 50 MG TABLET 100 MG PO (09:50)
[2025-03-03] MEDS: ASPIRIN 81 MG ENTERIC TABLET PO (09:50)
[2025-03-03] MEDS: FAMOTIDINE 10 MG TABLET PO ×2 (09:50→21:39)
[2025-03-03] MEDS: valACYclovir HCL 500 MG TABLET PO (09:51)
[2025-03-03] MEDS: POTASSIUM CHLORIDE INJ 40 MEQ in SODIUM CHLORIDE 0.9% IV 500 ML 130 MEQ IVPB (09:51)
[2025-03-03] MEDS: METOCLOPRAMIDE HCL INJ 10 MG/2 ML VIAL IV PUSH ×2 (11:40→21:55)
[2025-03-03] MEDS: HALOPERIDOL LACTATE 5 MG/ML VIAL IV PUSH (15:36)
[2025-03-03] MEDS: MELATONIN 5 MG TABLET 10 MG PO (21:39)
[2025-03-03] MEDS: ALPRAZolam (*CRX) 0.5 MG TABLET PO (21:40)
[2025-03-04] VITALS (16 sets, daily range): BP systolic 114–149; BP diastolic 68–86; PULSE 63–90; RESP 16–20; TEMP 36.4–36.9; O2SAT 97–100; BMI 34.9
[2025-03-04 04:25] LABS: Hematocrit 40.1 % (37.0-47.0); Mean Corpuscular HGB Conc 32.4 g/dl (32-36); Mean Corpuscular Hemoglobin 31.4 pg (26-34); Mean Corpuscular Volume 96.9 fl (80-100); Mean Platelet Volume 10.9 fl (7.4-10.4); Platelet Count Result 246 k/mm3 (150-375); Red Blood Count 4.14 M/mm3 (4.2-5.4); Red Cell Distribution Width 12.4 % (11.5-14.5)
[2025-03-04 04:46] LABS: Alanine Aminotransferase 16 U/L (6-35); Albumin Level 2.9 g/dL (3.5-5.1); Alkaline Phosphatase 39 U/L (38-126); Anion Gap 7 mmol/L (4-12); Aspartate Amino Transferase 53 U/L (14-36); Bilirubin,Total 0.3 mg/dL (0.2-1.3); Blood Urea Nitrogen 7 mg/dL (7-17); Calcium 7.9 mg/dL (8.4-10.2); Carbon Dioxide 24 mmol/L (22-30); Chloride 104 mmol/L (98-107); Estimated CRCL calculation 134 ml/min; Estimated Glomerular Filt Rate > 60; Glucose 78 mg/dL (65-110); Potassium 3.5 mmol/L (3.4-5.0); Sodium 135 mmol/L (137-145); Total Protein 5.5 g/dL (6.3-8.2)
[2025-03-04] MEDS: metroNIDAZOLE 500 MG/ISO 100ML 500 MG/100 ML BAG 100 MG IVPB ×3 (06:11→20:24)
[2025-03-04] MEDS: ASPIRIN 81 MG ENTERIC TABLET PO (08:23)
[2025-03-04] MEDS: SERTRALINE HCL 50 MG TABLET 100 MG PO (08:23)
[2025-03-04] MEDS: FAMOTIDINE 10 MG TABLET PO ×2 (08:23→20:24)
[2025-03-04] MEDS: valACYclovir HCL 500 MG TABLET PO (08:23)
--- NOTE | 2025-03-04 09:53 | EST_ITS ---
Patient Info Name: Agustina Tijerina Age: 44 years : 1980 Gender: Female Ht: 71 in Wt: 250 lbs BSA: 2.42 m2 HR: 87 bpm BP: 133 / 90 mmHg Exam Date: 03/04/2025 9:53 AM Patient Status: I Admit Date: 03/02/2025 Exam Type: CA stress archie w NM A regadenoson stress test was performed. Staff Referring Physician: Ervin Lew MD Attending Provider: Dewayne Clay Exercise Technologist: Cindy Lagunas Exercise Physician: Lucinda Wilks Summary 1. No abnormal ST-T wave changes with lexiscan. 2. Please correlate with nuclear medicine images, reported separately. Protocol: Lexiscan Stress ECG Details Stage: REST Duration (min): 1 min : 2 sec HR (bpm): 85 SBP (mmHg): 133 DBP (mmHg): 90 Stage: REST Duration (min): 23 min : 28 sec HR (bpm): 84 SBP (mmHg): 133 DBP (mmHg): 90 Stage: STAGE 1 Duration (min): 1 min : 0 sec HR (bpm): 103 SBP (mmHg): 140 DBP (mmHg): 90 Stage: RECOVERY Duration (min): 1 min : 0 sec HR (bpm): 106 SBP (mmHg): 140 DBP (mmHg): 90 Stage: RECOVERY Duration (min): 2 min : 0 sec HR (bpm): 102 SBP (mmHg): 140 DBP (mmHg): 90 Stage: RECOVERY Duration (min): 3 min : 0 sec HR (bpm): 94 SBP (mmHg): 129 DBP (mmHg): 83 Stage: RECOVERY Duration (min): 4 min : 0 sec HR (bpm): 95 SBP (mmHg): 129 DBP (mmHg): 83 Stage: RECOVERY Duration (min): 4 min : 43 sec HR (bpm): 95 SBP (mmHg): 132 DBP (mmHg): 84 Rest HR: 84 bpm Peak HR: 107 bpm Rest Sys BP: 133 mmHg Peak Sys BP: 140 mmHg Max Pred HR: 175 bpm % Max Pred HR: 61 % Target HR: 149 bpm Max RPP: 14,980 bpm*mmHg Total Time: 1 min : 0 sec Rest Holland BP: 90 mmHg Peak [place] BP: 90 mmHg Total Dose: 0.4 mg Resting ECG Sinus rhythm with a ventricular rate of 85 beats per minute. Nonspecific T-wave changes in leads I and aVL. Stress ECG EKG changes did not meet ischemic criteria. Arrhythmias No arrhythmias. Report Signatures
--- NOTE | 2025-03-04 15:49 | P.PNIM_ITS ---
Progress Note: A&P Assessment and Plan (1) Cardiomyopathy: Code(s): I42.9 - Cardiomyopathy, unspecified Status: Acute Assessment and Plan: Echo: Left ventricular chamber dimension is normal. Left ventricular systolic, function is normal, estimated at 35-40. There is mildly increased left, ventricular wall thickness. Left ventricular septal wall motion is normal. The left ventricular diastolic function is abnormal. Cardiology on board could be secondary to MCAS will wait on further recommendations from Cardiology patient likely will need ischemic evaluation. * Stress test No ST/T changes on nuclear/Lexiscan pending * ASA 325 * Will likely need BB or Entresto for new cardiomyopathy will defer to cardiology (2) Elevated troponin: Code(s): R79.89 - Other specified abnormal findings of blood chemistry Status: Acute Assessment and Plan: Patient with elevated troponins arrival trending down could be secondary to ischemic demand secondary to cyclic vomiting with dehydration and hypokalemia likely not ACS without chest pain cardiology consulted for further evaluation. Echocardiogram did show diastolic dysfunction with reduced ejection fraction 30- 40%. 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 Jose C Johnson mortgage lender specialist with recommendations for Patient received 2 L IV fluid bolus3 keeping potassium level above 3.5 Followed by 10 mg of IV Reglan, 50 mg of IV Benadryl, 1 mg of IV Ativan, 25 mg IV push famotidine followed by 30 mg IV Toradol in 1 hour * continue Aspirin 325 * Ativan p.r.n. for vomiting if unrelieved by antiemetics * antiemetics * advanced her diet * PPI (4) Cyclical vomiting syndrome: Code(s): R11.15 - Cyclical vomiting syndrome unrelated to migraine Status: Acute Assessment and Plan: SEE ABOVE (5) Aspiration pneumonia: Code(s): J69.0 - Pneumonitis due to inhalation of food and vomit Status: Acute Assessment and Plan: patient reported she aspirated on her vomit at home chest x-ray suspicious for pneumonia * Rocephin and Flagyl IV * IVF for hydration * Blood cultures pending (6) Hypokalemia: Code(s): E87.6 - Hypokalemia Status: Acute Assessment and Plan: patient's potassium as low as 2.8 * replenish with 80 mEq * keep >3.5 * continuous cardiac monitoring (7) Lactic acidosis: Code(s): E87.20 - Acidosis, unspecified Status: Resolved Assessment and Plan: * 2 L fluid bolus * Repeat lactic acid 1.2 RESOLVED Plan Code status: Full code per patient DVT prophylaxis: SCd's Stress ulcer prophylaxis: Pepcid PT/OT notes: Ambulatory Disposition: Patient continues admission due to cyclic vomiting induced by mast cell activation syndrome she also had elevated troponins she was admitted for f urther evaluation and treatment continue to replenish electrolytes and trend troponins will advance diet as tolerated. Cardiomyopathy with reduced ejection fraction patient is ambulatory and plan will be to return home at discharge when medically stable. Time Spent With Patient Time with patient: 15 - 25 minutes Subjective Date/time seen: 03/04/25 15:49 Interval history: Patient was a 44-year-old female admitted for further evaluation of cyclic vomiting with mass cell activation syndrome and elevated troponins. 03/04/2025: Patient with no complaints reported last nausea episode around midnight but was NPO for stress afterwards. Stress test today no St/T changes Lexiscan still pending. Will advance patient diet and see if she can tolerate. Review of Systems Review of Systems: 12 systems were reviewed and are negativ e except for as per HPI. All systems reviewed & are unremarkable except as noted in HPI and below Exam Narrative: General: NAD Respiratory: Diminished on the right side Cardiovascular: RRR Abdomen: Soft, round, tenderness Extremities:Active ROM to all four extremities. Neuro: Alert and orientated x 4. Skin: Warm, dry, and intact, without rash, erythema, or lesion. Psych: pleasant, cooperative Objective Data Vital Signs Vital Signs: Vital Signs - 24 hr 03/03/25 15:59 03/03/25 16:00 03/03/25 16:00 Temperature 98.3 F Pulse Rate 88 86 Respiratory Rate 14 Blood Pressure 119/71 Pulse Oximetry 98 98 Oxygen Delivery Room Air Fraction of Inspired Oxygen 03/03/25 18:00 03/03/25 20:00 03/03/25 20:00 Temperature 98.3 F Pulse Rate 80 86 90 Respiratory Rate 14 Blood Pressure 122/69 Pulse Oximetry 100 Oxygen Delivery Fraction of Inspired Oxygen 03/03/25 20:54 03/03/25 21:36 03/03/25 22:00 Temperature Pulse Rate 86 76 Respiratory Rate 14 Blood Pressure Pulse Oximetry 100 100 Oxygen Delivery Room Air Room Air Fraction of Inspired Oxygen 21 03/03/25 23:13 03/03/25 23:18 03/04/25 00:00 Temperature 98.2 F Pulse Rate 88 88 81 Respiratory Rate 20 20 Blood Pressure 118/78 Pulse Oximetry 100 100 Oxygen Delivery Room Air Fraction of Inspired Oxygen 03/04/25 01:28 03/04/25 04:00 03/04/25 04:00 Temperature 98.4 F Pulse Rate 68 78 75 Respiratory Rate 16 Blood Pressure 122/68 Pulse Oximetry 100 Oxygen Delivery Fraction of Inspired Oxygen 03/04/25 04:03 03/04/25 05:56 03/04/25 08:00 Temperature Pulse Rate 75 78 90 Respiratory Rate 16 Blood Pressure Pulse Oximetry 100 Oxygen Delivery Room Air Fraction of Inspired Oxygen 03/04/25 08:00 03/04/25 08:44 03/04/25 10:00 Temperature 97.8 F Pulse Rate 80 75 Respiratory Rate 20 Blood Pressure 149/84 H Pulse Oximetry 97 97 Oxygen Delivery Room Air Fraction of Inspired Oxygen 03/04/25 12:00 03/04/25 12:00 03/04/25 14:00 Temperature Pulse Rate 81 79 Respiratory Rate Blood Pressure Pulse Oximetry 97 Oxygen Delivery Room Air Fraction of Inspired Oxygen 03/04/25 15:46 Temperature Pulse Rate Respiratory Rate Blood Pressure Pulse Oximetry 97 Oxygen Delivery Room Air Fraction of Inspired Oxygen Intake/Output Intake/Output: Intake & Output 03/01/25 03/02/25 03/03/25 03/04/25 23:59 23:59 23:59 23:59 Intake Total 4740 4988 2770 350 Output Total 2300 2925 1900 Balance 4742 4150 -512 -2359 Meds/Results Medications: Active Medications Generic Name Dose Route Start Last Admin Trade Name Freq PRN Reason Stop Dose Admin Acetaminophen 650 mg 03/01/25 14:24 Acetaminophen 325 Mg Tablet PO Q4H PRN Mild Pain (1-3) or Fever Alprazolam 0.5 mg 03/01/25 16:58 03/03/25 21:40 Alprazolam (*Crx) 0.5 Mg Tablet PO 0.5 mg DAILY PRN Administration Anxiety Aspirin 81 mg 03/02/25 09:50 03/04/25 08:23 Aspirin 81 Mg Enteric Tablet PO 81 mg QAM DANIEL Administration Famotidine 10 mg 03/01/25 21:00 03/04/25 08:23 Famotidine 10 Mg Tablet PO 10 mg Q12HR DANIEL Administration Hydromorphone HCl 0.5 mg 03/02/25 09:14 Hydromorphone Hcl Inj (*Crx) 2 Mg/Ml Vial IV PUSH Q3H PRN Pain Rated 7-10 Ceftriaxone Sodium 1 gm in 50 mls @ 100 mls/hr 03/02/25 09:00 03/04/25 08:23 Rocephin 1 Gm/Ns 50 Ml IVPB 100 mls/hr DAILY DANIEL Administration Metronidazole 500 mg in 100 mls @ 100 mls/hr 03/01/25 22:00 03/04/25 14:36 Flagyl 500 Mg/Iso Soln 100 Ml IVPB 100 mls/hr Q8H DANIEL Administration Lorazepam 0.5 mg 03/02/25 09:15 03/02/25 17:05 Lorazepam Inj (*Crx) 2 Mg/Ml Vial IV PUSH 0.5 mg Q4HR PRN Administration Vomiting Melatonin 10 mg 03/01/25 23:25 03/03/25 21:39 Melatonin 5 Mg Tablet PO 10 mg HS DANIEL Administration Metoclopramide HCl 10 mg 03/01/25 23:18 03/03/25 21:55 Metoclopramide Hcl Inj 10 Mg/2 Ml Vial IV PUSH 10 mg Q6HR PRN Administration Vomiting Perflutren Lipid Microsphere 0 ml 03/02/25 09:39 Perflutren Lipid Microspheres 1.5 Ml Vial Diluted To 10 Ml Total Volume IV PUSH 03/05/25 09:39 ONCE PRN adequate visualization Protocol Sertraline HCl 100 mg 03/02/25 09:00 03/04/25 08:23 Sertraline Hcl 50 Mg Tablet PO 100 mg DAILY DANIEL Administration Trimethobenzamide HCl 200 mg 03/01/25 16:59 03/03/25 08:20 Trimethobenzamide Hcl 200 Mg/2 Ml Vial IM 200 mg Q6H PRN Administration Nausea And Vomiting Valacyclovir HCl 500 mg 03/02/25 09:00 03/04/25 08:23 Valacyclovir Hcl 500 Mg Tablet PO 500 mg DAILY DANIEL Administration Radiology Results: ITS Impressions Chest X-Ray 03/01/25 13:28 Impression: 1: Extensive right-sided airspace disease, compatible with pneumonia. Labs Labs: Laboratory Results - last 24 hr 03/04/25 03:43 WBC 7.0 RBC 4.14 L Hgb 13.0 Hct 40.1 MCV 96.9 MCH 31.4 MCHC 32.4 RDW 12.4 Plt Count 246 MPV 10.9 H Sodium 135 L Potassium 3.5 Chloride 104 Carbon Dioxide 24 Anion Gap 7 BUN 7 Creatinine 0.63 L Estim Creat Clear Calc 134 Estimated GFR > 60 Glucose 78 Calcium 7.9 L Total Bilirubin 0.3 AST 53 H ALT 16 Alkaline Phosphatase 39 Total Protein 5.5 L Albumin 2.9 L Quality VTE Prophylaxis VTE prophylaxis: mechanical ordered Hospitalist [facility] Advance Care Plan I have confirmed that the patient's Advanced Care Plan is present, code status is documented, or surrogate decision maker is listed in patient medical record.: Yes Medication Reconciliation I have utilized all available resources to obtain, update and review the patients current medications (includes all prescriptions, OTC, herbals, cannabis, and nutritional supplements).: Yes The patient is not eligible for med reconciliation; the patient is in a emergent medical situation where delaying treatment would jeopardize the patients health.: No
[2025-03-04] MEDS: POTASSIUM CHLORIDE 20 MEQ ER TABLET 40 MEQ PO (17:39)
[2025-03-04] MEDS: MELATONIN 5 MG TABLET 10 MG PO (20:24)
[2025-03-05] VITALS (8 sets, daily range): BP systolic 124–132; BP diastolic 68–81; PULSE 60–80; RESP 14–16; TEMP 36.7–36.9; O2SAT 97–100
[2025-03-05 04:31] LABS: Hematocrit 38.9 % (37.0-47.0); Hemoglobin 12.5 g/dL (12.0-15.0); Mean Corpuscular HGB Conc 32.1 g/dl (32-36); Mean Corpuscular Hemoglobin 30.9 pg (26-34); Mean Platelet Volume 10.6 fl (7.4-10.4); Platelet Count Result 262 k/mm3 (150-375); Red Blood Count 4.05 M/mm3 (4.2-5.4); Red Cell Distribution Width 12.2 % (11.5-14.5); White Blood Count 7.3 K/mm3 (4.5-10.0)
[2025-03-05 04:57] LABS: Alanine Aminotransferase 16 U/L (6-35); Albumin Level 2.9 g/dL (3.5-5.1); Alkaline Phosphatase 42 U/L (38-126); Anion Gap 8 mmol/L (4-12); Aspartate Amino Transferase 42 U/L (14-36); Bilirubin,Total 0.3 mg/dL (0.2-1.3); Blood Urea Nitrogen 7 mg/dL (7-17); Calcium 8.1 mg/dL (8.4-10.2); Carbon Dioxide 20 mmol/L (22-30); Chloride 106 mmol/L (98-107); Estimated CRCL calculation 140 ml/min; Estimated Glomerular Filt Rate > 60; Glucose 94 mg/dL (65-110); Sodium 134 mmol/L (137-145); Total Protein 5.1 g/dL (6.3-8.2)
[2025-03-05] MEDS: metroNIDAZOLE 500 MG/ISO 100ML 500 MG/100 ML BAG 100 MG IVPB (05:19)
[2025-03-05] MEDS: SERTRALINE HCL 50 MG TABLET 100 MG PO (08:30)
[2025-03-05] MEDS: FAMOTIDINE 10 MG TABLET PO (08:30)
[2025-03-05] MEDS: ASPIRIN 81 MG ENTERIC TABLET PO (08:30)
[2025-03-05] MEDS: valACYclovir HCL 500 MG TABLET PO (08:30)
--- NOTE | 2025-03-05 11:58 | PCNFU ---
Nutrition Follow-Up Complete: Inadequate energy intake related to NPO status as evidenced by current diet orders Goal:Diet order PO intake with tolerance Pt current nutrition is Heart healthy. Nutrition recommendation: Add Ensure Clear TID to trays, apple flavor Last recorded weight is 113.7 kg. Bowel Motility: +BM 03/04 Labs Reviewed: Alb:2.9, NA:134, Cr:0.6 Meds Noted: pepcid Skin: WNL Additional Notes: Pt diet advanced to heart healthy, pt only really taking in clear liquids though. Agreed to Ensure Clear TID on trays. Encouraged intake. Monitor diet orders, intake, tolerance, wt, labs. Follow up in 3 day
--- NOTE | 2025-03-05 12:45 | P.DS_ITS ---
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, unspecified Status: Acute (4) Cyclical vomiting syndrome: Code(s): R11.15 - Cyclical vomiting syndrome unrelated to migraine Status: Acute (5) Aspiration pneumonia: Code(s): J69.0 - Pneumonitis due to inhalation of food and vomit Status: Acute (6) Hypokalemia: Code(s): E87.6 - Hypokalemia Status: Acute (7) Lactic acidosis: Code(s): E87.20 - Acidosis, unspecified Status: Resolved DS: Summary Hospital Course Reason for hospitalization: Cyclic vomiting/aspiration pneumonia/mast cell activation syndrome/elevated tr Hospital Course: Admission: 44-year-old female with cyclical vomiting presents the with shortness of breath. Patient states that she believes that she aspirated whenever she was vomiting. Patient states that she started cyclical vomiting a couple days ago and presented to the emergency and started on her protocol for mass cell activation syndrome on the ED she started to improve and went home. However when she got home she continued to vomit. She felt like she choked on some vomit and became short of breath so she presented back to the hospital. Patient denies fevers or chills. In the ED: patient has leukocytosis at 14.3, hemoglobin of 15.3 with history of hemoconcentration, sodium of 131, potassium 3.0, chloride 92, anion gap of 14, lactic acid 2.4, initial troponin of 0.663 with follow-up troponin being 0.604, chest x-ray shows extensive right-sided airspace disease likely pneumonia. Cardiology consulted with low suspicion of ACS currently deferring heparin drip at this time. Patient being admitted for aspiration pneumonia. Hospital Course: Patient was admitted to IMU on continuous cardiac monitoring with serial troponins and EKGs. Troponins continue to have a downward trend an EKG with no changes echocardiogram was ordered per Cardiology at which time showed cardiomyopathy with a reduced ejection fraction of 35-40%. Patient was then underwent a stress test to evaluate for any ischemia cause which was negative for any ST/T changes. Patient continued to some vomiting initially was unable to tolerate oral intake however patient received Reglan, Ativan, Haldol, and trimethobenzamide her nausea vomiting were relieved and she was tolerating oral intake with no further episodes. Patient had also received IV fluids and electrolyte replacement. Patient was also initially started on IV ceftriaxone and Flagyl for concern for aspiration pneumonia and transition to oral Augmentin at discharge. Patient evaluated by Cardiology which time they did start patient on metoprolol XL and losartan for new found cardiomyopathy plans to follow-up in their office will likely need a follow-up echocardiogram in 3-6 months for evaluation of treatment. Patient seen assessed at time of discharge and no acute distress no further nausea vomiting denied any chest pain or worsening shortness of breath. Patient was discharged home with family. Status at Discharge Functional status at discharge: independent ambulation Overall status at discharge: patient is back to baseline Time Spent with Patient Time attestation: Total time spent providing and/or coordinating discharge services: Time spent: Greater than 30 minutes Exam Narrative: General: NAD Respiratory: Diminished on the right side Cardiovascular: RRR Abdomen: Soft, round, tenderness Extremities:Active ROM to all four extremities. Neuro: Alert and orientated x 4. Skin: Warm, dry, and intact, without rash, erythema, or lesion. Psych: pleasant, cooperative DS: Data Data Completed and Pending Labs on day of discharge: Labs from last 24 hours 03/05/25 04:04 WBC 7.3 RBC 4.05 L Hgb 12.5 Hct 38.9 MCV 96.0 MCH 30.9 MCHC 32.1 RDW 12.2 Plt Count 262 MPV 10.6 H Sodium 134 L Potassium 4.0 Chloride 106 Carbon Dioxide 20 L Anion Gap 8 BUN 7 Creatinine 0.60 L Estim Creat Clear Calc 140 Estimated GFR > 60 Glucose 94 Calcium 8.1 L Total Bilirubin 0.3 AST 42 H ALT 16 Alkaline Phosphatase 42 Total Protein 5.1 L Albumin 2.9 L Preliminary micro results at discharge 03/01/25 13:51 Blood Culture - Preliminary Blood 03/01/25 13:51 Blood Culture - Preliminary Blood Imaging Radiologist's impression: Radiology Results: ITS Impressions Chest X-Ray 03/01/25 13:28 Impression: 1: Extensive right-sided airspace disease, compatible with pneumonia. Discharge Plan Discharge Attending physician on discharge: Lev Mota Consulting providers: Raman Kenney; Gin Price Discharging Clinician: Gin Price Anticipated Discharge Date/Time: 03/05/25 12:38 Patient Disposition: Home Activity: may shower and as tolerated Diet: as tolerated Discharge Instructions: 1). Cardiomyopathy: * Cardiology as started you a Metoprolol and Losartan please take as indicated may cause low blood pressure please monitor at home and report any symptoms such as dizziness. * I recommended a heart healthy diet * Plan for follow-up with Cardiology * Will likely need a repeat Echo in 3-6 months to re-evaluate * Information is attached regarding your diagnosis Please follow-up with Primary as scheduled How can you care for yourself at home? ? Keep track of any new symptoms or changes in your symptoms. ? Rest until you feel better. ? Be safe with medicines. Take your medicines exactly as prescribed. Call your doctor if you think you are having a problem with your medicine. ? Do not drive after taking a prescription pain medicine. ? Ensure to follow-up with primary care physician as indicated and provide updated medication list provided to you at discharge. When should you call for help? Call 911 anytime you think you may need emergency care. For example, call if: ? You passed out (lost consciousness). Call your doctor now or seek immediate medical care if: ? You have new symptoms like fever, difficulty breathing, Chest pain, vomiting, or rash. ? You have new or different pain. ? You are confused and are having trouble thinking clearly. ? Your symptoms are getting worse. Watch closely for changes in your health, and be sure to contact your doctor if: ? You do not get better as expected. Patient Instructions: Antibiotic Form, Metoprolol (By mouth), Aspirin (By mouth), Losartan (By mouth), Hypertrophic Cardiomyopathy (DC) Patient Language: Citizen Of [place] Stand Alone Forms: General Discharge Information Follow-up/Referrals: Raman Kenney MD [Physician] - Call for Appointment Mega,Oswaldo Miner MD [Primary Care Provider] - 3 Weeks Discharge Medications: New amoxicillin-pot clavulanate 875-125 mg tablet 1 tablet PO Q12H Qty: 5 0RF metoprolol succinate 50 mg Tablet Extended Release 24 Hr 50 mg PO QAM Qty: 30 0RF losartan 25 mg Tablet 25 mg PO DAILY Qty: 30 0RF Continued lorazepam [Ativan] 0.5 mg tablet 0.5 mg PO TID PRN (Reason: nausea and vomiting) Qty: 20 0RF potassium chloride [Klor-Con 10] 10 mEq tablet extended release 10 meq PO DAILY Qty: 30 0RF magnesium oxide 200 mg magnesium tablet 200 mg PO DAILY Qty: 30 0RF sertraline 100 mg tablet 100 mg PO DAILY valacyclovir 500 mg tablet 500 mg PO DAILY famotidine [Acid Controller] 10 mg tablet 10 mg PO BID alprazolam 0.5 mg tablet 0.5 mg PO DAILY aspirin [Ecotrin Low Strength] 81 mg tablet,delayed release (DR/EC) 81 mg PO BID iron [id number]-uiimkwxwosstib 4 mg- 100 mcg capsule See Rx Instructions PO .COMPLEX Rx Instructions: 25 mg orally; take 25 mg by mouth nightly meloxicam 15 mg tablet 15 mg PO DAILY PRN (Reason: pain) promethazine 25 mg tablet 25 mg PO Q6H PRN (Reason: nausea and vomiting) cholecalciferol (vitamin D3) 25 mcg (1,000 unit) tablet 1,000 unit PO HS melatonin 10 mg capsule 10 mg PO HS multivit with min-folic acid 0.4 mg tablet 1 tablet PO DAILY metoclopramide HCl [Reglan] 10 mg tablet 10 mg PO Q6H PRN (Reason: nausea and vomiting) Qty: 20 0RF scopolamine base 1 mg over 3 days patch 3 day 1 patch transdermal Q3D PRN (Reason: nausea and vomiting) Qty: 4 0RF Date of admission: 03/02/25 15:25 Primary Care Provider: MegaOswaldo Admitting Provider: Dewayne Clay Attending physician on admission: Dewayne Clay Condition: Stable Quality VTE Prophylaxis VTE prophylaxis: mechanical ordered -Patient's previous records reviewed on admission -ER notes reviewed in detail on admission -discussed all findings and current treatment plan with patient/Family/POA -Consultations reviewed for recommendations -Patient's disposition for safe discharge discussed with pillowcase maker Dictation performed by [employer] direct speech recognition software, therefore business office representative variants and typographical errors may occur. Hospitalist MIPS Heart Failure (Exclusion) Patient has history of Heart Transplant or Left Ventricular Assistive Device?: No IF YES, STOP HERE Heart Failure (Qualifier) Patient has current or prior documentation of LVEF less than or equal to 40%, or mod/servere depressed LVSF?: No IF NO, STOP HERE
[2025-03-05] MEDS: LOSARTAN POTASSIUM 25 MG TABLET PO (13:14)
[2025-03-05] MEDS: METOPROLOL SUCCINATE EXT REL 50 MG TABCR PO (13:14)
--- NOTE | 2025-03-05 13:21 | PM.PNCARD ---
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 EKG shows T inversion V1 to V3 which is unchanged from before. No chest pain. Suspect demand ischemia. Echocardiogram shows reduced ejection fraction 35-40%. No significant risk factors for CAD. Given cardiomyopathy and elevated troponins, nuclear stress test was obtained, which was negative. LVEF 43% on nuclear imaging. Discussed reduced LVEF with the patient. Will start Losartan and Toprol. Heart failure GDMT can be uptitrated as an outpatient. -In regards to hypokalemia secondary to vomiting, keep potassium optimized. -In regards to her cyclic vomiting and mast cell activation management per primary team. Okay for discharge from a cardiac standpoint. Will arrange outpatient follow up in the office. Recommendations and plan discussed with Hospitalist. Subjective Date/time seen: 03/05/25 13:21 Interval history: Reason for visit: Reduced LVEF HPI: This is 44-year-old female with history of mast cell activation and cycle vomiting who presents to the hospital with vomiting. Apparently was in the ER earlier and received treatment for mast cell activation and then went home when she started to vomit again aspirated on some of the vomitus and start to become short of breath and therefore she is back here to the hospital. She did hear gurgling sounds from her lungs and then associated with dry cough. Denied chest pain, lower extremity edema dizziness or syncope. Used to smoke cigars on rare occasions but not doing that anymore. Does not drink alcohol. Has family history of CAD. Troponin 0.6 and then 0.56. White cell count 14 K, creatinine 0.6, potassium on admission 3 and today 2.8, chest x-ray reviewed and was myself shows lung infiltrate on the right side. EKG reviewed and analyzed myself shows l sinus rhythm, T inversion V1 to V3. Date of service 03/03: Showed a lot of vomiting last night this morning. Denies chest pain, lower extremity edema. She feels short of breath but she does not appear to be volume overloaded Date of service 03/05: Feeling well today. No cardiac complaints. Review of Systems Review of Systems: All systems reviewed & are unremarkable except as noted in HPI and below (HPI) Exam Const: General: comfortable and no acute distress HENMT: Mouth: Yes moist mucous membranes Eyes: General: appearance normal, both eyes and all related structures Sclera: sclerae normal Resp: Effort & Inspection: normal respiratory effort Cardio: Rate: regular rate Rhythm: regular rhythm Skin: General skin exam: normal color Neuro: Speech: normal speech Psych: Mental Status: mental status grossly normal Affect: normal affect Objective Data Vital Signs Vital Signs: Vital Signs - 24 hr 03/04/25 14:00 03/04/25 15:46 03/04/25 16:00 Temperature Pulse Rate 79 81 Respiratory Rate Blood Pressure Pulse Oximetry 97 Oxygen Delivery Room Air Fraction of Inspired Oxygen 03/04/25 16:22 03/04/25 18:00 03/04/25 20:00 Temperature 36.4 C L 36.7 C Pulse Rate 63 84 76 Respiratory Rate 20 16 Blood Pressure 137/86 114/79 Pulse Oximetry 100 100 Oxygen Delivery Fraction of Inspired Oxygen 03/04/25 20:00 03/04/25 22:00 03/05/25 00:00 Temperature 36.9 C Pulse Rate 70 72 Respiratory Rate 14 Blood Pressure 124/81 Pulse Oximetry 99 Oxygen Delivery Room Air Fraction of Inspired Oxygen 03/05/25 00:00 03/05/25 00:00 03/05/25 02:00 Temperature Pulse Rate 65 76 Respiratory Rate Blood Pressure Pulse Oximetry 99 Oxygen Delivery Room Air Fraction of Inspired Oxygen 03/05/25 03:19 03/05/25 04:00 03/05/25 04:00 Temperature 36.9 C Pulse Rate 80 76 Respiratory Rate 16 Blood Pressure 130/78 Pulse Oximetry 99 97 Oxygen Delivery Room Air Fraction of Inspired Oxygen 03/05/25 06:00 03/05/25 08:00 03/05/25 08:00 Temperature 36.7 C Pulse Rate 72 69 69 Respiratory Rate 14 14 Blood Pressure 130/68 Pulse Oximetry 97 97 Oxygen Delivery Room Air Fraction of Inspired Oxygen 03/05/25 08:00 03/05/25 10:00 03/05/25 11:49 Temperature 36.9 C Pulse Rate 75 70 60 Respiratory Rate 14 Blood Pressure 132/74 Pulse Oximetry 100 Oxygen Delivery Fraction of Inspired Oxygen Intake/Output Intake/Output: Intake & Output 03/02/25 03/03/25 03/04/25 03/05/25 23:59 23:59 23:59 23:59 Intake Total 4992 2770 1040 880 Output Total 2300 2925 1900 1200 Balance 2662 -155 -860 -320 Meds/Results Medications: Active Medications Generic Name Dose Route Start Last Admin Trade Name Freq PRN Reason Stop Dose Admin Acetaminophen 650 mg 03/01/25 14:24 Acetaminophen 325 Mg Tablet PO Q4H PRN Mild Pain (1-3) or Fever Alprazolam 0.5 mg 03/01/25 16:58 03/03/25 21:40 Alprazolam (*Crx) 0.5 Mg Tablet PO 0.5 mg DAILY PRN Administration Anxiety Amoxicillin/Clavulanate Potassium 1 tablet 03/05/25 21:00 Amoxicillin/Clavulanate K 875-125 Mg Tab PO 03/07/25 21:01 Q12HR DANIEL Aspirin 81 mg 03/02/25 09:50 03/05/25 08:30 Aspirin 81 Mg Enteric Tablet PO 81 mg QAM DANIEL Administration Famotidine 10 mg 03/01/25 21:00 03/05/25 08:30 Famotidine 10 Mg Tablet PO 10 mg Q12HR DANIEL Administration Hydromorphone HCl 0.5 mg 03/02/25 09:14 Hydromorphone Hcl Inj (*Crx) 2 Mg/Ml Vial IV PUSH Q3H PRN Pain Rated 7-10 Lorazepam 0.5 mg 03/02/25 09:15 03/02/25 17:05 Lorazepam Inj (*Crx) 2 Mg/Ml Vial IV PUSH 0.5 mg Q4HR PRN Administration Vomiting Losartan Potassium 25 mg 03/05/25 12:30 03/05/25 13:14 Losartan Potassium 25 Mg Tablet PO 25 mg DAILY DANIEL Administration Melatonin 10 mg 03/01/25 23:25 03/04/25 20:24 Melatonin 5 Mg Tablet PO 10 mg HS DANIEL Administration Metoclopramide HCl 10 mg 03/01/25 23:18 03/03/25 21:55 Metoclopramide Hcl Inj 10 Mg/2 Ml Vial IV PUSH 10 mg Q6HR PRN Administration Vomiting Metoprolol Succinate 50 mg 03/05/25 12:35 03/05/25 13:14 Metoprolol Succinate Ext Rel 50 Mg Tabcr PO 50 mg QAM DANIEL Administration Sertraline HCl 100 mg 03/02/25 09:00 03/05/25 08:30 Sertraline Hcl 50 Mg Tablet PO 100 mg DAILY DANIEL Administration Trimethobenzamide HCl 200 mg 03/01/25 16:59 03/03/25 08:20 Trimethobenzamide Hcl 200 Mg/2 Ml Vial IM 200 mg Q6H PRN Administration Nausea And Vomiting Valacyclovir HCl 500 mg 03/02/25 09:00 03/05/25 08:30 Valacyclovir Hcl 500 Mg Tablet PO 500 mg DAILY DANIEL Administration Radiology Results: ITS Impressions Chest X-Ray 03/01/25 13:28 Impression: 1: Extensive right-sided airspace disease, compatible with pneumonia. Lexiscan Stress Test 03/04/25 16:19 IMPRESSION: 1. Normal myocardial perfusion at rest and during stress. 2. Mildly decreased left ventricular ejection fraction measuring 43%. Labs Labs: Laboratory Results - last 24 hr 03/05/25 04:04 WBC 7.3 RBC 4.05 L Hgb 12.5 Hct 38.9 MCV 96.0 MCH 30.9 MCHC 32.1 RDW 12.2 Plt Count 262 MPV 10.6 H Sodium 134 L Potassium 4.0 Chloride 106 Carbon Dioxide 20 L Anion Gap 8 BUN 7 Creatinine 0.60 L Estim Creat Clear Calc 140 Estimated GFR > 60 Glucose 94 Calcium 8.1 L Total Bilirubin 0.3 AST 42 H ALT 16 Alkaline Phosphatase 42 Total Protein 5.1 L Albumin 2.9 L
== END 2025-03-05 13:32 | disposition home or self-care (01) | DRG 178 ==
LOC: ANHED 13:21 → ANHIMU 15:11
PROVIDERS: Internal Medicine; Nurse Practitioner Gerontology; Admitting Provider General Practice; Emergency Provider Emergency Medicine; PCP Family Medicine; Visit Provider Nurse Practitioner Family
DX: J69.0 Pneumonitis due to inhalation of food and vomit (principal); E87.20 Acidosis, unspecified; I50.40 Unspecified combined systolic (congestive) and diastolic (congestive) heart failure; I42.9 Cardiomyopathy, unspecified; R11.15 Cyclical vomiting syndrome unrelated to migraine; D89.40 Mast cell activation, unspecified; E87.6 Hypokalemia; Z79.82 Long term (current) use of aspirin; Z87.891 Personal history of nicotine dependence
CPT/HCPCS: 36415; 71046; 78452; 80048; 80053; 83605; 83690; 83735; 83880; 84100; 84484; 85025; 85027; 85610; 85730; 87040; 93005; 93017; 93306; 96361; 96365; 96366; 96367; 96368; 96372; 96375; 99285; A9270; A9502; G0378; J0696; J1630; J1836; J2060; J2765; J2785; J3250; J3480; J7030; J7040

== ENCOUNTER 2025-03-13 20:27 | Emergency (ER) | payer OTHER, SELFPAY ==
--- NOTE | ~2025-03-13 | XR_ITS ---
CHEST RADIOGRAPH CLINICAL HISTORY: shruthi . COMPARISON: 03/01/2025 TECHNIQUE: Single portable view of the chest. FINDINGS The cardiomediastinal silhouette is unremarkable. Redemonstration of right upper and middle lobe opacification for which pulmonary edema is favored. Improved aeration when compared with previous examination dated 03/01/2025. The lungs are otherwise clear. IMPRESSION: No focal infiltrate or effusion. Improved aeration when compared with 03/01/2025. Mild asymmetric pulmonary edema is suspected. Reviewed, dictated and finalized at location A.
--- OUTSIDE RECORDS SUMMARY | 2025-03-13 20:29 | XMS_ITS | Referral Summary ---
Author Organization [facility] Address [address] [place] [address] Care Team Providers Care Observer Electrical Prospecting Name Role Phone Oswaldo Ayoub MD Primary Care Provider [phone] Encounters Date Type Department Care Team Description 03/13/2025 Telephone [facility] Medical [facility] Cardiology [address] [facility] [address] [place] [phone] Daysi Parker NP 03/08/2025 Results Follow-Up [facility] Medical Group Family Medicine at [address] [place] [phone] Oswaldo Ayoub MD Cardiology Document Scan 03/08/2025 Orders Only [facility] Cardiology [address] [place] [address] [address] [place] [phone] Ervin Lew MD 03/06/2025 Results Follow-Up [facility] Family Medicine at [address] [place] [phone] Oswaldo Ayoub MD Cardiology Document Scan, SCAN - RADIOLOGY/IMAGING 03/06/2025 Results Follow-Up [facility] Family Medicine at [address] [place] [phone] Oswaldo Ayoub MD Cardiology Document Scan 03/02/2025 Orders Only [facility] Information Management [address] [place] [phone] Ervin Lew MD 03/01/2025 Orders Only [facility] Information Management [address] [place] [address] Ervin Lew MD 02/19/2025 Patient Self-Triage [facility] Health[facility]/ Physicians [address] [place] [address] Mychart, Generic Provider 02/15/2025 Telephone [facility] Medicine at [address] [phone] Joy Villalpando NP 02/14/2025 1:30 PM CDT Telemedicine [facility] Medicine at [address] [phone] Joy Villalpando NP AARON (generalized anxiety disorder) (Primary Dx); Moderate episode of recurrent major depressive disorder (HCC); Migraine without aura and without status migrainosus, not intractable 01/18/2025 Telephone [facility] Medicine at [address] [phone] Oswaldo Ayoub MD 01/15/2025 11:30 AM CDT Office Visit [facility] Medicine at [address] [phone] Joy Villalpando NP AARON (generalized anxiety disorder) (Primary Dx); Migraine without aura and without status migrainosus, not intractable; Moderate episode of recurrent major depressive disorder (HCC) 01/02/2025 Results Follow-Up [facility] Family Medicine at [address] [phone] Oswaldo Ayoub MD SCAN - LABS from [...] unremarkable. Assessment & Plan (11/18/2022 10:23 AM TREE TAPPING LABORER): CT scan of the abdomen and pelvis [...] loss Assessment & Plan (11/18/2022 10:50 AM TREE TAPPING LABORER): GERD for the past year, seems to [...] PRN Assessment & Plan (08/23/2022 1:43 PM TREE TAPPING LABORER): Stable, no changes. Continue current regimen with [...] acceptable. Assessment & Plan (08/23/2022 1:42 PM TREE TAPPING LABORER): Seeing improvement with xanax Increase dose to [...] popcorn Assessment & Plan (11/18/2022 10:52 AM TREE TAPPING LABORER): Patient started having abdominal pain, diarrhea, nausea, [...] Procedure Name Priority Date/Time Associated Diagnosis Comments CARDIOLOGY DOCUMENT SCAN Routine 03/05/2025 11:25 AM CDT CARDIOLOGY DOCUMENT SCAN Routine 03/03/2025 11:22 AM CDT CARDIOLOGY DOCUMENT SCAN Routine 03/02/2025 10:00 AM CDT CARDIOLOGY DOCUMENT SCAN Routine 03/02/2025 9:24 AM CDT CARDIOLOGY DOCUMENT SCAN 03/02/2025 CARDIOLOGY DOCUMENT SCAN 03/01/2025 SCAN - RADIOLOGY/IMAGING 03/01/2025 SCAN - LABS 12/27/2024 SCREENING MAMMOGRAM BILATERAL W CHON Schedule Routine, Read Routine (OP Routine) 09/30/2023 2:22 PM TREE TAPPING LABORER Screening mammogram, encounter for COLONOSCOPY 01/12/2023 11:44 AM CDT from Last 3 Months or Most Recently Relevant to Health Maintenance Results * Cardiology Document Scan (03/05/2025 11:25 AM CDT) Anatomical Region Laterality Modality Other us Raman Kenney MD CV CARDIAC SERVICES PRO CEDURES Final Result * Cardiology Document Scan (03/03/2025 11:22 AM CDT) Anatomical Region Laterality Modality Other us Ervin Lew MD CV CARDIAC SERVICES PROCEDURES Final Result * Cardiology Document Scan (03/02/2025 10:00 AM CDT) Anatomical Region Laterality Modality Other us Ervin Lew MD CV CARDIAC SERVICES PROCEDURES Final Result * Cardiology Document Scan (03/02/2025 9:24 AM CDT) Anatomical Region Laterality Modality Other us Ervin Lew MD CV CARDIAC SERVICES PROCEDURES Final Result * Cardiology Document Scan (03/02/2025) Anatomical Region Laterality Modality Other us Ervin Lew MD CV CARDIAC SERVICES PROCEDURES Edited Result - Final * SCAN - RADIOLOGY/IMAGING (03/01/2025) Anatomical Region Laterality Modality Other Ervin Lew MD Edit ed Result - Final * Cardiology Document Scan (03/01/2025) Anatomical Region Laterality Modality Other Ervin Lew MD CV CARDIAC SERVICES PROCEDURES Edited Result - Final * SCAN - LABS (12/27/2024) Oswaldo Ayoub MD Final Result * Screening Mammogram Bilateral W Chon (09/30/2023 2:22 PM TREE TAPPING LABORER) Anatomical Region Laterality Modality Breast Bilateral Mammography Impressions 09/30/2023 2:41 PM TREE TAPPING LABORER BI-RADS ATLAS category (overall): 1 - Negative There is no mammographic evidence of malignancy. A 1 year screening mammogram is recommended. The patient has been or will be contacted. We recommend annual screening mammography for women at average risk of breast cancer beginning at age 40, based on guidelines of the [place] [employer] (ACR Practice Parameter for the Performance of Screening and Diagnostic Mammography) and [place] [employer]. For women with and elevated risk of breast cancer, please refer to the ACR Practice Parameter for specific screening recommendations. The patient will be entered into a reminder system with a target due date of 1 year for her next screening exam. Narrative 09/30/2023 2:41 PM TREE TAPPING LABORER Screening Mammogram Bilateral W Chon: 09/30/23 The [...] suspicious finding in either breast on mammogram. Self Screening Mammogram IMG MAMMO PROCEDURES Fi nal Result * COLONOSCOPY (01/12/2023 11:44 AM CDT) Anatomical Region Laterality Modality Other Narrative Procedure Note Ari Swan MD - 01/12/2023 11:44 AM CDT [facility] END[facility] Patient Name: Agustina Tijerina Procedure [...] On: 01/12/2023 11:44 AM Recognized by the [place] [employer] for promoting quality in endoscopy us Ari Swan MD ENDOSCOPY PROCEDURES Final Resul t from Last 3 Months or Most Recently Relevant to Health Maintenance Insurance [facility] [address] [place] [id number] [facility] Advance Directives For more information, please contact: [phone] * Full Code (Latest Code Status on File) Date Activated Date Inactivated Comments 10/24/2024 10:13 PM 10/25/2024 10:30 PM Care Teams Observer Electrical Prospecting Relationship Specialty Start Date End Date Oswaldo Ayoub MD [address] [address] [place] [address] [place] [phone] PCP - General 03/04/17
--- OUTSIDE RECORDS SUMMARY | 2025-03-13 20:29 | XMS_ITS | Clinical Summary ---
Author Organization [facility] Address [address] [place] [address] Phone Care Team Providers Care Creative Writer Name Role Phone Unavailable Primary Care Provider [...] Encounters Date Type Department Care Team Description 03/12/2025 External Device Data STL ABSTRACTION Provider, Abstract 02/14/2025 External Device Data STL ABSTRACTION Provider, [...] Sex Assigned at Female 08/06/2024 11:23 AM BRICKMASON HELPER Legal Sex Female 12:30 PM BRICKMASON HELPER Gender Identity Female 08/06/2024 11:23 AM BRICKMASON HELPER Sexual Orientation Not on file Last Filed Vital Signs Vital Sign Reading Time Taken Comments Blood Pressure 120/76 10/08/2024 2:07 PM BRICKMASON HELPER Pulse 61 10/08/2024 2:07 PM BRICKMASON HELPER Temperature 36.4 C (97.5 F) 10/08/2024 2:07 PM BRICKMASON HELPER Respiratory Rate - - Oxygen Saturation 97% 10/08/2024 2:07 PM BRICKMASON HELPER Inhaled Oxygen Concentration - - Weight 117.9 kg (260 lb) 10/08/2024 2:07 PM BRICKMASON HELPER Height 180.3 cm (5' 11) 10/08/2024 2:07 PM BRICKMASON HELPER Body Mass Index 36.26 10/08/2024 2:07 PM BRICKMASON HELPER Plan of Treatment Upcoming Encounters Date Type Department Care Team (Late st Contact Info) Description 10/09/2025 2:00 PM BRICKMASON HELPER Office Visit [facility] TRACKMOBILE OPERATOR - [id number] [address] Gin Castro NP [address] [place] [address] Health Maintenance Due Date Last [...] OR WO CAD Routine 11/15/2024 2:23 PM BRICKMASON HELPER Screening mammogram for breast cancer CERV/VAG CYTO AGE BASED SCREEN PAP Routine 10/08/2024 2:35 PM BRICKMASON HELPER Well woman exam with routine gynecological exam Screening for HPV (human papillomavirus) Encounter for Papanicolaou smear for cervical cancer screening H/O LEEP from Last 3 Months or Most Recently Relevant to Health Maintenance Results * MAMMO 3D TAYO SCREEN BILAT W OR WO CAD (11/15/2024 2:23 PM BRICKMASON HELPER) Anatomical Region Laterality Modality Breast Bilateral Mammography 11/15/2024 2:24 PM BRICKMASON HELPER Addenda Addendum by Tom Barber MD on 11/30/2024 9:07 AM BRICKMASON HELPER Prior mammograms from an outside facility are [...] in one year. Impressions 11/15/2024 2:44 PM BRICKMASON HELPER IMPRESSION: 1. Need outside films. OVERALL FINAL ASSESSMENT: BI-RADS CATEGORY 0: Incomplete, needs comparison to prior mammograms. RECOMMENDATIONS: 1. Outside films will be obtained. An addendum will be dictated when these films are available. DICTATION LOCATION: [facility] Narrative 11/15/2024 2:44 PM BRICKMASON HELPER BILATERAL SCREENING DIGITAL MAMMOGRAM WITH 3D TOMOSYNTHESIS [...] AGE BASED SCREEN PAP (10/08/2024 2:35 PM BRICKMASON HELPER) COMMENT (PAP): [facility] Comment: This order for age-based cervical cancer and STI screening follows ACOG guidelines(PB 168, 140, KNI429). See individual assays for performing site location. CLINICAL INFORMATION [facility] Comment:None given LAST MENSTRUAL PERIOD [facility] [place] Comment:NONE GIVEN PREV PAP: [facility] [place] Comment:10/04/2023 NIL PREV BX: [facility] [place] Comment:NONE GIVEN SOURCE [facility] [place] Comment:Endocervix ADEQUACY: [facility] [place] Comment: Satisfactory for evaluation. Endocervical/transformation zone component present. Age and/or menstrual status not provided PAP INTERP [facility] [place] Comment: Cytology Results: Negative for intraepithelial lesion or malignancy. COMMENT (PAP TEST) [facility] [place] Comment: This Pap test has been evaluated with computer assisted technology. BADGER DISTILLER OPERATOR: Juaquin est [facility] [place] Comment: TMK, CT(ASCP) CT screening location: [place] [address] [place] [address] EXPLANATORY NOTE [facility] [place] Comment: EXPLANATORY NOTE: The Pap is a [...] information. HPV E6/E7 Not Detected Not Detected [facility] [place] Comment: Methodology: Senior Sales Manager-Mediated Amplification This assay detects E6/E7 viral messenger RNA (mRNA) from 14 high-risk HPV types (16,18,31,33,35,39,45,51,52,56,58,59,66,68). Cervical sources are required for HPV testing. If a vaginal source from a patient who has had a total hysterectomy with removal of cervix was submitted, please contact the testing laboratory for alternative testing options. For additional information, please refer to http://education.Symwave/faq/HNF051o1 (This link if provided for information/ educational purposes only.) Test Performed at: [facility] [id number], [place] [id number] Barbie GARCIA Genital SWAB OF ENDOCERVIX / Unknown 10/08/2024 2:35 PM BRICKMASON HELPER 10/09/2024 12:19 AM BRICKMASON HELPER Gin Castro NP PATHOLOGY/CYTOLOGY ORDERABL ES Final Result [facility] [phone] [facility] [id number] [address] [phone] from Last 3 Months or Most Recently Relevant to Health Maintenance Insurance 1989 [facility] [address]
--- OUTSIDE RECORDS SUMMARY | 2025-03-13 20:29 | XMS_ITS | Encounter Summary ---
Author Organization [facility] Healthcare Address [address] [place] [address] Care Team Providers Care Analysis Analyst Name Role Phone Oswaldo Ayoub MD Primary Care Provider [phone] Encounter Details Date Type Department Care Team (Late st Contact Info) Description 03/13/2025 Telephone [facility] Medical Group Cardiology [address] [facility] [address] [place] [address] Daysi Parker NP [address] [place] [address] Social History Tobacco Use Types Packs/Day Years [...] PM CDT documented as of this encounter Miscellaneous Notes * Telephone Encounter - Sejal Dukes MA - 03/13/2025 2:15 PM CDT These records are in the patient's chart. * Telephone Encounter - Pricila Whittington - 03/13/2025 1:33 PM CDT Pt called and scheduled her hospital follow up from when she was discharged from on 03/05 please advise we will need to retrieve records from her visit there thank you Contact: documented in this encounter Plan of Treatment Not on file documented as of this encounter Visit Diagnoses Not on filedocumented in this encounter Care Teams Analysis Analyst Relationship Specialty Start Date End Date Oswaldo Ayoub MD [address] [facility] [address] [address] PCP - General 03/04/17 documented as of this encounter
--- OUTSIDE RECORDS SUMMARY | 2025-03-13 20:29 | XMS_ITS | Encounter Summary ---
Author Organization [facility] Healthcare Address [address] [place] [address] Care Team Providers Care Agency Recruiter Name Role Phone Oswaldo Ayoub MD Primary Care Provider [phone] Encounter Details Date Type Department Care Team (Late st Contact Info) Description 05/09/2024 Orders Only [facility] Health Information Management [address] [place] [address] Oswaldo Ayoub MD [facility] [address] [address] Social History Tobacco Use Types Packs/Day Years [...] COVID: Suspected 11/12/2024 11/12/2024 11/12/2024 4:14 AM PANEL MACHINE SETTER Influenza, adult 11/12/2024 11/12/2024 11/19/2024 3:07 AM PANEL MACHINE SETTER documented as of this encounter Care Teams Agency Recruiter Relationship Specialty Start Date End Date Oswaldo Ayoub MD [address] [facility] [address] [place] [address] [place] [id number] PCP - General 03/04/17 documented as of this encounter
--- OUTSIDE RECORDS SUMMARY | 2025-03-13 20:29 | XMS_ITS | Encounter Summary ---
Author Organization [facility] Healthcare Address [address] [place] [address] Care Team Providers Care Cylinder Worker Name Role Phone Oswaldo Ayoub MD Primary Care Provider [phone] Encounter Details Date Type Department Care Team (Late st Contact Info) Description 03/08/2025 Results Follow-Up [facility] Medical Group Family Medicine at [address] [place] [phone] Oswaldo Ayoub MD [address] [place] [address] [address] [place] [address] Cardiology Document Scan Social History Tobacco Use Types Packs/Day Years [...] on filedocumented in this encounter Care Teams Cylinder Worker Relationship Specialty Start Date End Date Oswaldo Ayoub MD [address] [facility] [address] [address] PCP - General 03/04/17 documented as of this encounter
--- OUTSIDE RECORDS SUMMARY | 2025-03-13 20:29 | XMS_ITS | Encounter Summary ---
Author Organization [facility] Healthcare Address [address] [place] [address] Care Team Providers Care Canvas Products Sales Representative Name Role Phone Oswaldo Ayoub MD Primary Care Provider [phone] Encounter Details Date Type Department Care Team (Late st Contact Info) Description 03/08/2025 Orders Only [facility] Cardiology [address] [place] [address] Ervin Lew MD [address] [facility] [address], [place] [address] Social History Tobacco Use Types Packs/Day Years [...] DOCUMENT SCAN Routine 03/02/2025 9:24 AM CDT documented in this encounter Results * Cardiology Document Scan (03/05/2025 11:25 AM CDT) Anatomical Region Laterality Modality Other us Ripa Kristina Kenney MD CV CARDIAC SERVICES PRO CEDURES [...] MD CV CARDIAC SERVICES PROCEDURES Final Result documented in this encounter Visit Diagnoses Not on filedocumented in this encounter Care Teams Canvas Products Sales Representative Relationship Specialty Start Date End Date Oswaldo Ayoub MD [address] [facility] [address] [place] [address] [place] [address] PCP - General 03/04/17 documented as of this encounter
--- OUTSIDE RECORDS SUMMARY | 2025-03-13 20:29 | XMS_ITS | Clinical Summary ---
Author Organization [facility] Address [address] [place] [address] Care Team Providers Care Instrument Technician Apprentice Name Role Phone Oswaldo Ayoub MD Primary Care Provider [phone] Allergies No known active allergies Medications melatonin [...] unremarkable. Assessment & Plan (11/18/2022 10:23 AM ASSISTANT STORE MANAGER TRAINEE): CT scan of the abdomen and pelvis [...] loss Assessment & Plan (11/18/2022 10:50 AM ASSISTANT STORE MANAGER TRAINEE): GERD for the past year, seems to [...] PRN Assessment & Plan (08/23/2022 1:43 PM ASSISTANT STORE MANAGER TRAINEE): Stable, no changes. Continue current regimen with [...] acceptable. Assessment & Plan (08/23/2022 1:42 PM ASSISTANT STORE MANAGER TRAINEE): Seeing improvement with xanax Increase dose to [...] popcorn Assessment & Plan (11/18/2022 10:52 AM ASSISTANT STORE MANAGER TRAINEE): Patient started having abdominal pain, diarrhea, nausea, [...] Type Department Care Team Description 03/13/2025 Telephone [facility] Cardiology [address] [facility] [address] [place] [phone] Daysi Parker NP 03/08/2025 Results Follow-Up [facility] Family Medicine at [address] [place] [address] Oswaldo Ayoub MD Cardiology Document Scan 03/08/2025 Orders Only [facility] Cardiology [address] [place] [address] [address] [place] [address] Ervin Lew MD 03/06/2025 Results Follow-Up [facility] at [address] [place] [address] Oswaldo Ayoub MD Cardiology Document Scan, SCAN - RADIOLOGY/IMAGING 03/06/2025 Results Follow-Up [facility] at [address] [place] [address] Oswaldo Ayoub MD Cardiology Document Scan 03/02/2025 Orders Only [facility] Health Information Management [address] [place] [address] Ervin Lew MD 03/01/2025 Orders Only [facility] Health Information Management [address] [place] [address] Ervin Lew MD 02/19/2025 Patient Self-Triage [facility]/ Physicians [address] [place] [address] Mychart, Generic Provider 02/15/2025 Telephone [facility] at [address] [address] Joy Villalpando NP 02/14/2025 1:30 PM CDT Telemedicine [facility] at [address] [address] Joy Villalpando NP AARON (generalized anxiety disorder) (Primary Dx); Moderate episode of recurrent major depressive disorder (HCC); Migraine without aura and without status migrainosus, not intractable 01/18/2025 Telephone [facility] at [address] [address] Oswaldo Ayoub MD 01/15/2025 11:30 AM CDT Office Visit [facility] at [address] [address] Joy Villalpando NP AARON (generalized anxiety disorder) (Primary Dx); Migraine without aura and without status migrainosus, not intractable; Moderate episode of recurrent major depressive disorder (HCC) 01/02/2025 Results Follow-Up [facility] at [address] [address] Oswaldo Ayoub MD SCAN - LABS from Last 3 Months Immunizations Immunization Administration Dates Next Due Influenza, Unspecified 06/26/2024(Deferr ed: Patient Refused),06/26/2023(Deferred: Patient Refused),07/14/2022(Deferred: Patient Refused),06/26/2021(Deferred: Patient Refused),06/26/2021(Deferred: Patient Refused),06/26/2020(Deferred: Patient Refused),06/26/2019(Deferred: Patient Refused) Tdap 06/28/2017 Surgical History Surgery Date Site/Laterality Comments CERVIX SURGERY Cervical Surgery (Program Officer) - (Added by TW Conv) Medical History [...] Read Routine (OP Routine) 09/30/2023 2:22 PM ASSISTANT STORE MANAGER TRAINEE Screening mammogram, encounter for COLONOSCOPY 01/12/2023 11:44 [...] RADIOLOGY/IMAGING (03/01/2025) Anatomical Region Laterality Modality Other us Ervin Lew MD Edit ed Result - Final * Cardiology Document Scan (03/01/2025) Anatomical Region Laterality Modality Other Result [facility] Ervin Lew MD CV CARDIAC SERVICES PROCEDURES Edited Result - Final * SCAN - LABS (12/27/2024) Result [facility] Oswaldo Ayoub MD Final Result * Screening Mammogram Bilateral W Chon (09/30/2023 2:22 PM ASSISTANT STORE MANAGER TRAINEE) Anatomical Region Laterality Modality Breast Bilateral Mammography Impressions 09/30/2023 2:41 PM ASSISTANT STORE MANAGER TRAINEE BI-RADS ATLAS category (overall): 1 - Negative There is no mammographic evidence of malignancy. A 1 year screening mammogram is recommended. The patient has been or will be contacted. We recommend annual screening mammography for women at average risk of breast cancer beginning at age 40, based on guidelines of the [employer] (ACR Practice Parameter for the Performance of Screening and Diagnostic Mammography) and [employer]. For women with and elevated risk of breast cancer, please refer to the ACR Practice Parameter for specific screening recommendations. The patient will be entered into a reminder system with a target due date of 1 year for her next screening exam. Narrative 09/30/2023 2:41 PM ASSISTANT STORE MANAGER TRAINEE Screening Mammogram Bilateral W Chon: 09/30/23 The [...] - 01/12/2023 11:44 AM CDT [facility] GI ENDOSCOPY Patient Name: Agustina Tijerina Procedure Date: 01/12/2023 11:44 AM Date of : 1980 Admit Type: Outpatient Age: 42 Gender: Female Attending MD: Ari Swan M.D. Room: [facility] ENDOSCOPY ROOM 06 Note Status: [...] On: 01/12/2023 11:44 AM Recognized by the [employer] for promoting quality in endoscopy us Ari Swan MD ENDOSCOPY PROCEDURES Final Resul t from Last 3 Months or Most Recently Relevant to Health Maintenance Insurance [facility] [place] [id number] [facility] [address] [facility] [address] Advance Directives For more information, please contact: [phone] * Full Code (Latest Code Status on File) Date Activated Date Inactivated Comments 10/24/2024 10:13 PM 10/25/2024 10:30 PM Care Teams Instrument Technician Apprentice Relationship Specialty Start Date End Date Oswaldo Ayoub MD [address] [facility] [place] [address] [facility] - General 03/04/17
--- OUTSIDE RECORDS SUMMARY | 2025-03-13 20:29 | XMS_ITS | Encounter Summary ---
Author Organization [facility] Address [address] [place] [address] Care Team Providers Care Concessionist Name Role Phone Unavailable Primary Care Provider Unavailabl e Encounter Details Date Type Department Care Team (Late st Contact Info) Description 03/12/2025 External Device Data [facility] ABSTRACTION Provider, Abstract NO ADDRESS ON FILE Social History Tobacco Use Types Packs/Day Years Used Date Smoking Tobacco: Former Cigarettes 0.5 10 0 09/26/2003 - 09/26/2013 Smokeless Tobacco: Never Alcohol Use Standard Drinks/Week Comments Yes 0 (1 standard drink = 0.6 oz pur e alcohol) Sociallly Feeling Safe Answer Date Recorded Are you in a relationship wi th someone who hurts you emotionally and/or physically? No 02/01/2024 Comments No Sex and Gender Information Value Date Recorded Sex Assigned at Female 08/06/2024 11:23 AM GLASS TINTER Legal Sex Female 12:30 PM GLASS TINTER Gender Identity Female 08/06/2024 11:23 AM GLASS TINTER Sexual Orientation Not on file documented as of this encounter Plan of Treatment Upcoming Encounters Date Type Department Care Team (Late st Contact Info) Description 10/09/2025 2:00 PM GLASS TINTER Office Visit [facility] [address] [phone] Gin Castro NP [address] [place] [address] documented as of this encounter Visit Diagnoses Not on filedocumented in this encounter
--- OUTSIDE RECORDS SUMMARY | 2025-03-13 20:29 | XMS_ITS | Encounter Summary ---
Author Organization [facility] Healthcare Address [address] [place] [address] Care Team Providers Care Tin Tie Machine Operator Automatic Name Role Phone Oswaldo Ayoub MD Primary Care Provider [phone] Encounter Details Date Type Department Care Team (Late st Contact Info) Description 03/06/2025 Results Follow-Up [facility] Medical Group Family Medicine at [address] [place] [phone] Oswaldo Ayoub MD [address] [place] [address] [address] [place] [address] Cardiology Document Scan Social History [...] on filedocumented in this encounter Care Teams Tin Tie Machine Operator Automatic Relationship Specialty Start Date End Date Oswaldo Ayoub MD [address] [facility] [address] [address] PCP - General 03/04/17 documented as of this encounter
--- OUTSIDE RECORDS SUMMARY | 2025-03-13 20:29 | XMS_ITS | Encounter Summary ---
Author Organization [facility] Healthcare Address [address] [place] [address] Care Team Providers Care Foreign Banknote Teller Trader Name Role Phone Oswaldo Ayoub MD Primary Care Provider [phone] Encounter Details Date Type Department Care Team (Late st Contact Info) Description 03/06/2025 Results Follow-Up [facility] Medical [facility] Family Medicine at [address] [place] [address] Oswaldo Ayoub MD [address] [place] [address] [address] [place] [address] Cardiology Document Scan, SCAN - RADIOLOGY/IMAGING Social History Tobacco Use Types Packs/Day Years [...] on filedocumented in this encounter Care Teams Foreign Banknote Teller Trader Relationship Specialty Start Date End Date Oswaldo Ayoub MD [address] [facility] [address] [address] PCP - General 03/04/17 documented as of this encounter
--- OUTSIDE RECORDS SUMMARY | 2025-03-13 20:29 | XMS_ITS | Clinical Summary ---
Author Organization [facility] Address [address] [facility] [place] [address] Care Team Providers Care Paper Twister Name Role Phone Oswaldo Ayoub MD Primary Care Provider [phone] Source Comments [facility],non-owned Affiliates and Associated Physician Practices is amultiple site organization consisting of ambulatory clinics and hospital sitesin [place], [place], [place] and [place]. This disclosure is being madepursuant to the Care Everywhere program and may not contain all information available regarding this patient. Last updated 18.[facility] Allergies No known active allergies Medications * [...] (AGES 45-75) - COLON CA SCREENING 1980 CT COLONOGRAPHY - COLON CA SCREENING [...] exists ZOSTER VACCINE (1 of 2) 2029 COLON MONITORING 01/12/2033 01/12/2023 COLONOSCOPY - COLON CA SCREENING 01/12/2033 01/12/2023 [...] 12:07 PM 05/21/2024 4:31 PM Care Teams Paper Twister Relationship Specialty Start Date End Date Oswaldo Ayoub MD [address] [place] [address] PCP - General Family Medicine 05/21/24
[2025-03-13 20:37] VITALS: BP 154/92; PULSE 87; RESP 22; TEMP 35.6; O2SAT 100
--- NOTE | 2025-03-13 23:11 | ED.GENADULT ---
HPI - General Adult General Chief complaint: Unspecified Stated complaint: multiple complaints Time Seen by Provider: 03/13/25 22:58 History of Present Illness HPI narrative: 44-year-old female with history of cyclic vomiting syndrome, mast cell activation syndrome, cardiomyopathy with reduced ejection fraction. Patient presents to the emergency department with concerns of nausea and vomiting. She states she was doing well since her recent hospital admission and stated that she started feeling very nauseous and vomited as well as feeling lightheaded and dizzy. She states she has been taking her new cardiac medications from her discharge. Has not followed up with her doctors yet. Feels very similar to last time she had an activation syndrome flare versus some cyclic vomiting. She states she tried taking her Reglan and Benadryl home but vomited this up. Feels like she is short of breath, dry heaving but not able vomiting out. No abdominal pain or back pain. She knows that her blood pressure has been all over the place including high and low readings at home. Has a cardiology follow-up appointment in 1 week. Denies any new injuries or illnesses, been compliant with a low histamine diet. Related Data Home Medications ?Medication ?Instructions ?Recorded ?Confirmed ?Last Taken ?Type alprazolam 0.5 mg tablet 0.5 mg PO DAILY 03/01/25 03/01/25 Unknown History aspirin 81 mg tablet,delayed 81 mg PO BID 03/01/25 03/01/25 Unknown History release (Ecotrin Low Strength) cholecalciferol (vitamin D3) 25 1,000 unit PO HS 03/01/25 03/01/25 Unknown History mcg (1,000 unit) tablet famotidine 10 mg tablet (Acid 10 mg PO BID 03/01/25 03/01/25 Unknown History Controller) ferrous bis-glycinate chelate 4 See Rx Instructions PO .COMPLEX 03/01/25 03/01/25 Unknown History mg-cyanocobalamin 100 mcg capsule melatonin 10 mg capsule 10 mg PO HS 03/01/25 03/01/25 Unknown History meloxicam 15 mg tablet 15 mg PO DAILY PRN pain 03/01/25 03/01/25 Unknown History multivitamin with minerals-folic 1 tablet PO DAILY 03/01/25 03/01/25 Unknown History acid 0.4 mg tablet promethazine 25 mg tablet 25 mg PO Q6H PRN nausea and 03/01/25 03/01/25 Unknown History vomiting sertraline 100 mg tablet 100 mg PO DAILY 03/01/25 03/01/25 Unknown History valacyclovir 500 mg tablet 500 mg PO DAILY 03/01/25 03/01/25 Unknown History Allergies Allergy/AdvReac Type Severity Reaction Status Date / Time No Known Allergies Allergy Verified 03/13/25 20:50 Review of Systems Review of Systems: As reviewed above in [facility] Past Medical History Medical History Mast cell activation syndrome Cyclical vomiting syndrome Social History Social History Smoking status: Current some day smoker Tobacco type: cigars Alcohol intake: never Substance use: current Substance use type: marijuana Do You Feel Safe in your Home?: Yes Lack of Transportation: No Lack of Food: Never True Current Housing: I Have Housing Concerned About Future Housing: No Difficulty Paying Gas/Electric Bills: No Difficulty Paying for Meds: No Currently Unemployed: No Education: Decline to Answer Difficulty w/ Childcare or Family Care: No Spiritual care concerns: No Exam Narrative: GENERAL: Retching and nauseous throughout the encounter, dry heaving. HEAD: [Normocephalic, atraumatic.] EYES: [PERRLA and EOMI.] ENT: Nares clear, no rhinorrhea or epistaxis. Mucous membranes moist. NECK: Supple. CHEST: [Clear to auscultation. No respiratory distress.] HEART: [Regular rate and rhythm]. No murmur heard. [Normal peripheral pulses.] ABDOMEN: [Soft, nondistended], [nontender], [No rigidity or guarding] EXTREMITIES: Normal range of motion. [No edema.] SKIN: Warm, dry, no rash. NEURO: [No focal deficits]. Alert and oriented [x3.] PSYCH: [Normal mood and affect.] Course Vital Signs Vital signs: Vital Signs Temperature 35.6 C L 03/13/25 20:37 Pulse Rate 87 03/13/25 20:37 Respiratory Rate 22 H 03/13/25 20:37 Blood Pressure 154/92 H 03/13/25 20:37 Pulse Oximetry 100 03/13/25 20:37 Oxygen Delivery Room Air 03/13/25 20:37 Temperature 36.6 C 03/14/25 06:09 Pulse Rate 69 03/14/25 06:09 Respiratory Rate 18 03/14/25 06:09 Blood Pressure 178/69 H 03/14/25 06:09 Pulse Oximetry 99 03/14/25 06:09 Oxygen Delivery Room Air 03/13/25 20:37 Medical Decision Making MDM Narrative Medical decision making narrative: 44-year-old female presenting to the emergency department with cyclic vomiting. She has a history of cyclic vomiting syndrome MS cell activation syndrome. History of cardiomyopathy with reduced ejection fraction. She is on new cardiac medications and has a cardiology appointment next week. She states that she went home and feeling well from her recent hospital visit that started feeling nauseous and vomited home. Tried using her Reglan and Benadryl but still vomited. She is retching and dry heaving during initial encounter, mildly tachypneic, blood pressure mildly elevated but not severe range. No hypoxia, clear breath sounds, strong symmetric pulses and warm extremities. Suspicion presently is for an exacerbation of cyclic vomiting versus mass cell activation syndrome. She states when she got Haldol last time it significantly improved her symptoms. Suspicion for potential hypokalemia versus electrolyte abnormalities versus aspiration pneumonia similar to her previous hospital admission, EKG changes also possible. CBC, CMP, lipase, chest x-ray and EKG obtained and she was provided 5 mg of IV Haldol and fluids. Patient placed on property assessment monitor and re-evaluated frequently. Patient's laboratory studies show slight leukocytosis of 17 but also he very hemoconcentrated with elevated hematocrit, hemoglobin and platelets. Likely no true leukocytosis. She was given additional fluids and D5 containing fluids for her anion gap acidosis from starvation ketosis. Repeat BMP shows improvement resolution of anion gap so treatment plan is successful. She was given several rounds of Haldol with improvement. Normal renal function downtrending after fluid resuscitation. Normal LFTs. Urinalysis with some red blood cells and squamous cells but no infection. Negative test. Chest x-ray shows no infiltrates. Improved from prior exam. EKG shows sinus rhythm. Patient re-evaluated and had improvement her nausea vomiting, no longer having any retching and was safe for discharge home with prescriptions for Haldol to try and control her symptoms at home. She has a new PCP appointment coming up and encouraged to follow-up with a inspector final assembly conveyor line for her mast cell activation. Patient given return precautions and discharge. Medical Records Medical records reviewed: Yes I reviewed the external patient's medical records. Vital Signs Vital Signs: Vital Signs Temperature 35.6 C L 03/13/25 20:37 Pulse Rate 87 03/13/25 20:37 Respiratory Rate 22 H 03/13/25 20:37 Blood Pressure 154/92 H 03/13/25 20:37 Pulse Oximetry 100 03/13/25 20:37 Oxygen Delivery Room Air 03/13/25 20:37 Temperature 36.6 C 03/14/25 06:09 Pulse Rate 69 03/14/25 06:09 Respiratory Rate 18 03/14/25 06:09 Blood Pressure 178/69 H 03/14/25 06:09 Pulse Oximetry 99 03/14/25 06:09 Oxygen Delivery Room Air 03/13/25 20:37 Lab Data Lab results reviewed: Yes I reviewed the patient's lab results. 03/13/25 23:14 03/14/25 02:09 Labs: Lab Results 03/13/25 03/13/25 03/14/25 Range/Units 23:14 23:58 02:09 WBC 17.0 H (4.5-10.0) K/mm3 RBC 4.92 (4.2-5.4) M/mm3 Hgb 15.2 H (12.0-15.0) g/dL Hct 44.8 (37.0-47.0) % MCV 91.1 (80-100) fl MCH 30.9 (26-34) pg MCHC 33.9 (32-36) g/dl RDW 12.2 (11.5-14.5) % Plt Count 392 H (150-375) k/mm3 MPV 10.2 (7.4-10.4) fl Immature Gran % (Auto) 0.5 (0-0.5) % Neut % (Auto) 86.8 H (45.5-73.1) % Lymph % (Auto) 7.5 L (18.3-44.2) % [place] % (Auto) 4.5 (2.6-8.5) % Eos % (Auto) 0.2 (0-4.4) % Baso % (Auto) 0.5 (0.2-1.2) % Lymph # (Auto) 1.28 (0.9-3.2) K/mm3 [place] # (Auto) 0.8 H (0.1-0.6) K/mm3 Eos # (Auto) 0.0 (0-0.3) K/mm3 Baso # (Auto) 0.1 (0.0-0.1) K/mm3 Abs Immat Gran (auto) 0.08 H (0.00-0.031) K/mm3 Absolute Neuts (auto) 14.7 H (1.3-6.7) K/mm3 Absolute Nucleated RBC 0.000 (0.0-0.012) K/mm3 Nucleated RBC % 0.0 (0.0-0.2) % Sodium 136 L 132 L (137-145) mmol/L Potassium 3.7 3.9 (3.4-5.0) mmol/L Chloride 101 99 (98-107) mmol/L Carbon Dioxide 14 L 22 (22-30) mmol/L Anion Gap 21 H 11 (4-12) mmol/L BUN 14 D 15 (7-17) mg/dL Creatinine 1.16 H 0.96 (0.7-1.0) mg/dL Estim Creat Clear Calc 72 87 ml/min Estimated GFR 51 L > 60 (59 - ) Glucose 185 H 322 H (65-110) mg/dL Calcium 10.0 9.3 (8.4-10.2) mg/dL Total Bilirubin 0.9 (0.2-1.3) mg/dL AST 40 H (14-36) U/L ALT 24 (6-35) U/L Alkaline Phosphatase 72 (38-126) U/L Total Protein 7.9 (6.3-8.2) g/dL Albumin 4.5 (3.5-5.1) g/dL Lipase 49 (23-300) U/L Urine Color Dark yellow (Yellow) Urine Appearance Clear (Clear) Urine pH 8.0 (5.0-9.0) Ur Specific [place] 1.028 (1.001-1.035) Urine Protein 1+ H (Negative) mg/dL Urine Glucose (UA) Negative (Negative) mg/dL Urine Ketones 4+ H (Negative) mg/dL Ur Blood (Man) Negative (Negative) Urine Nitrate Negative (Negative) Urine Bilirubin 1+ H (Negative) Urine Urobilinogen 1.0 (<2.0) mg/dL Add Ur Microanalysis Reviewed Leukocyte Esterase Rfl 1+ H (Negative) CHANG/UL Urine RBC 11-20 H (0-2) /hpf Urine WBC 0-5 (0-3) /hpf Ur Squamous Epith Cells Occasional (Few) /hpf Urine Bacteria None seen /hpf Urine Casts >20 POC Urine HCG, Qual (Negative) 03/14/25 Range/Units 02:10 WBC (4.5-10.0) K/mm3 RBC (4.2-5.4) M/mm3 Hgb (12.0-15.0) g/dL Hct (37.0-47.0) % MCV (80-100) fl MCH (26-34) pg MCHC (32-36) g/dl RDW (11.5-14.5) % Plt Count (150-375) k/mm3 MPV (7.4-10.4) fl Immature Gran % (Auto) (0-0.5) % Neut % (Auto) (45.5-73.1) % Lymph % (Auto) (18.3-44.2) % [place] % (Auto) (2.6-8.5) % Eos % (Auto) (0-4.4) % Baso % (Auto) (0.2-1.2) % Lymph # (Auto) (0.9-3.2) K/mm3 [place] # (Auto) (0.1-0.6) K/mm3 Eos # (Auto) (0-0.3) K/mm3 Baso # (Auto) (0.0-0.1) K/mm3 Abs Immat Gran (auto) (0.00-0.031) K/mm3 Absolute Neuts (auto) (1.3-6.7) K/mm3 Absolute Nucleated RBC (0.0-0.012) K/mm3 Nucleated RBC % (0.0-0.2) % Sodium (137-145) mmol/L Potassium (3.4-5.0) mmol/L Chloride (98-107) mmol/L Carbon Dioxide (22-30) mmol/L Anion Gap (4-12) mmol/L BUN (7-17) mg/dL Creatinine (0.7-1.0) mg/dL Estim Creat Clear Calc ml/min Estimated GFR (59 - ) Glucose (65-110) mg/dL Calcium (8.4-10.2) mg/dL Total Bilirubin (0.2-1.3) mg/dL AST (14-36) U/L ALT (6-35) U/L Alkaline Phosphatase (38-126) U/L Total Protein (6.3-8.2) g/dL Albumin (3.5-5.1) g/dL Lipase (23-300) U/L Urine Color (Yellow) Urine Appearance (Clear) Urine pH (5.0-9.0) Ur Specific [place] (1.001-1.035) Urine Protein (Negative) mg/dL Urine Glucose (UA) (Negative) mg/dL Urine Ketones (Negative) mg/dL Ur Blood (Man) (Negative) Urine Nitrate (Negative) Urine Bilirubin (Negative) Urine Urobilinogen (<2.0) mg/dL Add Ur Microanalysis Leukocyte Esterase Rfl (Negative) CHANG/UL Urine RBC (0-2) /hpf Urine WBC (0-3) /hpf Ur Squamous Epith Cells (Few) /hpf Urine Bacteria /hpf Urine Casts POC Urine HCG, Qual Negative (Negative) Imaging Data Attestation: I personally reviewed and interpreted this imaging study as follows: My impression: Impressions Chest X-Ray 03/13/25 23:32 IMPRESSION: No focal infiltrate or effusion. Improved aeration when compared with 03/01/2025. Mild asymmetric pulmonary edema is suspected. Discharge Plan Discharge Clinical Impression: Cyclical vomiting syndrome, Mast cell activation syndrome, Starvation ketoacidosis Patient Disposition: Home Condition: Stable Instructions: Antibiotic Form, Cyclic Vomiting Syndrome (ED) Additional Instructions: All of your laboratory studies corrected afte replenishment of fluids and controlling of your vomiting. We will send you home with Haldol as it seems to help be better than the other medications. Follow-up with primary doctor and you need contact with a new inspector final assembly conveyor line to help control your symptoms long-term. Return with any emergencies. Patient Language: Swedish Prescriptions: New haloperidol 2 mg tablet 2 mg PO TID PRN (Reason: nausea and vomiting) Qty: 30 0RF No Action lorazepam [Ativan] 0.5 mg tablet 0.5 mg PO TID PRN (Reason: nausea and vomiting) Qty: 20 0RF potassium chloride [Klor-Con 10] 10 mEq tablet extended release 10 meq PO DAILY Qty: 30 0RF magnesium oxide 200 mg magnesium tablet 200 mg PO DAILY Qty: 30 0RF sertraline 100 mg tablet 100 mg PO DAILY valacyclovir 500 mg tablet 500 mg PO DAILY famotidine [Acid Controller] 10 mg tablet 10 mg PO BID alprazolam 0.5 mg tablet 0.5 mg PO DAILY aspirin [Ecotrin Low Strength] 81 mg tablet,delayed release (DR/EC) 81 mg PO BID iron dux-arxehu-zagquixennevky 4 mg- 100 mcg capsule See Rx Instructions PO .COMPLEX Rx Instructions: 25 mg orally; take 25 mg by mouth nightly meloxicam 15 mg tablet 15 mg PO DAILY PRN (Reason: pain) promethazine 25 mg tablet 25 mg PO Q6H PRN (Reason: nausea and vomiting) cholecalciferol (vitamin D3) 25 mcg (1,000 unit) tablet 1,000 unit PO HS melatonin 10 mg capsule 10 mg PO HS multivit with min-folic acid 0.4 mg tablet 1 tablet PO DAILY amoxicillin-pot clavulanate 875-125 mg tablet 1 tablet PO Q12H Qty: 5 0RF metoprolol succinate 50 mg Tablet Extended Release 24 Hr 50 mg PO QAM Qty: 30 0RF losartan 25 mg Tablet 25 mg PO DAILY Qty: 30 0RF metoclopramide HCl [Reglan] 10 mg tablet 10 mg PO Q6H PRN (Reason: nausea and vomiting) Qty: 20 0RF scopolamine base 1 mg over 3 days patch 3 day 1 patch transdermal Q3D PRN (Reason: nausea and vomiting) Qty: 4 0RF Follow-up/Referrals: Mega,Oswaldo Miner MD [Primary Care Provider] - Time of Disposition: 06:02
--- NOTE | 2025-03-13 23:14 | ECG_ITS ---
Test Date: 2025-03-13 23:25:26 Measurements Intervals [place] Rate: 74 P: 46 NE: 147 QRS: 33 QRSD: 102 T: 137 QT: 405 QTc: 451 Interpretive Statements SINUS RHYTHM T WAVE ABNORMALITY IN ANTEROLAT/HIGH LAT LEADS- CONSIDER ISCHEMIA BASELINE ARTIFACT- I, II, III, AVR, AVL, AVF, V1-V6 ABNORMAL ECG Compared to ECG 03/01/2025 12:25:29 T WAVE ABNORMALITY NOW PRESENT POSSIBLE ISCHEMIA NOW PRESENT Electronically Signed On 03-14-2025 07:24:15 CDT by Jeremy Resendez D.O.
[2025-03-13] MEDS: HALOPERIDOL LACTATE 5 MG/ML VIAL IV PUSH (23:22)
[2025-03-13 23:26] VITALS: PULSE 86; RESP 22; O2SAT 100
--- OUTSIDE RECORDS SUMMARY | 2025-03-13 23:26 | XMS_ITS | Clinical Summary ---
Author Organization [facility] Address [address] [place] [address] Care Team Providers Care Electronics Processor Name Role Phone Oswaldo Ayoub MD Primary Care Provider [phone] Allergies No known active allergies Medications melatonin [...] unremarkable. Assessment & Plan (11/18/2022 10:23 AM GROUP WORK PROGRAM AIDE): CT scan of the abdomen and pelvis [...] loss Assessment & Plan (11/18/2022 10:50 AM GROUP WORK PROGRAM AIDE): GERD for the past year, seems to [...] PRN Assessment & Plan (08/23/2022 1:43 PM GROUP WORK PROGRAM AIDE): Stable, no changes. Continue current regimen with [...] acceptable. Assessment & Plan (08/23/2022 1:42 PM GROUP WORK PROGRAM AIDE): Seeing improvement with xanax Increase dose to [...] popcorn Assessment & Plan (11/18/2022 10:52 AM GROUP WORK PROGRAM AIDE): Patient started having abdominal pain, diarrhea, nausea, [...] Type Department Care Team Description 03/13/[address] [facility] Cardiology [address] [facility] [address] [place] [phone] Daysi Parker NP 03/08/2025 Results Follow-Up [facility] Family Medicine at [address] [place] [address] Oswaldo Ayoub MD Cardiology Document Scan 03/08/[address] [facility] Cardiology [address] [place] [address] [address] [place] [address] Ervin Lew MD 03/06/2025 Results Follow-Up [facility] Medicine at [address] [place] [address] Oswaldo Ayoub MD Cardiology Document Scan, SCAN - RADIOLOGY/IMAGING 03/06/2025 Results Follow-Up [facility] at [address] [place] [address] Oswaldo Ayoub MD Cardiology Document Scan 03/02/2025 Orders Only [facility] [address] [place] [id number] Ervin Lew MD 03/01/2025 Orders Only [facility] [address] [place] [id number] Ervin Lew MD 02/19/2025 Patient Self-Triage [facility]/ Physicians [address] [place] [phone] Mychart, Generic Provider 02/15/2025 Telephone [facility] at [address] [phone] Joy Villalpando NP 02/14/2025 1:30 PM CDT Telemedicine [facility] at [address] [phone] Joy Villalpando NP AARON (generalized anxiety disorder) (Primary Dx); Moderate episode of recurrent major depressive disorder (HCC); Migraine without aura and without status migrainosus, not intractable 01/18/2025 Telephone [facility] at [address] [address] Oswaldo Ayoub MD 01/15/2025 11:30 AM CDT Office Visit [facility] at [address] [address] Joy Villalpando NP AARON (generalized anxiety disorder) (Primary Dx); Migraine without aura and without status migrainosus, not intractable; Moderate episode of recurrent major depressive disorder (HCC) 01/02/2025 Results Follow-Up [facility] at [address] [phone] Oswaldo Ayoub MD SCAN - LABS from Last 3 Months Immunizations Immunization Administration Dates Next Due Influenza, Unspecified 06/26/2024(Deferr ed: Patient Refused),06/26/2023(Deferred: Patient Refused),07/14/2022(Deferred: Patient Refused),06/26/2021(Deferred: Patient Refused),06/26/2021(Deferred: Patient Refused),06/26/2020(Deferred: Patient Refused),06/26/2019(Deferred: Patient Refused) Tdap 06/28/2017 Surgical History Surgery Date Site/Laterality Comments CERVIX SURGERY 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) - (Added by TW Conv) Medical [...] Read Routine (OP Routine) 09/30/2023 2:22 PM GROUP WORK PROGRAM AIDE Screening mammogram, encounter for COLONOSCOPY 01/12/2023 11:44 [...] (03/01/2025) Anatomical Region Laterality Modality Other Result [facility] Ervin Lew MD CV CARDIAC SERVICES PROCEDURES Edited Result - Final * SCAN - LABS (12/27/2024) Result [facility] Oswaldo Ayoub MD Final Result * Screening Mammogram Bilateral W Chon (09/30/2023 2:22 PM GROUP WORK PROGRAM AIDE) Anatomical Region Laterality Modality Breast Bilateral Mammography Impressions 09/30/2023 2:41 PM GROUP WORK PROGRAM AIDE BI-RADS ATLAS category (overall): 1 - Negative There is no mammographic evidence of malignancy. A 1 year screening mammogram is recommended. The patient has been or will be contacted. We recommend annual screening mammography for women at average risk of breast cancer beginning at age 40, based on guidelines of the [employer] (ACR Practice Parameter for the Performance of Screening and Diagnostic Mammography) and [employer]. For women with and elevated risk of breast cancer, please refer to the ACR Practice Parameter for specific screening recommendations. The patient will be entered into a reminder system with a target due date of 1 year for her next screening exam. Narrative 09/30/2023 2:41 PM GROUP WORK PROGRAM AIDE Screening Mammogram Bilateral W Chon: 09/30/23 The [...] MD - 01/12/2023 11:44 AM CDT [facility] ENDOSCOPY Patient Name: Agustina Tijerina Procedure Date: 01/12/2023 11:44 AM Date of : 1980 Admit Type: Outpatient Age: 42 Gender: Female Attending MD: Ari Swan M.D. Room: [facility] ENDOSCOPY ROOM 06 Note Status: [...] Most Recently Relevant to Health Maintenance Insurance [facility] [employer] [place] [id number] [facility] [employer] [address] Advance Directives For more information, please contact: [phone] * Full Code (Latest Code Status on File) Date Activated Date Inactivated Comments 10/24/2024 10:13 PM 10/25/2024 10:30 PM Care Teams Electronics Processor Relationship Specialty Start Date End Date Oswaldo Ayoub MD [address] [facility] [place] [address] [facility] - General 03/04/17
--- OUTSIDE RECORDS SUMMARY | 2025-03-13 23:26 | XMS_ITS | Referral Summary ---
Author Organization [facility] Address [address] [place] [address] Care Team Providers Care Psychology Technician Name Role Phone Oswaldo Ayoub MD Primary Care Provider [phone] Encounters Date Type Department Care Team Description 03/13/2025 Telephone [facility] Medical [facility] Cardiology [address] [facility] [address] [place] [phone] Daysi Parker NP 03/08/2025 Results Follow-Up [facility] Medical Group Family Medicine at [address] [place] [phone] Oswaldo Ayoub MD Cardiology Document Scan 03/08/2025 Orders Only [facility] Cardiology [address] [place] [address] [address] [place] [phone] Ervin Lew MD 03/06/2025 Results Follow-Up [facility] Family Medicine at [address] [place] [phone] Oswaldo Ayoub MD Cardiology Document Scan, SCAN - RADIOLOGY/IMAGING 03/06/2025 Results Follow-Up [facility] Family Medicine at [address] [place] [phone] Oswaldo Ayoub MD Cardiology Document Scan 03/02/2025 Orders Only [facility] Health Information Management [address] [place] [address] Ervin Lew MD 03/01/2025 Orders Only [facility] Information Management [address] [place] [address] Ervin Lew MD 02/19/2025 Patient Self-Triage [facility] HealthCare/ Physicians [address] [place] [address] Mychart, Generic Provider 02/15/2025 Telephone [facility] Medicine at [address] [address] Joy Villalpando NP 02/14/2025 1:30 PM CDT Telemedicine [facility] Medicine at [address] [address] Joy Villalpando NP AARON (generalized anxiety disorder) (Primary Dx); Moderate episode of recurrent major depressive disorder (HCC); Migraine without aura and without status migrainosus, not intractable 01/18/2025 Telephone [facility] Medicine at [address] [address] Oswaldo Ayoub MD 01/15/2025 11:30 AM CDT Office Visit [facility] Medicine at [address] [address] Joy Villalpando NP AARON (generalized anxiety disorder) (Primary Dx); Migraine without aura and without status migrainosus, not intractable; Moderate episode of recurrent major depressive disorder (HCC) 01/02/2025 Results Follow-Up [facility] Family Medicine at [address] [address] Oswaldo Ayoub MD SCAN - LABS from [...] unremarkable. Assessment & Plan (11/18/2022 10:23 AM DIRECTOR SPECIAL EDUCATION): CT scan of the abdomen and pelvis [...] loss Assessment & Plan (11/18/2022 10:50 AM DIRECTOR SPECIAL EDUCATION): GERD for the past year, seems to [...] PRN Assessment & Plan (08/23/2022 1:43 PM DIRECTOR SPECIAL EDUCATION): Stable, no changes. Continue current regimen with [...] acceptable. Assessment & Plan (08/23/2022 1:42 PM DIRECTOR SPECIAL EDUCATION): Seeing improvement with xanax Increase dose to [...] popcorn Assessment & Plan (11/18/2022 10:52 AM DIRECTOR SPECIAL EDUCATION): Patient started having abdominal pain, diarrhea, nausea, [...] Read Routine (OP Routine) 09/30/2023 2:22 PM DIRECTOR SPECIAL EDUCATION Screening mammogram, encounter for COLONOSCOPY 01/12/2023 11:44 [...] Mammogram Bilateral W Chon (09/30/2023 2:22 PM DIRECTOR SPECIAL EDUCATION) Anatomical Region Laterality Modality Breast Bilateral Mammography Impressions 09/30/2023 2:41 PM DIRECTOR SPECIAL EDUCATION BI-RADS ATLAS category (overall): 1 - Negative There is no mammographic evidence of malignancy. A 1 year screening mammogram is recommended. The patient has been or will be contacted. We recommend annual screening mammography for women at average risk of breast cancer beginning at age 40, based on guidelines of the [employer] [employer] (ACR Practice Parameter for the Performance of Screening and Diagnostic Mammography) and [place] [employer]. For women with and elevated risk of breast cancer, please refer to the ACR Practice Parameter for specific screening recommendations. The patient will be entered into a reminder system with a target due date of 1 year for her next screening exam. Narrative 09/30/2023 2:41 PM DIRECTOR SPECIAL EDUCATION Screening Mammogram Bilateral W Chon: 09/30/23 The [...] Swan MD - 01/12/2023 11:44 AM CDT [facility] GI ENDOSCOPY Patient Name: Agustina [...] On: 01/12/2023 11:44 AM Recognized by the [employer] [employer] for promoting quality in endoscopy us Ari Swan MD ENDOSCOPY PROCEDURES Final Resul t from Last 3 Months or Most Recently Relevant to Health Maintenance Insurance [facility] [address] [place] [id number] [facility] Advance Directives For more information, please contact: [phone] * Full Code (Latest Code Status on File) Date Activated Date Inactivated Comments 10/24/2024 10:13 PM 10/25/2024 10:30 PM Care Teams Psychology Technician Relationship Specialty Start Date End Date Oswaldo Ayoub MD [address] [facility] [address] [address] [place] [address] PCP - General 03/04/17
--- OUTSIDE RECORDS SUMMARY | 2025-03-13 23:26 | XMS_ITS | Clinical Summary ---
Author Organization [facility] Address [address] [place] [address] Care Team Providers Care Motorcoach Operator Name Role Phone Oswaldo Ayoub MD Primary Care Provider [phone] Source Comments [facility],non-owned Affiliates and Associated Physician Practices is amultiple site organization consisting of ambulatory clinics and hospital sitesin [place], [place], [place]. This disclosure is being madepursuant to the Care Everywhere program and may not contain all information available regarding this patient. Last updated 18.[facility] [employer] [facility] Allergies No known active allergies Medications * [...] patient's age to complete this topic Insurance Member Subscriber Plan / Payer (Ef fective for All Dates) Name:Agustina Yuen Relation to Subscriber:Spouse Name:OVIDIO YUEN Date of :1974 (Home) Address: [address] [place] [address] Payer ID:[id number] (NAIC) Group ID:Not on file Type:/[employer] Address: [facility] [address] [place] [address] Advance Directives * Full Code (Latest Code Status on File) Date Activated Date Inactivated Comments 05/20/2024 12:07 PM 05/21/2024 4:31 PM Care Teams Motorcoach Operator Relationship Specialty Start Date End Date Oswaldo Ayoub MD [address] [facility] [place] [address] PCP - General Family Medicine 05/21/24
--- OUTSIDE RECORDS SUMMARY | 2025-03-13 23:26 | XMS_ITS | Clinical Summary ---
Author Organization [facility] Address [address] [place] [address] Phone Care Team Providers Care Oil Fire Specialist Name Role Phone Unavailable Primary Care Provider [...] Sex Assigned at Female 08/06/2024 11:23 AM HOME HEALTH CLINICAL LIAISON Legal Sex Female 12:30 PM HOME HEALTH CLINICAL LIAISON Gender Identity Female 08/06/2024 11:23 AM HOME HEALTH CLINICAL LIAISON Sexual Orientation Not on file Last Filed Vital Signs Vital Sign Reading Time Taken Comments Blood Pressure 120/76 10/08/2024 2:07 PM HOME HEALTH CLINICAL LIAISON Pulse 61 10/08/2024 2:07 PM HOME HEALTH CLINICAL LIAISON Temperature 36.4 C (97.5 F) 10/08/2024 2:07 PM HOME HEALTH CLINICAL LIAISON Respiratory Rate - - Oxygen Saturation 97% 10/08/2024 2:07 PM HOME HEALTH CLINICAL LIAISON Inhaled Oxygen Concentration - - Weight 117.9 kg (260 lb) 10/08/2024 2:07 PM HOME HEALTH CLINICAL LIAISON Height 180.3 cm (5' 11) 10/08/2024 2:07 PM HOME HEALTH CLINICAL LIAISON Body Mass Index 36.26 10/08/2024 2:07 PM HOME HEALTH CLINICAL LIAISON Plan of Treatment Upcoming Encounters Date Type Department Care Team (Late st Contact Info) Description 10/09/2025 2:00 PM HOME HEALTH CLINICAL LIAISON Office Visit [facility] RATE REVIEWER - [address] [address] Gin Castro NP [address] [place] [address] Health Maintenance Due Date Last [...] OR WO CAD Routine 11/15/2024 2:23 PM HOME HEALTH CLINICAL LIAISON Screening mammogram for breast cancer CERV/VAG CYTO AGE BASED SCREEN PAP Routine 10/08/2024 2:35 PM HOME HEALTH CLINICAL LIAISON Well woman exam with routine gynecological exam Screening for HPV (human papillomavirus) Encounter for Papanicolaou smear for cervical cancer screening H/O LEEP from Last 3 Months or Most Recently Relevant to Health Maintenance Results * MAMMO 3D TAYO SCREEN BILAT W OR WO CAD (11/15/2024 2:23 PM HOME HEALTH CLINICAL LIAISON) Anatomical Region Laterality Modality Breast Bilateral Mammography 11/15/2024 2:24 PM HOME HEALTH CLINICAL LIAISON Addenda Addendum by Tom Barber MD on 11/30/2024 9:07 AM HOME HEALTH CLINICAL LIAISON Prior mammograms from an outside facility are [...] in one year. Impressions 11/15/2024 2:44 PM HOME HEALTH CLINICAL LIAISON IMPRESSION: 1. Need outside films. OVERALL FINAL ASSESSMENT: BI-RADS CATEGORY 0: Incomplete, needs comparison to prior mammograms. RECOMMENDATIONS: 1. Outside films will be obtained. An addendum will be dictated when these films are available. DICTATION LOCATION: [facility] Narrative 11/15/2024 2:44 PM HOME HEALTH CLINICAL LIAISON BILATERAL SCREENING DIGITAL MAMMOGRAM WITH 3D TOMOSYNTHESIS [...] AGE BASED SCREEN PAP (10/08/2024 2:35 PM HOME HEALTH CLINICAL LIAISON) COMMENT (PAP): [facility] Comment: This order for age-based cervical cancer and STI screening follows ACOG guidelines(PB 168, 140, NYX067). See individual assays for performing site location. CLINICAL INFORMATION [facility] Comment:None given LAST MENSTRUAL PERIOD [facility] Comment:NONE GIVEN PREV PAP: [facility] Comment:10/04/2023 NIL PREV BX: [facility] Comment:NONE GIVEN SOURCE [facility] Comment:Endocervix ADEQUACY: [facility] Comment: Satisfactory for evaluation. Endocervical/transformation zone component present. Age and/or menstrual status not provided PAP INTERP [facility] Comment: Cytology Results: Negative for intraepithelial lesion or malignancy. COMMENT (PAP TEST) [facility] Comment: This Pap test has been evaluated with computer assisted technology. MORTGAGE PROCESSOR: Juaquin est [facility] Comment: TMK, CT(ASCP) CT screening location: [place] [address] [place] [address] EXPLANATORY NOTE [facility] Comment: EXPLANATORY NOTE: The Pap is a [...] information. HPV E6/E7 Not Detected Not Detected [facility] Comment: Methodology: Garment Parts Cutter Hand-Mediated Amplification This assay detects E6/E7 viral messenger RNA (mRNA) from 14 high-risk HPV types (16,18,31,33,35,39,45,51,52,56,58,59,66,68). Cervical sources are required for HPV testing. If a vaginal source from a patient who has had a total hysterectomy with removal of cervix was submitted, please contact the testing laboratory for alternative testing options. For additional information, please refer to http://education.Citydeal.de/faq/OIY627j9 (This link if provided for information/ educational purposes only.) Test Performed at: [facility] [address] [address], [place] [address] Barbie GARCIA Genital SWAB OF ENDOCERVIX / Unknown 10/08/2024 2:35 PM HOME HEALTH CLINICAL LIAISON 10/09/2024 12:19 AM HOME HEALTH CLINICAL LIAISON Gin Castro NP PATHOLOGY/CYTOLOGY ORDERABL ES Final Result [facility] [phone] [facility] [address] [place] [phone] from Last 3 Months or Most Recently Relevant to Health Maintenance Insurance [address] [facility] [address]
--- OUTSIDE RECORDS SUMMARY | 2025-03-13 23:26 | XMS_ITS | Encounter Summary ---
Author Organization [facility] Healthcare Address [address] [place] [address] Care Team Providers Care Evaluation Analyst Name Role Phone Oswaldo Ayoub MD Primary Care Provider [phone] Encounter Details Date Type Department Care Team (Late st Contact Info) Description 05/09/2024 Orders Only [facility] Health Information Management [address] [place] [address] Oswaldo Ayoub MD [facility] [address] [address] Social History Tobacco Use Types Packs/Day Years [...] COVID: Suspected 11/12/2024 11/12/2024 11/12/2024 4:14 AM PLATING OPERATOR Influenza, adult 11/12/2024 11/12/2024 11/19/2024 3:07 AM PLATING OPERATOR documented as of this encounter Care Teams Evaluation Analyst Relationship Specialty Start Date End Date Oswaldo Ayoub MD [address] [facility] [address] [place] [address] PCP - General 03/04/17 documented as of this encounter
--- OUTSIDE RECORDS SUMMARY | 2025-03-13 23:26 | XMS_ITS | Encounter Summary ---
Author Organization [facility] Address [address] [place] [address] Care Team Providers Care Cut In Station Operator Name Role Phone Unavailable Primary Care Provider [...] Sex Assigned at Female 08/06/2024 11:23 AM PROFESSOR OF POLITICAL SCIENCE Legal Sex Female 12:30 PM PROFESSOR OF POLITICAL SCIENCE Gender Identity Female 08/06/2024 11:23 AM PROFESSOR OF POLITICAL SCIENCE Sexual Orientation Not on file documented as of this encounter Plan of Treatment Upcoming Encounters Date Type Department Care Team (Late st Contact Info) Description 10/09/2025 2:00 PM PROFESSOR OF POLITICAL SCIENCE Office Visit [facility] APPLICATION DEVELOPMENT DIRECTOR [address] [phone] Gin Castro NP [address] [place] [address] documented as of this encounter Visit Diagnoses Not on filedocumented in this encounter
--- OUTSIDE RECORDS SUMMARY | 2025-03-13 23:27 | XMS_ITS | Encounter Summary ---
Author Organization [facility] Healthcare Address [address] [place] [address] Care Team Providers Care Stone Driller Name Role Phone Oswaldo Ayoub MD Primary Care Provider [phone] Encounter Details Date Type Department Care Team (Late st Contact Info) Description 03/08/2025 Orders Only [facility] Medical Group Cardiology [address] [place] [address] Ervin Lew MD [address] [facility] [address], [place] [address] Social History Tobacco Use Types [...] on filedocumented in this encounter Care Teams Stone Driller Relationship Specialty Start Date End Date Oswaldo Ayoub MD [address] [facility] [address] [place] [address] PCP - General 03/04/17 documented as of this encounter
--- OUTSIDE RECORDS SUMMARY | 2025-03-13 23:27 | XMS_ITS | Encounter Summary ---
Author Organization [facility] Healthcare Address [address] [place] [address] Care Team Providers Care Health Unit Supervisor Name Role Phone Oswaldo Ayoub MD Primary Care Provider [phone] Encounter Details Date Type Department Care Team (Late st Contact Info) Description 03/06/2025 Results Follow-Up [facility] Family Medicine at [address] [place] [phone] Oswaldo Ayoub MD [address] [place] [address] [address] [place] [address] Cardiology Document Scan Social History [...] on filedocumented in this encounter Care Teams Health Unit Supervisor Relationship Specialty Start Date End Date Oswaldo Ayoub MD [address] [facility] [address] [address] PCP - General 03/04/17 documented as of this encounter
--- OUTSIDE RECORDS SUMMARY | 2025-03-13 23:27 | XMS_ITS | Encounter Summary ---
Author Organization [facility] Healthcare Address [address] [place] [address] Care Team Providers Care Cdl Team Truck Driver Name Role Phone Oswaldo Ayoub MD Primary Care Provider [phone] Encounter Details Date Type Department Care Team (Late st Contact Info) Description 03/08/2025 Results Follow-Up [facility] Medical Group Family Medicine at [address] [place] [phone] Oswaldo Ayoub MD [address] [place] [address] [address] [place] [address] Cardiology Document Scan Social History [...] on filedocumented in this encounter Care Teams Cdl Team Truck Driver Relationship Specialty Start Date End Date Oswaldo Ayoub MD [address] [facility] [address] [address] PCP - General 03/04/17 documented as of this encounter
--- OUTSIDE RECORDS SUMMARY | 2025-03-13 23:27 | XMS_ITS | Encounter Summary ---
Author Organization [facility] Healthcare Address [address] [place] [address] Care Team Providers Care B Operator Name Role Phone Oswaldo Ayoub MD Primary Care Provider [phone] Encounter Details Date Type Department Care Team (Late st Contact Info) Description 03/13/2025 Telephone [facility] Medical Group Cardiology [address] [facility] [address] [place] [address] Daysi Parker NP [address] [place] [address] Social History Tobacco Use Types [...] on filedocumented in this encounter Care Teams B Operator Relationship Specialty Start Date End Date Oswaldo Ayoub MD [address] [facility] [address] [address] PCP - General 03/04/17 documented as of this encounter
--- OUTSIDE RECORDS SUMMARY | 2025-03-13 23:27 | XMS_ITS | Encounter Summary ---
Author Organization [facility] Healthcare Address [address] [place] [address] Care Team Providers Care Rn Maternity Name Role Phone Oswaldo Ayoub MD Primary Care Provider [phone] Encounter Details Date Type Department Care Team (Late st Contact Info) Description 03/06/2025 Results Follow-Up [facility] Medical Group Family Medicine at [address] [place] [address] Oswaldo Ayoub MD [address] [place] [address] [address] [place] [address] Cardiology Document Scan, SCAN - [...] on filedocumented in this encounter Care Teams Rn Maternity Relationship Specialty Start Date End Date Oswaldo Ayoub MD [address] [facility] [address] [address] PCP - General 03/04/17 documented as of this encounter
[2025-03-13 23:30] VITALS: PULSE 87; RESP 20; O2SAT 100
[2025-03-13 23:32] LABS: Basophils Absolute Auto 0.1 K/mm3 (0.0-0.1); Basophils Percent Auto 0.5 % (0.2-1.2); Eosinophils Percent Auto 0.2 % (0-4.4); Hematocrit 44.8 % (37.0-47.0); Hemoglobin 15.2 g/dL (12.0-15.0); Immature Granulocyte Absolute 0.08 K/mm3 (0.00-0.031); Immature Granulocyte Percent A 0.5 % (0-0.5); Lymphocytes Absolute Auto 1.28 K/mm3 (0.9-3.2); Lymphocytes Percent Auto 7.5 % (18.3-44.2); Mean Corpuscular HGB Conc 33.9 g/dl (32-36); Mean Corpuscular Hemoglobin 30.9 pg (26-34); Mean Corpuscular Volume 91.1 fl (80-100); Mean Platelet Volume 10.2 fl (7.4-10.4); Monocytes Absolute Auto 0.8 K/mm3 (0.1-0.6); Monocytes Percent Auto 4.5 % (2.6-8.5); Neutrophils Absolute Auto 14.7 K/mm3 (1.3-6.7); Neutrophils Percent Auto 86.8 % (45.5-73.1); Platelet Count Result 392 k/mm3 (150-375); Red Blood Count 4.92 M/mm3 (4.2-5.4); Red Cell Distribution Width 12.2 % (11.5-14.5)
[2025-03-13 23:35] LABS: Alanine Aminotransferase 24 U/L (6-35); Albumin Level 4.5 g/dL (3.5-5.1); Alkaline Phosphatase 72 U/L (38-126); Anion Gap 21 mmol/L (4-12); Aspartate Amino Transferase 40 U/L (14-36); Bilirubin,Total 0.9 mg/dL (0.2-1.3); Blood Urea Nitrogen 14 mg/dL (7-17); Carbon Dioxide 14 mmol/L (22-30); Chloride 101 mmol/L (98-107); Estimated CRCL calculation 72 ml/min; Estimated Glomerular Filt Rate 51; Glucose 185 mg/dL (65-110); Lipase 49 U/L (23-300); Potassium 3.7 mmol/L (3.4-5.0); Sodium 136 mmol/L (137-145); Total Protein 7.9 g/dL (6.3-8.2)
[2025-03-13 23:45] VITALS: PULSE 72; RESP 23; O2SAT 95
[2025-03-14 00:13] VITALS: PULSE 60; RESP 18; O2SAT 99
[2025-03-14 00:15] VITALS: PULSE 63; RESP 21; O2SAT 99
[2025-03-14 00:28] LABS: Add Urine Microscopic? YES; Appearance Urine Clear (Clear); Bacteria Urine None Seen /hpf; Bilirubin Urine 1+ (Negative); Blood Urine Negative (Negative); Color Urine Dark Yellow (Yellow); Glucose Urine UA Negative (Negative); Ketones Urine 4+ mg/dL (Negative); Leukocyte Esterase Ur 1+ LEU/UL (Negative); Need Manual Microscopic Reviewed; Nitrate Urine Negative (Negative); Non Pathogenic Casts >20; Protein Urine 1+ mg/dL (Negative); Specific Grav Ur 1.028 (1.001-1.035); Squamous Epithelial Cell Urine Occasional /hpf (Few); WBC Urine 0-5 /hpf (0-3)
[2025-03-14 00:30] VITALS: PULSE 61; RESP 20; O2SAT 100
[2025-03-14 00:45] VITALS: PULSE 73; RESP 27; O2SAT 99
[2025-03-14] MEDS: DEXTROSE 5%/LACTATED RINGERS 1,000 ML 1000 ML IV CONT (01:30)
[2025-03-14 02:11] LABS: BEDSIDEPREGUCG Negative (Negative)
[2025-03-14 04:06] VITALS: BP 186/86; PULSE 78; RESP 16; O2SAT 97
--- NOTE | 2025-03-14 04:27 | PC.NURSE ---
Repeat BMP sent to lab at 0209. Blood not received or ran by lab until 0426 after speaking with Betty in lab. EDP and ER charge aware.
[2025-03-14 04:35] LABS: Anion Gap 11 mmol/L (4-12); Blood Urea Nitrogen 15 mg/dL (7-17); Calcium 9.3 mg/dL (8.4-10.2); Carbon Dioxide 22 mmol/L (22-30); Chloride 99 mmol/L (98-107); Estimated CRCL calculation 87 ml/min; Estimated Glomerular Filt Rate > 60; Glucose 322 mg/dL (65-110); Potassium 3.9 mmol/L (3.4-5.0); Sodium 132 mmol/L (137-145)
--- NOTE | 2025-03-14 04:52 | PC.NURSE ---
Pt actively vomiting at this time. EDP made aware. EDP Dr. Tal SILVA 2.5 mg IVP haloperidol.
[2025-03-14] MEDS: HALOPERIDOL LACTATE 5 MG/ML VIAL 2.5 MG IV PUSH (05:04)
[2025-03-14 06:09] VITALS: BP 178/69; PULSE 69; RESP 18; TEMP 36.6; O2SAT 99
== END 2025-03-14 06:11 | disposition home or self-care (01) ==
PROVIDERS: Emergency Provider Student in an Organized Health Care Education/Training Program; PCP Family Medicine
DX: R11.15 Cyclical vomiting syndrome unrelated to migraine (principal); D89.40 Mast cell activation, unspecified; E87.29 Other acidosis; T73.0XXA Starvation, initial encounter
CPT/HCPCS: 36415; 71045; 80048; 80053; 81001; 81025; 83690; 85025; 87077; 87086; 87147; 87181; 87186; 93005; 96361; 96374; 99284; J1630; J7121

== ENCOUNTER 2025-03-26 07:09 | Emergency (ER) | payer OTHER, SELFPAY ==
[2025-03-26] VITALS (7 sets, daily range): BP systolic 168–181; BP diastolic 74–131; PULSE 73–88; RESP 12–36; TEMP 36.6; O2SAT 97–100
--- OUTSIDE RECORDS SUMMARY | 2025-03-26 07:12 | XMS_ITS | Encounter Summary ---
Author Organization [facility] Healthcare Address [address] [place] [address] Care Team Providers Care Residential Electrician Name Role Phone Oswaldo Ayoub MD Primary Care Provider [phone] Encounter Details Date Type Department Care Team (Late st Contact Info) Description 03/17/2025 Results Follow-Up [facility] Medical Group Family Medicine at [address] [place] [phone] Oswaldo Ayoub MD [address] [place] [address] [address] [place] [address] SCAN - RADIOLOGY/IMAGING Social History Tobacco Use Types Packs/Day Years Used Date Smoking Tobacco: Former Cigarettes 0.3 15 0 04/08/1999 - 04/08/2014 Smokeless Tobacco: Never Alcohol Use Standard Drinks/Week Comments Yes 0 (1 standard drink = 0.6 oz pur e alcohol) rarely AUDIT-C Answer Date Recorded Q1: How often do you have a drink containing alcohol? Never 03/21/2025 Q2: How many drinks containi ng alcohol do you have on a typical day when you are drinking? Patient does not drink Q3: How often do you have si x or more drinks on one occasion? Never 03/21/2025 PHQ-2 Answer Date Recorded PHQ-2 Total Score [...] on filedocumented in this encounter Care Teams Residential Electrician Relationship Specialty Start Date End Date Oswaldo Ayoub MD [address] [facility] [address] [address] PCP - General 03/04/17 documented as of this encounter
--- OUTSIDE RECORDS SUMMARY | 2025-03-26 07:12 | XMS_ITS | Encounter Summary ---
Author Organization [facility] Healthcare Address [address] [place] [address] Care Team Providers Care Gas Usage Meter Clerk Name Role Phone Oswaldo Ayoub MD Primary Care Provider [phone] Encounter Details Date Type Department Care Team (Late st Contact Info) Description 03/04/2025 Orders Only [facility] Health Information Management [address] [place] [address] Ervin Lew MD [address] [address] Social History Tobacco Use Types Packs/Day [...] Priority Date/Time Associated Diagnosis Comments SCAN - RADIOLOGY/IMAGING 03/04/2025 CARDIOLOGY DOCUMENT SCAN 03/04/2025 documented in this encounter Results * Cardiology Document Scan (03/04/2025) Anatomical Region Laterality Modality Other us Ervin Lew MD CV CARDIAC SERVICES PROCEDURES Final Result * SCAN - RADIOLOGY/IMAGING (03/04/2025) Anatomical Region Laterality Modality Other us Ervin Lew MD Mary l Result documented in this encounter Visit Diagnoses Not on filedocumented in this encounter Care Teams Gas Usage Meter Clerk Relationship Specialty Start Date End Date Oswaldo Ayoub MD [address] [facility] [address] [address] PCP - General 03/04/17 documented as of this encounter
--- OUTSIDE RECORDS SUMMARY | 2025-03-26 07:12 | XMS_ITS | Encounter Summary ---
Author Organization [facility] Healthcare Address [address] [place] [address] Care Team Providers Care Psychic Reader Name Role Phone Oswaldo Ayoub MD Primary Care Provider [phone] Encounter Details Date Type Department Care Team (Late st Contact Info) Description 03/19/2025 Results Follow-Up [facility] Medical Group Family Medicine at [address] [place] [address] Oswaldo Ayoub MD [address] [place] [address] [address] [place] [address] Cardiology Document Scan, SCAN - [...] PM CDT documented as of this encounter Functional Status * Audit-C Score Answer Date of Assessment Author 0 03/21/2025 2:20 PM CDT Jessica Appiah LPN * Question Answer Date of Assessment Author Q1: How often do you have a drink containing alcohol? Never 03/21/2025 2:20 PM CDT Lyric Appiah LP N Q2: How many drinks containing alcohol do you have on a typical day when you are drinking? Patient does not drink 03/21/2025 2:20 PM CDT Lyric Appiah LPN Q3: How often do you have six or more drinks on one occasion? Never 03/21/2025 2:20 PM CDT Lyric Appiah LP N documented as of this encounter Plan of Treatment Not on file documented as of this encounter Visit Diagnoses Not on filedocumented in this encounter Care Teams Psychic Reader Relationship Specialty Start Date End Date Oswaldo Ayoub MD [address] [facility] [place] [address] PCP - General 03/04/17 documented as of this encounter
--- OUTSIDE RECORDS SUMMARY | 2025-03-26 07:12 | XMS_ITS | Encounter Summary ---
Author Organization [facility] Healthcare Address [address] [place] [address] Care Team Providers Care Engineering Faculty Name Role Phone Oswaldo Ayoub MD Primary Care Provider Encounter Details Date Type Department Care Team (Late st Contact Info) Description 03/25/2025 Telephone [facility] Medical Group Cardiology [address] [facility] [address] [place] [address] Daysi Parker NP [address] [place] [address] Social History Tobacco Use Types [...] PM CDT documented as of this encounter Ordered Prescriptions Prescription Sig Dispense Quantity Refills Last Filled Start Date End Date furosemide (LASIX) 40 mg tablet Take 1 tablet (40 mg total) by mouth daily for 30 doses Take 1 tablet daily for 3 days and then report an update to physician. 30 tablet 03/25/2025 04/24/2025 documented in this encounter Miscellaneous Notes * Addendum Note - Eduardo Oseguera RN - 03/25/2025 1:20 PM CDTAddended by: EDUARDO OSEGUERA on: 03/25/2025 01:20 PM Modules accepted: Orders * Telephone Encounter - Eduardo Oseguera RN - 03/25/2025 1:20 PM CDT Forwarded response to pt via my chart and send Rx to pharm. * Telephone Encounter - Eduardo Oseguera RN - 03/25/2025 12:55 PM CDT Images from the original note were not included. Agustina Tijerina to P [facility] Card Mryvl Clinical Pool (supporting Daysi Parker NP) (Selected Message) 03/25/25 9:29 AM Hello, I???m contacting you regarding weight gain on metoprolol 25mg. On 03/20, I weighed 225.7 lbs. I gained 2 lbs, then a pound a day for 3 days. Then gained 2 lbs this morning, making me 232.2 lbs. I havegained 7 lbs in 6 days which exceeds the limit you set. I am still eating a minimal low histamine diet so it???s a little concerning to me. Please advise. Thank you! Will forward to CK in CT's absence. Please advise, thank you! documented in this encounter Plan of Treatment Not on file documented as of this encounter Visit Diagnoses Not on filedocumented in this encounter Care Teams Engineering Faculty Relationship Specialty Start Date End Date Oswaldo Ayoub MD [address] [facility] [address] [address] PCP - General 03/04/17 documented as of this encounter
--- OUTSIDE RECORDS SUMMARY | 2025-03-26 07:12 | XMS_ITS | Clinical Summary ---
Author Organization [facility] Address [address] [facility] [place] [address] Care Team Providers Care Supervisor Carding Name Role Phone Oswaldo Ayoub MD Primary Care Provider [phone] Source Comments [facility],non-owned Affiliates and Associated Physician Practices is amultiple site organization consisting of ambulatory clinics and hospital sitesin [place], [place], [place] and [place]. This disclosure is being madepursuant to the Care Everywhere program and may not contain all information available regarding this patient. Last updated 18.[facility] Veoh Allergies No known active allergies Medications * [...] COLON CA SCREENING 1979 LIPID TESTING 1979 HIV SCREENING 1994 HEPATITIS C SCREENING 07/12/1997 DTAP/TDAP/TD VACCINES (1 - Tdap) 1998 HEPATITIS B VACCINE (1 of 3 - 19+ 3-dose series) 1998 PAP SMEAR 2000 COVID-19 VACCINE (2 - season) 2024 06/26/2021 [...] 12:07 PM 05/21/2024 4:31 PM Care Teams Supervisor Carding Relationship Specialty Start Date End Date Oswaldo Ayoub MD [address] [place] [address] PCP - General Family Medicine 05/21/24
--- OUTSIDE RECORDS SUMMARY | 2025-03-26 07:12 | XMS_ITS | Clinical Summary ---
Author Organization [facility] Address [address] [place] [address] Phone Care Team Providers Care Marketing Project Lead Name Role Phone Unavailable Primary Care Provider [...] Sex Assigned at Female 08/06/2024 11:23 AM WEEKEND ANCHOR Legal Sex Female 12:30 PM WEEKEND ANCHOR Gender Identity Female 08/06/2024 11:23 AM WEEKEND ANCHOR Sexual Orientation Not on file Last Filed Vital Signs Vital Sign Reading Time Taken Comments Blood Pressure 120/76 10/08/2024 2:07 PM WEEKEND ANCHOR Pulse 61 10/08/2024 2:07 PM WEEKEND ANCHOR Temperature 36.4 C (97.5 F) 10/08/2024 2:07 PM WEEKEND ANCHOR Respiratory Rate - - Oxygen Saturation 97% 10/08/2024 2:07 PM WEEKEND ANCHOR Inhaled Oxygen Concentration - - Weight 117.9 kg (260 lb) 10/08/2024 2:07 PM WEEKEND ANCHOR Height 180.3 cm (5' 11) 10/08/2024 2:07 PM WEEKEND ANCHOR Body Mass Index 36.26 10/08/2024 2:07 PM WEEKEND ANCHOR Plan of Treatment Upcoming Encounters Date Type Department Care Team (Late st Contact Info) Description 10/09/2025 2:00 PM WEEKEND ANCHOR Office Visit [facility] PERFORATOR OPERATOR - [id number] [address] Gin Castro, FADI [address] [place] [address] Health Maintenance Due Date Last [...] 10/08/2024, 10/04/2023 COLORECTAL SCREENING 01/12/2033 01/12/2023, 01/13/20 Colorectal Cancer Screening 01/12/2033 HPV VACCINES Aged Out No longer eligi ble based on patient's age to complete this topic Procedures Procedure Name Priority Date/Time Associated Diagnosis Comments MAMMO 3D TAYO SCREEN BILAT W OR WO CAD Routine 11/15/2024 2:23 PM WEEKEND ANCHOR Screening mammogram for breast cancer CERV/VAG CYTO AGE BASED SCREEN PAP Routine 10/08/2024 2:35 PM WEEKEND ANCHOR Well woman exam with routine gynecological exam Screening for HPV (human papillomavirus) Encounter for Papanicolaou smear for cervical cancer screening H/O LEEP from Last 3 Months or Most Recently Relevant to Health Maintenance Results * MAMMO 3D TAYO SCREEN BILAT W OR WO CAD (11/15/2024 2:23 PM WEEKEND ANCHOR) Anatomical Region Laterality Modality Breast Bilateral Mammography 11/15/2024 2:24 PM WEEKEND ANCHOR Addenda Addendum by Tom Barber MD on 11/30/2024 9:07 AM WEEKEND ANCHOR Prior mammograms from an outside facility are [...] in one year. Impressions 11/15/2024 2:44 PM WEEKEND ANCHOR IMPRESSION: 1. Need outside films. OVERALL FINAL ASSESSMENT: BI-RADS CATEGORY 0: Incomplete, needs comparison to prior mammograms. RECOMMENDATIONS: 1. Outside films will be obtained. An addendum will be dictated when these films are available. DICTATION LOCATION: [facility] 11/15/2024 2:44 PM WEEKEND ANCHOR BILATERAL SCREENING DIGITAL MAMMOGRAM WITH 3D TOMOSYNTHESIS [...] dictated when these films are made available. Gin Castro NP MAMMO ORDERABLES Edited Res ult - Final * CERV/VAG CYTO AGE BASED SCREEN PAP (10/08/2024 2:35 PM WEEKEND ANCHOR) COMMENT (PAP): [facility] [place] Comment: This order for age-based cervical cancer and STI screening follows ACOG guidelines(PB 168, 140, AMT011). See individual assays for performing site location. CLINICAL INFORMATION [facility] [place] Comment:None given LAST MENSTRUAL PERIOD [facility] [place] Comment:NONE GIVEN PREV PAP: [facility] [place] Comment:10/04/2023 NIL PREV BX: [facility] [place] Comment:NONE GIVEN SOURCE [facility] [place] Comment:Endocervix ADEQUACY: [facility] [place] Comment: Satisfactory for evaluation. Endocervical/transformation zone component present. Age and/or menstrual status not provided PAP INTERP [facility] [place] Comment: Cytology Results: Negative for intraepithelial lesion or malignancy. COMMENT (PAP TEST) Q uest [facility] [place] Comment: This Pap test has been evaluated with computer assisted technology. SYSTEMS PROGRAM MANAGER: Juaquin est [facility] [place] Comment: TMK, CT(ASCP) CT screening location: [place] [address] [place] [address] EXPLANATORY NOTE [facility] [place] Comment: EXPLANATORY NOTE: The Pap is a [...] information. HPV E6/E7 Not Detected Not Detected [facility] [place] Comment: Methodology: Domestic Cleaner-Mediated Amplification This assay detects E6/E7 viral messenger RNA (mRNA) from 14 high-risk HPV types (16,18,31,33,35,39,45,51,52,56,58,59,66,68). Cervical sources are required for HPV testing. If a vaginal source from a patient who has had a total hysterectomy with removal of cervix was submitted, please contact the testing laboratory for alternative testing options. For additional information, please refer to http://education.Tears for Life/faq/SZL460s5 (This link if provided for information/ educational purposes only.) Test Performed at: [facility] [address] [place] [address] Barbie GARCIA Genital SWAB OF ENDOCERVIX / Unknown 10/08/2024 2:35 PM WEEKEND ANCHOR 10/09/2024 12:19 AM WEEKEND ANCHOR us Gin Castro NP PATHOLOGY/CYTOLOGY ORDERABL ES Final Result [facility] [phone] [facility] [address] [place] [address] from Last 3 Months or Most Recently Relevant to Health Maintenance Insurance [address] [email or web address] [address]
--- OUTSIDE RECORDS SUMMARY | 2025-03-26 07:13 | XMS_ITS | Encounter Summary ---
Author Organization [facility] Healthcare Address [address] [place] [address] Care Team Providers Care Senior Sql Database Developer Name Role Phone Oswaldo Ayoub MD Primary Care Provider [phone] Encounter Details Date Type Department Care Team (Late st Contact Info) Description 03/06/2025 Results Follow-Up [facility] Medical Group Family Medicine at [address] [place] [phone] Oswaldo Ayoub MD [address] [place] [address] [address] [place] [address] Cardiology Document Scan Social History [...] on filedocumented in this encounter Care Teams Senior Sql Database Developer Relationship Specialty Start Date End Date Oswaldo Ayoub MD [address] [facility] [address] [address] PCP - General 03/04/17 documented as of this encounter
--- OUTSIDE RECORDS SUMMARY | 2025-03-26 07:13 | XMS_ITS | Clinical Summary ---
Author Organization [facility] Address [address] [place] [address] Care Team Providers Care Specification Manager Name Role Phone Oswaldo Ayoub MD Primary Care Provider Allergies No known active allergies Medications melatonin 10 mg tablet Take 1 tablet (10 mg total) by mouth nightly Active multivitamin capsule Take 1 capsule by mouth nightly Active cholecalciferol (VITAMIN D-3) 1,000 unit capsule Take 1 capsule (1,000 Units total) by mouth nightly Active meloxicam (MOBIC) 15 mg tablet Take 1 tablet (15 mg total) by mouth daily as needed for pain Active NALTREXONE, BULK, MISC Take 4.5 mg by mouth daily 4 Active ferrous bis-glycinate chelate (IRON BISGLYCINATE CHELATE [...] (two) times a day 60 tablet 11 5 10/25/19 26 Active metoclopramide (REGLAN) 10 mg tablet Take 1 tablet (10 mg total) by mouth every 6 (six) hours as needed (nausea) 15 tablet 5 Active haloperidoL (HALDOL) 2 mg tablet TAKE 1 TABLET BY MOUTH THREE TIMES DAILY NEEDED FOR NAUSEA OR VOMITING 5 Active LORazepam (ATIVAN) 0.5 mg tablet TAKE 1 TABLET BY MOUTH THREE TIMES DAILY NEEDED FOR NAUSEA OR VOMITING 5 Active losartan (COZAAR) 25 mg tablet Take 1 tablet (25 mg total) by mouth daily 5 Active metoprolol XL (TOPROL-XL) 50 mg extended release tablet Take 0.5 tablets (25 mg total) by mouth every morning 5 Active scopolamine 1 mg over 3 days patch 3 day APPLY 1 PATCH TOPICALLY TO THE SKIN EVERY 3 DAYS NEEDED FOR NAUSEA OR VOMITING Active naltrexone 4.5 mg capsule Take by mouth Activ e sertraline (ZOLOFT) 25 mg tablet Take 1 tablet (25 mg total) by mouth daily 90 tablet 1 5 03/21/20 26 Active sertraline (ZOLOFT) 100 mg tabletIndication s:Moderate episode of recurrent major depressive disorder (HCC),AARON (generalized anxiety disorder) Take 1 tablet (100 mg total) by mouth daily 90 tablet 1 5 Active valACYclovir (VALTREX) 500 mg tablet Take 1 tablet (500 mg total) by mouth daily 90 tablet 2 5 Active atogepant (Qulipta) 60 mg tablet Take 60 mg by mouth daily 90 tablet 1 5 Active rizatriptan (MAXALT) 10 mg tabletIndication s:Migraine Take 1 tablet (10 mg total) by mouth once as needed for migraine May repeat in 2 hours if unresolved. Do not exceed 30 mg in 24 hours. 9 tablet 5 03/21/20 26 Active furosemide (LASIX) 40 mg tablet Take 1 tablet (40 mg total) by mouth daily for 30 doses Take 1 tablet daily for 3 days and then report an update to physician. 30 tablet 5 04/24/20 25 Active promethazine (PHENERGAN) 25 mg tablet Take 1 tablet (25 mg total) by mouth every 6 (six) hours as needed for nausea or vomiting 30 tablet 3 03/21/20 25 Discontin ued(Thera py completed ) valACYclovir (VALTREX) 500 mg tablet TAKE 1 TABLET(500 MG) BY MOUTH DAILY 100 tablet 5 03/21/20 25 Discontin ued(Reord er) sertraline (ZOLOFT) 100 mg tabletIndication s:AARON (generalized anxiety disorder),Modera te episode of recurrent major depressive disorder (HCC) Take 1 tablet (100 mg total) by mouth daily 30 tablet 1 5 03/21/20 25 Discontin ued(Reord er) valacyclovir HCl (valACYclovir, bulk,) 100 % powder 0 03/18/20 25 Discontin ued(Dupli sparkle order) Active Problems Problem Noted Date Diagnosed Date 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 Assessment & Plan (11/18/2022 10:23 AM JEWELRY DRILL OPERATOR): CT scan of the abdomen and pelvis [...] loss Assessment & Plan (11/18/2022 10:50 AM JEWELRY DRILL OPERATOR): GERD for the past year, seems to [...] PRN Assessment & Plan (08/23/2022 1:43 PM JEWELRY DRILL OPERATOR): Stable, no changes. Continue current regimen with [...] acceptable. Assessment & Plan (08/23/2022 1:42 PM JEWELRY DRILL OPERATOR): Seeing improvement with xanax Increase dose to [...] popcorn Assessment & Plan (11/18/2022 10:52 AM JEWELRY DRILL OPERATOR): Patient started having abdominal pain, diarrhea, nausea, [...] Encounters Date Type Department Care Team Description 03/25/2025 Telephone [facility] Medical Group Cardiology [address] [place] [address] Daysi Parker NP 03/21/2025 2:30 PM CDT Telemedicine [facility] Family Medicine at [address] [place] [phone] Dionne Smiley NP Moderate episode of recurrent major depressive disorder (HCC) (Primary Dx); Migraine without aura and without status migrainosus, not intractable; AARON (generalized anxiety disorder); Mast cell activation syndrome; Nonischemic cardiomyopathy (HCC); 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 Telephone [facility] Family Medicine at [address] [place] [address] Dionne Smiley NP 03/19/2025 Results Follow-Up [facility] Medicine at [address] [place] [address] Oswaldo Ayoub MD Cardiology Document Scan, SCAN - RADIOLOGY/IMAGING 03/18/2025 2:30 PM CDT Office Visit [facility] Cardiology [address] [place] [address] [place] [phone] Daysi Parker NP Nonischemic cardiomyopathy (HCC) (Primary Dx); Mast cell activation syndrome; Hospital discharge follow-up 03/17/2025 Results Follow-Up [facility] Family Medicine at [address] [place] [phone] Oswaldo Ayoub MD SCAN - RADIOLOGY/IMAGING 03/13/2025 Orders Only [facility] Health Information Management [address] [place] [address] Oswaldo Ayoub MD 03/13/2025 Telephone [facility] Cardiology [address] [place] [address] [address] [place] [phone] Daysi Parker NP 03/08/2025 Results Follow-Up [facility] Family Medicine at [address] [place] [phone] Oswaldo Ayoub MD Cardiology Document Scan 03/08/2025 Orders Only [facility] Cardiology [facility] [address] [place] [address] Ervin Lew MD 03/06/2025 Results Follow-Up [facility] Family Medicine at [address] [place] [address] Oswaldo Ayoub MD Cardiology Document Scan, SCAN - RADIOLOGY/IMAGING 03/06/2025 Results Follow-Up [facility] Family Medicine at [address] [place] [address] Oswaldo Ayoub MD Cardiology Document Scan 03/04/2025 Orders Only [facility] Health Information Management [address] [place] [address] Ervin Lew MD 03/02/2025 Orders Only [facility] Health Information Management [address] [place] [phone] Ervin Lew MD 03/01/2025 Orders Only [facility] Health Information Management [address] [place] [phone] Ervin Lew MD 02/19/2025 Patient Self-Triage [facility] HealthCare/ [facility] [place] [address] Mychart, Generic Provider 02/15/2025 Telephone [facility] Family Medicine at [address] [place] [address] Joy Villalpando NP 02/14/2025 1:30 PM CDT Telemedicine [facility] Family Medicine at [address] [place] [address] Joy Villalpando NP AARON (generalized anxiety disorder) (Primary Dx); Moderate episode of recurrent major depressive disorder (HCC); Migraine without aura and without status migrainosus, not intractable 01/18/2025 Telephone [facility] Family Medicine at [address] [place] [address] Oswaldo Ayoub MD 01/15/2025 11:30 AM CDT Office Visit [facility] Family Medicine at [address] [place] [address] Joy Villalpando NP AARON (generalized anxiety disorder) (Primary Dx); Migraine without aura and without status migrainosus, not intractable; Moderate episode of recurrent major depressive disorder (HCC) 01/02/2025 Results Follow-Up [facility] Family Medicine at [address] [place] [address] Oswaldo Ayoub MD SCAN - LABS from Last 3 Months Immunizations Immunization Administration Dates Next Due Influenza, Unspecified 06/26/2024(Deferr ed: Patient Refused),06/26/2023(Deferred: Patient Refused),07/14/2022(Deferred: Patient Refused),06/26/2021(Deferred: Patient Refused),06/26/2021(Deferred: Patient Refused),06/26/2020(Deferred: Patient Refused),06/26/2019(Deferred: Patient Refused) Tdap 06/28/2017 Surgical History Surgery Date Site/Laterality Comments CERVIX SURGERY Cervical Surgery (Presentation Designer) - (Added by TW Conv) Medical History Medical History Date Comments Headache GERD (gastroesophageal reflux disease) 2020 Anxiety 2018 Migraines Childhood Depression 2018 Mast cell activation syndrome 2024 Family History Medical History Relation Name Comments Cancer Father Denny Guerra Hypertension Father Denny Guerra Heart disease Maternal Grandmother Tg Kerr Arthritis Mother Daysi Guerra Hearing loss Mother Daysi Guerra Hyperlipidemia Mother Daysi Charlie Hypertension Mother Daysi Meek Clotting disorder Paternal Grandfather Arpan Charlie Diabetes Paternal Grandfather Arpan Guerra Alzheimer's disease Paternal Grandmother Nichole Raymondek Relation Name Status Comments Brother 1 Alive Brother 2 Alive Father Denny Raymondek Alive Maternal Grandmother Tg [place] Mother Daysi Charlie Alive Paternal Grandfather Arpan Charlie Alive Paternal Grandmother Nichole Charlie Alive Social History Tobacco Use Types Packs/Day [...] Sign Reading Time Taken Comments Blood Pressure 102/68 03/21/2025 2:18 PM CDT per patient Pulse 84 03/18/2025 2:37 PM CDT Temperature 36.5 C (97.7 F) 01/15/2025 11:23 AM CDT Respiratory Rate 18 01/15/2025 11:2 3 AM CDT Oxygen Saturation 95% 03/18/2025 2:3 7 PM CDT Inhaled Oxygen Concentration - - Weight 103.1 kg (227 lb 3.2 oz) 03/21/2025 2:18 PM CDT per patient Height 180.3 cm (5' 11) 03/18/2025 2:3 7 PM CDT Body Mass Index 31.69 03/18/2025 2:37 PM CDT Plan of Treatment Health Maintenance [...] Date/Time Associated Diagnosis Comments SCAN - RADIOLOGY/IMAGING 03/13/2025 CARDIOLOGY DOCUMENT SCAN Routine 03/05/2025 11:25 AM CDT CARDIOLOGY DOCUMENT SCAN 03/04/2025 SCAN - RADIOLOGY/IMAGING 03/04/2025 CARDIOLOGY DOCUMENT SCAN Routine 03/03/2025 11:22 AM CDT CARDIOLOGY DOCUMENT SCAN Routine 03/02/2025 10:00 AM CDT CARDIOLOGY DOCUMENT SCAN Routine 03/02/2025 9:24 AM CDT CARDIOLOGY DOCUMENT SCAN 03/02/2025 CARDIOLOGY DOCUMENT SCAN 03/01/2025 SCAN - RADIOLOGY/IMAGING 03/01/2025 SCAN - LABS 12/27/2024 SCREENING MAMMOGRAM BILATERAL W CHON Schedule Routine, Read Routine (OP Routine) 09/30/2023 2:22 PM JEWELRY DRILL OPERATOR Screening mammogram, encounter for COLONOSCOPY 01/12/2023 11:44 AM CDT from Last 3 Months or Most Recently Relevant to Health Maintenance Results * SCAN - RADIOLOGY/IMAGING (03/13/2025) Anatomical Region Laterality Modality Other us Oswaldo Ayoub MD Final Result * Cardiology Document Scan (03/05/2025 11:25 AM CDT) Anatomical Region Laterality Modality Other us Raman Kenney MD CV CARDIAC SERVICES PRO CEDURES Final Result * SCAN - RADIOLOGY/IMAGING (03/04/2025) Anatomical Region Laterality Modality Other us Ervin Lew MD Mary l Result * Cardiology Document Scan (03/04/2025) Anatomical Region Laterality Modality Other us Ervin Lew MD CV CARDIAC SERVICES PROCEDURES Final Result * Cardiology Document Scan (03/03/2025 [...] RADIOLOGY/IMAGING (03/01/2025) Anatomical Region Laterality Modality Other Result Replaced By [facility] us Ervin Lew MD Edit ed Result - Final * Cardiology Document Scan (03/01/2025) Anatomical Region Laterality Modality Other Result [facility] Ervin Lew MD CV CARDIAC SERVICES PROCEDURES Edited Result - Final * SCAN - LABS (12/27/2024) Oswaldo Ayoub MD Final Result * Screening Mammogram Bilateral W Chon (09/30/2023 2:22 PM JEWELRY DRILL OPERATOR) Anatomical Region Laterality Modality Breast Bilateral Mammography Impressions 09/30/2023 2:41 PM JEWELRY DRILL OPERATOR BI-RADS ATLAS category (overall): 1 - Negative There is no mammographic evidence of malignancy. A 1 year screening mammogram is recommended. The patient has been or will be contacted. We recommend annual screening mammography for women at average risk of breast cancer beginning at age 40, based on guidelines of the [employer] (ACR Practice Parameter for the Performance of Screening and Diagnostic Mammography) and [employer]. For women with and elevated risk of breast cancer, please refer to the ACR Practice Parameter for specific screening recommendations. The patient will be entered into a reminder system with a target due date of 1 year for her next screening exam. Narrative 09/30/2023 2:41 PM JEWELRY DRILL OPERATOR Screening Mammogram Bilateral W Chon: 09/30/23 The [...] - 01/12/2023 11:44 AM CDT [facility] GI ENDOSCOPY Patient Name: Agustina Tijerina Procedure Date: 01/12/2023 11:44 AM Date of : 1980 Admit Type: Outpatient Age: 42 Gender: Female Attending MD: Ari Swan M.D. Room: [facility] ENDOSCOPY ROOM 06 Note Status: Finalized Procedure: [...] On: 01/12/2023 11:44 AM Recognized by the [employer] for promoting quality in endoscopy us Ari Swan MD ENDOSCOPY PROCEDURES Final Resul t from Last 3 Months or Most Recently Relevant to Health Maintenance Insurance [employer] [facility] [address] [employer] [place] [id number] [facility] Advance Directives For more information, please contact: [phone] * Full Code (Latest Code Status on File) Date Activated Date Inactivated Comments 10/24/2024 10:13 PM 10/25/2024 10:30 PM Care Teams Specification Manager Relationship Specialty Start Date End Date Oswaldo Ayoub MD [address] [facility] [address] [address] PCP - General 03/04/17
--- OUTSIDE RECORDS SUMMARY | 2025-03-26 07:13 | XMS_ITS | Encounter Summary ---
Author Organization [facility] Address [address] [place] [address] Care Team Providers Care Dance Therapist Name Role Phone Oswaldo Ayoub MD Primary Care Provider Encounter Details Date Type Department Care Team (Late st Contact Info) Description 03/08/2025 Results Follow-Up [facility] Family Medicine at [address] [place] [phone] Oswaldo Ayoub MD [address] [place] [address] [address] [place] [address] Cardiology Document Scan Social History [...] on filedocumented in this encounter Care Teams Dance Therapist Relationship Specialty Start Date End Date Oswaldo Ayoub MD [address] [facility] [address] [address] PCP - General 03/04/17 documented as of this encounter
--- OUTSIDE RECORDS SUMMARY | 2025-03-26 07:13 | XMS_ITS | Referral Summary ---
Author Organization [facility] Address [address] [place] [address] Care Team Providers Care Supervisor Cereal Name Role Phone Oswaldo Ayoub MD Primary Care Provider [phone] Encounters Date Type Department Care Team Description 03/25/[address] [facility] Cardiology [address] [facility] [address] [place] [address] Daysi Parker NP 03/21/2025 Telephone [facility] Family Medicine at [address] [place] [phone] Dionne Smiley NP 03/21/2025 2:[address] [facility] Medical [facility] Family Medicine at [address] [place] [address] Dionne Smiley NP Moderate episode of recurrent major depressive disorder (HCC) (Primary Dx); Migraine without aura and without status migrainosus, not intractable; AARON (generalized anxiety disorder); Mast cell activation syndrome; Nonischemic cardiomyopathy (HCC); HSV-1 infection 03/19/2025 Results Follow-Up [facility] Family Medicine at [address] [place] [phone] Oswaldo Ayoub MD Cardiology Document Scan, SCAN - RADIOLOGY/IMAGING 03/18/2025 2:30 PM CDT Office Visit [facility] Cardiology [address] [facility] [address] [place] [address] Daysi Parker NP Nonischemic cardiomyopathy (HCC) (Primary Dx); Mast cell activation syndrome; Hospital discharge follow-up 03/17/2025 Results Follow-Up [facility] Family Medicine at [address] [place] [address] Oswaldo Ayoub MD SCAN - RADIOLOGY/IMAGING 03/13/2025 Orders Only [facility] Information Management [address] [place] [address] Oswaldo Ayoub MD 03/13/2025 Telephone [facility] Cardiology [facility] [address] [place] [phone] Daysi Parker NP 03/08/2025 Results Follow-Up [facility] Family Medicine at [address] [place] [address] Oswaldo Ayoub MD Cardiology Document Scan 03/08/2025 Orders Only [facility] Cardiology [address] [place] [address] [place] [address] Ervin Lew MD 03/06/2025 Results Follow-Up [facility] Family Medicine at [address] [place] [address] Oswaldo Ayoub MD Cardiology Document Scan, SCAN - RADIOLOGY/IMAGING 03/06/2025 Results Follow-Up [facility] Family Medicine at [address] [place] [address] Oswaldo Ayoub MD Cardiology Document Scan 03/04/2025 Orders Only [facility] [address] [place] [address] Ervin Lew MD 03/02/2025 Orders Only [facility] [address] [place] [address] Ervin Lew MD 03/01/2025 Orders Only [facility] Information [facility] [address] [place] [address] Ervin Lew MD 02/19/2025 Patient Self-T[address] [facility] HealthCare/ Physicians [facility] [place] [address] Mychart, Generic Provider 02/15/2025 Telephone [facility] Medicine at [address] [address] Joy Villalpando NP 02/14/2025 1:30 PM CDT Telemedicine [facility] Medicine at [address] [address] Joy Villalpando NP AARON (generalized anxiety disorder) (Primary Dx); Moderate episode of recurrent major depressive disorder (HCC); Migraine without aura and without status migrainosus, not intractable 01/18/2025 Telephone [facility] Medicine at [address] [address] Oswaldo Ayoub MD 01/15/2025 11:30 AM CDT Office Visit [facility] at [address] [address] Joy Villalpando NP AARON (generalized anxiety disorder) (Primary Dx); Migraine without aura and without status migrainosus, not intractable; Moderate episode of recurrent major depressive disorder (HCC) 01/02/2025 Results Follow-Up [facility] Medicine at [address] [address] Oswaldo Ayoub MD SCAN - LABS from [...] unremarkable. Assessment & Plan (11/18/2022 10:23 AM BICYCLE SERVICE TECHNICIAN): CT scan of the abdomen and pelvis [...] loss Assessment & Plan (11/18/2022 10:50 AM BICYCLE SERVICE TECHNICIAN): GERD for the past year, seems to [...] PRN Assessment & Plan (08/23/2022 1:43 PM BICYCLE SERVICE TECHNICIAN): Stable, no changes. Continue current regimen with [...] acceptable. Assessment & Plan (08/23/2022 1:42 PM BICYCLE SERVICE TECHNICIAN): Seeing improvement with xanax Increase dose to [...] popcorn Assessment & Plan (11/18/2022 10:52 AM BICYCLE SERVICE TECHNICIAN): Patient started having abdominal pain, diarrhea, nausea, [...] 03/18/2025 2:37 PM CDT Plan of Treatment Not on [...] Read Routine (OP Routine) 09/30/2023 2:22 PM BICYCLE SERVICE TECHNICIAN Screening mammogram, encounter for COLONOSCOPY 01/12/2023 11:44 [...] Anatomical Region Laterality Modality Other us Ervin Lwe MD Mary l Result * Cardiology Document [...] AM CDT) Anatomical Region Laterality Modality Other Result Connie Lew MD [facility] PROCEDURES Final Result * Cardiology Document Scan (03/02/2025) Anatomical Region Laterality Modality Other us Ervin Lew MD CV CARDIAC SERVICES PROCEDURES Edited Result - Final * SCAN - RADIOLOGY/IMAGING (03/01/2025) Anatomical Region Laterality Modality Other Result Connie Lew MD Edit ed Result - Final * Cardiology Document Scan (03/01/2025) Anatomical Region Laterality Modality Other us Ervin Lew MD CV CARDIAC SERVICES PROCEDURES Edited Result - Final * SCAN - LABS (12/27/2024) us Oswaldo Ayoub MD Final Result * Screening Mammogram Bilateral W Chon (09/30/2023 2:22 PM BICYCLE SERVICE TECHNICIAN) Anatomical Region Laterality Modality Breast Bilateral Mammography Impressions 09/30/2023 2:41 PM BICYCLE SERVICE TECHNICIAN BI-RADS ATLAS category (overall): 1 - Negative There is no mammographic evidence of malignancy. A 1 year screening mammogram is recommended. The patient has been or will be contacted. We recommend annual screening mammography for women at average risk of breast cancer beginning at age 40, based on guidelines of the [employer] (ACR Practice Parameter for the Performance of Screening and Diagnostic Mammography) and [employer]. For women with and elevated risk of breast cancer, please refer to the ACR Practice Parameter for specific screening recommendations. The patient will be entered into a reminder system with a target due date of 1 year for her next screening exam. Narrative 09/30/2023 2:41 PM BICYCLE SERVICE TECHNICIAN Screening Mammogram Bilateral W Chon: 09/30/23 The [...] MD - 01/12/2023 11:44 AM CDT [facility] Patient Name: Agustina Tijerina Procedure Date: 01/12/2023 11:44 AM Date of : 1980 Admit Type: Outpatient Age: 42 Gender: Female Attending MD: Ari Swan M.D. Room: [facility] ENDOSCOPY ROOM 06 Note Status: [...] On: 01/12/2023 11:44 AM Recognized by the [employer] for promoting quality in endoscopy us Ari Swan MD ENDOSCOPY PROCEDURES Final Resul t from Last 3 Months or Most Recently Relevant to Health Maintenance Insurance [facility] [address] Advance Directives For more information, please contact: [phone] * Full Code (Latest Code Status on File) Date Activated Date Inactivated Comments 10/24/2024 10:13 PM 10/25/2024 10:30 PM Care Teams Supervisor Cereal Relationship Specialty Start Date End Date Oswaldo Ayoub MD [address] [facility] [address] [address] PCP - General 03/04/17
--- OUTSIDE RECORDS SUMMARY | 2025-03-26 07:13 | XMS_ITS | Encounter Summary ---
Author Organization [facility] Address [address] [place] [address] Care Team Providers Care Bale Sewer Name Role Phone Oswaldo Ayoub MD Primary Care Provider [phone] Encounter Details Date Type Department Care Team (Late st Contact Info) Description 03/06/2025 Results Follow-Up [facility] Family Medicine at [address] [place] [address] Oswaldo Ayoub MD [address] [place] [address] [address] [place] [address] Cardiology Document Scan, SCAN - [...] on filedocumented in this encounter Care Teams Bale Sewer Relationship Specialty Start Date End Date Oswaldo Ayoub MD [address] [facility] [address] [address] PCP - General 03/04/17 documented as of this encounter
--- OUTSIDE RECORDS SUMMARY | 2025-03-26 07:13 | XMS_ITS | Encounter Summary ---
Author Organization [facility] Address [address] [place] [address] Care Team Providers Care Hospital Manager Name Role Phone Oswaldo Ayoub MD Primary Care Provider [phone] Encounter Details Date Type Department Care Team (Late st Contact Info) Description 05/09/2024 Orders Only [facility] [place] [place] Health Information Management [address] [place] [address] Oswaldo Ayoub MD [facility] [address] [address] Social History Tobacco Use Types Packs/Day Years [...] COVID: Suspected 11/12/2024 11/12/2024 11/12/2024 4:14 AM ELECTRONIC IMAGER Influenza, adult 11/12/2024 11/12/2024 11/19/2024 3:07 AM ELECTRONIC IMAGER documented as of this encounter Care Teams Hospital Manager Relationship Specialty Start Date End Date Oswaldo Ayoub MD [address] [facility] [address] [place] [address] [place] [address] PCP - General 03/04/17 documented as of this encounter
[2025-03-26 07:28] LABS: Hematocrit 43.4 % (37.0-47.0); Hemoglobin 14.5 g/dL (12.0-15.0); Immature Granulocyte Percent A 0.5 % (0-0.5); Lymphocytes Absolute Auto 0.95 K/mm3 (0.9-3.2); Mean Corpuscular HGB Conc 33.4 g/dl (32-36); Mean Corpuscular Hemoglobin 31.0 pg (26-34); Mean Corpuscular Volume 92.7 fl (80-100); Nucleated Red Blood Cells Absolute Auto 0.000 K/mm3 (0.0-0.012); Nucleated Red Blood Cells Perc 0.0 % (0.0-0.2); Platelet Count Result 309 k/mm3 (150-375); Red Blood Count 4.68 M/mm3 (4.2-5.4); White Blood Count 10.7 K/mm3 (4.5-10.0)
--- OUTSIDE RECORDS SUMMARY | 2025-03-26 07:41 | XMS_ITS | Clinical Summary ---
Author Organization [facility] Address [address] [place] [address] Phone Care Team Providers Care Nurse Sane Name Role Phone Unavailable Primary Care Provider [...] Sex Assigned at Female 08/06/2024 11:23 AM CASING MACHINE OPERATOR Legal Sex Female 12:30 PM CASING MACHINE OPERATOR Gender Identity Female 08/06/2024 11:23 AM CASING MACHINE OPERATOR Sexual Orientation Not on file Last Filed Vital Signs Vital Sign Reading Time Taken Comments Blood Pressure 120/76 10/08/2024 2:07 PM CASING MACHINE OPERATOR Pulse 61 10/08/2024 2:07 PM CASING MACHINE OPERATOR Temperature 36.4 C (97.5 F) 10/08/2024 2:07 PM CASING MACHINE OPERATOR Respiratory Rate - - Oxygen Saturation 97% 10/08/2024 2:07 PM CASING MACHINE OPERATOR Inhaled Oxygen Concentration - - Weight 117.9 kg (260 lb) 10/08/2024 2:07 PM CASING MACHINE OPERATOR Height 180.3 cm (5' 11) 10/08/2024 2:07 PM CASING MACHINE OPERATOR Body Mass Index 36.26 10/08/2024 2:07 PM CASING MACHINE OPERATOR Plan of Treatment Upcoming Encounters Date Type Department Care Team (Late st Contact Info) Description 10/09/2025 2:00 PM CASING MACHINE OPERATOR Office Visit [facility] SAIL[address] MA[id number] [address] Gin Castro, FADI [address] [place] [address] Health Maintenance Due Date Last [...] Priority Date/Time Associated Diagnosis Comments MAMMO 3D TAOY SCREEN BILAT W OR WO CAD Routine 11/15/2024 2:23 PM CASING MACHINE OPERATOR Screening mammogram for breast cancer CERV/VAG CYTO AGE BASED SCREEN PAP Routine 10/08/2024 2:35 PM CASING MACHINE OPERATOR Well woman exam with routine gynecological exam Screening for HPV (human papillomavirus) Encounter for Papanicolaou smear for cervical cancer screening H/O LEEP from Last 3 Months or Most Recently Relevant to Health Maintenance Results * MAMMO 3D TAYO SCREEN BILAT W OR WO CAD (11/15/2024 2:23 PM CASING MACHINE OPERATOR) Anatomical Region Laterality Modality Breast Bilateral Mammography 11/15/2024 2:24 PM CASING MACHINE OPERATOR Addenda Addendum by Tom Barber MD on 11/30/2024 9:07 AM CASING MACHINE OPERATOR Prior mammograms from an outside facility are [...] in one year. Impressions 11/15/2024 2:44 PM CASING MACHINE OPERATOR IMPRESSION: 1. Need outside films. OVERALL FINAL ASSESSMENT: BI-RADS CATEGORY 0: Incomplete, needs comparison to prior mammograms. RECOMMENDATIONS: 1. Outside films will be obtained. An addendum will be dictated when these films are available. DICTATION LOCATION: [facility] 11/15/2024 2:44 PM CASING MACHINE OPERATOR BILATERAL SCREENING DIGITAL MAMMOGRAM WITH 3D TOMOSYNTHESIS [...] AGE BASED SCREEN PAP (10/08/2024 2:35 PM CASING MACHINE OPERATOR) COMMENT (PAP): [facility] Comment: This order for age-based cervical cancer and STI screening follows ACOG guidelines(PB 168, 140, WMF408). See individual assays for performing site location. CLINICAL INFORMATION [facility] [place] Comment:None given LAST MENSTRUAL PERIOD [facility] [place] Comment:NONE GIVEN PREV PAP: [facility] [place] Comment:10/04/2023 NIL PREV BX: [facility] [place] Comment:NONE GIVEN SOURCE [facility] [place] Comment:Endocervix ADEQUACY: [facility] [place] Comment: Satisfactory for evaluation. Endocervical/transformation zone component present. Age and/or menstrual status not provided PAP INTERP [facility] [place] Comment: Cytology Results: Negative for intraepithelial lesion or malignancy. COMMENT (PAP TEST) [facility] [place] Comment: This Pap test has been evaluated with computer assisted technology. RADIOLOGIC TECH: Juaquin est [facility] [place] Comment: TMK, CT(ASCP) CT screening location: [place] [address] [place] [address] EXPLANATORY NOTE [facility] [place] Comment: EXPLANATORY NOTE: The Pap is a [...] information. HPV E6/E7 Not Detected Not Detected [facility] [place] Comment: Methodology: Lapel Baster-Mediated Amplification This assay detects E6/E7 viral messenger RNA (mRNA) from 14 high-risk HPV types (16,18,31,33,35,39,45,51,52,56,58,59,66,68). Cervical sources are required for HPV testing. If a vaginal source from a patient who has had a total hysterectomy with removal of cervix was submitted, please contact the testing laboratory for alternative testing options. For additional information, please refer to http://education.[employer]/faq/UGL865w0 (This link if provided for information/ educational purposes only.) Test Performed at: [facility] [id number] [place] [address] Barbie GARCIA Genital SWAB OF ENDOCERVIX / Unknown 10/08/2024 2:35 PM CASING MACHINE OPERATOR 10/09/2024 12:19 AM CASING MACHINE OPERATOR us Gin Castro NP PATHOLOGY/CYTOLOGY ORDERABL ES Final Result [facility] [phone] [facility] [address] [place] [address] from Last 3 Months or Most Recently Relevant to Health Maintenance Insurance [address] [employer] [address]
--- OUTSIDE RECORDS SUMMARY | 2025-03-26 07:41 | XMS_ITS | Clinical Summary ---
Author Organization [facility] Address [address] [place] [address] Care Team Providers Care Machine Printer Hose Name Role Phone Oswaldo Ayoub MD Primary Care Provider [phone] Allergies No known active allergies Medications melatonin [...] unremarkable. Assessment & Plan (11/18/2022 10:23 AM LEGAL EDITOR): CT scan of the abdomen and pelvis [...] loss Assessment & Plan (11/18/2022 10:50 AM LEGAL EDITOR): GERD for the past year, seems to [...] PRN Assessment & Plan (08/23/2022 1:43 PM LEGAL EDITOR): Stable, no changes. Continue current regimen with [...] acceptable. Assessment & Plan (08/23/2022 1:42 PM LEGAL EDITOR): Seeing improvement with xanax Increase dose to [...] popcorn Assessment & Plan (11/18/2022 10:52 AM LEGAL EDITOR): Patient started having abdominal pain, diarrhea, nausea, [...] Type Department Care Team Description 03/25/2025 Telephone [facility] Medical Group Cardiology [address] [place] [address] Daysi Parker NP 03/21/2025 2:30 PM CDT Telemedicine [facility] Family Medicine at [address] [place] [phone] Dionne Smiley NP Moderate episode of recurrent major depressive disorder (HCC) (Primary Dx); Migraine without aura and without status migrainosus, not intractable; AARON (generalized anxiety disorder); Mast cell activation syndrome; Nonischemic cardiomyopathy (HCC); 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 Telephone [facility] Family Medicine at [address] [place] [address] Dionne Smiley NP 03/19/2025 Results Follow-Up [facility] Medicine at [address] [place] [address] Oswaldo Ayoub MD Cardiology Document Scan, SCAN - RADIOLOGY/IMAGING 03/18/2025 2:30 PM CDT Office Visit [facility] Cardiology [address] [place] [address] [place] [phone] Daysi Parker NP Nonischemic cardiomyopathy (HCC) (Primary Dx); Mast cell activation syndrome; Hospital discharge follow-up 03/17/2025 Results Follow-Up [facility] Family Medicine at [address] [place] [phone] Oswaldo Ayoub MD SCAN - RADIOLOGY/IMAGING 03/13/2025 Orders Only [facility] Health Information Management [address] [place] [address] Oswaldo Ayoub MD 03/13/2025 Telephone [facility] Cardiology [address] [place] [address] [address] [place] [address] Daysi Parker NP 03/08/2025 Results Follow-Up [facility] Family Medicine at [address] [place] [address] Oswaldo Ayoub MD Cardiology Document Scan 03/08/2025 Orders Only [facility] Cardiology [facility] [address] [place] [address] Ervin Lew MD 03/06/2025 Results Follow-Up [facility] Family Medicine at [address] [place] [address] Oswaldo Ayoub MD Cardiology Document Scan, SCAN - RADIOLOGY/IMAGING 03/06/2025 Results Follow-Up [facility] Family Medicine at [address] [place] [address] Oswaldo Ayoub MD Cardiology Document Scan 03/04/2025 Orders Only [facility] Health Information Management [address] [place] [address] Ervin Lew MD 03/02/2025 Orders Only [facility] Health Information Management [address] [place] [address] Ervin Lew MD 03/01/2025 Orders Only [facility] Health Information Management [address] [place] [address] Ervin Lew MD 02/19/2025 Patient Self-Triage [facility] HealthCare/ Physicians [facility] [place] [address] Mychart, Generic Provider 02/15/2025 Telephone [facility] Family Medicine at [address] [place] [address] Joy Villalpando NP 02/14/2025 1:30 PM CDT Telemedicine [facility] Family Medicine at [address] [place] [address] Joy Villalpando NP AARON (generalized anxiety disorder) (Primary Dx); Moderate episode of recurrent major depressive disorder (HCC); Migraine without aura and without status migrainosus, not intractable 01/18/2025 Telephone [facility] Family Medicine at [address] [place] [address] Oswaldo Ayoub MD 01/15/2025 11:30 AM CDT Office Visit [facility] Family Medicine at [address] [place] [address] Joy Villalpando NP AARON (generalized anxiety disorder) (Primary Dx); Migraine without aura and without status migrainosus, not intractable; Moderate episode of recurrent major depressive disorder (HCC) 01/02/2025 Results Follow-Up [facility] Family Medicine at [address] [place] [address] Oswaldo Ayoub MD SCAN - LABS from Last 3 Months Immunizations Immunization Administration Dates Next Due Influenza, Unspecified 06/26/2024(Deferr ed: Patient Refused),06/26/2023(Deferred: Patient Refused),07/14/2022(Deferred: Patient Refused),06/26/2021(Deferred: Patient Refused),06/26/2021(Deferred: Patient Refused),06/26/2020(Deferred: Patient Refused),06/26/2019(Deferred: Patient Refused) Tdap 06/28/2017 Surgical History Surgery Date Site/Laterality Comments CERVIX SURGERY Cervical Surgery (Shelter Director) - (Added by TW Conv) Medical [...] Read Routine (OP Routine) 09/30/2023 2:22 PM LEGAL EDITOR Screening mammogram, encounter for COLONOSCOPY 01/12/2023 11:44 AM CDT from Last 3 Months or Most Recently Relevant to Health Maintenance Results * SCAN - RADIOLOGY/IMAGING (03/13/2025) Anatomical Region Laterality Modality Other us Oswaldo Aoyub MD Final Result * Cardiology Document Scan [...] (03/01/2025) Anatomical Region Laterality Modality Other Result [facility] us Ervin Lew MD Edit ed Result - Final * Cardiology Document Scan (03/01/2025) Anatomical Region Laterality Modality Other Result [facility] Ervin Lew MD CV CARDIAC SERVICES PROCEDURES Edited Result - Final * SCAN - LABS (12/27/2024) Oswaldo Ayoub MD Final Result * Screening Mammogram Bilateral W Chon (09/30/2023 2:22 PM LEGAL EDITOR) Anatomical Region Laterality Modality Breast Bilateral Mammography Impressions 09/30/2023 2:41 PM LEGAL EDITOR BI-RADS ATLAS category (overall): 1 - Negative There is no mammographic evidence of malignancy. A 1 year screening mammogram is recommended. The patient has been or will be contacted. We recommend annual screening mammography for women at average risk of breast cancer beginning at age 40, based on guidelines of the [place] [employer] (ACR Practice Parameter for the Performance of Screening and Diagnostic Mammography) and [employer]. For women with and elevated risk of breast cancer, please refer to the ACR Practice Parameter for specific screening recommendations. The patient will be entered into a reminder system with a target due date of 1 year for her next screening exam. Narrative 09/30/2023 2:41 PM LEGAL EDITOR Screening Mammogram Bilateral W Chon: 09/30/23 The [...] - 01/12/2023 11:44 AM CDT [facility] GI ENDOSCOPY Patient Name: Agustina Tijerina Procedure Date: 01/12/2023 11:44 AM Date of : 1980 Admit Type: Outpatient Age: 42 Gender: Female Attending MD: Ari Swan M.D. Room: [facility] ENDOSCOPY ROOM 06 Note Status: Finalized Procedure: [...] On: 01/12/2023 11:44 AM Recognized by the [employer] for promoting quality in endoscopy us Ari Swan MD ENDOSCOPY PROCEDURES Final Resul t from Last 3 Months or Most Recently Relevant to Health Maintenance Insurance [facility] 1989 [employer] [place] [id number] [facility] Advance Directives For more information, please contact: [phone] * Full Code (Latest Code Status on File) Date Activated Date Inactivated Comments 10/24/2024 10:13 PM 10/25/2024 10:30 PM Care Teams Machine Printer Hose Relationship Specialty Start Date End Date Oswaldo Ayoub MD [address] [facility] [address] [address] PCP - General 03/04/17
--- OUTSIDE RECORDS SUMMARY | 2025-03-26 07:41 | XMS_ITS | Encounter Summary ---
Author Organization [facility] Healthcare Address [address] [place] [address] Care Team Providers Care Market Researcher Name Role Phone Oswaldo Ayoub MD Primary Care Provider [phone] Encounter Details Date Type Department Care Team (Late st Contact Info) Description 03/06/2025 Results Follow-Up [facility] Medical Group Family Medicine at [address] [place] [phone] Oswaldo Ayoub MD [address] [place] [address] [address] [place] [address] Cardiology Document Scan Social History [...] on filedocumented in this encounter Care Teams Market Researcher Relationship Specialty Start Date End Date Oswaldo Ayoub MD [address] [facility] [address] [address] PCP - General 03/04/17 documented as of this encounter
--- OUTSIDE RECORDS SUMMARY | 2025-03-26 07:41 | XMS_ITS | Encounter Summary ---
Author Organization [facility] Healthcare Address [address] [place] [address] Care Team Providers Care Security Messenger Name Role Phone Oswaldo Ayoub MD Primary Care Provider [phone] Encounter Details Date Type Department Care Team (Late st Contact Info) Description 03/25/2025 Telephone [facility] Medical Group Cardiology [address] [facility] [address] [place] [address] Daysi Parker NP [address] [place] [address] Social History Tobacco Use Types [...] were not included. Agustina Tijerina to P [facility] Card Mryvl Clinical [...] on filedocumented in this encounter Care Teams Security Messenger Relationship Specialty Start Date End Date Oswaldo Ayoub MD [address] [facility] [address] [address] PCP - General 03/04/17 documented as of this encounter
--- OUTSIDE RECORDS SUMMARY | 2025-03-26 07:41 | XMS_ITS | Encounter Summary ---
Author Organization [facility] Healthcare Address [address] [place] [address] Care Team Providers Care Healthcare Risk Control Consultant Name Role Phone Oswaldo Ayoub MD Primary Care Provider [phone] Encounter Details Date Type Department Care Team (Late st Contact Info) Description 03/17/2025 Results Follow-Up [facility] Medical Group Family Medicine at [address] [place] [phone] Oswaldo Ayoub MD [address] [place] [address] [address] [place] [address] SCAN - RADIOLOGY/IMAGING Social History [...] on filedocumented in this encounter Care Teams Healthcare Risk Control Consultant Relationship Specialty Start Date End Date Oswaldo Ayoub MD [address] [facility] [address] [address] PCP - General 03/04/17 documented as of this encounter
--- OUTSIDE RECORDS SUMMARY | 2025-03-26 07:41 | XMS_ITS | Encounter Summary ---
Author Organization [facility] Healthcare Address [address] [place] [address] Care Team Providers Care Continuity Writer Name Role Phone Oswaldo Ayoub MD Primary Care Provider [phone] Encounter Details Date Type Department Care Team (Late st Contact Info) Description 03/08/2025 Results Follow-Up [facility] Medical Group Family Medicine at [address] [place] [phone] Oswaldo Ayoub MD [address] [place] [address] [address] [place] [address] Cardiology Document Scan Social History [...] on filedocumented in this encounter Care Teams Continuity Writer Relationship Specialty Start Date End Date Oswaldo Ayoub MD [address] [facility] [address] [address] PCP - General 03/04/17 documented as of this encounter
--- OUTSIDE RECORDS SUMMARY | 2025-03-26 07:41 | XMS_ITS | Encounter Summary ---
Author Organization [facility] Healthcare Address [address] [place] [address] Care Team Providers Care Substance Abuse Nurse Name Role Phone Oswaldo Ayoub MD Primary Care Provider [phone] Encounter Details Date Type Department Care Team (Late st Contact Info) Description 03/04/2025 Orders Only [facility] Health Information Management [address] [place] [address] Ervin Lew MD [address] [address] Social History Tobacco Use Types [...] on filedocumented in this encounter Care Teams Substance Abuse Nurse Relationship Specialty Start Date End Date Oswaldo Ayoub MD [address] [facility] [address] [address] PCP - General 03/04/17 documented as of this encounter
--- OUTSIDE RECORDS SUMMARY | 2025-03-26 07:41 | XMS_ITS | Encounter Summary ---
Author Organization [facility] Healthcare Address [address] [place] [address] Care Team Providers Care Machine Adjuster Leader Name Role Phone Oswaldo Ayoub MD Primary Care Provider [phone] Encounter Details Date Type Department Care Team (Late st Contact Info) Description 03/19/2025 Results Follow-Up [facility] Medical Group Family Medicine at [address] [place] [address] Oswaldo Ayoub MD [address] [place] [address] [address] [place] [address] Cardiology Document Scan, SCAN - [...] on filedocumented in this encounter Care Teams Machine Adjuster Leader Relationship Specialty Start Date End Date Oswaldo Ayoub MD [address] [facility] [place] [address] PCP - General 03/04/17 documented as of this encounter
--- OUTSIDE RECORDS SUMMARY | 2025-03-26 07:41 | XMS_ITS | Referral Summary ---
Author Organization [facility] Address [address] [place] [address] Care Team Providers Care Creative Director Name Role Phone Oswaldo Ayoub MD Primary Care Provider [phone] Encounters Date Type Department Care Team Description 03/25/2025 Telephone [facility] Medical [facility] Cardiology [address] [facility] [address] [place] [address] Daysi Parker NP 03/21/2025 Telephone [facility] Family Medicine at [address] [place] [phone] Dionne Smiley NP 03/21/2025 2:30 PM CDT Telemedicine [facility] Medical [facility] Family Medicine at [address] [place] [address] Dionne Smiley NP Moderate episode of recurrent major depressive disorder (HCC) (Primary Dx); Migraine without aura and without status migrainosus, not intractable; AARON (generalized anxiety disorder); Mast cell activation syndrome; Nonischemic cardiomyopathy (HCC); HSV-1 infection 03/19/2025 Results Follow-Up [facility] Family Medicine at [address] [place] [address] Oswaldo Ayoub MD Cardiology Document Scan, SCAN - RADIOLOGY/IMAGING 03/18/2025 2:30 PM CDT Office Visit [facility] Cardiology [address] [facility] [address] [place] [address] Daysi Parker NP Nonischemic cardiomyopathy (HCC) (Primary Dx); Mast cell activation syndrome; Hospital discharge follow-up 03/17/2025 Results Follow-Up [facility] Family Medicine at [address] [place] [address] Oswaldo Ayoub MD SCAN - RADIOLOGY/IMAGING 03/13/2025 Orders Only [facility] Health Information Management [address] [place] [address] Oswaldo Ayoub MD 03/13/2025 Telephone [facility] Cardiology [facility] [address] [place] [address] Daysi Parker NP 03/08/2025 Results Follow-Up [facility] Family Medicine at [address] [place] [address] Oswaldo Ayoub MD Cardiology Document Scan 03/08/2025 Orders Only [facility] Cardiology [address] [place] [address] [address] [place] [address] Ervin Lew MD 03/06/2025 Results Follow-Up [facility] Family Medicine at [address] [place] [address] Oswaldo Ayoub MD Cardiology Document Scan, SCAN - RADIOLOGY/IMAGING 03/06/2025 Results Follow-Up [facility] Family Medicine at [address] [place] [address] Oswaldo Ayoub MD Cardiology Document Scan 03/04/2025 Orders Only [facility] Health Information Management [address] [place] [address] Ervin Lew MD 03/02/2025 Orders Only [facility] Health Information Management [address] [place] [address] Ervin Lew MD 03/01/2025 Orders Only [facility] Health Information Management [address] [place] [address] Ervin Lew MD 02/19/2025 Patient Self-Triage [facility] HealthCare/ Physicians [facility] [place] [address] Mychart, Generic Provider 02/15/2025 Telephone [facility] Medicine at [address] [address] Joy Villalpando NP 02/14/2025 1:30 PM CDT Telemedicine [facility] Medicine at [address] [address] Joy Villalpando NP AARON (generalized anxiety disorder) (Primary Dx); Moderate episode of recurrent major depressive disorder (HCC); Migraine without aura and without status migrainosus, not intractable 01/18/2025 Telephone [facility] Medicine at [address] [address] Oswaldo Ayoub MD 01/15/2025 11:30 AM CDT Office Visit [facility] at [address] [address] Joy Villalpando NP AARON (generalized anxiety disorder) (Primary Dx); Migraine without aura and without status migrainosus, not intractable; Moderate episode of recurrent major depressive disorder (HCC) 01/02/2025 Results Follow-Up [facility] Medicine at [address] [address] Oswaldo Ayoub MD SCAN - LABS from [...] unremarkable. Assessment & Plan (11/18/2022 10:23 AM INSULATION CUPOLA CHARGER): CT scan of the abdomen and pelvis [...] loss Assessment & Plan (11/18/2022 10:50 AM INSULATION CUPOLA CHARGER): GERD for the past year, seems to [...] PRN Assessment & Plan (08/23/2022 1:43 PM INSULATION CUPOLA CHARGER): Stable, no changes. Continue current regimen with [...] acceptable. Assessment & Plan (08/23/2022 1:42 PM INSULATION CUPOLA CHARGER): Seeing improvement with xanax Increase dose to [...] popcorn Assessment & Plan (11/18/2022 10:52 AM INSULATION CUPOLA CHARGER): Patient started having abdominal pain, diarrhea, nausea, [...] Read Routine (OP Routine) 09/30/2023 2:22 PM INSULATION CUPOLA CHARGER Screening mammogram, encounter for COLONOSCOPY 01/12/2023 11:44 [...] Mammogram Bilateral W Chon (09/30/2023 2:22 PM INSULATION CUPOLA CHARGER) Anatomical Region Laterality Modality Breast Bilateral Mammography Impressions 09/30/2023 2:41 PM INSULATION CUPOLA CHARGER BI-RADS ATLAS category (overall): 1 - Negative There is no mammographic evidence of malignancy. A 1 year screening mammogram is recommended. The patient has been or will be contacted. We recommend annual screening mammography for women at average risk of breast cancer beginning at age 40, based on guidelines of the [place] [employer] (ACR Practice Parameter for the Performance of Screening and Diagnostic Mammography) and [place]. For women with and elevated risk of breast cancer, please refer to the ACR Practice Parameter for specific screening recommendations. The patient will be entered into a reminder system with a target due date of 1 year for her next screening exam. Narrative 09/30/2023 2:41 PM INSULATION CUPOLA CHARGER Screening Mammogram Bilateral W Cohn: 09/30/23 The study was acquired using full [...] - 01/12/2023 11:44 AM CDT [facility] GI ENDOSCOPY Patient Name: Agustina Tijerina Procedure Date: 01/12/2023 11:44 AM Date of : 1980 Admit Type: Outpatient Age: 42 Gender: Female Attending MD: Ari Swan M.D. Room: [facility] ENDOSCOPY ROOM 06 Note Status: Finalized [...] On: 01/12/2023 11:44 AM Recognized by the [place] for promoting quality in endoscopy us Ari Swan MD ENDOSCOPY PROCEDURES Final Resul t from Last 3 Months or Most Recently Relevant to Health Maintenance Insurance [facility] [address] Advance Directives For more information, please contact: [phone] * Full Code (Latest Code Status on File) Date Activated Date Inactivated Comments 10/24/2024 10:13 PM 10/25/2024 10:30 PM Care Teams Creative Director Relationship Specialty Start Date End Date Oswaldo Ayoub MD [address] [place] [address] [address] PCP - General 03/04/17
--- OUTSIDE RECORDS SUMMARY | 2025-03-26 07:41 | XMS_ITS | Clinical Summary ---
Author Organization [facility] Address [address] [facility] [address] Care Team Providers Care Filteration Operator Name Role Phone Oswaldo Ayoub MD Primary Care Provider [phone] Source Comments [facility],non-owned Affiliates and Associated Physician Practices is amultiple site organization consisting of ambulatory clinics and hospital sitesin [place], [place], [place] and [place]. This disclosure is being madepursuant to the Care Everywhere program and may not contain all information available regarding this patient. Last updated 18.[facility] [email or web address] Allergies No known active allergies Medications * [...] 12:07 PM 05/21/2024 4:31 PM Care Teams Filteration Operator Relationship Specialty Start Date End Date Oswaldo Ayoub MD [address] [facility] [place] [address] PCP - General Family Medicine 05/21/24
--- OUTSIDE RECORDS SUMMARY | 2025-03-26 07:41 | XMS_ITS | Encounter Summary ---
Author Organization [facility] Healthcare Address [address] [place] [address] Care Team Providers Care Landscape Horticulture Instructor Name Role Phone Oswaldo Ayoub MD Primary Care Provider [phone] Encounter Details Date Type Department Care Team (Late st Contact Info) Description 05/09/2024 Orders Only [facility] Health Information Management [address] [place] [address] Oswaldo Ayoub MD [facility] [address] [address] Social History Tobacco Use Types Packs/Day Years [...] COVID: Suspected 11/12/2024 11/12/2024 11/12/2024 4:14 AM BAR CAPTAIN Influenza, adult 11/12/2024 11/12/2024 11/19/2024 3:07 AM BAR CAPTAIN documented as of this encounter Care Teams Landscape Horticulture Instructor Relationship Specialty Start Date End Date Oswaldo Ayoub MD [address] [facility] [address] [place] [address] PCP - General 03/04/17 documented as of this encounter
--- OUTSIDE RECORDS SUMMARY | 2025-03-26 07:41 | XMS_ITS | Encounter Summary ---
Author Organization [facility] Healthcare Address [address] [place] [address] Care Team Providers Care Bakery Clerk Name Role Phone Oswaldo Ayoub MD Primary Care Provider [phone] Encounter Details Date Type Department Care Team (Late st Contact Info) Description 03/06/2025 Results Follow-Up [facility] Family Medicine at [address] [place] [address] Oswaldo Ayoub MD [address] [place] [address] [address] [place] [address] Cardiology Document Scan, SCAN - [...] on filedocumented in this encounter Care Teams Bakery Clerk Relationship Specialty Start Date End Date Oswaldo Ayoub MD [address] [facility] [address] [address] PCP - General 03/04/17 documented as of this encounter
--- NOTE | 2025-03-26 07:48 | ED_ITS ---
HPI - Nausea/Vomiting/Diarrhea General Chief complaint: Nausea/Vomiting/Diarrhea Stated complaint: N/V/D Time Seen by Provider: 03/26/25 07:21 History of Present Illness HPI Narrative: Patient is a 44-year-old female who presents ER with nausea vomiting. Has history of cyclic vomiting and mast cell activation syndrome. She is managed by GI at an outside hospital. Recently hospitalized for aspiration pneumonia and new heart failure. No new symptoms of aspiration though she has been vomiting regularly. No diarrhea. No chest pain or chest pressure. No alleviating factors at home. Related Data Home Medications ?Medication ?Instructions ?Recorded ?Confirmed ?Last Taken ?Type alprazolam 0.5 mg tablet 0.5 mg PO DAILY 03/01/25 03/01/25 Unknown History aspirin 81 mg tablet,delayed 81 mg PO BID 03/01/25 03/01/25 Unknown History release (Ecotrin Low Strength) cholecalciferol (vitamin D3) 25 1,000 unit PO HS 03/01/25 03/01/25 Unknown History mcg (1,000 unit) tablet famotidine 10 mg tablet (Acid 10 mg PO BID 03/01/25 03/01/25 Unknown History Controller) ferrous bis-glycinate chelate 4 See Rx Instructions PO .COMPLEX 03/01/25 03/01/25 Unknown History mg-cyanocobalamin 100 mcg capsule melatonin 10 mg capsule 10 mg PO HS 03/01/25 03/01/25 Unknown History meloxicam 15 mg tablet 15 mg PO DAILY PRN pain 03/01/25 03/01/25 Unknown History multivitamin with minerals-folic 1 tablet PO DAILY 03/01/25 03/01/25 Unknown History acid 0.4 mg tablet promethazine 25 mg tablet 25 mg PO Q6H PRN nausea and 03/01/25 03/01/25 Unknown History vomiting sertraline 100 mg tablet 100 mg PO DAILY 03/01/25 03/01/25 Unknown History valacyclovir 500 mg tablet 500 mg PO DAILY 03/01/25 03/01/25 Unknown History Allergies Allergy/AdvReac Type Severity Reaction Status Date / Time No Known Allergies Allergy Verified 03/13/25 20:50 Review of Systems 2 Review of Systems: All systems reviewed & are unremarkable except as noted in HPI and below Constitutional: Constitutional: Reports no additional constitutional complaints ENT: Reports system reviewed and no additional complaints, except as documented Cardiovascular: Cardiovascular: Reports no additional cardiovascular complaints Respiratory: Respiratory: Reports no additional respiratory complaints Gastrointestinal: Gastrointestinal: Reports no additional gastrointestinal complaints Musculoskeletal: Musculoskeletal: Reports no additional musculoskeletal complaints PMFSH Past Medical History Medical History Mast cell activation syndrome Cyclical vomiting syndrome Social History Social History Smoking status: Current some day smoker Tobacco type: cigars Alcohol intake: never Substance use: current Substance use type: marijuana Do You Feel Safe in your Home?: Yes Lack of Transportation: No Lack of Food: Never True Current Housing: I Have Housing Concerned About Future Housing: No Difficulty Paying Gas/Electric Bills: No Difficulty Paying for Meds: No Currently Unemployed: No Education: Decline to Answer Difficulty w/ Childcare or Family Care: No Spiritual care concerns: No Exam 2 Narrative: GENERAL: Uncomfortable-appearing, well-nourished, and actively vomiting. HEAD: Normocephalic, atraumatic. EYES: PERRL and EOMI. ENT: Mucous membranes moist. CHEST: Clear to auscultation. No respiratory distress. HEART: Regular rate and rhythm. Normal peripheral pulses. ABDOMEN: Soft, nontender, nondistended. EXTREMITIES: Normal range of motion. No edema. SKIN: Warm, dry, no rash. NEURO: Alert and oriented x3. PSYCH: Normal mood and affect. Course Course Emergency Course: Surgery patient feels improved after Motrin/Benadryl/Zofran/Ativan. Hydrated well. Discharge. Vital Signs Vital signs: Vital Signs Pulse Rate 73 03/26/25 07:15 Respiratory Rate 36 H 03/26/25 07:15 Blood Pressure 171/131 H 03/26/25 07:15 Pulse Oximetry 100 03/26/25 07:15 Oxygen Delivery Room Air 03/26/25 07:15 Pulse Rate 82 03/26/25 12:49 Respiratory Rate 22 H 03/26/25 12:49 Blood Pressure 169/100 H 03/26/25 12:49 Pulse Oximetry 100 03/26/25 12:49 Oxygen Delivery Room Air 03/26/25 07:15 MDM - Nausea/Vomiting/Diarrhea Lab Data 03/26/25 07:22 03/26/25 08:03 Labs: Lab Results 03/26/25 03/26/25 03/26/25 Range/Units 07:22 08:03 10:51 WBC 10.7 H (4.5-10.0) K/mm3 RBC 4.68 (4.2-5.4) M/mm3 Hgb 14.5 (12.0-15.0) g/dL Hct 43.4 (37.0-47.0) % MCV 92.7 (80-100) fl MCH 31.0 (26-34) pg MCHC 33.4 (32-36) g/dl RDW 12.1 (11.5-14.5) % Plt Count 309 (150-375) k/mm3 MPV 10.7 H (7.4-10.4) fl Immature Gran % (Auto) 0.5 (0-0.5) % Neut % (Auto) 84.6 H (45.5-73.1) % Lymph % (Auto) 8.9 L (18.3-44.2) % [place] % (Auto) 4.7 (2.6-8.5) % Eos % (Auto) 0.7 (0-4.4) % Baso % (Auto) 0.6 (0.2-1.2) % Lymph # (Auto) 0.95 (0.9-3.2) K/mm3 [place] # (Auto) 0.5 (0.1-0.6) K/mm3 Eos # (Auto) 0.1 (0-0.3) K/mm3 Baso # (Auto) 0.1 (0.0-0.1) K/mm3 Abs Immat Gran (auto) 0.05 H (0.00-0.031) K/mm3 Absolute Neuts (auto) 9.0 H (1.3-6.7) K/mm3 Absolute Nucleated RBC 0.000 (0.0-0.012) K/mm3 Nucleated RBC % 0.0 (0.0-0.2) % Sodium 137 (137-145) mmol/L Potassium 4.0 (3.4-5.0) mmol/L Chloride 104 (98-107) mmol/L Carbon Dioxide 16 L (22-30) mmol/L Anion Gap 17 H (4-12) mmol/L BUN 10 D (7-17) mg/dL Creatinine 0.70 (0.7-1.0) mg/dL Estim Creat Clear Calc 118 ml/min Estimated GFR > 60 (59 - ) Glucose 187 H (65-110) mg/dL Calcium 9.4 (8.4-10.2) mg/dL Total Bilirubin 0.9 (0.2-1.3) mg/dL AST 45 H (14-36) U/L ALT 27 (6-35) U/L Alkaline Phosphatase 57 (38-126) U/L Total Protein 7.2 (6.3-8.2) g/dL Albumin 4.2 (3.5-5.1) g/dL Lipase 35 (23-300) U/L Urine Color Yellow (Yellow) Urine Appearance Clear (Clear) Urine pH >=9.0 H (5.0-9.0) Ur Specific [place] 1.021 (1.001-1.035) Urine Protein 1+ H (Negative) mg/dL Urine Glucose (UA) Negative (Negative) mg/dL Urine Ketones 4+ H (Negative) mg/dL Ur Blood (Man) Negative (Negative) Urine Nitrate Negative (Negative) Urine Bilirubin Negative (Negative) Urine Urobilinogen 0.2 (<2.0) mg/dL Add Ur Microanalysis Reviewed Leukocyte Esterase Rfl Negative (Negative) CHANG/UL Urine RBC 6-10 H (0-2) /hpf Urine WBC 0-5 (0-3) /hpf Ur Squamous Epith Cells Few (Few) /hpf Urine Bacteria None seen /hpf Urine Casts 0-2 Urine Test Negative Discharge Plan Discharge Clinical Impression: Cyclical vomiting Patient Disposition: Home Condition: Stable Instructions: Cyclic Vomiting Syndrome (ED) Additional Instructions: Return to the emergency department if you develop severe abdominal pain, severe nausea and vomiting to the point where you are unable to keep down fluids, if you develop chest pain or difficulty breathing, blood in your stool, dizziness or fainting, or if you develop any other new or concerning symptoms as these could be signs of more serious medical illness. Try to stay well hydrated. Patient Language: French Prescriptions: No Action lorazepam [Ativan] 0.5 mg tablet 0.5 mg PO TID PRN (Reason: nausea and vomiting) Qty: 20 0RF potassium chloride [Klor-Con 10] 10 mEq tablet extended release 10 meq PO DAILY Qty: 30 0RF magnesium oxide 200 mg magnesium tablet 200 mg PO DAILY Qty: 30 0RF sertraline 100 mg tablet 100 mg PO DAILY valacyclovir 500 mg tablet 500 mg PO DAILY famotidine [Acid Controller] 10 mg tablet 10 mg PO BID alprazolam 0.5 mg tablet 0.5 mg PO DAILY aspirin [Ecotrin Low Strength] 81 mg tablet,delayed release (DR/EC) 81 mg PO BID iron [id number] 4 mg- 100 mcg capsule See Rx Instructions PO .COMPLEX Rx Instructions: 25 mg orally; take 25 mg by mouth nightly meloxicam 15 mg tablet 15 mg PO DAILY PRN (Reason: pain) promethazine 25 mg tablet 25 mg PO Q6H PRN (Reason: nausea and vomiting) cholecalciferol (vitamin D3) 25 mcg (1,000 unit) tablet 1,000 unit PO HS melatonin 10 mg capsule 10 mg PO HS multivit with min-folic acid 0.4 mg tablet 1 tablet PO DAILY amoxicillin-pot clavulanate 875-125 mg tablet 1 tablet PO Q12H Qty: 5 0RF metoprolol succinate 50 mg Tablet Extended Release 24 Hr 50 mg PO QAM Qty: 30 0RF losartan 25 mg Tablet 25 mg PO DAILY Qty: 30 0RF haloperidol 2 mg tablet 2 mg PO TID PRN (Reason: nausea and vomiting) Qty: 30 0RF metoclopramide HCl [Reglan] 10 mg tablet 10 mg PO Q6H PRN (Reason: nausea and vomiting) Qty: 20 0RF scopolamine base 1 mg over 3 days patch 3 day 1 patch transdermal Q3D PRN (Reason: nausea and vomiting) Qty: 4 0RF Follow-up/Referrals: Mega,Oswaldo Miner MD [Primary Care Provider] - 1 Week
--- NOTE | 2025-03-26 07:49 | PC.NURSE ---
RN witnessed pt putting fingers down throat to attempt to vomit. when asked, pt states it I need to throw up and it feels better when i do. pt advised not to stick fingers down throat, continues to do so. ed charge aware
[2025-03-26] MEDS: METOCLOPRAMIDE HCL INJ 10 MG/2 ML VIAL IV PUSH (08:36)
[2025-03-26] MEDS: FAMOTIDINE 20 MG/2 ML VIAL IV PUSH (08:36)
[2025-03-26] MEDS: SODIUM CHLORIDE 0.9% IV 1,000 ML 999 ML IV CONT ×2 (08:36→13:27)
[2025-03-26 08:37] LABS: Alanine Aminotransferase 27 U/L (6-35); Albumin Level 4.2 g/dL (3.5-5.1); Alkaline Phosphatase 57 U/L (38-126); Anion Gap 17 mmol/L (4-12); Aspartate Amino Transferase 45 U/L (14-36); Bilirubin,Total 0.9 mg/dL (0.2-1.3); Blood Urea Nitrogen 10 mg/dL (7-17); Calcium 9.4 mg/dL (8.4-10.2); Carbon Dioxide 16 mmol/L (22-30); Chloride 104 mmol/L (98-107); Estimated CRCL calculation 118 ml/min; Estimated Glomerular Filt Rate > 60; Glucose 187 mg/dL (65-110); Lipase 35 U/L (23-300); Potassium 4.0 mmol/L (3.4-5.0); Sodium 137 mmol/L (137-145); Total Protein 7.2 g/dL (6.3-8.2)
[2025-03-26 11:22] LABS: Add Urine Microscopic? YES; Appearance Urine Clear (Clear); Glucose Urine UA Negative (Negative); Leukocyte Esterase Ur Negative LEU/UL (Negative); Need Manual Microscopic Reviewed; Nitrate Urine Negative (Negative); Non Pathogenic Casts 0-2; Specific Grav Ur 1.021 (1.001-1.035)
[2025-03-26 12:11] LABS: Pregnancy On Board Control Positive
[2025-03-26] MEDS: ONDANSETRON INJ 4 MG/2 ML VIAL IV PUSH (12:46)
[2025-03-26] MEDS: LORazepam INJ (*CRX) 2 MG/ML VIAL 1 MG IV PUSH (12:46)
--- NOTE | 2025-03-26 13:20 | PC.NURSE ---
PT states Ativan helped with the nausea and vomiting. Resting quietly
== END 2025-03-26 15:25 | disposition home or self-care (01) ==
PROVIDERS: Emergency Provider Emergency Medicine; PCP Family Medicine
DX: R11.15 Cyclical vomiting syndrome unrelated to migraine (principal); D89.40 Mast cell activation, unspecified; I50.9 Heart failure, unspecified; F17.290 Nicotine dependence, other tobacco product, uncomplicated; Z79.899 Other long term (current) drug therapy; Z79.82 Long term (current) use of aspirin
CPT/HCPCS: 36415; 80053; 81001; 81025; 83690; 85025; 96361; 96374; 96375; 99284; J1200; J2060; J2405; J2765; J7030

== ENCOUNTER 2025-06-02 05:31 | Emergency (ER) | payer OTHER, SELFPAY ==
--- OUTSIDE RECORDS SUMMARY | 2025-05-30 10:00 | XMS_ITS | Continuity of Care Document ---
Author Organization [facility] Address [address] [place] [address] Phone Care Team Providers Care Switchboard Receptionist Name Role Phone Hannah Wang PT Unavailable Unavailable Procedures Procedure Date Therapeutic Activities Neuromuscular Re-Ed Therapeutic Activities Neuromuscular Re-Ed Therapeutic Activities Neuromuscular Re-Ed Therapeutic Activities Neuromuscular Re-Ed Therapeutic Activities Neuromuscular Re-Ed Therapeutic Activities Neuromuscular Re-Ed Therapeutic Activities Neuromuscular Re-Ed Therapeutic Activities Neuromuscular Re-Ed Therapeutic Activities Neuromuscular Re-Ed PT Evaluation Low Complexity Therapeutic Activities Neuromuscular Re-Ed Advance Directives Directive Yes / No Effective Date File Name No Information Encounters Encounter Description Practice Location Reason(s) For Visit Diagnoses Date Provider Providers Copied on Encounter [facility], [address], [place], [place], [id number], tel:[phone] [place] No Information Felipe Young. . Referring Provider: Oswaldo Juan, [address] [facility] [address], [place], [address]. tel:[phone] [facility], [address], [place], [place], [id number], [place] tel:[phone] [place] No Information Bishop Negron . Referring Provider: Oswaldo Juan, [address] [facility] [address], [place], [address]. tel:[phone] [facility], [address], [place], [place], [address], [place] tel:[phone] [place] No Information Bishop Rojas. . Referring Provider: Oswaldo Juan, [address] [facility] [address], [place], [address]. tel:[phone] [facility], [address] [place], [place] [address], [place], [place], [id number], [place] tel:[phone] [place] No Information En Deluca. . Referring Provider: Oswaldo Juan, [address] [facility] [address], [place], [address]. tel:[phone] [facility], [address], [place], [place], [id number], [place] tel:[phone] [place] No Information En Deluca. . Referring Provider: Oswaldo Juan, [address] [facility] [address], [place], [address]. tel:[phone] [facility], [address], [place], [place], [address], [place] tel:[phone] [place] No Information En Deluca. . Referring Provider: Oswaldo Juan, [address] [facility] [address], [place], [address]. tel:[phone] [facility], [address], [place], [place], [id number], [place] tel:[phone] [place] No Information En Deluca. . Referring Provider: Oswaldo Juan, [address] [facility] [address], [place], [address]. tel:[phone] [facility], [address] [place] [address], [place], [place], [id number], tel:[phone] [place] No Information Bishop Rojas. . Referring Provider: Oswaldo Juan, [address] [facility] [address], [place], [address]. tel:[phone] [facility], [address] [place] [address] [address], [place], [place], [id number], tel:[phone] [place] No Information En Deluca. . Referring Provider: Oswaldo Juan, [address] [facility] [address], [place], [address]. tel:[phone], [place], [place], [id number], tel:[phone] [place] No Information En Deluca. . Referring Provider: Oswaldo Juan, [address], [place], [address]. tel:[phone] Family History Family Member Type Diagnosis Age At Onset No Information Payers Payer name Insurance type Covered green party ID katie carr(s) [facility] Claims CI [id number] Social History Type Description Quantity Date Captured Comments Sex Female Smoking Status No Information Chief Complaint And Reason For Visit No Information Reason For Referral Reason For Referral No Information Plan Of Treatment Date Type Action Status Appointment Agustina Tijerina *[facility]* BOOKED Appointment Agustina Tijerina *[facility]* BOOKED History Of Present Illness Encounter Date Complaint History Of Prese nt Illness No Information Functional Status Date Functional Assessmen t No Information Instructions Date Instruction Additional Infor mation No Information Assessments Type Assessment Date No Information Patient Care Teams Name Effective Dates (start - stop) Status Members No Information
[2025-06-02 05:46] VITALS: BP 137/102; PULSE 62; RESP 32; TEMP 36.7; O2SAT 99
[2025-06-02 06:20] LABS: Hematocrit 41.9 % (37.0-47.0); Hemoglobin 14.3 g/dL (12.0-15.0); Immature Granulocyte Percent A 0.5 % (0-0.5); Lymphocytes Absolute Auto 0.96 K/mm3 (0.9-3.2); Mean Corpuscular HGB Conc 34.1 g/dl (32-36); Mean Corpuscular Hemoglobin 31.9 pg (26-34); Mean Corpuscular Volume 93.5 fl (80-100); Nucleated Red Blood Cells Absolute Auto 0.000 K/mm3 (0.0-0.012); Nucleated Red Blood Cells Perc 0.0 % (0.0-0.2); Platelet Count Result 278 k/mm3 (150-375); Red Blood Count 4.48 M/mm3 (4.2-5.4); White Blood Count 13.0 K/mm3 (4.5-10.0)
[2025-06-02 06:31] LABS: Alanine Aminotransferase 24 U/L (6-35); Albumin Level 4.6 g/dL (3.5-5.1); Alkaline Phosphatase 84 U/L (38-126); Anion Gap 16 mmol/L (4-12); Aspartate Amino Transferase 47 U/L (14-36); Bilirubin,Total 1.0 mg/dL (0.2-1.3); Blood Urea Nitrogen 16 mg/dL (7-17); Calcium 9.5 mg/dL (8.4-10.2); Carbon Dioxide 16 mmol/L (22-30); Chloride 107 mmol/L (98-107); Estimated CRCL calculation 107 ml/min; Estimated Glomerular Filt Rate > 60; Glucose 205 mg/dL (65-110); Lipase 33 U/L (23-300); Potassium 4.1 mmol/L (3.4-5.0); Sodium 139 mmol/L (137-145); Total Protein 7.4 g/dL (6.3-8.2)
[2025-06-02 06:36] VITALS: BP 140/106; PULSE 60; RESP 15; O2SAT 100
[2025-06-02 06:41] LABS: BEDSIDEPREGUCG Negative (Negative)
[2025-06-02 06:44] LABS: Add Urine Microscopic? YES; Appearance Urine Turbid (Clear); Glucose Urine UA Trace mg/dL (Negative); Leukocyte Esterase Ur Negative LEU/UL (Negative); Nitrate Urine Negative (Negative); Non Pathogenic Casts 0-2; Specific Grav Ur 1.016 (1.001-1.035)
[2025-06-02] MEDS: ONDANSETRON INJ 4 MG/2 ML VIAL IV PUSH (06:58)
[2025-06-02] MEDS: SODIUM CHLORIDE 0.9% IV 2,000 ML 999 ML IV CONT (07:25)
[2025-06-02] MEDS: METOCLOPRAMIDE HCL INJ 10 MG/2 ML VIAL IV PUSH (07:30)
[2025-06-02] MEDS: KETOROLAC 15 MG/ML VIAL (*BKC) 30 MG IV PUSH (07:30)
[2025-06-02] MEDS: FAMOTIDINE 20 MG/2 ML VIAL IV PUSH (07:31)
[2025-06-02] MEDS: MIDAZOLAM HCL (*CRX) 2 MG/2 ML VIAL IV PUSH (07:38)
[2025-06-02 07:48] VITALS: BP 161/131; PULSE 64; RESP 17; O2SAT 100
--- NOTE | 2025-06-02 07:48 | ED.GENADULT ---
HPI - General Adult General Chief complaint: Nausea/Vomiting/Diarrhea Stated complaint: mass cell activation symdrom Time Seen by Provider: 06/02/25 06:55 History of Present Illness HPI narrative: 44-year-old female presents to the emergency department for evaluation for cyclic nausea and vomiting. Patient reports the last episode was approximately 2 months ago. 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 Patient does have a protocol written by her primary care physician. Patient does admit to daily THC use but she does not feel this is due to cannabinoid hyperemesis syndrome. Related Data Home Medications ?Medication ?Instructions ?Recorded ?Confirmed ?Last Taken ?Type alprazolam 0.5 mg tablet 0.5 mg PO DAILY 03/01/25 03/01/25 Unknown History aspirin 81 mg tablet,delayed 81 mg PO BID 03/01/25 03/01/25 Unknown History release (Ecotrin Low Strength) cholecalciferol (vitamin D3) 25 1,000 unit PO HS 03/01/25 03/01/25 Unknown History mcg (1,000 unit) tablet famotidine 10 mg tablet (Acid 10 mg PO BID 03/01/25 03/01/25 Unknown History Controller) ferrous bis-glycinate chelate 4 See Rx Instructions PO .COMPLEX 03/01/25 03/01/25 Unknown History mg-cyanocobalamin 100 mcg capsule melatonin 10 mg capsule 10 mg PO HS 03/01/25 03/01/25 Unknown History meloxicam 15 mg tablet 15 mg PO DAILY PRN pain 03/01/25 03/01/25 Unknown History multivitamin with minerals-folic 1 tablet PO DAILY 03/01/25 03/01/25 Unknown History acid 0.4 mg tablet promethazine 25 mg tablet 25 mg PO Q6H PRN nausea and 03/01/25 03/01/25 Unknown History vomiting sertraline 100 mg tablet 100 mg PO DAILY 03/01/25 03/01/25 Unknown History valacyclovir 500 mg tablet 500 mg PO DAILY 03/01/25 03/01/25 Unknown History Allergies Allergy/AdvReac Type Severity Reaction Status Date / Time No Known Allergies Allergy Verified 06/02/25 06:41 Review of Systems Review of Systems: All systems reviewed & are unremarkable except as noted in HPI and below PMFSH Past Medical History Medical History Mast cell activation syndrome Cyclical vomiting syndrome Social History Social History Smoking status: Current some day smoker Tobacco type: cigars Alcohol intake: never Substance use: current Substance use type: marijuana Do You Feel Safe in your Home?: Yes Lack of Transportation: No Lack of Food: Never True Current Housing: I Have Housing Concerned About Future Housing: No Difficulty Paying Gas/Electric Bills: No Difficulty Paying for Meds: No Currently Unemployed: No Education: Decline to Answer Difficulty w/ Childcare or Family Care: No Spiritual care concerns: No Exam Narrative: APPEARANCE: Uncomfortable due to nausea and vomiting HEAD: normocephalic, atraumatic. EYES: PERRLA/EOMI, conjunctivae clear. NOSE: Normal no drainage EARS:TMS clear with good light reflex. THROAT: Pharynx clear, no exudate. NECK: Supple. No adenopathy, no masses. RESPIRATORY: Airway patent, respirations nonlabored. Clear to auscultation bilaterally, no rales, rhonchi, wheezing. CARDIOVASCULAR: Regular rate and rhythm without murmurs rubs or gallops. ABDOMINAL: Soft, nontender, nondistended, normal bowel sounds MUSCULOSKELETAL: Moves all extremities. Strength/ROM intact, No edema, No calf tenderness. NEURO: Alert. Cranial nerves II through XII intact. Good gait. Good coordination SKIN: Warm, dry. Normal Color Course Vital Signs Vital signs: Vital Signs Temperature 98.1 F 06/02/25 05:46 Pulse Rate 62 06/02/25 05:46 Respiratory Rate 32 H 06/02/25 05:46 Blood Pressure 137/102 H 06/02/25 05:46 Pulse Oximetry 99 06/02/25 05:46 Oxygen Delivery Room Air 06/02/25 05:46 Temperature 98.1 F 06/02/25 05:46 Pulse Rate 84 06/02/25 10:39 Respiratory Rate 16 06/02/25 10:39 Blood Pressure 165/102 H 06/02/25 10:39 Pulse Oximetry 99 06/02/25 10:39 Oxygen Delivery Room Air 06/02/25 05:46 Medical Decision Making MDM Narrative Medical decision making narrative: 44-year-old female presents to the emergency department for evaluation for cyclic nausea and vomiting. Patient is afebrile but does have a leukocytosis of 13.0 hemoglobin of 14.3. Patient is CMP is well-appearing with a potassium of 4.1. Patient was treated with IV Benadryl, IV Versed, IV fluids, 2 L normal saline, IV Toradol. Patient states that the IM Haldol seemed to help her the most. Patient does admit to smoking THC daily. I do have concerns that patient's symptoms may be secondary due to cannabinoid hyperemesis syndrome. Patient was educated on this and advised to refrain from THC. Patient was also advised to discuss this with her GI physician. All questions concerns were addressed. Differential Diagnosis Differential Diagnosis: Mast cell activation syndrome of flare, cyclic vomiting, cannabinoid hyperemesis syndrome, gastritis, colitis Vital Signs Vital Signs: Vital Signs Temperature 98.1 F 06/02/25 05:46 Pulse Rate 62 06/02/25 05:46 Respiratory Rate 32 H 06/02/25 05:46 Blood Pressure 137/102 H 06/02/25 05:46 Pulse Oximetry 99 06/02/25 05:46 Oxygen Delivery Room Air 06/02/25 05:46 Temperature 98.1 F 06/02/25 05:46 Pulse Rate 84 06/02/25 10:39 Respiratory Rate 16 06/02/25 10:39 Blood Pressure 165/102 H 06/02/25 10:39 Pulse Oximetry 99 06/02/25 10:39 Oxygen Delivery Room Air 06/02/25 05:46 Lab Data Lab results reviewed: Yes I reviewed the patient's lab results. 06/02/25 06:14 06/02/25 06:14 Labs: Lab Results 06/02/25 06/02/25 06/02/25 Range/Units 06:14 06:33 06:38 WBC 13.0 H (4.5-10.0) K/mm3 RBC 4.48 (4.2-5.4) M/mm3 Hgb 14.3 (12.0-15.0) g/dL Hct 41.9 (37.0-47.0) % MCV 93.5 (80-100) fl MCH 31.9 (26-34) pg MCHC 34.1 (32-36) g/dl RDW 14.1 (11.5-14.5) % Plt Count 278 (150-375) k/mm3 MPV 9.8 (7.4-10.4) fl Immature Gran % (Auto) 0.5 (0-0.5) % Neut % (Auto) 86.3 H (45.5-73.1) % Lymph % (Auto) 7.4 L (18.3-44.2) % [place] % (Auto) 4.8 (2.6-8.5) % Eos % (Auto) 0.3 (0-4.4) % Baso % (Auto) 0.7 (0.2-1.2) % Lymph # (Auto) 0.96 (0.9-3.2) K/mm3 [place] # (Auto) 0.6 (0.1-0.6) K/mm3 Eos # (Auto) 0.0 (0-0.3) K/mm3 Baso # (Auto) 0.1 (0.0-0.1) K/mm3 Abs Immat Gran (auto) 0.07 H (0.00-0.031) K/mm3 Absolute Neuts (auto) 11.2 H (1.3-6.7) K/mm3 Absolute Nucleated RBC 0.000 (0.0-0.012) K/mm3 Nucleated RBC % 0.0 (0.0-0.2) % Sodium 139 (137-145) mmol/L Potassium 4.1 (3.4-5.0) mmol/L Chloride 107 (98-107) mmol/L Carbon Dioxide 16 L (22-30) mmol/L Anion Gap 16 H (4-12) mmol/L BUN 16 (7-17) mg/dL Creatinine 0.76 (0.7-1.0) mg/dL Estim Creat Clear Calc 107 ml/min Estimated GFR > 60 (59 - ) Glucose 205 H (65-110) mg/dL Calcium 9.5 (8.4-10.2) mg/dL Total Bilirubin 1.0 (0.2-1.3) mg/dL AST 47 H (14-36) U/L ALT 24 (6-35) U/L Alkaline Phosphatase 84 (38-126) U/L Total Protein 7.4 (6.3-8.2) g/dL Albumin 4.6 (3.5-5.1) g/dL Lipase 33 (23-300) U/L Urine Color Yellow (Yellow) Urine Appearance Turbid H (Clear) Urine pH 8.5 (5.0-9.0) Ur Specific [place] 1.016 (1.001-1.035) Urine Protein Trace (Negative) mg/dL Urine Glucose (UA) Trace H (Negative) mg/dL Urine Ketones 3+ H (Negative) mg/dL Ur Blood (Man) Negative (Negative) Urine Nitrate Negative (Negative) Urine Bilirubin Negative (Negative) Urine Urobilinogen 0.2 (<2.0) mg/dL Leukocyte Esterase Rfl Negative (Negative) CHANG/UL Urine RBC 3-5 H (0-2) /hpf Urine WBC 0-5 (0-3) /hpf Ur Squamous Epith Cells None seen (Few) /hpf Urine Bacteria None seen /hpf Urine Casts 0-2 POC Urine HCG, Qual Negative (Negative) Urine Opiates Screen Negative (Negative) Urine Methadone Screen Negative (Negative) Ur Barbiturates Screen Negative (Negative) Ur Phencyclidine Scrn Negative (Negative) Ur Amphetamine Screen Negative (Negative) U Benzodiazepines Scrn Negative (Negative) Urine Cocaine Screen Negative (Negative) U Cannabinoids Screen Positive A (Negative) Discharge Plan Discharge Clinical Impression: Mast cell activation syndrome, Cyclical vomiting syndrome, Nausea & vomiting Patient Disposition: Home Condition: Stable Instructions: Antibiotic Form, Acute Nausea and Vomiting (ED) Additional Instructions: Continue to educate yourself on cannabinoid hyperemesis syndrome as this may be contributing to some of your symptoms. Continue to have close follow-up with your GI physician. If you have any worsening symptoms then please call or return to the emergency department. Patient Language: Ghanaian Prescriptions: No Action lorazepam [Ativan] 0.5 mg tablet 0.5 mg PO TID PRN (Reason: nausea and vomiting) Qty: 20 0RF potassium chloride [Klor-Con 10] 10 mEq tablet extended release 10 meq PO DAILY Qty: 30 0RF magnesium oxide 200 mg magnesium tablet 200 mg PO DAILY Qty: 30 0RF sertraline 100 mg tablet 100 mg PO DAILY valacyclovir 500 mg tablet 500 mg PO DAILY famotidine [Acid Controller] 10 mg tablet 10 mg PO BID alprazolam 0.5 mg tablet 0.5 mg PO DAILY aspirin [Ecotrin Low Strength] 81 mg tablet,delayed release (DR/EC) 81 mg PO BID iron [id number] 4 mg- 100 mcg capsule See Rx Instructions PO .COMPLEX Rx Instructions: 25 mg orally; take 25 mg by mouth nightly meloxicam 15 mg tablet 15 mg PO DAILY PRN (Reason: pain) promethazine 25 mg tablet 25 mg PO Q6H PRN (Reason: nausea and vomiting) cholecalciferol (vitamin D3) 25 mcg (1,000 unit) tablet 1,000 unit PO HS melatonin 10 mg capsule 10 mg PO HS multivit with min-folic acid 0.4 mg tablet 1 tablet PO DAILY amoxicillin-pot clavulanate 875-125 mg tablet 1 tablet PO Q12H Qty: 5 0RF metoprolol succinate 50 mg Tablet Extended Release 24 Hr 50 mg PO QAM Qty: 30 0RF losartan 25 mg Tablet 25 mg PO DAILY Qty: 30 0RF haloperidol 2 mg tablet 2 mg PO TID PRN (Reason: nausea and vomiting) Qty: 30 0RF metoclopramide HCl [Reglan] 10 mg tablet 10 mg PO Q6H PRN (Reason: nausea and vomiting) Qty: 20 0RF scopolamine base 1 mg over 3 days patch 3 day 1 patch transdermal Q3D PRN (Reason: nausea and vomiting) Qty: 4 0RF Follow-up/Referrals: Mega,Oswaldo Miner MD [Primary Care Provider, Unknown]
--- OUTSIDE RECORDS SUMMARY | 2025-06-02 08:04 | XMS_ITS | Clinical Summary ---
Author Organization [facility] Address [address] [place] [address] Care Team Providers Care Surgical Tech Name Role Phone Oswaldo Ayoub MD Primary Care Provider Source Comments [facility],non-owned Affiliates and Associated Physician Practices is amultiple site organization consisting of ambulatory clinics and hospital sitesin [place], [place], [place] and [place]. This disclosure is being madepursuant to the Care Everywhere program and may not contain all information available regarding this patient. Last updated 18.[facility] [employer] Allergies No known active allergies Medications [...] 19+ 3-dose series) 1998 PAP SMEAR 2000 HPV VACCINE (1 - 3-dose SCDM series) 2006 COVID-19 VACCINE (2 - season) 2024 06/26/2021 DEPRESSION SCREENING 09/26/2024 INFLUENZA VACCINE (#1) 2025 MAMMOGRAM 09/30/2025 09/30/2023, 01/2024, 09/08/2022, Additional [...] 12:07 PM 05/21/2024 4:31 PM Care Teams Surgical Tech Relationship Specialty Start Date End Date Oswaldo Ayoub MD [address] [place] [phone] PCP - General Family Medicine 05/21/24
--- OUTSIDE RECORDS SUMMARY | 2025-06-02 08:04 | XMS_ITS | Encounter Summary ---
Author Organization [facility] Healthcare Address [address] [place] [address] Care Team Providers Care Bottom Turning Lathe Turner Name Role Phone Oswaldo Lei MD Primary Care Provider + Encounter Details Date Type Department Care Team (Late st Contact Info) Description 05/10/2025 Results Follow-Up [facility] Cardiology [address] [place] [address] Daysi Parker NP [address] [place], [place] [id number] Basic metabolic panel Social History Tobacco Use Types Packs/Day Years [...] on filedocumented in this encounter Care Teams Bottom Turning Lathe Turner Relationship Specialty Start Date End Date Oswaldo Lei MD [address] [address] PCP - General Internal Medicine 04/04/25 documented as of this encounter
--- OUTSIDE RECORDS SUMMARY | 2025-06-02 08:04 | XMS_ITS | Clinical Summary ---
Author Organization [facility] Address [address] [place] [address] Care Team Providers Care Sporting Goods Sales Manager Name Role Phone Oswaldo Lei MD Primary Care Provider + Allergies No known active allergies Medications melatonin [...] mouth daily as needed for pain Active ferrous bis-glycinate chelate (IRON BISGLYCINATE CHELATE ORAL) Take 25 mg by mouth nightly Active aspirin 81 mg enteric coated tablet Take 1 tablet (81 mg total) by mouth 2 (two) times a day Active famotidine (PEPCID) 10 mg tablet Take 1 tablet (10 mg total) by mouth 2 (two) times a day 60 tablet 11 10/25/19 25 026 Active metoclopramide (REGLAN) 10 mg tablet Take 1 tablet (10 mg total) by mouth every 6 (six) hours as needed (nausea) 15 tablet 11/12/19 25 Active haloperidoL (HALDOL) 2 mg tablet TAKE 1 TABLET BY MOUTH THREE TIMES DAILY NEEDED FOR NAUSEA OR VOMITING 03/14/20 25 Active LORazepam (ATIVAN) 0.5 mg tablet TAKE 1 TABLET BY MOUTH THREE TIMES DAILY NEEDED FOR NAUSEA OR VOMITING 01/31/20 25 Active scopolamine 1 mg over 3 days patch 3 day APPLY 1 PATCH TOPICALLY TO THE SKIN EVERY 3 DAYS NEEDED FOR NAUSEA OR VOMITING Active sertraline (ZOLOFT) 25 mg tablet Take 1 tablet (25 mg total) by mouth daily 90 tablet 1 03/21/20 25 026 Active sertraline (ZOLOFT) 100 mg tabletIndication s:Moderate episode of recurrent major depressive disorder (HCC),AARON (generalized anxiety disorder) Take 1 tablet (100 mg total) by mouth daily 90 tablet 1 03/21/20 25 Active valACYclovir (VALTREX) 500 mg tablet Take 1 tablet (500 mg total) by mouth daily 90 tablet 2 03/21/20 25 Active atogepant (Qulipta) 60 mg tablet Take 60 mg by mouth daily 90 tablet 1 03/21/20 25 Active Additional Information Patient not taking.Reported on 04/04/2025 rizatriptan (MAXALT) 10 mg tabletIndication s:Migraine Take 1 tablet (10 mg total) by mouth once as needed for migraine May repeat in 2 hours if unresolved. Do not exceed 30 mg in 24 hours. 9 tablet 03/21/20 25 026 Active montelukast (SINGULAIR) 10 mg tablet Take 1 tablet (10 mg total) by mouth nightly at bedtime. 03/27/20 25 Active diclofenac sodium (VOLTAREN) 1 % gelIndications:C hronic pain of both knees Apply 4 g topically 4 (four) times a day 50 g 2 04/04/20 25 026 Active furosemide (LASIX) 40 mg tablet Take 0.5 tablets (20 mg total) by mouth daily 15 tablet 3 05/08/20 25 Active losartan (COZAAR) 25 mg tablet Take 1 tablet (25 mg total) by mouth daily 90 tablet 3 05/20/20 25 Active metoprolol XL (TOPROL-XL) 50 mg extended release tablet Take 0.5 tablets (25 mg total) by mouth every morning 45 tablet 3 05/20/20 25 Active losartan (COZAAR) 25 mg tablet Take 1 tablet (25 mg total) by mouth daily 03/05/20 25 025 Discontin ued(Reord er) metoprolol XL (TOPROL-XL) 50 mg extended release tablet Take 0.5 tablets (25 mg total) by mouth every morning 03/05/20 25 025 Discontin ued(Reord er) furosemide (LASIX) 40 mg tablet Take 0.5 tablets (20 mg total) by mouth daily 15 tablet 3 04/19/20 25 025 Discontin ued(Reord er) Active Problems Problem Noted Date Diagnosed Date Chronic pain of both knees 04/04/2025 Overview (04/04/2025): Bilateral knee pain for decades and has undergone PT. Worse during mast cell activation attacks. Some cracking with knee bending, cannot squat. L knee has caused issues with walking. -Mechanism of injury: none -anterior knee pain, worse with knee flexion -no swelling present History of diverticulitis 04/03/2025 Overview (04/03/2025): Following with GI. High-fiber diet. Diverticulitis 10/2022 status post Augmentin. Colonoscopy 12/2022 left-sided diverticulosis Prediabetes 04/03/2025 Overview (04/03/2025): A1c 5.7% 09/2024 Microscopic hematuria 04/03/2025 Overview (04/03/2025): Urinalysis 10/2024 with 11-20 RBC/HPF, trace bacteria -Microscopic hematuria 10 times since 2022 Herpes labialis 03/21/2025 Overview (04/04/2025): Valacyclovir 500 mg daily. -Cold sores exacerbated by sun exposure Nonischemic cardiomyopathy 03/02/2025 Overview (04/03/2025): Following with Cardiology. Metoprolol succinate 25 mg daily, Lasix 40 mg daily for 3 days given weight gain. Holding losartan 25 mg daily -Currently holding losartan given syncope -Started on metoprolol and losartan 02/2025 because symptomatic hypotension Cyclic vomiting syndrome 10/24/2024 Overview (04/03/2025): Possibly secondary to mast cell activation syndrome and food triggers -Discharge 09/2024 for nausea vomiting given IV fluid, Reglan, Ativan, Pepcid, Benadryl, Toradol, Phenergan. -ED 10/2024 for vomiting and mast cell activation syndrome attack. Reports from multiple nurses that patient was putting fingers down her throat to induce vomiting. Influenza positive. 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 Cruz. On low histamine diet, [facility] attack protocol for attacks. Famotidine 10 mg b.i.d., aspirin 81 mg b.i.d., montelukast 10 mg nightly, lorazepam 0.5 mg t.i.d. PRN for N/V, haloperidol 2 mg t.i.d. PRN for N/V, scopolamine 1 mg PRN, metoclopramide 10 mg q.6 hours PRN -Aspirin was increased to 325 mg daily by GI 12/2024, and then cardiology recommended decreasing. Considering adding Singulair if above treatments fail -started 10/2022 after COVID in 2021. First attack occurred and she said she as dx with diverticulitis Recurrent major depressive disorder, in full rem ission 05/09/2023 Overview (04/04/2025): Sertraline 125 mg daily increased 03/21. Well controlled 03/2025 -Previously on Lexapro. Abilify caused irritability Assessment & Plan (02/14/2025 5:33 PM CDT): [...] Consider adding wellbutrin if still not improving. Abnormal finding on GI tract imaging 11/18/2022 Overview (04/03/2025): Follows with GI. CT abdomen pelvis with contrast with new circumferential thickening of distal esophagus. EGD 12/2022 with LA grade a esophagitis and irregular Z- line and unremarkable pathology Assessment & Plan (02/24/2023 9:51 AM CDT): CT scan of the abdomen and pelvis with contrast showed new circumferential thickening of the distal esophagus. EGD December 2022 with LA grade a esophagitis and irregular Z-line, pathology unremarkable. Assessment & Plan (11/18/2022 10:23 AM TRANSPORTATION DEPARTMENT SUPERVISOR): CT scan of the abdomen and pelvis [...] Gastroesophageal reflux disease without esophagi tis 11/18/2022 Overview (04/03/2025): Follows with GI Dr. Cruz. Famotidine 10 mg b.i.d. in setting of mast cell activation syndrome -EGD 12/2022 with LA grade A esophagitis. No H pylori. Patient completed 4 weeks of PPI and then stopped has symptoms resolved. Assessment & Plan (02/24/2023 10:02 AM CDT): [...] loss Assessment & Plan (11/18/2022 10:50 AM TRANSPORTATION DEPARTMENT SUPERVISOR): GERD for the past year, seems to be getting progressively worse. -start omeprazole 20 mg p.o. daily -RECOMMENDATIONS given include: anti-reflux maneuvers, Avoid acidic foods like oranges and tomatoes., avoidance of spicy foods, avoid eating 3-4 hours before bed, elevation of the head of the bed, and weight loss Migraine without aura and wi thout status migrainosus, not intractable 05/27/2022 Overview (04/04/2025): Atogepant 60 mg daily, rizatriptan 10 mg daily prn. She was told from insurance she had to have prescriptions from neurologist -[facility] was effective but not covered by insurance Assessment & Plan (02/14/2025 5:33 PM CDT): [...] PRN Assessment & Plan (08/23/2022 1:43 PM TRANSPORTATION DEPARTMENT SUPERVISOR): Stable, no changes. Continue current regimen with Nurtec AARON (generalized anxiety disorder) 07/03/2021 Overview (04/04/2025): Sertraline 125 mg daily increased 03/21. alprazolam 0.5 mg daily prn for anxiety but ok to stop since it is well controlled. Also on lorazepam 0.5 mg t.i.d. daily and haloperidol for nausea and vomiting. Well controlled 03/2025 -Previously on Lexapro. Abilify caused irritability Assessment & Plan (02/14/2025 5:33 PM CDT): [...] acceptable. Assessment & Plan (08/23/2022 1:42 PM TRANSPORTATION DEPARTMENT SUPERVISOR): Seeing improvement with xanax Increase dose to 0.5mg - may use TID PRN, usually does not need more than 1-2 times per day and not every day Assessment & Plan (07/14/2022 9:42 AM CDT): Still worsening Tried buspar - did not work, more irritable Start low dose xanax PRN Preventative health care 05/27/2021 Overview (04/04/2025): Colorectal cancer screening (45-75, grade C 76-85): Follows with GI. 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 repeat colonoscopy 12/2027 Lung cancer screening (50-80 if 20 pack-year and not quit within 15 yrs): Tobacco use: Alcohol use: none given mast cell activation Depression screening: Female specific preventative care: Cervical cancer screening (Pap q3yr 21-29, Pap+HPV q5yr >/= 30 and <65): Follows with consulting sales executive at [facility]. 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 No fast food or drinking Cervical intraepithelial neoplasia grade 2 03/11 Overview (04/03/2025): Status post LEEP. Following with consulting sales executive Resolved Problems Problem Noted Date Diagnosed Date Resolved Date Intractable nausea and vomiting 10/24/2024 04/03/2025 Lactic acidosis 10/24/2024 04/03/2025 Dehydration 10/24/2024 04/03/2025 High anion gap metabolic acidosis 10/24/2024 04/03/2025 Abdominal pain 02/24/2024 04/03/2025 Hypokalemia 03/31/2023 04/03/2025 Overview (05/09/2023): Last Assessment & Plan: Admission serum K 3.3 in setting of poor PO intake. Nl serum Mag PLAN: -Replete as needed per protocol Abdominal pain 03/30/2023 12/14/2023 Overview (05/09/2023): Last [...] lower lobe suggest pneumonia. Clinical correlation recommended. History of colon polyps 02/24/2023 07/0 05/2025 Assessment & Plan (02/24/2023 9:51 AM CDT): Colonoscopy December 2022 with Schwann cell hamartoma. -repeat colonoscopy December 2027 Diverticulitis 11/18/2022 12/14/2023 Assessment & Plan (04/06/2023 [...] popcorn Assessment & Plan (11/18/2022 10:52 AM TRANSPORTATION DEPARTMENT SUPERVISOR): Patient started having abdominal pain, diarrhea, nausea, [...] diverticulitis -high-fiber diet Anxiety and depression 05/27/202107/14 Insomnia 11/22/2018 04/03/2025 Chronic headache 03/11/2017 05/27/2022 Encounters Date Type Department Care Team Description 05/10/2025 Results Follow-Up [facility] Cardiology [address] [place] [phone] Daysi Parker NP Basic metabolic panel 04/26/2025 Telephone [facility] Primary Care at [address] [place] [phone] Oswaldo Lei MD 04/04/2025 2:00 PM CDT Office Visit [facility] Primary Care at [address] [place] [phone] Oswaldo Lei MD Chronic pain of both knees (Primary Dx); Recurrent major depressive disorder, in full remission; AARON (generalized anxiety disorder); Migraine without aura and without status migrainosus, not intractable; Class 1 obesity; 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 Telephone [facility] Cardiology [address] [place] [phone] Daysi Parker NP 03/21/2025 2:30 PM CDT Telemedicine [facility] Family Medicine at [address] [place] [phone] Dionne Smiley NP Moderate episode of recurrent major depressive disorder (HCC) (Primary Dx); Migraine without aura and without status migrainosus, not intractable; AARON (generalized anxiety disorder); Mast cell activation syndrome; Nonischemic cardiomyopathy (HCC); 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 Telephone [facility] Family Medicine at [address] [place] [address] Dionne Smiley NP 03/19/2025 Results Follow-Up [facility] Medicine at [address] [place] [phone] Oswaldo Ayoub MD Cardiology Document Scan, SCAN - RADIOLOGY/IMAGING 03/18/2025 2:30 PM CDT Office Visit [facility] Cardiology [address] [place] [address] [address] [place] [phone] Daysi Parker NP Nonischemic cardiomyopathy (HCC) (Primary Dx); Mast cell activation syndrome; Hospital discharge follow-up 03/17/2025 Results Follow-Up [facility] Family Medicine at [address] [place] [phone] Oswaldo Ayoub MD SCAN - RADIOLOGY/IMAGING 03/13/2025 Orders Only [facility] Health Information Management [address] [place] [phone] Oswaldo Ayoub MD 03/13/2025 Telephone [facility] Cardiology [address] [place] [address] [address] [place] [phone] Daysi Parker NP 03/08/2025 Results Follow-Up [facility] Family Medicine at [address] [place] [phone] Oswaldo Ayoub MD Cardiology Document Scan 03/08/2025 Orders Only [facility] Cardiology [address] [place] [phone] Ervin Lew MD 03/06/2025 Results Follow-Up [facility] Family Medicine at [address] [place] [phone] Oswaldo Ayoub MD Cardiology Document Scan, SCAN - RADIOLOGY/IMAGING 03/06/2025 Results Follow-Up [facility] Family Medicine at [address] [place] [phone] Oswaldo Ayoub MD Cardiology Document Scan 03/04/2025 Orders Only [facility] Health Information Management [address] [place] [phone] Ervin Lew MD 03/02/2025 Orders Only [facility] Health Information Management [address] [place] [phone] Ervin Lew MD from Last 3 Months Immunizations Immunization Administration Dates Next Due Influenza, Unspecified 06/26/2024(Deferr ed: Patient Refused),06/26/2023(Deferred: Patient Refused),07/14/2022(Deferred: Patient Refused),06/26/2021(Deferred: Patient Refused),06/26/2021(Deferred: Patient Refused),06/26/2020(Deferred: Patient Refused),06/26/2019(Deferred: Patient Refused) Tdap 06/28/2017 Surgical History Surgery Date Site/Laterality Comments CERVIX SURGERY 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 Nl serum Mag PLAN: -Replete as needed per protocol Lactic acidosis 10/24/2024 Insomnia 11/22/2018 Family History Medical History Relation Name Comments [...] Sign Reading Time Taken Comments Blood Pressure 102/78 04/04/2025 2:05 PM CDT Pulse 73 04/04/2025 2:05 PM CDT Temperature 36.5 C (97.7 F) 01/15/2025 11:23 AM CDT Respiratory Rate 18 01/15/2025 11:2 3 AM CDT Oxygen Saturation 95% 04/04/2025 2:05 PM CDT Inhaled Oxygen Concentration - - Weight 105.6 kg (232 lb 12.8 oz) 04/04/2025 2:05 PM CDT Height 177 cm (5' 9.69) 04/04/2025 2:05 PM CDT Body Mass Index 33.71 04/04/2025 2:05 PM CDT Plan of Treatment Health Maintenance Due Date Last Done Comments Cervical Cancer Screening 1980 Hepatitis C Screening 1980 Hepatitis B Screening 1997 HPV Vaccines (1 - 3-dose SCDM series) 2006 Covid-19 Vaccine ( season) 2024 06/17/2021, 05/27/2021 Influenza Vaccine (#1) 2025 Regular Well Visit/Exam 18-64 06/14/2025 06/14/2024, 06/01/2023, 05/27/2022, Additional history exists Breast Cancer Screening-Mammogram 11/15/2025 11/15/2024, 11/15/2024, 09/30/2023, Additional history exists Depression Screening 02/14/2026 02/14/2025, 02/14/2025, 04/09/2024, Additional history exists DTaP/Tdap/Td Vaccine (2 - Td or Tdap) 06/28/2027 06/28/2017 Colon Cancer Screening-Colonoscopy 01/13/2028 01/12/2023 Pneumococcal vaccine <65 Aged Out No longer eligible based on patient's age to complete this topic Procedures Procedure Name Priority Date/Time Associated Diagnosis Comments BASIC METABOLIC PANEL Routine 05/09/2025 9:28 AM CDT Swelling SCAN - RADIOLOGY/IMAGING 03/13/2025 CARDIOLOGY DOCUMENT SCAN Routine 03/05/2025 11:25 AM CDT SCAN - LABS 03/05/2025 CARDIOLOGY DOCUMENT SCAN 03/04/2025 SCAN - RADIOLOGY/IMAGING 03/04/2025 CARDIOLOGY DOCUMENT SCAN Routine 03/03/2025 11:22 AM CDT CARDIOLOGY DOCUMENT SCAN Routine 03/02/2025 10:00 AM CDT CARDIOLOGY DOCUMENT SCAN Routine 03/02/2025 9:24 AM CDT CARDIOLOGY DOCUMENT SCAN 03/02/2025 SCREENING MAMMOGRAM BILATERAL W CHON Schedule Routine, Read Routine (OP Routine) 09/30/2023 2:22 PM TRANSPORTATION DEPARTMENT SUPERVISOR Screening mammogram, encounter for COLONOSCOPY 01/12/2023 11:44 AM CDT from Last 3 Months or Most Recently Relevant to Health Maintenance Results * Basic metabolic panel (05/09/2025 9:28 AM CDT) [facility] Glucose 85 65 - 99 mg/dL [facility] Comment: Fasting reference interval BUN 17 7 - 25 mg/dL [facility] Creatinine 0.78 0.50 - 0.99 mg/dL [facility] eGFR 95 > OR = 60 mL/min/1.7 3m2 [facility] BUN/creat ratio SEE NOTE: 6 - 22 (calc) [facility] Comment: Not Reported: BUN and Creatinine are within reference range. Sodium 139 135 - 146 mmol/L [facility] Potassium, pl 4.7 3.5 - 5.3 mmol/L [facility] Chloride 103 98 - 110 mmol/L [facility] CO2 30 20 - 32 mmol/L [facility] Calcium 8.8 8.6 - 10.2 mg/dL [facility] Blood 05/09/2025 9:28 AM CDT 05/09/2025 9:29 AM CDT Narrative [facility] - 05/10/2025 2:38 AM CDT FASTING:YES FASTING: YES Daysi Parker NP LAB BLOOD ORDERABLES Mary l Result [facility] [address] [place] [address] * SCAN - RADIOLOGY/IMAGING (03/13/2025) Anatomical Region Laterality Modality Other us Oswaldo Ayoub MD Final Result * Cardiology Document Scan (03/05/2025 11:25 AM CDT) Anatomical Region Laterality Modality Other us Raman Kenney MD [facility] PRO CEDURES Final Result * SCAN - LABS (03/05/2025) us Provider Scanning Final Result * SCAN - RADIOLOGY/IMAGING (03/04/2025) Anatomical Region Laterality Modality Other Ervin Lew MD Mary l Result * [...] SERVICES PROCEDURES Edited Result - Final * Screening Mammogram Bilateral W Chon (09/30/2023 2:22 PM TRANSPORTATION DEPARTMENT SUPERVISOR) Anatomical Region Laterality Modality Breast Bilateral Mammography Impressions 09/30/2023 2:41 PM TRANSPORTATION DEPARTMENT SUPERVISOR BI-RADS ATLAS category (overall): 1 - Negative There is no mammographic evidence of malignancy. A 1 year screening mammogram is recommended. The patient has been or will be contacted. We recommend annual screening mammography for women at average risk of breast cancer beginning at age 40, based on guidelines of the [place] [employer] (ACR Practice Parameter for the Performance of Screening and Diagnostic Mammography) and [place] [employer]. For women with and elevated risk of breast cancer, please refer to the ACR Practice Parameter for specific screening recommendations. The patient will be entered into a reminder system with a target due date of 1 year for her next screening exam. Narrative 09/30/2023 2:41 PM TRANSPORTATION DEPARTMENT SUPERVISOR Screening Mammogram Bilateral W Chon: 09/30/23 The [...] - 01/12/2023 11:44 AM CDT [facility] GI ENDOSCOPY Patient Name: Agustina Tijerina Procedure Date: 01/12/2023 11:44 AM Date of : 1980 Admit Type: Outpatient Age: 42 Gender: Female Attending MD: Ari Swan M.D. Room: [facility] ENDOSCOPY ROOM 06 Note Status: [...] On: 01/12/2023 11:44 AM Recognized by the [place] [employer] for promoting quality in endoscopy Ari Swan MD ENDOSCOPY PROCEDURES Final Resul t from Last 3 Months or Most Recently Relevant to Health Maintenance Insurance [facility] Advance Directives For more information, please contact: [phone] * Full Code (Latest Code Status on File) Date Activated Date Inactivated Comments 10/24/2024 10:13 PM 10/25/2024 10:30 PM Care Teams Sporting Goods Sales Manager Relationship Specialty Start Date End Date Oswaldo Lei MD [address] [address] PCP - General Internal Medicine 04/04/25
--- OUTSIDE RECORDS SUMMARY | 2025-06-02 08:04 | XMS_ITS | Encounter Summary ---
Author Organization [facility] Healthcare Address [address] [place] [address] Care Team Providers Care Body Builder Name Role Phone Oswaldo Lei MD Primary Care Provider + Encounter Details Date Type Department Care Team (Late st Contact Info) Description 03/04/2025 Orders Only [facility] Health Information Management [address] [place] [id number] Ervin Lew MD [address] [address] Social History Tobacco Use Types [...] on filedocumented in this encounter Care Teams Body Builder Relationship Specialty Start Date End Date Oswaldo Lei MD [address] [address] PCP - General Internal Medicine 04/04/25 documented as of this encounter
--- OUTSIDE RECORDS SUMMARY | 2025-06-02 08:04 | XMS_ITS | Clinical Summary ---
Author Organization [facility] Address [address] [place] [address] Phone Care Team Providers Care Carpenter Mine Name Role Phone Unavailable Primary Care Provider [...] Encounters Date Type Department Care Team Description 04/30/2025 External Device Data [facility] ABSTRACTION Provider, Abstract 04/10/2025 External Device Data [facility] ABSTRACTION Provider, Abstract 04/10/2025 External Device Data [facility] ABSTRACTION Provider, Abstract 04/09/2025 External Device Data [facility] ABSTRACTION Provider, Abstract 03/12/2025 External Device Data [facility] ABSTRACTION Provider, [...] Sex Assigned at Female 08/06/2024 11:23 AM RN ADMISSION Legal Sex Female 12:30 PM RN ADMISSION Gender Identity Female 08/06/2024 11:23 AM RN ADMISSION Sexual Orientation Not on file Last Filed Vital Signs Vital Sign Reading Time Taken Comments Blood Pressure 120/76 10/08/2024 2:07 PM RN ADMISSION Pulse 61 10/08/2024 2:07 PM RN ADMISSION Temperature 36.4 C (97.5 F) 10/08/2024 2:07 PM RN ADMISSION Respiratory Rate - - Oxygen Saturation 97% 10/08/2024 2:07 PM RN ADMISSION Inhaled Oxygen Concentration - - Weight 117.9 kg (260 lb) 10/08/2024 2:07 PM RN ADMISSION Height 180.3 cm (5' 11) 10/08/2024 2:07 PM RN ADMISSION Body Mass Index 36.26 10/08/2024 2:07 PM RN ADMISSION Plan of Treatment Upcoming Encounters Date Type Department Care Team (Late st Contact Info) Description 10/09/2025 2:00 PM RN ADMISSION Office Visit [facility] 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 - [id number] [place] [address] Gin Castro NP [address] [place] [address] Health Maintenance Due Date Last Done Comments Pre-Diabetes and Diabetes Screening 1979 HEPATITIS B VACCINES (1 of 3 - 19+ 3-dose series) 1998 HPV VACCINES (1 - 3-dose SCD M series) 2006 FIT-DNA Q 3 years 2024 FIT/FOBT Q 1 year 2024 Flex Sig/CT Colonography Q 5 years 2024 INFLUENZA VACCINE (#1) 2025 BREAST CANCER SCREENING 11/15/2025 11/15/19, 09/30/2023, 09/30/2023, Additional history exists DTAP/TDAP/TD VACCINES (2 - T d or Tdap) 06/28/2027 06/28/2017 PAP SMEAR 10/08/2027 10/08/2024, 10/04/2023 CERVICAL CANCER SCREENING 10/08/2029 HPV/Cotest (21-29) 10/08/2029 10/08/2024, 10/04/2023 HPV/Cotest (30-65) 10/08/2029 10/08/2024, 10/04/2023 COLORECTAL SCREENING 01/12/2033 01/12/2023, 01/13/20 23 Colorectal Cancer Screening 01/12/2033 Procedures Procedure Name Priority Date/Time Associated Diagnosis Comments MAMMO 3D TAYO SCREEN BILAT W OR WO CAD Routine 11/15/2024 2:23 PM RN ADMISSION Screening mammogram for breast cancer CERV/VAG CYTO AGE BASED SCREEN PAP Routine 10/08/2024 2:35 PM RN ADMISSION Well woman exam with routine gynecological exam Screening for HPV (human papillomavirus) Encounter for Papanicolaou smear for cervical cancer screening H/O LEEP from Last 3 Months or Most Recently Relevant to Health Maintenance Results * MAMMO 3D TAYO SCREEN BILAT W OR WO CAD (11/15/2024 2:23 PM RN ADMISSION) Anatomical Region Laterality Modality Breast Bilateral Mammography 11/15/2024 2:24 PM RN ADMISSION Addenda Addendum by Tom Barber MD on 11/30/2024 9:07 AM RN ADMISSION Prior mammograms from an outside facility are [...] in one year. Impressions 11/15/2024 2:44 PM RN ADMISSION IMPRESSION: 1. Need outside films. OVERALL FINAL ASSESSMENT: BI-RADS CATEGORY 0: Incomplete, needs comparison to prior mammograms. RECOMMENDATIONS: 1. Outside films will be obtained. An addendum will be dictated when these films are available. DICTATION LOCATION: [facility] Narrative 11/15/2024 2:44 PM RN ADMISSION BILATERAL SCREENING DIGITAL MAMMOGRAM WITH 3D TOMOSYNTHESIS [...] AGE BASED SCREEN PAP (10/08/2024 2:35 PM RN ADMISSION) COMMENT (PAP): [facility] Comment: This order for age-based cervical cancer and STI screening follows ACOG guidelines(PB 168, 140, AGP569). See individual assays for performing site location. CLINICAL INFORMATION [facility] Comment:None given LAST MENSTRUAL PERIOD [facility] Comment:NONE GIVEN PREV PAP: [facility] [place] Comment:10/04/2023 NIL PREV BX: [facility] [place] Comment:NONE GIVEN SOURCE [facility] [place] Comment:Endocervix ADEQUACY: [facility] [place] Comment: Satisfactory for evaluation. Endocervical/transformation zone component present. Age and/or menstrual status not provided PAP INTERP [facility] [place] Comment: Cytology Results: Negative for intraepithelial lesion or malignancy. COMMENT (PAP TEST) [facility] [place] Comment: This Pap test has been evaluated with computer assisted technology. RAIL DOWELING MACHINE OPERATOR: Juaquin est [facility] Comment: TMK, CT(ASCP) CT screening location: [place] [address] [place] [address] EXPLANATORY NOTE [facility] Comment: EXPLANATORY NOTE: The Pap is a [...] information. HPV E6/E7 Not Detected Not Detected [facility] [place] Comment: Methodology: Repatcher-Mediated Amplification This assay detects E6/E7 viral messenger RNA (mRNA) from 14 high-risk HPV types (16,18,31,33,35,39,45,51,52,56,58,59,66,68). Cervical sources are required for HPV testing. If a vaginal source from a patient who has had a total hysterectomy with removal of cervix was submitted, please contact the testing laboratory for alternative testing options. For additional information, please refer to http://education.I-Pulse/faq/WPM070o7 (This link if provided for information/ educational purposes only.) Test Performed at: [facility] [id number] [address], [place] [id number] Barbie GARCIA Genital SWAB OF ENDOCERVIX / Unknown 10/08/2024 2:35 PM RN ADMISSION 10/09/2024 12:19 AM RN ADMISSION Gin Castro NP PATHOLOGY/CYTOLOGY ORDERABL ES Final Result [facility] [phone] [facility] [id number] [place] [phone] from Last 3 Months or Most Recently Relevant to Health Maintenance Insurance [address] [employer] [address]
[2025-06-02] MEDS: HALOPERIDOL LACTATE 5 MG/ML VIAL IM (08:58)
[2025-06-02 09:52] LABS: Cannabinoid Screen Urine Positive (Negative)
[2025-06-02 10:39] VITALS: BP 165/102; PULSE 84; RESP 16; O2SAT 99
== END 2025-06-02 10:40 | disposition home or self-care (01) ==
PROVIDERS: Emergency Medicine; Emergency Provider Emergency Medicine; PCP Family Medicine
DX: D89.40 Mast cell activation, unspecified (principal); R11.15 Cyclical vomiting syndrome unrelated to migraine; R11.2 Nausea with vomiting, unspecified; Z72.0 Tobacco use
CPT/HCPCS: 36415; 80053; 80307; 81001; 81025; 83690; 85025; 96361; 96372; 96374; 96375; 99284; J1200; J1630; J1885; J2250; J2405; J2765; J7030